=== PATIENT | male | born 1955 | race Caucasian/White ===

== ENCOUNTER 2018-05-18 09:20 | Emergency (ER) | payer MEDICAID, SELFPAY ==
[2018-05-18] VITALS (21 sets, daily range): BP systolic 123–165; BP diastolic 78–95; PULSE 68–84; RESP 14–31; TEMP 36.4–36.7; O2SAT 96–99
--- NOTE | 2018-05-18 10:16 | ED.GENADUL ---
Disposition Clinical Impression: Contusion of right knee, Generalized weakness Disposition: HOME Instructions: Contusion in Adults (ED), Weakness (ED) Additional Instructions: Please follow-up with your primary care physician. Call today to schedule. Please take it easy over the next few days. Allow for plenty of rest. Return to the emergency department immediately for any worsening or new concerning symptoms. Referrals: Ethel Collins MD [Primary Care Provider] - Medical Decision Making - Lab Data Laboratory Tests 05/18/18 05/18/18 05/18/18 10:25 10:25 10:25 WBC 9.23 RBC 3.52 L Hgb 11.2 L Hct 32.3 L MCV 91.8 MCH 31.8 MCHC 34.7 RDW 13.6 Plt Count 189 MPV 9.9 Immature Gran % 0.2 Neutrophils % 70.3 Lymphocytes % 15.0 Monocytes % 10.8 Eosinophils % 3.3 Basophils % 0.4 Absolute Neutrophils 6.49 Absolute Lymphocytes 1.38 Absolute Monocytes 1.00 H Absolute Eosinophils 0.30 Absolute Basophils 0.04 Sodium 139 Potassium 3.6 Chloride 105 Carbon Dioxide 23.8 Anion Gap 10.2 BUN 58 H Creatinine 5.41 H* Estimated GFR/1.73 m2 10.76 Glucose 199 H Calcium 9.2 Magnesium 1.9 Total Bilirubin 0.4 AST 13 L ALT 18 Alkaline Phosphatase 103 Troponin I < 0.02 NT-Pro-B Natriuret Pep 3402 H Total Protein 7.5 Albumin 3.9 TSH 4.16 H Free T4 1.12 Results reviewed for labs ordered during visit: Yes - Medical Decision Making Medical screening exam was performed. 62-year-old male with multiple medical problems including chronic kidney disease, coronary artery disease, cognitive delay, diabetes, presents with generalized weakness and status post fall last night where he notes his legs gave out. No syncope. Patient complaining of pain in his right knee. Normal blood pressure, saturating well in no respiratory distress. ECG reviewed and interpreted by me: Sinus rhythm 71 bpm, left axis, LVH, nondiagnostic, no change from prior. Labs reviewed and chronic kidney disease noted. BNP is elevated but this is in the setting of chronic kidney disease. Patient saturating well no respiratory distress with no signs of overt CHF. xray of the right knee interpreted by radiologY: neg for acute process. Suspect contusion. Will provide chuy wrap. Patient reassessed remained stable here in emergency department. I encouraged him to follow-up with his primary care physician. He understands importance of timely follow-up and will call today to schedule. I encouraged him to return should have any worsening or new concerning symptoms. History of Present Illness - General Chief complaint: Orthopedic Stated complaint: FALL INJURY Time Seen by Provider: 05/18/18 10:00 Source: patient, RN notes reviewed Mode of arrival: ambulatory Limitations: no limitations - History of Present Illness Initial comments: 62-year-old male with multiple medical problems including chronic kidney disease, coronary artery disease, cognitive delay, diabetes, presents with generalized weakness and status post fall last night where he notes his legs gave out. He did not loose consciousness. Patient complaining of pain in his right knee. Pain is moderate and worse with movement of knee and on palpation anterior and inferior. Pain described sore. Patient has had generalized weakness over the apst 1-2 weeks. No associated numbness. No CP or SOB. - Related Data Polyethylene Glycol 3350 [Miralax] 34 g PO BID PRN packet 03/03/13 Dorzolamide HCl/Timolol Maleat [Dorzolamide-Timolol Eye Drops] 1 drp OP BID drp 11/18/13 BuPROPion CR [Wellbutrin Sr] 200 mg PO DAILY 03/22/15 Blood Sugar Diagnostic [Freestyle Lite Strips] 1 each QID #100 strip 05/03/15 Lancets [Freestyle Lancets] 1 each QID #100 each 05/03/15 Cholecalciferol (Vitamin D3) [Vitamin D3] 2,000 unit PO DAILY 11/02/15 Dund[place], Insulin Disposable [Bd Ultra-Fine Pen Needle] 1 each AC & HS #350 ndl 12/12/15 Calcitriol [Rocaltrol] 0.25 mcg PO DAILY 03/21/16 Loperamide [Imodium] 2 mg PO QLOOSE PRN cap 05/04/16 Melatonin 2 mg PO DIRECTED 02/09/17 Furosemide 20 mg PO DAILY PRN 02/11/17 Gabapentin 400 mg PO BID tab-cap 02/18/17 Diaper,Brief,Adult,Disposable [Adult Brief] 1 each TID #300 each 06/04/17 Atorvastatin Calcium 80 mg PO DAILY #30 tab-cap 06/23/17 Albuterol Sulfate [Proair Hfa] 2 puff IH Q4H PRN #1 inh 07/29/17 Capsaicin [Zostrix] 1 flash TP TID #1 tube 08/12/17 Lidocaine 1 each TP HS PRN #30 patch 09/08/17 Clopidogrel [Plavix] 75 mg PO DAILY #30 tab-cap 11/10/17 Docusate Sodium 100 mg PO BID #60 tab-cap 11/10/17 Insulin Aspart [NovoLOG Flexpen] 5 unit SQ 3X/DAY #10 pen 11/18/17 Lidocaine [Lidoderm] 1 each TP PRN patch 12/23/17 Amlodipine Besylate 10 mg PO DAILY #30 tab-cap 12/29/17 Hydralazine HCl 10 mg PO BID #60 tab-cap 12/29/17 Metoclopramide [Reglan] 5 mg PO TID #90 tab-cap 12/29/17 Torsemide 20 mg PO BID #60 tab-cap 12/29/17 Solifenacin [Vesicare] 5 mg PO DAILY #30 tab-cap 01/01/18 Insulin Detemir [Levemir Flextouch] 15 unit SQ DAILY #5 pen 01/02/18 Finasteride 5 mg PO DAILY #90 tab-cap 02/10/18 Metoprolol [Lopressor] 25 mg PO BID #60 tab-cap 04/08/18 Tamsulosin HCl 0.8 mg PO DAILY #60 tab-cap 04/08/18 Dexlansoprazole [Dexilant] 60 mg PO BID #60 cap 05/19/18 Allergies Allergy/AdvReac Type Severity Reaction Status Date / Time buspirone Allergy Intermediate SKIN RASH, Unverified 05/21/18 10:06 DIZZINESS tuberculin, purified protein Allergy Unknown Unverified 05/21/18 10:06 deriva mirtazapine AdvReac Severe hypotension Unverified 05/21/18 10:06 and falls NO BLOOD PRESSURE (L) ARM AdvReac Severe Uncoded 08/12/17 11:51 Review of Systems Constitutional: denies: fever Respiratory: denies: shortness of breath Cardiovascular: denies: chest pain Gastrointestinal: denies: abdominal pain Musculoskeletal: as per HPI Neurological: weakness (generalized with no focAl deficits) Comment: All other systems reviewed and negative Past Medical History - Past Medical History Medical history: CAD, CVA/TIA, diabetes, hyperlipidemia Surgical history: vascular surgery Family history: no significant family history - Social History Alcohol use: none Drug use: none General Exam - General Limitations: no limitations General appearance: alert, in no apparent distress - Head Head exam: Present: atraumatic, normocephalic - Eye Eye exam: Present: EOMI. Absent: scleral icterus, conjunctival injection - ENT ENT exam: Present: mucous membranes moist - Respiratory Respiratory exam: Present: normal lung sounds bilaterally. Absent: respiratory distress, wheezes, rales, rhonchi - Cardiovascular Cardiovascular Exam: Present: regular rate, normal rhythm, normal heart sounds - GI/Abdominal GI/Abdominal exam: Present: soft. Absent: distended, tenderness - Extremities Exam Extremities exam: Present: other (RLE: knee ttp anterior and inferior lateral. No effusion. Able to flex and ext fully against gravity. Neg ant drawer. ). Absent: pedal edema - Neurological Exam Neurological exam: Present: alert. Absent: altered, motor sensory deficit - Skin Skin exam: Present: warm, dry, intact Course Vital Signs - 24 hr 05/18/18 09:21 Temperature 36.7 C Pulse 84 Respiratory 16 Rate Blood Pressure 123/78 Pulse Oximetry 96
[2018-05-18 10:42] LABS: Abs Immature Grans 0.02 k/cumm (0.0-0.09); Absolute Basophil Count 0.04 k/cumm (0.0-0.2); Absolute Lymphocyte Count 1.38 k/cumm (1.2-3.4); Absolute Neutrophil Count 6.49 k/cumm (1.2-6.7); Basophils % 0.4; Eosinophils % 3.3; HCT 32.3 % (40.0-50.0); HGB 11.2 g/dL (13.5-17.5); Immature Grans % 0.2; Mean Corp. HGB Concentration 34.7 g/dL (32.0-36.0); Mean Corpuscular Hemoglobin 31.8 pg (27.0-33.0); Mean Corpuscular Volume 91.8 fL (80-95); Mean Platelet Volume 9.9 fL (8.0-11.0); Monocytes % 10.8; Neutrophils % 70.3; Platelet Count 189 x1000/uL (130-400); RBC 3.52 m/cumm (4.50-6.00); RBC Distribution Width 13.6 % (11.8-14.1); White Blood Cell Count 9.23 k/cumm (4.4-10.8)
--- NOTE | 2018-05-18 10:45 | DI.REPORT_ITS ---
SYMPTOMS/DIAGNOSIS: PAIN, FALL, TENDER ANTERIOR RIGHT KNEE: Four views. No acute fracture or dislocation is seen. Mild degenerative changes are seen in the knee. Chondrocalcinosis is present in the femoral tibial joint space. Vascular calcifications are noted. IMPRESSION: No acute fracture or dislocation.
[2018-05-18 11:03] LABS: ALT 18 U/L (12-78); AST 13 U/L (15-37); Albumin 3.9 g/dL (3.4-5.0); Alkaline Phosphatase 103 U/L (46-116); Anion Gap 10.2 mmol/L (3-11); BUN 58 mg/dL (7-18); Bilirubin, Total 0.4 mg/dL (0.2-1.0); CO2 23.8 mmol/L (21.0-32.0); Calcium 9.2 mg/dL (8.5-10.1); Chloride 105 mmol/L (98-107); Estimated GFR 10.76 (mL/min/1.73m2); Glucose 199 mg/dL (70-100); Magnesium 1.9 mg/dL (1.8-2.4); Potassium 3.6 mmol/L (3.5-5.1); Sodium 139 mmol/L (136-145); Total Protein 7.5 g/dL (6.4-8.2)
[2018-05-18 11:06] LABS: CREATININE 5.41 mg/dL (0.70-1.30); Troponin I < 0.02 ng/mL (0.00-0.06)
[2018-05-18 11:12] LABS: NT-proBNP 3402 pg/mL; TSH (W/Ref FT4) 4.16 uIU/mL (0.358-3.74)
[2018-05-18 11:35] LABS: FREE T4 1.12 ng/dL (0.76-1.46)
== END 2018-05-18 14:02 | disposition home or self-care (01) ==
LOC: ER 06-20 13:10
PROVIDERS: Emergency Provider Student in an Organized Health Care Education/Training Program; PCP Internal Medicine
DX: S80.01XA Contusion of right knee, initial encounter (principal); R53.1 Weakness; W18.30XA Fall on same level, unspecified, initial encounter; E11.22 Type 2 diabetes mellitus with diabetic chronic kidney disease; Z79.4 Long term (current) use of insulin; I12.9 Hypertensive chronic kidney disease with stage 1 through stage 4 chronic kidney disease, or unspecified chronic kidney disease; N18.9 Chronic kidney disease, unspecified
CPT/HCPCS: 36415; 80053; 99285; 73564; 83735; 83880; 84439; 84443; 84484; 85025; 93010; 99281

== ENCOUNTER 2018-06-20 13:13 | Inpatient (IN) | payer MEDICARE, MEDICAID, SELFPAY ==
[2018-06-20 13:36] VITALS: BP 180/92; PULSE 99; RESP 26; TEMP 36.8
[2018-06-20 13:39] VITALS: RESP 26
--- NOTE | 2018-06-20 13:40 | DI.CT_ITS ---
SYMPTOM/DIAGNOSIS: FALL, OLD STROKES, ON THINNERS, ABD PAIN THORACIC AND LUMBAR SPINE CT RECONSTRUCTIONS: 06/20 CT reconstructions were performed from raw data set of chest, abdomen and pelvis CT. No thoracic or lumbar spine fracture identified. Severe hypertrophic degenerative changes with multilevel fusion of vertebral end plates throughout the thoracic and lumbar spine noted.
--- NOTE | 2018-06-20 13:40 | DI.COMBO_ITS ---
SYMPTOM/DIAGNOSIS: FALL, OLD STROKES, ON THINNERS, T/L, ABD PAIN CRANIAL CT: 06/[address] was performed. There is moderate generalized cerebral atrophy unusual for this age group. There are bilateral apparent lacunar infarcts. There is no evidence of acute intracranial hemorrhage, mass effect or midline shift. Small basal ganglia calcification noted on the left. The orbital and temporal bone structures appear intact. Possible old pontine infarct noted right paramidline, probably also present on CT of 04/30/2016. CONCLUSION: No evidence of acute intracranial process. CERVICAL SPINE CT: 06/20 CT examination of the cervical region was performed utilizing multi slice acquisition and multi-planar reconstruction. There are moderate degenerative changes of the cervical spine. There is no evidence of acute cervical fracture or dislocation.. Tracheolaryngeal structures appear intact. No gross cervical mass or adenopathy seen. CONCLUSION: No evidence of acute cervical injury CT CHEST, ABDOMEN and PELVIS : 06/20 CT examination of the chest, abdomen and pelvis was performed with no contrast administration. There is patchy air space opacification of the right lower pulmonary lobe, infectious process most likely but pulmonary contusion not entirely excluded. Tracheobronchial tree appears intact throughout. No pleural effusion, pneumothorax or hemothorax seen. No gross evidence of mediastinal hematoma by noncontrast criteria. Liver and spleen grossly unremarkable by noncontrast criteria. Gallbladder and bile ducts are CT normal. Pancreas is fatty replaced but grossly unremarkable. No evidence of bowel injury or bowel obstruction. No significant abdominal wall hernia seen. No significant abdominal or pelvic adenopathy Diverticulosis without evidence of diverticulitis. Adrenals unremarkable in appearance. Kidneys contain multiple nonobstructing calculi. These are mostly likely arterial in nature. Urinary bladder wall is thickened which is a nonspecific finding. No injury of the bones identified in the region surveyed. No pelvic, femoral or spinal fracture seen. CONCLUSION: Question right lower lobe pneumonia vs pulmonary contusion, please correlate clinically.
[2018-06-20 14:08] LABS: Abs Immature Grans 0.02 k/cumm (0.0-0.09); Absolute Eosinophil Count 0.23 k/cumm (0.0-0.7); Absolute Lymphocyte Count 1.19 k/cumm (1.2-3.4); Absolute Monocyte Count 1.36 k/cumm (0.11-0.7); Basophils % 0.1; Eosinophils % 1.6; HGB 11.6 g/dL (13.5-17.5); Immature Grans % 0.1; Lymphocytes % 8.3; Mean Corp. HGB Concentration 34.1 g/dL (32.0-36.0); Mean Corpuscular Hemoglobin 31.5 pg (27.0-33.0); Mean Corpuscular Volume 92.4 fL (80-95); Mean Platelet Volume 9.6 fL (8.0-11.0); Monocytes % 9.5; Neutrophils % 80.4; Platelet Count 167 x1000/uL (130-400); RBC 3.68 m/cumm (4.50-6.00); RBC Distribution Width 13.4 % (11.8-14.1); White Blood Cell Count 14.34 k/cumm (4.4-10.8)
[2018-06-20 14:14] LABS: Absolute Basophil Count 0.01 k/cumm (0.0-0.2); Absolute Neutrophil Count 11.53 k/cumm (1.2-6.7)
[2018-06-20 14:24] LABS: Ammonia 10 umol/L (11-32)
[2018-06-20 14:30] LABS: ALT 21 U/L (12-78); AST 47 U/L (15-37); Albumin 3.8 g/dL (3.4-5.0); Alkaline Phosphatase 105 U/L (46-116); Anion Gap 12.3 mmol/L (3-11); BUN 56 mg/dL (7-18); Bilirubin, Total 0.7 mg/dL (0.2-1.0); CO2 24.7 mmol/L (21.0-32.0); Calcium 9.4 mg/dL (8.5-10.1); Chloride 106 mmol/L (98-107); Estimated GFR 11.44 (mL/min/1.73m2); Glucose 207 mg/dL (70-100); Potassium 3.8 mmol/L (3.5-5.1); Sodium 143 mmol/L (136-145); Total Protein 7.8 g/dL (6.4-8.2)
[2018-06-20 14:33] LABS: CREATININE 5.13 mg/dL (0.70-1.30); Creatine Kinase 1417 U/L (39-308); Troponin I < 0.02 ng/mL (0.00-0.06)
[2018-06-20 14:52] LABS: Bilirubin Negative (Negative); Blood Moderate (Negative); Clarity Clear; Glucose 100 mg/dL (Negative); Ketones Negative (Negative); Leukocyte Esterase Negative (Negative); Nitrite Negative (Negative); Urobilinogen 0.2 EU/dL (Up TO 0.2); pH 5.5 (5-8)
[2018-06-20 15:04] LABS: Bacteria Negative HPF (Negative); C & S Indicated? No; Casts Negative LPF (Negative); Crystals Negative HPF (Negative); Epithelial Cells Negative HPF (Negative); Mucus Negative (Negative); Other Cells Rare Transitional (Negative); WBC 0-2 HPF (0-5)
--- NOTE | 2018-06-20 15:41 | DI.VRAD_ITS ---
EXAM: CT Head Without Intravenous Contrast CLINICAL HISTORY: 62 years old, male; Injury or trauma; Fall; Initial encounter; Blunt trauma (contusions or hematomas); Consciousness not specified; Injury details: Fall, HX stroke, on thinners, t/l spine pain, abd pain TECHNIQUE: Axial computed tomography images of the head/brain without intravenous contrast. All CT scans at this facility use at least one of these dose optimization techniques: automated exposure control; mA and/or kV adjustment per patient size (includes targeted exams where dose is matched to clinical indication); or iterative reconstruction. Coronal and sagittal reformatted images were created and reviewed. COMPARISON: No relevant prior studies available. FINDINGS: Brain: Mild cerebral atrophy and ischemic leukoencephalopathy. No hemorrhage. Ventricles: Unremarkable. No ventriculomegaly. Bones/joints: Unremarkable. No acute fracture. Soft tissues: Unremarkable. Vasculature: Severe calcified intracranial atherosclerotic vessel disease. Sinuses: Unremarkable as visualized. No acute sinusitis. Mastoid air cells: Unremarkable as visualized. No mastoid effusion. IMPRESSION: No acute findings. EXAM: CT Cervical Spine Without Intravenous Contrast CLINICAL HISTORY: 62 years old, male; Injury or trauma; Fall; Initial encounter; Blunt trauma (contusions or hematomas); Consciousness not specified; Injury details: Fall, HX stroke, on thinners, t/l spine pain, abd pain TECHNIQUE: Axial computed tomography images of the cervical spine without intravenous contrast. All CT scans at this facility use at least one of these dose optimization techniques: automated exposure control; mA and/or kV adjustment per patient size (includes targeted exams where dose is matched to clinical indication); or iterative reconstruction. Coronal and sagittal reformatted images were created and reviewed. COMPARISON: CT HEAD WITHOUT CONTRAST 04/30/2016 12:24 PM FINDINGS: Vertebrae: Levoscoliosis. Moderate to severe multilevel degenerative changes including degenerative disc disease, spondylosis and facet degenerative changes. No acute fracture. Discs/spinal canal/neural foramina: See above. Soft tissues: Unremarkable. Lung apices: Unremarkable as visualized. IMPRESSION: No acute findings. Dictated and Authenticated by: Balaji Greenwood MD. Ordering:FERNANDA PEDRO MD
--- NOTE | 2018-06-20 16:09 | DI.VRAD_ITS ---
EXAM: CT Chest Without Intravenous Contrast EXAM DATE/TIME: 06/20/2018 1:43 PM CLINICAL HISTORY: 62 years old, male; Injury or trauma; Fall; Initial encounter; Blunt; Generalized; Blunt trauma (contusions or hematomas); Patient HX: Fall, old strokes, on thinners, t/l and abd pain TECHNIQUE: Axial computed tomography images of the chest without intravenous contrast. Coronal and sagittal reformatted images were created and reviewed. COMPARISON: CT ABD PELVIS WO CONTRAST 04/03/2016 5:13 PM FINDINGS: Lungs: Probable mild to moderate right lower lobe pneumonia. Pleural space: Normal. No pneumothorax. No pleural effusion. Heart: Severe calcified coronary artery disease. Aorta: Calcification of the thoracic aorta and/or great vessels consistent with atherosclerotic vessel disease. Lymph nodes: Unremarkable. No enlarged lymph nodes. Bones/joints: There are large flowing multilevel hypertrophic vertebral body osteophytes consistent with diffuse idiopathic skeletal hyperostosis (DISH) syndrome. Soft tissues: Unremarkable. IMPRESSION: 1. Probable mild to moderate right lower lobe pneumonia. 2. Severe calcified coronary artery disease. EXAM: CT Abdomen and Pelvis Without Intravenous Contrast EXAM DATE/TIME: 06/20/2018 1:43 PM CLINICAL HISTORY: 62 years old, male; Injury or trauma; Fall; Initial encounter; Blunt; Generalized; Blunt trauma (contusions or hematomas); Patient HX: Fall, old strokes, on thinners, t/l and abd pain TECHNIQUE: Axial computed tomography images of the abdomen and pelvis without intravenous contrast. Coronal and sagittal reformatted images were created and reviewed. COMPARISON: CT ABD PELVIS WO CONTRAST 04/03/2016 5:13 PM FINDINGS: Lower thorax: No acute findings. ABDOMEN: Liver: Normal. No mass. Gallbladder and bile ducts: Normal. No calcified stones. No ductal dilation. Pancreas: There is fatty infiltration and/or atrophy of the pancreas. Spleen: Normal. No splenomegaly. Adrenals: Normal. No mass. Kidneys and ureters: Small vessel arterial calcifications in the renal aimee bilaterally which are often associated with chronic renal failure. Stomach and bowel: Moderate diverticulosis. Moderate retained feces. Appendix: The appendix appears normal. PELVIS: Bladder: Unremarkable as visualized. Reproductive: Prominent bilateral vas deferens calcifications which can be related to diabetes, advanced age, mechanical obstruction of the vas deferens, tuberculosis, chronic infections or hyperparathyroidism. ABDOMEN and PELVIS: Intraperitoneal space: Normal. No free air. No significant fluid collection. Bones/joints: Moderate to severe multilevel degenerative changes including degenerative disc disease, spondylosis and facet degenerative changes. Soft tissues: Unremarkable. Vasculature: Severe calcified peripheral vascular disease. Calcification of the abdominal aorta and/or iliac arteries consistent with atherosclerotic vessel disease. There are one or more calcified pelvic phleboliths. Lymph nodes: Normal. No enlarged lymph nodes. IMPRESSION: No acute findings. Dictated and Authenticated by: Balaji Greenwood MD. Ordering:FERNANDA PEDRO MD
--- NOTE | 2018-06-20 16:12 | DI.VRAD_ITS ---
EXAM: CT Thoracic Spine Without Intravenous Contrast CLINICAL HISTORY: 62 years old, male; Injury or trauma; Fall; Initial encounter; Blunt trauma (contusions or hematomas); Injury details: Fall, on thinners; T/l and abd pain TECHNIQUE: Axial computed tomography images of the thoracic spine without intravenous contrast. Coronal and sagittal reformatted images were created and reviewed. COMPARISON: No relevant prior studies available. FINDINGS: Vertebrae: There are large flowing multilevel hypertrophic vertebral body osteophytes consistent with diffuse idiopathic skeletal hyperostosis (DISH) syndrome. No acute fracture. Discs/spinal canal/neural foramina: No acute findings. No spinal canal stenosis. Soft tissues: Unremarkable. IMPRESSION: There are large flowing multilevel hypertrophic vertebral body osteophytes consistent with diffuse idiopathic skeletal hyperostosis (DISH) syndrome. EXAM: CT Lumbar Spine Without Intravenous Contrast CLINICAL HISTORY: 62 years old, male; Injury or trauma; Fall; Initial encounter; Blunt trauma (contusions or hematomas); Injury details: Fall, on thinners; T/l and abd pain TECHNIQUE: Axial computed tomography images of the lumbar spine without intravenous contrast. Coronal and sagittal reformatted images were created and reviewed. COMPARISON: No relevant prior studies available. FINDINGS: Vertebrae: There are large flowing multilevel hypertrophic vertebral body osteophytes consistent with diffuse idiopathic skeletal hyperostosis (DISH) syndrome. No acute fracture. Discs/spinal canal/neural foramina: Ossification of the posterior longitudinal ligament creating multilevel central spinal stenosis. Soft tissues: Unremarkable. IMPRESSION: Ossification of the posterior longitudinal ligament creating multilevel central spinal stenosis. Dictated and Authenticated by: Balaji Greenwood MD. Ordering:FERNANDA PEDRO MD
--- NOTE | 2018-06-20 16:17 | ED.GENADUL_ITS ---
Discharge Plan Disposition Patient Disposition: [facility] INPATIENT Condition: Good Discharge Details Chief Complaint: GenMedical Clinical Impression: Rhabdomyolysis, Chronic kidney disease (CKD), stage V, Community acquired pneumonia, Acute dehydration, Fall Admit Date/Time: 06/20/18 16:34 Admit Provider: Balaji Chan Attending Provider: Balaji Chan Primary Care Provider: Ethel Collins ED Provider: Rolando Gibson Discharge Data Discharge Date/Time-TO BE ENTERED AT DEPARTURE: 06/20/18 17:06 Medical Decision Making This is a 62-year-old male with a past medical history of Parkinson's , strokes, hypertension, diabetes, chronic renal failure for which he has a left -sided fistula, but has not started dialysis and is holding off on dialysis per [facility] nephrology. He takes Plavix for his history of strokes. He also has reactive airway disease. He presents today for cough, confusion, and fall. Caregiver states that his last known well was last night in the late afternoon, when she came by to check on him this morning he was found on the ground. He had not taken any of his home medications, and so she assumes that he had been on the floor all night long. He was unable to get up or help himself. There is no blood or signs of trauma at the scene. Initial physical exam demonstrated tenderness in the lower thoracic vertebra, as well as the cervical vertebra. He does have slight slurred speech, which the caregiver states is slightly different from his normal baseline, however he does have some chronic deficits from his old strokes. She states that normally he is able to walk, however he is supposed to be using a walker at all times. In addition to this she does state that over the last few days he has been complaining of a cough and mild shortness of breath. The patient's imaging workup demonstrates no acute process in the CT head or cervical spine per our radiology and virtual radiology. There are some chronic findings of degeneration and diffuse idiopathic skeletal hyperostosis for his thoracic spine, but no fractures. Virtual rate radiology and our personal radiologist both confirm a concern for a right lower lobe pneumonia. With the patient's cough over the last few days, although he is not hypoxic or tachypneic I feel that treatment of this is reasonable. He does have slightly elevated white count however this could be multifactorial from his fall. We will give the first dose of antibiotics now. We did contact [facility] nephrology, and the hospitalist and I spoke with Dr. Rodriguez and Dr. Morrissey, both of which felt that the patient does not need dialysis , and his current kidney findings and lab values are key account representative of his normal baseline, and not in acute process. Patient does have an elevation in in his CPK, and his creatinine is 5.13 however with the CPK of 1417, [facility] medicine and [facility] nephrology do not feel that he needs dialysis and since he is still able to urinate, and has not needed it on his previous visits. Although he is a CKD 5, he is still maintaining kidney function. The patient's troponin and EKG are also normal. At this time with the patient's notable dehydration, mild rhabdomyolysis, fall, and potential community-acquired pneumonia I do feel that he would benefit from inpatient admission, rehydration. I discussed the case with Dr. stubbs, who agreed to accept the patient for admission. He states that they will continue to monitor the patient 's respiratory status to determine if he needs continued antibiotics for potential pneumonia. I have extensively reviewed the treatment plan with the patient. I have addressed all patient concerns at this time. I have also discussed the plan with the admitting physician and they agree with the current assessment and plan and have agreed to assume responsibility for the patient. All parties demonstrate verbal understanding and agreement with our assessment and plan at this time. EKG 13: 48 Rate, 98 MT 208, QTc 467, sinus rhythm, no significant ST elevations or depressions. No Q waves. No T wave inversions. CT chest impression: 1. Probable mild to moderate right lower lobe pneumonia. 2. Severe calcified coronary artery disease. CT abdomen and pelvis 1. No acute process Virtual radiology CT thoracic spine there are large flowing multilevel hypertrophic vertebral body osteophytes consistent with diffuse idiopathic skeletal hyperostosis syndrome CT of the lumbar spine demonstrates ossification of the posterior longitudinal ligament creating multilevel central spinal stenosis CT scan of the head and C-spine demonstrate no acute process HPI General Date/Time Provider Initiated Documentation: 06/20/18 13:40 . HPI Narrative: This is a 62-year-old male with a past medical history of stage V renal disease, with a left AV fistula who is not a candidate for dialysis yet, type 2 diabetes, hypertension, stroke, regular Plavix use as well as chronic asthma. He presents today for evaluation of fall. His caregiver states that she came and found him on the floor this morning. Unknown as to how long he was down. However she did notice that none of his night meds were taken, and so she was concerned that he had been down all night long. The patient was unable to get up on his own. He does not know if he hit his head or not. He does take Plavix for his history of strokes. His caregiver who is at bedside does state that his speech has been slightly off compared to normal, however she is unsure if it is from his dry tongue or something else. The patient does complain of generalized abdominal tenderness, back pain, neck pain , and headache. He also does state that over the last few days he has been having an increasingly worsened cough. He denies any reductive sputum with his cough. He denies any fever or chills. The patient does live at home alone, he is supposed to be using a walker at all times however he regularly refuses to use a walker. The patient and caregiver have no other complaints at this time. Patient is normally seen at [facility] for management of his renal disease. Related Data Home Medications Medication Instructions Recorded Confirmed polyethylene glycol 3350 [Miralax] 34 g PO BID PRN packet 03/03/13 06/20/18 dorzolamide-timolol 1 drp OPHTHALMIC BID drp 11/18/13 06/20/18 bupropion HCl 200 mg PO DAILY 03/22/15 06/20/18 blood sugar diagnostic [FreeStyle #100 strip 05/03/15 06/20/18 Lite Strips] lancets [FreeStyle Lancets] #100 ea 05/03/15 06/20/18 cholecalciferol (vitamin D3) 2,000 unit PO DAILY 11/02/15 06/20/18 [Vitamin D3] pen needle, diabetic [BD #350 ndl 12/12/15 06/20/18 Ultra-Fine Lynne Pen Needle] calcitriol 0.25 mcg PO DAILY 03/21/16 06/20/18 loperamide 2 mg PO QLOOSE PRN cap 05/04/16 06/20/18 melatonin 2 mg PO DIRECTED 02/09/17 06/20/18 furosemide 20 mg PO DAILY PRN 02/11/17 06/20/18 gabapentin 400 mg PO BID tab-cap 02/18/17 06/20/18 albuterol sulfate [ProAir HFA] 2 puff INHALATION Q4H PRN #1 inh 07/29/17 capsaicin [Zostrix] 1 flash TOPICAL TID #1 tube 08/12/17 clopidogrel [Plavix] 75 mg PO DAILY #30 tab-cap 11/10/17 06/20/18 docusate sodium 100 mg PO BID #60 tab-cap 11/10/17 06/20/18 amlodipine 10 mg PO DAILY #30 tab-cap 12/29/17 06/20/18 metoclopramide HCl 5 mg PO TID #90 tab-cap 12/29/17 06/20/18 torsemide 20 mg PO BID #60 tab-cap 12/29/17 06/20/18 solifenacin [Vesicare] 5 mg PO DAILY #30 tab-cap 01/01/18 06/20/18 insulin detemir U-100 [Levemir 15 unit SQ DAILY #5 pen 01/02/18 06/20/18 FlexTouch U-100 Insuln] finasteride 5 mg PO DAILY #90 tab-cap 02/10/18 06/20/18 metoprolol tartrate 25 mg PO BID #60 tab-cap 04/08/18 06/20/18 tamsulosin 0.8 mg PO DAILY #60 tab-cap 04/08/18 06/20/18 dexlansoprazole [Dexilant] 60 mg PO BID #60 cap 05/19/18 06/20/18 atorvastatin 80 mg tablet 80 mg PO DAILY #90 tab 06/01/18 06/20/18 diaper,brief,adult,disposable #300 ea 06/08/18 06/20/18 insulin aspart U-100 100 unit/mL 5 unit SUBCUT 3X/DAY #10 pen 06/10/18 06/20/18 subcutaneous pen carbidopa ER 25 mg-levodopa 100 mg 1 tab PO TID tab 06/14/18 tablet,extended release gabapentin 400 mg PO BID 06/20/18 06/20/18 Previous Rx's Medication Instructions Recorded loperamide 2 mg PO QLOOSE PRN cap 05/04/16 albuterol sulfate [ProAir HFA] 2 puff INHALATION Q4H PRN #1 inh 07/29/17 capsaicin [Zostrix] 1 flash TOPICAL TID #1 tube 08/12/17 clopidogrel [Plavix] 75 mg PO DAILY #30 tab-cap 11/10/17 docusate sodium 100 mg PO BID #60 tab-cap 11/10/17 amlodipine 10 mg PO DAILY #30 tab-cap 12/29/17 metoclopramide HCl 5 mg PO TID #90 tab-cap 12/29/17 torsemide 20 mg PO BID #60 tab-cap 12/29/17 solifenacin [Vesicare] 5 mg PO DAILY #30 tab-cap 01/01/18 insulin detemir U-100 [Levemir 15 unit SQ DAILY #5 pen 01/02/18 FlexTouch U-100 Insuln] finasteride 5 mg PO DAILY #90 tab-cap 02/10/18 metoprolol tartrate 25 mg PO BID #60 tab-cap 04/08/18 tamsulosin 0.8 mg PO DAILY #60 tab-cap 04/08/18 dexlansoprazole [Dexilant] 60 mg PO BID #60 cap 05/19/18 atorvastatin 80 mg tablet 80 mg PO DAILY #90 tab 06/01/18 diaper,brief,adult,disposable #300 ea 06/08/18 insulin aspart U-100 100 unit/mL 5 unit SUBCUT 3X/DAY #10 pen 06/10/18 subcutaneous pen Allergies Allergy/AdvReac Type Severity Reaction Status Date / Time buspirone Allergy Intermediate SKIN RASH, Unverified 06/20/18 15:56 DIZZINESS tuberculin, purified protein Allergy Unknown Unverified 06/20/18 15:56 deriva mirtazapine AdvReac Severe hypotension Unverified 06/20/18 15:56 and falls NO BLOOD PRESSURE (L) ARM AdvReac Severe Uncoded 06/20/18 15:56 General Stated Complaint: GenMedical GERHARD: 3 Review of Systems Review of Systems 10 point review of systems was performed, pertinent positives and negatives are noted in the history of present illness. [facility] Family History Mother No problems noted. Father No problems noted. Medical History BPH (benign prostatic hyperplasia) CAD (coronary artery disease) CHF (congestive heart failure), NYHA class I Chronic kidney disease, stage IV (severe) Diabetic neuropathy Diabetic retinopathy Essential hypertension GERD (gastroesophageal reflux disease) Hyperlipidemia KYLE (obstructive sleep apnea) Stroke Type II diabetes mellitus Social History caregiver/support person: Yes housing: other details: mobile home current occupational status: unemployed Smoking/Tobacco Use Status: Never alcohol intake: never substance use type: does not use seatbelt use: always water heater temp set < 120 deg: Yes working smoke detector in home: Yes carbon monox detector in home: Yes Surgical History Colonoscopy - IV Sedation (04/16/15) EGD - MAC (07/22/17) Endoscopy (07/17/14) Extraction of cataract (03/27/15) Repair of inguinal hernia Exam Narrative Exam Narrative: 1.Const: Well-nourished, Well-developed, appearing stated age 2.Eyes: PERRL, no conjunctival injection, and symmetrical lids. 3.ENT: Atraumatic external nose and ears. Moist MM. Neck: Symmetric, trachea midline, No thyromegaly. There is no evidence of raccoon eyes, gomez sign, CSF rhinorrhea, mastoid tenderness, cranial crepitus, hemotympanum, exophthalmos , or hyphema. Patient demonstrates intact dentition with no signs of tooth avulsion or fracture, no signs of jaw deformity, no evidence of a LeFort's fracture, with an intact palate, nose and orbital region. There is no evidence of a nasal septal hematoma. No proptosis. Jaw closes symmetrically. Airway is clear. 4.CVS: +S1/S2, No murmurs or gallops. Peripheral pulses 2+ and equal in all extremities. Brisk capillary refill in all extremities. 5.RESP: Unlabored respiratory effort. No significant wheezes or rhonchi. Minimal crackles in bases. 6.GI: Soft, generalized tenderness throughout, no focality. Slightly worsened tenderness on the right than the left. No signs of significant bruises or trauma. 7.MSK: Normocephalic/Atraumatic, Extremities w/o deformity. No cyanosis or clubbing, Normal movement of all extremities. Left-sided AV fistula noted at the proximal component of the left arm. 5 out of 5 strength of the upper and lower extremities. Normal abstractor strength bilaterally. Normal movement and coordination of the upper and lower extremities. 5 out of 5 strength for the lower extremities, normal sensation for the upper and lower extremities. Radial pulses and dorsalis pedis pulses +2 bilaterally. No signs of significant deformity or trauma. Patient does have midline thoracic spine tenderness at T10-11 and 12. No significant lumbar spine tenderness. No step- offs 8.Skin: Warm, Dry. No rashes or lesions. 9.Neuro: sizing machine tender II-XII grossly intact. Sensation grossly intact, no focal neurologic deficits. Patient does have minimal slurring of the speech, however he also has notable macroglossia and his tongue is very dry. It is difficult to determine whether it is his current oral state that is changing his speech. He is able to swallow well. Movement of all extremities appears to be symmetric. The patient does have some chronic upper and lower extremity weakness secondary to his old stroke. He demonstrates normal coordination of his extremities. Normal sensation. NIH score is 0 10.Psych: (AAO) x3. Appropriate mood and affect Course Vital Signs Temperature 36.8 C 06/20/18 13:36 Pulse 99 H 06/20/18 13:36 Respiratory Rate 26 H 06/20/18 13:36 Blood Pressure 180/92 H 06/20/18 13:36 Temperature 36.8 C 06/20/18 13:36 Temperature Source Temporal Artery Scan 06/20/18 13:36 Pulse 99 H 06/20/18 13:36 Respiratory Rate 26 H 06/20/18 13:39 Respiratory Effort 06/20/18 13:39 Respiratory Depth Shallow 06/20/18 13:39 Respiratory Pattern Tachypnea 06/20/18 13:39 Blood Pressure 180/92 H 06/20/18 13:36 Blood Pressure Position Supine 06/20/18 13:36 Oxygen Delivery Method Room Air 06/20/18 13:36 Oxygen Flow Rate 0 06/20/18 13:36 Pain Level 10 06/20/18 13:36 Lab/Test Results Lab/Test Results: Laboratory Tests Range/Units 06/20/18 06/20/18 06/20/18 14:00 14:00 14:00 WBC (4.4-10.8) k/cumm 14.34 H RBC (4.50-6.00) m/cumm 3.68 L Hgb (13.5-17.5) g/dL 11.6 L Hct (40.0-50.0) % 34.0 L MCV (80-95) fL 92.4 MCH (27.0-33.0) pg 31.5 MCHC (32.0-36.0) g/dL 34.1 RDW (11.8-14.1) % 13.4 Plt Count (130-400) x1000/uL 167 MPV (8.0-11.0) fL 9.6 Immature Gran % 0.1 Neutrophils % 80.4 Lymphocytes % 8.3 Monocytes % 9.5 Eosinophils % 1.6 Basophils % 0.1 Absolute Neutrophils (1.2-6.7) k/cumm 11.53 H Absolute Lymphocytes (1.2-3.4) k/cumm 1.19 L Absolute Monocytes (0.11-0.7) k/cumm 1.36 H Absolute Eosinophils (0.0-0.7) k/cumm 0.23 Absolute Basophils (0.0-0.2) k/cumm 0.01 Sodium (136-145) mmol/L 143 Potassium (3.5-5.1) mmol/L 3.8 Chloride (98-107) mmol/L 106 Carbon Dioxide (21.0-32.0) mmol/L 24.7 Anion Gap (3-11) mmol/L 12.3 H BUN (7-18) mg/dL 56 H Creatinine (0.70-1.30) mg/dL 5.13 H* Estimated GFR/1.73 m2 (mL/min/1.73m2) 11.44 Glucose (70-100) mg/dL 207 H Calcium (8.5-10.1) mg/dL 9.4 Total Bilirubin (0.2-1.0) mg/dL 0.7 AST (15-37) U/L 47 H ALT (12-78) U/L 21 Alkaline Phosphatase (46-116) U/L 105 Ammonia (11-32) umol/L 10 L Creatine Kinase (39-308) U/L 1417 H Troponin I (0.00-0.06) ng/mL < 0.02 Total Protein (6.4-8.2) g/dL 7.8 Albumin (3.4-5.0) g/dL 3.8 Urine Color (Yellow) Urine Clarity Urine pH (5-8) Ur Specific [place] (1.005-1.025) Urine Protein (Negative) mg/dL Urine Ketones (Negative) mg/dL Urine Blood (Negative) Urine Nitrite (Negative) Urine Bilirubin (Negative) Urine Urobilinogen (Up TO 0.2) EU/dL Ur Leukocyte Esterase (Negative) Urine RBC (0-2) Urine WBC (0-5) HPF Ur Epithelial Cells (Negative) HPF Urine Crystals (Negative) HPF Urine Bacteria (Negative) HPF Urine Casts (Negative) LPF Urine Mucus (Negative) Urine Other (Negative) Ur Culture Indicated? Urine Glucose (Negative) mg/dL Range/Units 06/20/18 14:45 WBC (4.4-10.8) k/cumm RBC (4.50-6.00) m/cumm Hgb (13.5-17.5) g/dL Hct (40.0-50.0) % MCV (80-95) fL MCH (27.0-33.0) pg MCHC (32.0-36.0) g/dL RDW (11.8-14.1) % Plt Count (130-400) x1000/uL MPV (8.0-11.0) fL Immature Gran % Neutrophils % Lymphocytes % Monocytes % Eosinophils % Basophils % Absolute Neutrophils (1.2-6.7) k/cumm Absolute Lymphocytes (1.2-3.4) k/cumm Absolute Monocytes (0.11-0.7) k/cumm Absolute Eosinophils (0.0-0.7) k/cumm Absolute Basophils (0.0-0.2) k/cumm Sodium (136-145) mmol/L Potassium (3.5-5.1) mmol/L Chloride (98-107) mmol/L Carbon Dioxide (21.0-32.0) mmol/L Anion Gap (3-11) mmol/L BUN (7-18) mg/dL Creatinine (0.70-1.30) mg/dL Estimated GFR/1.73 m2 (mL/min/1.73m2) Glucose (70-100) mg/dL Calcium (8.5-10.1) mg/dL Total Bilirubin (0.2-1.0) mg/dL AST (15-37) U/L ALT (12-78) U/L Alkaline Phosphatase (46-116) U/L Ammonia (11-32) umol/L Creatine Kinase (39-308) U/L Troponin I (0.00-0.06) ng/mL Total Protein (6.4-8.2) g/dL Albumin (3.4-5.0) g/dL Urine Color (Yellow) Yellow Urine Clarity Clear Urine pH (5-8) 5.5 Ur Specific [place] (1.005-1.025) 1.020 Urine Protein (Negative) mg/dL >=300 H Urine Ketones (Negative) mg/dL Negative Urine Blood (Negative) Moderate H Urine Nitrite (Negative) Negative Urine Bilirubin (Negative) Negative Urine Urobilinogen (Up TO 0.2) EU/dL 0.2 Ur Leukocyte Esterase (Negative) Negative Urine RBC (0-2) 5-10 H Urine WBC (0-5) HPF 0-2 Ur Epithelial Cells (Negative) HPF Negative Urine Crystals (Negative) HPF Negative Urine Bacteria (Negative) HPF Negative Urine Casts (Negative) LPF Negative Urine Mucus (Negative) Negative Urine Other (Negative) Rare transitional Ur Culture Indicated? No Urine Glucose (Negative) mg/dL 100
[2018-06-20 16:34] VITALS: BP 145/80; PULSE 100; RESP 20; TEMP 36.8; O2SAT 99
[2018-06-20] MEDS: Normal Saline 1,000 ML 1000 ML IV ×2 (16:45)
--- NOTE | 2018-06-20 17:01 | NUR.NOTE ---
Verbal report to Jodi RN to assume care at this time Nursing Note:
--- NOTE | 2018-06-20 17:22 | W.PM.HP.N ---
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 (2) Stroke, lacunar: Current visit: No Status: Acute no evidence of new infarct, will continue plavix, atorvastatin and monitor neurologic checks overnight (3) Gastroesophageal reflux disease: Current visit: No Status: Acute stable, continue dexilant bid (4) Essential hypertension: Current visit: No Status: Acute blood pressures stable, continue to monitor and continue home medications (5) CKD (chronic kidney disease) stage 5, GFR less than 15 ml/min: Current visit: No Status: Acute creatinine at his baseline, continue to closely monitor I&O and kidney funtions, renally dose medications avoid nephrotoxic drugs (6) Gait instability: Current visit: No Status: Acute with recent falls. will place on fall precautions, PT/OT consult (7) Community acquired pneumonia: Current visit: No Status: Acute oxygenating well on room air. will continue azithromycin and ceftriaxone, duonebs, mucinex. (8) Rhabdomyolysis: Current visit: No Status: Acute will give IV fluids overnight, monitor CK and kidney functions. History of Present Illness Chief Complaint: Fall Narrative: this is a 62-year-old diabetic patient with multiple comorbidities with mild cognitive disorder who does live independently and has a caregiver who checks in on him multiple times weekly who has had recent mechanical falls while at home. Did suffer a fall last night thought to have spent his night on the floor in his kitchen. He was found this morning by the caregiver. He states he was unable to get up on his own and that his whole body aches but there is no acute fractures identified in the emergency department. He was noted to have slurred speech and cervical neck pain so also underwent a head CT and cervical spine CT which were both unremarkable. Caregiver does state that he is essentially at his baseline but he does remain a little off and has a little more slurred speech than baseline, he has no focal deficits he is able to tell me where he is and why he is here. He denies any LOC or head injury from his fall states he recalls the entire event and that he just could not get up. He wrapped himself in blankets that he had nearby and states he just spent the night on the floor. He denies headache visual disturbances or unilateral weakness at this time. He states he was not dizzy or lightheaded. Review of Systems Constitutional Reports system reviewed and no additional complaints, except as docu, Reports frequent falls and Denies headache(s) Eyes Denies change in vision and Denies loss of vision ENT Denies vertigo, Denies dizziness and Denies headache(s) Cardiovascular Denies chest pain, Denies syncope, Denies rapid heart rate, Denies palpitations and Denies dyspnea Respiratory Reports chest congestion, Reports cough and Denies dyspnea Gastrointestinal Denies abdominal pain, Denies change in bowel habits, Denies diarrhea, Denies nausea and Denies vomiting Genitourinary Denies hematuria and Denies difficulty urinating Musculoskeletal Reports abnormal gait, Reports myalgias, Denies joint swelling, Denies limited range of motion and Reports muscle weakness Integumentary/Breasts Reports other (Bruises on both lower extremities in various healing stages) Neurologic Reports abnormal speech (Slurred), Reports abnormal gait, Denies vertigo, Denies dizziness, Denies syncope, Reports frequent falls, Denies headache(s) and Denies loss of vision Endocrine Denies palpitations Hematologic/Lymphatic Reports easy bruising PFSH Family History Mother No problems noted. Father No problems noted. Medical History BPH (benign prostatic hyperplasia) CAD (coronary artery disease) CHF (congestive heart failure), NYHA class I Chronic kidney disease, stage IV (severe) Diabetic neuropathy Diabetic retinopathy Essential hypertension GERD (gastroesophageal reflux disease) Hyperlipidemia KYLE (obstructive sleep apnea) Stroke Type II diabetes mellitus Social History caregiver/support person: Yes housing: other details: mobile home current occupational status: unemployed Smoking/Tobacco Use Status: Never alcohol intake: never substance use type: does not use seatbelt use: always water heater temp set < 120 deg: Yes working smoke detector in home: Yes carbon monox detector in home: Yes Surgical History Colonoscopy - IV Sedation (04/16/15) EGD - MAC (07/22/17) Endoscopy (07/17/14) Extraction of cataract (03/27/15) Repair of inguinal hernia Meds Home Medications Medication Instructions Recorded Confirmed Type polyethylene glycol 3350 [Miralax] 34 g PO BID PRN packet 03/03/13 07/14/18 History dorzolamide-timolol 1 drp OPHTHALMIC BID drp 11/18/13 07/14/18 History bupropion HCl 200 mg PO DAILY 03/22/15 07/14/18 History blood sugar diagnostic [FreeStyle #100 strip 05/03/15 07/14/18 History Lite Strips] lancets [FreeStyle Lancets] #100 ea 05/03/15 07/14/18 History cholecalciferol (vitamin D3) 2,000 unit PO DAILY 11/02/15 07/14/18 History [Vitamin D3] pen needle, diabetic [BD #350 ndl 12/12/15 07/14/18 History Ultra-Fine Lynne Pen Needle] calcitriol 0.25 mcg PO DAILY 03/21/16 07/14/18 History loperamide 2 mg PO QLOOSE PRN cap 05/04/16 07/14/18 Rx melatonin 2 mg PO DIRECTED 02/09/17 07/14/18 History furosemide 20 mg PO DAILY PRN 02/11/17 07/14/18 History albuterol sulfate [ProAir HFA] 2 puff INHALATION Q4H PRN #1 inh 07/29/17 07/14/18 Rx capsaicin [Zostrix] 1 flash TOPICAL TID #1 tube 08/12/17 07/14/18 Rx clopidogrel [Plavix] 75 mg PO DAILY #30 tab-cap 11/10/17 07/14/18 Rx docusate sodium 100 mg PO BID #60 tab-cap 11/10/17 07/14/18 Rx solifenacin [Vesicare] 5 mg PO DAILY #30 tab-cap 01/01/18 07/14/18 Rx finasteride 5 mg PO DAILY #90 tab-cap 02/10/18 07/14/18 Rx metoprolol tartrate 25 mg PO BID #60 tab-cap 04/08/18 07/14/18 Rx tamsulosin 0.8 mg PO DAILY #60 tab-cap 04/08/18 07/14/18 Rx atorvastatin 80 mg tablet 80 mg PO DAILY #90 tab 06/01/18 07/14/18 Rx diaper,brief,adult,disposable #300 ea 06/08/18 07/14/18 Rx insulin aspart U-100 100 unit/mL 5 unit SUBCUT 3X/DAY #10 pen 06/10/18 07/14/18 Rx subcutaneous pen carbidopa ER 25 mg-levodopa 100 mg 1 tab PO TID tab 06/14/18 07/14/18 History tablet,extended release gabapentin 400 mg PO BID 06/20/18 07/14/18 History insulin detemir U-100 [Levemir 15 unit SQ DAILY #5 pen 06/23/18 07/14/18 Rx FlexTouch U-100 Insuln] amlodipine 10 mg tablet 10 mg PO DAILY #30 tab-cap 06/28/18 07/14/18 Rx dexlansoprazole 60 mg 60 mg PO BID #60 cap 06/28/18 07/14/18 Rx capsule,biphase delayed release hydralazine 10 mg tablet 10 mg PO BID #60 tab 06/28/18 07/14/18 Rx brimonidine 0.1 % eye drops 1 drp OP BID ml 07/05/18 07/14/18 History guaifenesin ER 600 mg tablet, 600 mg PO Q12H #20 tab 07/05/18 07/14/18 Rx extended release 12 hr torsemide 20 mg tablet See Label Instructions PO .COMPLEX 07/14/18 07/14/18 Rx #90 tab Allergies Allergy/AdvReac Type Severity Reaction Status Date / Time buspirone Allergy Intermediate SKIN RASH, Verified 07/14/18 12:17 DIZZINESS tuberculin, purified protein Allergy Unknown unknown Verified 07/14/18 12:17 deriva mirtazapine AdvReac Severe hypotension Verified 07/14/18 12:17 and falls NO BLOOD PRESSURE (L) ARM AdvReac Severe unknown Uncoded 07/14/18 12:17 Exam Const General: cooperative, no acute distress, disheveled and frail appearing Nutritional Appearance: obese Orientation: alert, awake and oriented x3 HENMT Head: normal to inspection, normocephalic and atraumatic Face and sinus: normal facial exam Mouth: moist mucous membranes abnormal (Slightly dry) Neck Neck: normal visual inspection and full ROM Chest Chest: normal inspection of the chest Resp Effort & Inspection: normal respiratory effort, able to speak in complete sentences, no audible wheezes, cough Quality of cough: wet, not labored, no respiratory distress and other (He is oxygenating well on room air) Auscultation: diminished lung sounds bilaterally, no rhonchi and no wheezes Cardio Rate: regular rate Rhythm: regular rhythm GI Inspection: distended Palpation: soft, no guarding and nontender Auscultation: normal bowel sounds Skin General skin exam: ecchymosis (Bruises on both lower extremities in various healing stages) Trauma: abrasion (Right knee) Neuro General: alert, awake and oriented x3 Speech: abnormal speech slurred Gait: normal gait (Not tested) Motor: muscle tone normal throughout Extrem General: full ROM, normal capillary refill and no pedal edema Right upper extremity: normal to inspection Left upper extremity: normal to inspection Right lower extremity: normal to inspection Left lower extremity: normal to inspection Results Labs : 06/23/18 06:18 06/22/18 06:30 Laboratory Results - last 24 hr 06/20/18 06/20/18 06/20/18 14:00 14:00 14:00 WBC 14.34 H RBC 3.68 L Hgb 11.6 L Hct 34.0 L MCV 92.4 MCH 31.5 MCHC 34.1 RDW 13.4 Plt Count 167 MPV 9.6 Immature Gran % 0.1 Neutrophils % 80.4 Lymphocytes % 8.3 Monocytes % 9.5 Eosinophils % 1.6 Basophils % 0.1 Absolute Neutrophils 11.53 H Absolute Lymphocytes 1.19 L Absolute Monocytes 1.36 H Absolute Eosinophils 0.23 Absolute Basophils 0.01 Sodium 143 Potassium 3.8 Chloride 106 Carbon Dioxide 24.7 Anion Gap 12.3 H BUN 56 H Creatinine 5.13 H* Estimated GFR/1.73 m2 11.44 Glucose 207 H Calcium 9.4 Total Bilirubin 0.7 AST 47 H ALT 21 Alkaline Phosphatase 105 Ammonia 10 L Creatine Kinase 1417 H Troponin I < 0.02 Total Protein 7.8 Albumin 3.8 Urine Color Urine Clarity Urine pH Ur Specific [place] Urine Protein Urine Ketones Urine Blood Urine Nitrite Urine Bilirubin Urine Urobilinogen Ur Leukocyte Esterase Urine RBC Urine WBC Ur Epithelial Cells Urine Crystals Urine Bacteria Urine Casts Urine Mucus Urine Other Ur Culture Indicated? Urine Glucose 06/20/18 14:45 WBC RBC Hgb Hct MCV MCH MCHC RDW Plt Count MPV Immature Gran % Neutrophils % Lymphocytes % Monocytes % Eosinophils % Basophils % Absolute Neutrophils Absolute Lymphocytes Absolute Monocytes Absolute Eosinophils Absolute Basophils Sodium Potassium Chloride Carbon Dioxide Anion Gap BUN Creatinine Estimated GFR/1.73 m2 Glucose Calcium Total Bilirubin AST ALT Alkaline Phosphatase Ammonia Creatine Kinase Troponin I Total Protein Albumin Urine Color Yellow Urine Clarity Clear Urine pH 5.5 Ur Specific [place] 1.020 Urine Protein >=300 H Urine Ketones Negative Urine Blood Moderate H Urine Nitrite Negative Urine Bilirubin Negative Urine Urobilinogen 0.2 Ur Leukocyte Esterase Negative Urine RBC 5-10 H Urine WBC 0-2 Ur Epithelial Cells Negative Urine Crystals Negative Urine Bacteria Negative Urine Casts Negative Urine Mucus Negative Urine Other Rare transitional Ur Culture Indicated? No Urine Glucose 100
[2018-06-20 18:05] VITALS: BP 175/100; PULSE 97; RESP 20; TEMP 36.2; O2SAT 93
[2018-06-20] MEDS: Normal Saline 1,000 ML 150 ML IV (19:17)
[2018-06-20] MEDS: Heparin 5,000 UNITS/ML VIAL 5000 UNITS SC (19:17)
[2018-06-20] MEDS: Azithromycin 500 MG VIAL (20:34)
[2018-06-20] MEDS: Metoclopramide 10 MG TAB 5 MG PO (21:33)
[2018-06-20] MEDS: Melatonin 3 MG TAB PO (21:34)
[2018-06-20] MEDS: Metoprolol 25 MG TAB PO (21:34)
[2018-06-20] MEDS: hydrALAZINE 10 MG TAB PO (21:35)
[2018-06-20] MEDS: Atorvastatin 40 MG TAB 80 MG PO (21:36)
[2018-06-20] MEDS: guaiFENesin 600 MG TABCR PO (21:37)
[2018-06-20] MEDS: Gabapentin 400 MG CAP PO (21:37)
[2018-06-20] MEDS: Docusate Sodium 100 MG CAP PO (21:37)
[2018-06-20] MEDS: Torsemide 20 MG TAB PO (21:37)
[2018-06-20 21:48] VITALS: BP 155/90; PULSE 90; RESP 29; TEMP 36.6; O2SAT 94
[2018-06-21] VITALS (12 sets, daily range): BP systolic 120–194; BP diastolic 67–93; PULSE 69–79; RESP 1–24; TEMP 36.3–37.2; O2SAT 94–100
[2018-06-21] MEDS: Albuterol/Ipratropium 3 ML UPD VIAL UPD ×4 (01:04→18:44)
[2018-06-21] MEDS: Heparin 5,000 UNITS/ML VIAL 5000 UNITS SC ×3 (01:36→17:57)
[2018-06-21] MEDS: Normal Saline 1,000 ML 150 ML IV ×4 (02:49→23:16)
[2018-06-21 07:02] LABS: Abs Immature Grans 0.01 k/cumm (0.0-0.09); Absolute Basophil Count 0.03 k/cumm (0.0-0.2); Absolute Eosinophil Count 0.31 k/cumm (0.0-0.7); Absolute Lymphocyte Count 1.22 k/cumm (1.2-3.4); Absolute Monocyte Count 0.96 k/cumm (0.11-0.7); Absolute Neutrophil Count 7.75 k/cumm (1.2-6.7); Basophils % 0.3; HGB 9.9 g/dL (13.5-17.5); Immature Grans % 0.1; Lymphocytes % 11.9; Mean Corpuscular Hemoglobin 31.1 pg (27.0-33.0); Mean Corpuscular Volume 94.3 fL (80-95); Mean Platelet Volume 10.2 fL (8.0-11.0); Monocytes % 9.3; Neutrophils % 75.4; Platelet Count 149 x1000/uL (130-400); RBC 3.18 m/cumm (4.50-6.00); RBC Distribution Width 13.6 % (11.8-14.1); White Blood Cell Count 10.28 k/cumm (4.4-10.8)
[2018-06-21 07:08] LABS: ALT 19 U/L (12-78); AST 34 U/L (15-37); Alkaline Phosphatase 83 U/L (46-116); Anion Gap 13.4 mmol/L (3-11); BUN 51 mg/dL (7-18); Bilirubin, Total 0.5 mg/dL (0.2-1.0); CO2 21.6 mmol/L (21.0-32.0); Calcium 8.4 mg/dL (8.5-10.1); Chloride 109 mmol/L (98-107); Creatine Kinase 758 U/L (39-308); Glucose 163 mg/dL (70-100); Potassium 3.8 mmol/L (3.5-5.1); Sodium 144 mmol/L (136-145); Total Protein 6.4 g/dL (6.4-8.2)
[2018-06-21 07:14] LABS: CREATININE 4.53 mg/dL (0.70-1.30)
[2018-06-21] MEDS: hydrALAZINE 10 MG TAB PO ×2 (09:02→22:04)
[2018-06-21] MEDS: buPROPion-CR 150 MG TABCR 200 MG PO (09:02)
[2018-06-21] MEDS: Metoprolol 25 MG TAB PO ×2 (09:02→22:04)
[2018-06-21] MEDS: Metoclopramide 10 MG TAB 5 MG PO ×2 (09:02→22:04)
[2018-06-21] MEDS: Dexlansoprazole 30 MG CAP 60 MG PO ×3 (09:03→22:06)
[2018-06-21] MEDS: amLODIPine 10 MG TAB PO (09:03)
[2018-06-21] MEDS: Clopidogrel 75 MG TAB PO (09:03)
[2018-06-21] MEDS: Torsemide 20 MG TAB PO ×2 (09:03→22:03)
[2018-06-21] MEDS: Calcitriol 0.25 MCG CAP PO (09:03)
[2018-06-21] MEDS: guaiFENesin 600 MG TABCR PO ×2 (09:03→22:04)
[2018-06-21] MEDS: Finasteride 5 MG TAB PO (09:03)
[2018-06-21] MEDS: Docusate Sodium 100 MG CAP PO ×2 (09:03→22:03)
[2018-06-21] MEDS: Gabapentin 400 MG CAP PO ×2 (09:04→22:03)
[2018-06-21] MEDS: Tamsulosin 0.4 MG CAPCR 0.8 MG PO (09:04)
[2018-06-21] MEDS: Insulin Aspart 300 UNITS/3 ML PEN SC ×3 (09:04→17:04)
[2018-06-21] MEDS: Timolol 0.5% 5 ML BTL OP ×2 (09:07→22:09)
[2018-06-21] MEDS: Dorzolamide 2% 10 ML BTL OP ×2 (09:08→22:13)
--- NOTE | 2018-06-21 10:46 | PDOC.CMIN ---
Care Management Initial Assess REASON FOR HOSPITALIZATION:: Rhabdomylosis PAST MEDICAL HISTORY/PAST SURGICAL HISTORY:: BPH, CAD, CHF, NYHA class I, Chronic kidney disease, stage IV (severe). Diabetic neuropathy, Diabetic retinopathy, Essential hypertension, GERD, Hyperlipidemia, KYLE, Stroke, Type II diabetes mellitus PREVIOUS FUNCTIONAL STATUS/SOCIAL/FAMILY SUPPORTS:: Mati resides somewhat independently with the public services assistant support of [facility] DS workers. He has scheduled weekly caregivers from [phone] daily who provide support with meal prep, ADLs including dressing Mati though he reportedly is able to shower on his own. They also check on him during the weekend days. Mati has a license but no longer drives. His foster care case manager is Litzy Ha. She is at his bedside with two additional caregivers and provides information. CURRENT FUNCTIONAL STATUS:: Mati is lying in bed when CM meets with him. He is pleasant in interaction and makes plans to outreach to friend with his caregivers. ADVANCE DIRECTIVES:: TBD Has patient been provided with information about the portal?: No Did the patient sign up for the portal?: No CODE STATUS:: Full Code INSURANCE COVERAGE / FINANCIAL ISSUES:: Medicaid CURRENT HOME/COMMUNITY SERVICES/EQUIPMENT:: [facility] [employer] services, FWW, Cane PRIMARY CARE PHYSICIAN:: Ethel Collins M.D. POTENTIAL DISCHARGE NEEDS:: Review of additional supports; possible coordination of increased services. PATIENT/FAMILY EDUCATION NEEDS:: [facility] resources, discharge planning. ANTICIPATED BARRIERS TO DISCHARGE:: None identified. TRANSPORTATION:: Via private vehicle with caregivers. PLAN:: Per Momo Mati's [facility] CM, Mati will likely return to her home for a period of recovery. He will spend days at his home with caregivers and evenings/nights with Vicki. Mcghee shared concerns around [facility] supports which Mati had previously but cancelled due to cost. CM reviewed process and provided resources to offset costs through direct referral with [facility]. Undetermined if Mati will have new orders through [facility] for PT; CM will continue to follow. Mati will transport via private vehicle with his caregivers.
--- NOTE | 2018-06-21 11:26 | PHARADMIT ---
Admission Pharmacy Clinical Review Fall at home Code Status Full Code Current Weight wgt- 108.1 kg Renally Cleared and Narrow Therapeutic Index Meds CrCl~ 16 mL/min Meds-OK QTc Value / Action Taken na BP Control, Fever BP- 194/84 Tmax- 36.8C Electrolytes reviewed Na-144 K+3.8 DVT Prophylaxis Plavix, Heparin SQ Opiate Usage / Scheduled Bowel Regimen Ordered Yes Yes Plt/SCr for Heparin / Enoxaparin Plts-149 SCr-4.53 INR for Warfarin na H/H stable, WBC/Bands H&H- 9.9/30.0 WBC- 10.28 Antibiotic appropriateness Azithromycin/Rocephin in ER Cultures and Sensitivities none Surgical ABX d/c within 24 hr na DM control / Insulin Dosing BG-163 Aspart, Detemir Heart Failure (Check EF%) (DWAINE's, B-Block, Diuretics) Lopressor, Norvasc, Hydralazine, Torsemide IV to PO Switch No Home Meds Reviewed Yes Home Meds Not Ordered Lasix, Lidoderm, Zostrix, Comments
--- NOTE | 2018-06-21 11:48 | PT.INIE ---
Date of service: 06/21/18 Time of Service: 10:45 PT Notes Inpatient Physical Therapy Evaluation Date:06/21/18 Referring Doctor: Annie Hidalgo DENTAL ASSISTANT TEACHER PT Orders: PT CONSULT: recent frequent falls Precautions: Fall precautions Patient Profile/Admitting Diagnosis: Pt is a 62yr old male admitted with community acquired pneumonia PMHX: diabetes mellitus, diabetic neuropathy, diabetic retinopathy, mild cognitive disorder, chronic kidney disease stage V, spinal stenosis, incontinence, cerebrovascular accident, coronary artery disease, congestive heart failure, hypertension, benign prostatic hypertrophy, gastroesophageal reflux disease, hyperlidemia, obstructive sleep apnea, catract extraction, inguinal hernia repair, colonoscopy Social History/Home Situation: Lives in a mobile home alone, 4 steps with railing to enter. Has caregiver 8hours/day 5 days/week, alone on weekends with caregiver checking in. Baseline mobility indepedent gait with no device, it has been recommended at outpatient physical therapy where he attends for balance training that he use a cane or walker for safety with mobility, pt refuses to use one. Caregiver states they assist him with trips to the store and appointments with no device, he receives hand held assist for up/down stairs. Equipment Owned/DME: cane, FWW, grab bars, motorized cart in the stores Subjective: Pt lying in bed visiting with caregiver, stating I don't like PT when therapists enters room, agreeable to PT consult. Objective: Mental Status: A& O x3 Pain: no c/o pain Bed Mobility/Transfers: Supine-sit: HOB 30 degrees, independent Sit-stand: SBA with FWW Stand-sit: SBA Sit-supine: HOB flat, independent Gait: SBA with FWW 100ft (25ftx4 in room). Pt steady with no loss of balance with use of FWW for gait. Pt returned to [facility] bed after session completed, fall alarm activated. Balance: Static Sitting: normal Dynamic Sitting: normal Static Standing: fair Dynamic Standing: fair Special Tests: Mobility Limitations Standardized Measure [facility] AM-PAC 6 clicks Basic Mobility Inpatient Short Form: Raw Score: 18 Standardized Score: 43.63 CMS Score: 46.58% CMS Modifier: CK Informed Consent/Education: Patient instructed in purpose of PT consult and plan of care. Assessment: Pt is a 62yr old male admitted with community acquired pneumonia in setting of diabetes mellitus, diabetic neuropathy, diabetic retinopathy, mild cognitive disorder, chronic kidney disease stage V, spinal stenosis, incontinence, cerebrovascular accident. Patient presents close to his baseline level of strength and functional mobility. FWW is recommended for transfers and gait stability due to baseline of decreased balance. Will initiate short term therapy intervention in hospital setting for strengthening, balance training, gait training. Anticipate return to home when medicall cleared. Impairments are contributing to the following functional limitations: AMPAC score CMS Score: 46.58% Patient is assessed as a Low 41560 complexity based on the following: History: see above Examination: see above Presentation: stable Decision Making: AMPAC score CMS Score: 46.58% Goals: Goals X1 week 1. Supine-Sit independent 2. Sit-Supine independent 3. Sit-Stand SBA with FWW 4. Stand-Sit SBA with FWW 5. Bed-Chair supervision with FWW 6. Chair-Bed supervision with FWW 7. Gait supervision with FWW 150ft Plan of Care/Treatment Plan: 1-2x/day, 7 days/week x 1 week. Plan of care has been reviewed with the BELT KNIFE FEEDER providing the service under Physical Therapy direction. Initiate Physical Therapy intervention for strengthening, bed mobility, transfers, gait, stairs, balance training, use of assistive device. DISCHARGE RECOMMENDATIONS: Home with caregiver support, return to outpatpatient PT at [facility] TREATMENT CODE/TIME: 25 IE 10:45 G Codes in the area mobility of walking and moving around: current status [id number] CK; projected status GP [id number]. Discharge status (if discharging) GP [id number] CK based on AMPAC score CMS Score: 46.58% Elizabeth Rodriguez PT
--- NOTE | 2018-06-21 12:03 | IN_ITS ---
Date of service: 06/21/18 Time of Service: 10:45 PT Notes Inpatient Physical Therapy Evaluation Date:06/21/18 Referring Doctor: Annie Hidalgo MEDICAL NURSE PT Orders: PT CONSULT: recent frequent falls Precautions: Fall precautions Patient Profile/Admitting Diagnosis: Pt is a 62yr old male admitted with community acquired pneumonia PMHX: diabetes mellitus, diabetic neuropathy, diabetic retinopathy, mild cognitive disorder, chronic kidney disease stage V, spinal stenosis, incontinence, cerebrovascular accident, coronary artery disease, congestive heart failure, hypertension, benign prostatic hypertrophy, gastroesophageal reflux disease, hyperlidemia, obstructive sleep apnea, catract extraction, inguinal hernia repair, colonoscopy Social History/Home Situation: Lives in a mobile home alone, 4 steps with railing to enter. Has caregiver 8hours/day 5 days/week, alone on weekends with caregiver checking in. Baseline mobility indepedent gait with no device, it has been recommended at outpatient physical therapy where he attends for balance training that he use a cane or walker for safety with mobility, pt refuses to use one. Caregiver states they assist him with trips to the store and appointments with no device, he receives hand held assist for up/down stairs. Equipment Owned/DME: cane, FWW, grab bars, motorized cart in the stores Subjective: Pt lying in bed visiting with caregiver, stating I don't like PT when therapists enters room, agreeable to PT consult. Objective: Mental Status: A& O x3 Pain: no c/o pain Bed Mobility/Transfers: Supine-sit: HOB 30 degrees, independent Sit-stand: SBA with FWW Stand-sit: SBA Sit-supine: HOB flat, independent Gait: SBA with FWW 100ft (25ftx4 in room). Pt steady with no loss of balance with use of FWW for gait. Pt returned to [facility] bed after session completed, fall alarm activated. Balance: Static Sitting: normal Dynamic Sitting: normal Static Standing: fair Dynamic Standing: fair Special Tests: Mobility Limitations Standardized Measure [facility] AM-PAC 6 clicks Basic Mobility Inpatient Short Form: Raw Score: 18 Standardized Score: 43.63 CMS Score: 46.58% CMS Modifier: CK Informed Consent/Education: Patient instructed in purpose of PT consult and plan of care. Assessment: Pt is a 62yr old male admitted with community acquired pneumonia in setting of diabetes mellitus, diabetic neuropathy, diabetic retinopathy, mild cognitive disorder, chronic kidney disease stage V, spinal stenosis, incontinence, cerebrovascular accident. Patient presents close to his baseline level of strength and functional mobility. FWW is recommended for transfers and gait stability due to baseline of decreased balance. Will initiate short term therapy intervention in hospital setting for strengthening, balance training, gait training. Anticipate return to home when medicall cleared. Impairments are contributing to the following functional limitations: AMPAC score CMS Score: 46.58% Patient is assessed as a Low 00105 complexity based on the following: History: see above Examination: see above Presentation: stable Decision Making: AMPAC score CMS Score: 46.58% Goals: Goals X1 week 1. Supine-Sit independent 2. Sit-Supine independent 3. Sit-Stand SBA with FWW 4. Stand-Sit SBA with FWW 5. Bed-Chair supervision with FWW 6. Chair-Bed supervision with FWW 7. Gait supervision with FWW 150ft Plan of Care/Treatment Plan: 1-2x/day, 7 days/week x 1 week. Plan of care has been reviewed with the SNIPPER providing the service under Physical Therapy direction. Initiate Physical Therapy intervention for strengthening, bed mobility, transfers, gait, stairs, balance training, use of assistive device. DISCHARGE RECOMMENDATIONS: Home with caregiver support, return to outpatpatient PT at [facility] TREATMENT CODE/TIME: 25 IE 10:45 G Codes in the area mobility of walking and moving around: current status [id number] CK; projected status GP [id number]. Discharge status (if discharging) GP [id number] CK based on AMPAC score CMS Score: 46.58% Elizabeth Rodriguez PT
--- NOTE | 2018-06-21 12:29 | W.PM.PROGNOT ---
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 Continue carbohydrate counting diet and sliding scale insulin for meal coverage. (2) Stroke, lacunar: Current visit: No Status: Acute no evidence of new infarct on imaging. Continue plavix, statin and monitor neurologic status routinely. Some concern from nursing regarding dysphasia and notable coughing while eating. Referral placed for speech therapy for swallow eval (3) Gastroesophageal reflux disease: Current visit: No Status: Acute stable, continue dexilant bid (4) Essential hypertension: Current visit: No Status: Acute blood pressures stable, continue to monitor and continue home medications (5) CKD (chronic kidney disease) stage 5, GFR less than 15 ml/min: Current visit: No Status: Acute Kidney function improving on IV fluids. Continue to monitor (6) Gait instability: Current visit: No Status: Acute with recent falls. will place on fall precautions, PT/OT consult (7) Community acquired pneumonia: Current visit: Yes Status: Acute oxygenating well on room air. will continue azithromycin and ceftriaxone, duonebs, mucinex. (8) Rhabdomyolysis: Current visit: Yes Status: Acute Plan as above (9) Parkinsons: Current visit: Yes Status: Chronic Recently diagnosed by neurology at [facility]. On Monday, June 18, 2018 he was supposed to start carbidopa levodopa ER 25 mg - 100 mg daily for 7 days then increase to twice daily dosing for 7 days and ultimately 3 times daily dosing, however he has not had his medication in the past day or 2 since sustaining a fall at home. Will reinitiate here. Additionally his caregiver states his Reglan is supposed to be twice daily instead of 3 times daily, so this change has been made as well. Subjective Patient reports: no new complaints and feels better Interval history since last seen: Mati is a 62-year-old gentleman with coronary artery disease, CHF, stage IV chronic kidney disease, diabetes, hypertension, hyperlipidemia and history of stroke who was admitted yesterday after sustaining a fall at home with a prolonged period of being on the floor. At that time he was also noted to have slurred speech and cervical neck pain, however head CT and CT of the cervical spine were negative. Today he and his caregiver agree that he has returned back to his baseline. He does live independently, however has caregivers come to the house each week day from 9 to 2:30 PM. Additionally they check on him during the weekend. His caregiver is at the bedside today and is concerned regarding increased frequency of falls over the last 2-3 months. Otherwise he seems in his usual state of health. Nursing is concerned regarding his swallow. Apparently he had a few episodes during breakfast where he was noticed to have some difficulty. This resulted in a fairly frequent cough. Review of systems: 10 point review of systems obtained with pertinent positives noted in HPI, otherwise negative Exam Narrative Exam Narrative: General: 62yo male, obese. Well developed and well nourished. No acute distress. A/Ox3. Pleasant and cooperative. HEENT: Normocephalic, Atraumatic. Conjunctiva clear, sclera non-icteric. PERRL. EOMI. Moist mucous membranes, oropharynx clear. Neck supple, no JVD, thyromegaly or lymphadenopathy. Cardiovascular: Regular rate and rhythm, S1S2, no S3 or S4. No murmur, rub, gallop. Respiratory: Chest expansion symmetrical, respirations unlabored. Lungs clear to auscultation, no adventitious breath sounds. GI: Abdomen round, soft, non-tender to palpation. Normoactive bowel sounds in all 4 quadrants. No hepatosplenomegaly or prominent masses. : deferred Extremities: Lower extremities without deformity or edema Neurological: non-focal. Psychiatric: pleasant and cooperative. Hesitant speech. Mood and affect normal. Objective Objective Clinical Data: Abnormal lab results 06/20/18 06/20/18 06/20/18 Range/Units 14:00 14:00 14:00 WBC 14.34 H (4.4-10.8) k/cumm RBC 3.68 L (4.50-6.00) m/cumm Hgb 11.6 L (13.5-17.5) g/dL Hct 34.0 L (40.0-50.0) % Absolute Neutrophils 11.53 H (1.2-6.7) k/cumm Absolute Lymphocytes 1.19 L (1.2-3.4) k/cumm Absolute Monocytes 1.36 H (0.11-0.7) k/cumm Chloride (98-107) mmol/L Anion Gap 12.3 H (3-11) mmol/L BUN 56 H (7-18) mg/dL Creatinine 5.13 H* (0.70-1.30) mg/dL Glucose 207 H (70-100) mg/dL Calcium (8.5-10.1) mg/dL AST 47 H (15-37) U/L Ammonia 10 L (11-32) umol/L Creatine Kinase 1417 H (39-308) U/L Albumin (3.4-5.0) g/dL Urine Protein (Negative) mg/dL Urine Blood (Negative) Urine RBC (0-2) 06/20/18 06/21/18 06/21/18 Range/Units 14:45 06:25 06:25 WBC (4.4-10.8) k/cumm RBC 3.18 L (4.50-6.00) m/cumm Hgb 9.9 L (13.5-17.5) g/dL Hct 30.0 L (40.0-50.0) % Absolute Neutrophils 7.75 H (1.2-6.7) k/cumm Absolute Lymphocytes (1.2-3.4) k/cumm Absolute Monocytes 0.96 H (0.11-0.7) k/cumm Chloride 109 H (98-107) mmol/L Anion Gap 13.4 H (3-11) mmol/L BUN 51 H (7-18) mg/dL Creatinine 4.53 H* (0.70-1.30) mg/dL Glucose 163 H (70-100) mg/dL Calcium 8.4 L (8.5-10.1) mg/dL AST (15-37) U/L Ammonia (11-32) umol/L Creatine Kinase 758 H (39-308) U/L Albumin 3.0 L (3.4-5.0) g/dL Urine Protein >=300 H (Negative) mg/dL Urine Blood Moderate H (Negative) Urine RBC 5-10 H (0-2) Vital Signs Temperature 36.8 C 06/21/18 07:35 Temperature Source Tympanic 06/21/18 07:35 Pulse 76 06/21/18 07:46 Pulse Rhythm Regular 06/21/18 08:45 Respiratory Rate 20 06/21/18 07:46 Respiratory Effort Non-Labored 06/21/18 08:45 Respiratory Depth Normal 06/21/18 08:45 Respiratory Pattern Normal 06/21/18 08:45 Blood Pressure 194/84 H 06/21/18 07:35 Blood Pressure Position Supine 06/20/18 13:36 Pulse Oximetry 96 06/21/18 07:46 Oxygen Delivery Method Room Air 06/21/18 07:35 Oxygen Flow Rate 0 06/21/18 07:35 Pain Level 0 06/21/18 01:00 Intake & Output 06/20/18 06/21/18 06/21/18 23:59 11:59 23:59 Intake Total 1942.5 / 1942.5 Output Total 600 / 600 Balance 1342.5 / 1342.5 Weight 107.501 kg 108.1 kg Intake: IV 1942.5 / 1942.5 Output: Urine 600 / 600 Other: Urine Appearance Clear Stool Size Moderate Stool Characteristics Liquid Laboratory Results WBC 10.28 k/cumm (4.4-10.8) 06/21/18 06:25 RBC 3.18 m/cumm (4.50-6.00) L 06/21/18 06:25 Hgb 9.9 g/dL (13.5-17.5) L 06/21/18 06:25 Hct 30.0 % (40.0-50.0) L 06/21/18 06:25 MCV 94.3 fL (80-95) 06/21/18 06:25 MCH 31.1 pg (27.0-33.0) 06/21/18 06:25 MCHC 33.0 g/dL (32.0-36.0) 06/21/18 06:25 RDW 13.6 % (11.8-14.1) 06/21/18 06:25 Plt Count 149 x1000/uL (130-400) 06/21/18 06:25 MPV 10.2 fL (8.0-11.0) 06/21/18 06:25 Immature Gran % 0.1 06/21/18 06:25 Neutrophils % 75.4 06/21/18 06:25 Lymphocytes % 11.9 06/21/18 06:25 Monocytes % 9.3 06/21/18 06:25 Eosinophils % 3.0 06/21/18 06:25 Basophils % 0.3 06/21/18 06:25 Absolute Neutrophils 7.75 k/cumm (1.2-6.7) H 06/21/18 06:25 Absolute Lymphocytes 1.22 k/cumm (1.2-3.4) 06/21/18 06:25 Absolute Monocytes 0.96 k/cumm (0.11-0.7) H 06/21/18 06:25 Absolute Eosinophils 0.31 k/cumm (0.0-0.7) 06/21/18 06:25 Absolute Basophils 0.03 k/cumm (0.0-0.2) 06/21/18 06:25 Sodium 144 mmol/L (136-145) 06/21/18 06:25 Potassium 3.8 mmol/L (3.5-5.1) 06/21/18 06:25 Chloride 109 mmol/L (98-107) H 06/21/18 06:25 Carbon Dioxide 21.6 mmol/L (21.0-32.0) 06/21/18 06:25 Anion Gap 13.4 mmol/L (3-11) H 06/21/18 06:25 BUN 51 mg/dL (7-18) H 06/21/18 06:25 Creatinine 4.53 mg/dL (0.70-1.30) H* 06/21/18 06:25 Estimated GFR/1.73 m2 13.20 (mL/min/1.73m2) 06/21/18 06:25 Glucose 163 mg/dL (70-100) H 06/21/18 06:25 POC Glucose Cancelled 06/20/18 22:00 Calcium 8.4 mg/dL (8.5-10.1) L 06/21/18 06:25 Total Bilirubin 0.5 mg/dL (0.2-1.0) 06/21/18 06:25 AST 34 U/L (15-37) 06/21/18 06:25 ALT 19 U/L (12-78) 06/21/18 06:25 Alkaline Phosphatase 83 U/L (46-116) 06/21/18 06:25 Ammonia 10 umol/L (11-32) L 06/20/18 14:00 Creatine Kinase 758 U/L (39-308) H 06/21/18 06:25 Troponin I < 0.02 ng/mL (0.00-0.06) 06/20/18 14:00 Total Protein 6.4 g/dL (6.4-8.2) 06/21/18 06:25 Albumin 3.0 g/dL (3.4-5.0) L 06/21/18 06:25 Urine Color Yellow (Yellow) 06/20/18 14:45 Urine Clarity Clear 06/20/18 14:45 Urine pH 5.5 (5-8) 06/20/18 14:45 Ur Specific [place] 1.020 (1.005-1.025) 06/20/18 14:45 Urine Protein >=300 mg/dL (Negative) H 06/20/18 14:45 Urine Ketones Negative mg/dL (Negative) 06/20/18 14:45 Urine Blood Moderate (Negative) H 06/20/18 14:45 Urine Nitrite Negative (Negative) 06/20/18 14:45 Urine Bilirubin Negative (Negative) 06/20/18 14:45 Urine Urobilinogen 0.2 EU/dL (Up TO 0.2) 06/20/18 14:45 Ur Leukocyte Esterase Negative (Negative) 06/20/18 14:45 Urine RBC 5-10 (0-2) H 06/20/18 14:45 Urine WBC 0-2 HPF (0-5) 06/20/18 14:45 Ur Epithelial Cells Negative HPF (Negative) 06/20/18 14:45 Urine Crystals Negative HPF (Negative) 06/20/18 14:45 Urine Bacteria Negative HPF (Negative) 06/20/18 14:45 Urine Casts Negative LPF (Negative) 06/20/18 14:45 Urine Mucus Negative (Negative) 06/20/18 14:45 Urine Other Rare transitional (Negative) 06/20/18 14:45 Ur Culture Indicated? No 06/20/18 14:45 Urine Glucose 100 mg/dL (Negative) 06/20/18 14:45
--- NOTE | 2018-06-21 14:31 | PT.INTREAT ---
Date of service: 06/21/18 Time of Service: 14:10 PT Notes Inpatient Physical Therapy Treatment Note Date: 06/21/18 PRECAUTIONS: Fall precautions SUBJECTIVE: Pt lying in bed, agreeable to therapy session. Caregivers in room leaving for the day. OBJECTIVE: PAIN: no c/o pain BED MOBILITY/TRANSFERS Sit-stand: SBA with FWW Stand-sit: SBA Sit-supine: HOB flat, independent GAIT Assistive Device: FWW Weight bearing: as tolerated Assist: SBA Distance: 65ftx2 Deviation: decreased stride length, decreased kareen, decreased base of support. Pt running into objects on left side requiring verbal cues to negotiate FWW. Pt slightly short of breath with exertion, 02 sats 97% on room air. Pt returned to bed after session completed with fall alarm activated. THEREX: seated LE ankle pumps, long arc quads and hip flexion x 20 reps ASSESSMENT: Pt more tired this afternoon than this morning, but able to participate in therapy session and initiate LE strengthening. Due to shortness of breath with exertion, pt instructed in pacing and energy conservation techniques. PLAN: Progress strengthening Progress gait distance TREATMENT CODE/TIME: 26min TAx1 TPX 1 1410 Elizabeth Rodriguez PT
--- NOTE | 2018-06-21 15:00 | DM INPTCON_ITS ---
DESCRIPTION/ASSESSMENT: Appreciate diabetes consult for Sharad Dowell who is hospitalized for recent falls. He is a long time person with diabetes well known to outpatient diabetes. A1c 7.4 taking 15u Determir and 5 units mealtime insulin. BMI 35 GFR 26. He has multiple intermediate card tender complications of diabetes. Blood sugars this hospitalization 161 fasting and 260 pre-lunch taking moderate insulin correction of 2 units. No food intake noted. 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 Given his blood sugar spike between breakfast and lunch, he may benefit from an insulin:carb ratio if he is eating. Suggest 1 unit for 15 grams carbohydrate which would not be more than he gets at home for a meal. PLAN: Will follow blood sugars and follow up with him as warranted.
--- NOTE | 2018-06-21 20:34 | INITIAL_ITS ---
Care Management Initial Assess REASON FOR HOSPITALIZATION:: Rhabdomylosis PAST MEDICAL HISTORY/PAST SURGICAL HISTORY:: BPH, CAD, CHF, NYHA class I, Chronic kidney disease, stage IV (severe). Diabetic neuropathy, Diabetic retinopathy, Essential hypertension, GERD, Hyperlipidemia, KYLE, Stroke, Type II diabetes mellitus PREVIOUS FUNCTIONAL STATUS/SOCIAL/FAMILY SUPPORTS:: Mati resides somewhat independently with the extermination inspector support of [facility] [employer] workers. He has scheduled weekly caregivers from [phone] daily who provide support with meal prep, ADLs including dressing Mati though he reportedly is able to shower on his own. They also check on him during the weekend days. Mati has a license but no longer drives. His porter sample case is Litzy Ha. She is at his bedside with two additional caregivers and provides information. CURRENT FUNCTIONAL STATUS:: Mati is lying in bed when CM meets with him. He is pleasant in interaction and makes plans to outreach to friend with his caregivers. ADVANCE DIRECTIVES:: TBD Has patient been provided with information about the portal?: No Did the patient sign up for the portal?: No CODE STATUS:: Full Code INSURANCE COVERAGE / FINANCIAL ISSUES:: Medicaid CURRENT HOME/COMMUNITY SERVICES/EQUIPMENT:: [facility] [employer] services, FWW, Cane PRIMARY CARE PHYSICIAN:: Ethel Collins M.D. POTENTIAL DISCHARGE NEEDS:: Review of additional supports; possible coordination of increased services. PATIENT/FAMILY EDUCATION NEEDS:: [facility] resources, discharge planning. ANTICIPATED BARRIERS TO DISCHARGE:: None identified. TRANSPORTATION:: Via private vehicle with caregivers. PLAN:: Per Momo Mati's [facility] CM, Mati will likely return to her home for a period of recovery. He will spend days at his home with caregivers and evenings/ nights with Vicki. Mcgehe shared concerns around [facility] supports which Mati had previously but cancelled due to cost. CM reviewed process and provided resources to offset costs through direct referral with [facility]. Undetermined if Mati will have new orders through [facility] for PT; CM will continue to follow. Mati will transport via private vehicle with his caregivers.
[2018-06-21] MEDS: Melatonin 3 MG TAB PO (22:04)
[2018-06-21] MEDS: Atorvastatin 40 MG TAB 80 MG PO (22:04)
[2018-06-22] MEDS: Heparin 5,000 UNITS/ML VIAL 5000 UNITS SC ×3 (01:50→17:39)
[2018-06-22] MEDS: Albuterol/Ipratropium 3 ML UPD VIAL UPD ×4 (01:51→18:01)
[2018-06-22] MEDS: Normal Saline 1,000 ML 150 ML IV (06:04)
[2018-06-22] MEDS: Polyethylene Glycol 3350 17 GM PACKET PO (06:15)
[2018-06-22 07:17] LABS: Abs Immature Grans 0.02 k/cumm (0.0-0.09); Absolute Basophil Count 0.02 k/cumm (0.0-0.2); Absolute Eosinophil Count 0.34 k/cumm (0.0-0.7); Absolute Lymphocyte Count 1.35 k/cumm (1.2-3.4); Absolute Monocyte Count 0.91 k/cumm (0.11-0.7); Absolute Neutrophil Count 5.47 k/cumm (1.2-6.7); Basophils % 0.2; Eosinophils % 4.2; HCT 28.4 % (40.0-50.0); HGB 9.2 g/dL (13.5-17.5); Immature Grans % 0.2; Lymphocytes % 16.6; Mean Corp. HGB Concentration 32.4 g/dL (32.0-36.0); Mean Corpuscular Hemoglobin 30.5 pg (27.0-33.0); Mean Platelet Volume 9.8 fL (8.0-11.0); Monocytes % 11.2; Neutrophils % 67.6; Platelet Count 156 x1000/uL (130-400); RBC 3.02 m/cumm (4.50-6.00); RBC Distribution Width 13.3 % (11.8-14.1); White Blood Cell Count 8.11 k/cumm (4.4-10.8)
[2018-06-22 07:20] VITALS: BP 157/93; PULSE 75; RESP 19; TEMP 37.1; O2SAT 94
[2018-06-22 07:29] LABS: Anion Gap 12.6 mmol/L (3-11); BUN 50 mg/dL (7-18); CO2 20.4 mmol/L (21.0-32.0); Calcium 8.4 mg/dL (8.5-10.1); Chloride 111 mmol/L (98-107); Creatine Kinase 587 U/L (39-308); Glucose 144 mg/dL (70-100); Potassium 3.9 mmol/L (3.5-5.1); Sodium 144 mmol/L (136-145)
[2018-06-22 07:35] LABS: CREATININE 4.28 mg/dL (0.70-1.30)
[2018-06-22] MEDS: Timolol 0.5% 5 ML BTL OP ×2 (08:36→20:10)
[2018-06-22] MEDS: Dorzolamide 2% 10 ML BTL OP ×2 (08:36→20:08)
[2018-06-22] MEDS: Clopidogrel 75 MG TAB PO (08:37)
[2018-06-22] MEDS: Tamsulosin 0.4 MG CAPCR 0.8 MG PO (08:37)
[2018-06-22] MEDS: guaiFENesin 600 MG TABCR PO ×2 (08:37→20:08)
[2018-06-22] MEDS: Docusate Sodium 100 MG CAP PO ×2 (08:37→20:08)
[2018-06-22] MEDS: Gabapentin 400 MG CAP PO ×2 (08:37→20:08)
[2018-06-22] MEDS: Dexlansoprazole 30 MG CAP 60 MG PO ×2 (08:38→20:08)
[2018-06-22] MEDS: Metoprolol 25 MG TAB PO ×2 (08:38→20:08)
[2018-06-22] MEDS: Calcitriol 0.25 MCG CAP PO (08:38)
[2018-06-22] MEDS: Finasteride 5 MG TAB PO (08:38)
[2018-06-22] MEDS: hydrALAZINE 10 MG TAB PO ×2 (08:38→20:08)
[2018-06-22] MEDS: Metoclopramide 10 MG TAB 5 MG PO (08:39)
[2018-06-22] MEDS: Insulin Aspart 300 UNITS/3 ML PEN SC ×3 (08:40→17:32)
[2018-06-22 09:05] VITALS: O2SAT 96
[2018-06-22] MEDS: buPROPion-CR 100 MG TABCR 200 MG PO (10:02)
[2018-06-22] MEDS: amLODIPine 10 MG TAB PO (10:02)
[2018-06-22] MEDS: Torsemide 20 MG TAB PO ×2 (10:02→20:08)
--- NOTE | 2018-06-22 10:47 | PT.INTREAT ---
Date of service: 06/22/18 Time of Service: 10:47 PT Notes Inpatient Physical Therapy Treatment Note Date: 06/22/18 PRECAUTIONS: Fall SUBJECTIVE: Mati states that he is feeling better today. OBJECTIVE: PAIN: No complaints of pain BED MOBILITY/TRANSFERS Sit-supine: I with HOB at 20 degrees Sit-stand: SBA Stand-sit: SBA GAIT Assistive Device: FWW Weight bearing: Full Assist: SBA Distance: 200' Deviation: Standing rest x2 TOILETING: Patient toileted with assist for dressing ASSESSMENT: Patient tolerated a progression in gait distance well, with FWW support. Patient required several standing rests and demonstrated mild SOB at the end of gait training. PLAN: Continue with PTs POC TREATMENT CODE/TIME: 25 mintues; TAx2
--- NOTE | 2018-06-22 14:11 | PDOC.CMPRO ---
Care Management Progress Note S/O: Mati was sitting up in his chair having lunch when CM met with him. He continues to be pleasant in interaction. A: 62 year old male admitted to [facility] 06/21/18 for Rhabdomyolysis, Chronic kidney disease (CKD), Stage V, Community acquired pneumonia, Acute dehydration, Fall P: Mati will discharge home when ready per MD. He is scheduled to have a Speech consult tomorrow to inform further needs per provider. Per community based BREONNA Mcghee's report, Mati will spend days at his home with caregivers and evenings/nights with Litzy. Mati will resume OP/PT with Roberto Wilson upon discharge. He will transport via private vehicle with his caregivers.
--- NOTE | 2018-06-22 14:14 | PGE_ITS ---
Assessment and Plan (1) Rhabdomyolysis: Current visit: Yes Status: Acute Status post fall at home with prolonged time down. CK down to 587 today from 1417 on admission. Kidney function at baseline. Continue to monitor. Continue fall precautions. (2) Stroke, lacunar: Current visit: No Status: Acute No evidence of new infarct on imaging. Continue plavix, statin and monitor neurologic status routinely. Some concern from nursing regarding dysphasia and notable coughing while eating. Speech consult will take place tomorrow morning. (3) CKD (chronic kidney disease) stage 5, GFR less than 15 ml/min: Current visit: No Status: Acute His kidney function has improved back to his baseline. IV fluids have been discontinued. (4) Parkinsons: Current visit: Yes Status: Chronic Recently diagnosed by neurology at [facility]. On Monday, June 18, 2018 he was supposed to start carbidopa levodopa ER 25 mg - 100 mg daily for 7 days then increase to twice daily dosing for 7 days and ultimately 3 times daily dosing, however, he did not start last Thursday, this was initiated . Reglan was discontinued for concern that it could potentially be contributing to his parkinsonian symptoms. Continue Carbidopa/levodopa at current dose. (5) Community acquired pneumonia: Current visit: Yes Status: Acute There was a question that he might have pneumonia on admission with a possible infiltrate on chest x-ray, cough and leukocytosis. Antibiotics were discontinued 2 days ago, he has not had fevers and his white blood cell count remains normal. Continue to monitor respiratory status. (6) Diabetes mellitus type 2: Current visit: No Status: Chronic His blood sugars have been elevated. Meal time insulin has been added at a 1 unit for every 15 grams of carbohydrates ratio. Continue carbohydrate controlled diet. Continue to monitor blood sugars. (7) Discharge planning issues: Current visit: No Status: Acute He is a full code. He will be seen by speech for a swallow evaluation tomorrow morning. He will likely be ready for discharge following the speech evaluation. This case was discussed with Dr. Valdovinos who is in agreement. Subjective Interval history since last seen: Mati is a 62-year-old gentleman with coronary artery disease, CHF, stage IV chronic kidney disease, diabetes, hypertension, hyperlipidemia and history of stroke who was admitted 06/20/18 after sustaining a fall and subsequently being down for a prolonged period of time. At that time he was also noted to have slurred speech and cervical neck pain, however head CT and CT of the cervical spine were negative. He lives independently with day-time caregivers. His caregivers are willing to adjust the schedule to provide more coverage for him at home. Nursing has verbalized some concerns about his swallowing. A speech consult was placed. Speech will see him tomorrow morning. Otherwise, his chronic kidney disease is back to baseline. His CK is down to 587 from 1417 on admission. He admits to some shortness of breath and wheezing, but reports that this is chronic for him, he also notes a chronic cough. Upon admission, he was initially thought to possibly have a pneumonia in the setting of leukocytosis and a reported cough in conjunction with a questionable infiltrate on chest x- ray. He was initially given azithromycin and ceftriaxone, this has been discontinued and he has remained afebrile and without leukocytosis. He has chronically been on Reglan, this has been discontinued as it could potentially be contributing to his parkinsonian symptoms and falls. Exam Const General: cooperative, comfortable and no acute distress Nutritional Appearance: overweight Orientation: alert and oriented x3 [facility] Head: normocephalic and atraumatic Mouth: moist mucous membranes Resp Effort & Inspection: normal respiratory effort (Respirations even and unlabored. ) Auscultation: clear to auscultation bilaterally and wheezes (Audible upper airway wheeze noted. Lungs are clear throughout.) Cardio Rate: regular rate and not tachycardic Heart Sounds: S1 normal, S2 normal, no gallops, no murmurs and no rubs Pulses: radial pulses present and posterior tibial pulses present GI Palpation: soft, no masses and nontender Auscultation: normal bowel sounds Skin General skin exam: no rashes or lesions noted Neuro General: alert, oriented x3, moves all extremities and no focal motor deficits Extrem General: edema (trace edema bilaterally.) Objective Objective Clinical Data: Abnormal lab results 06/22/18 06/22/18 Range/Units 06:30 06:30 RBC 3.02 L (4.50-6.00) m/cumm Hgb 9.2 L (13.5-17.5) g/dL Hct 28.4 L (40.0-50.0) % Absolute Monocytes 0.91 H (0.11-0.7) k/cumm Chloride 111 H (98-107) mmol/L Carbon Dioxide 20.4 L (21.0-32.0) mmol/L Anion Gap 12.6 H (3-11) mmol/L BUN 50 H (7-18) mg/dL Creatinine 4.28 H* (0.70-1.30) mg/dL Glucose 144 H (70-100) mg/dL Calcium 8.4 L (8.5-10.1) mg/dL Creatine Kinase 587 H (39-308) U/L Vital Signs Temperature 37.1 C 06/22/18 07:20 Temperature Source Tympanic 06/22/18 07:20 Pulse 75 06/22/18 07:20 Pulse Rhythm Regular 06/22/18 08:30 Respiratory Rate 19 06/22/18 07:20 Respiratory Effort Non-Labored 06/22/18 08:30 Respiratory Depth Normal 06/22/18 08:30 Respiratory Pattern Normal 06/22/18 08:30 Blood Pressure 157/93 H 06/22/18 07:20 Blood Pressure Position Supine 06/20/18 13:36 Pulse Oximetry 96 06/22/18 09:05 Oxygen Delivery Method Room Air 06/22/18 09:05 Oxygen Flow Rate 0 06/22/18 09:05 Pain Level 0 06/21/18 01:00 Intake & Output 06/21/18 06/22/18 06/22/18 23:59 11:59 23:59 Intake Total 2200 / 2200 1835 / 1835 480 / 480 Output Total 700 / 700 400 / 400 Balance 1500 / 1500 1435 / 1435 480 / 480 Intake: IV 1999 / 1999 1595 / 1595 Oral 200 / 200 240 / 240 480 / 480 Output: Urine 700 / 700 400 / 400 Other: Urine Color Yellow Yellow Urine Appearance Clear Clear Comment incontinent to urine in brief when up with PT, brief changed Pt toileted Pt. not seen by nursing. Voiding Methods Toilet Toilet Incontinent Laboratory Results WBC 8.11 k/cumm (4.4-10.8) 06/22/18 06:30 RBC 3.02 m/cumm (4.50-6.00) L 06/22/18 06:30 Hgb 9.2 g/dL (13.5-17.5) L 06/22/18 06:30 Hct 28.4 % (40.0-50.0) L 06/22/18 06:30 MCV 94.0 fL (80-95) 06/22/18 06:30 MCH 30.5 pg (27.0-33.0) 06/22/18 06:30 MCHC 32.4 g/dL (32.0-36.0) 06/22/18 06:30 RDW 13.3 % (11.8-14.1) 06/22/18 06:30 Plt Count 156 x1000/uL (130-400) 06/22/18 06:30 MPV 9.8 fL (8.0-11.0) 06/22/18 06:30 Immature Gran % 0.2 06/22/18 06:30 Neutrophils % 67.6 06/22/18 06:30 Lymphocytes % 16.6 06/22/18 06:30 Monocytes % 11.2 06/22/18 06:30 Eosinophils % 4.2 06/22/18 06:30 Basophils % 0.2 06/22/18 06:30 Absolute Neutrophils 5.47 k/cumm (1.2-6.7) 06/22/18 06:30 Absolute Lymphocytes 1.35 k/cumm (1.2-3.4) 06/22/18 06:30 Absolute Monocytes 0.91 k/cumm (0.11-0.7) H 06/22/18 06:30 Absolute Eosinophils 0.34 k/cumm (0.0-0.7) 06/22/18 06:30 Absolute Basophils 0.02 k/cumm (0.0-0.2) 06/22/18 06:30 Sodium 144 mmol/L (136-145) 06/22/18 06:30 Potassium 3.9 mmol/L (3.5-5.1) 06/22/18 06:30 Chloride 111 mmol/L (98-107) H 06/22/18 06:30 Carbon Dioxide 20.4 mmol/L (21.0-32.0) L 06/22/18 06:30 Anion Gap 12.6 mmol/L (3-11) H 06/22/18 06:30 BUN 50 mg/dL (7-18) H 06/22/18 06:30 Creatinine 4.28 mg/dL (0.70-1.30) H* 06/22/18 06:30 Estimated GFR/1.73 m2 14.10 (mL/min/1.73m2) 06/22/18 06:30 Glucose 144 mg/dL (70-100) H 06/22/18 06:30 POC Glucose Cancelled 06/20/18 22:00 Calcium 8.4 mg/dL (8.5-10.1) L 06/22/18 06:30 Total Bilirubin 0.5 mg/dL (0.2-1.0) 06/21/18 06:25 AST 34 U/L (15-37) 06/21/18 06:25 ALT 19 U/L (12-78) 06/21/18 06:25 Alkaline Phosphatase 83 U/L (46-116) 06/21/18 06:25 Ammonia 10 umol/L (11-32) L 06/20/18 14:00 Creatine Kinase 587 U/L (39-308) H 06/22/18 06:30 Troponin I < 0.02 ng/mL (0.00-0.06) 06/20/18 14:00 Total Protein 6.4 g/dL (6.4-8.2) 06/21/18 06:25 Albumin 3.0 g/dL (3.4-5.0) L 06/21/18 06:25 Urine Color Yellow (Yellow) 06/20/18 14:45 Urine Clarity Clear 06/20/18 14:45 Urine pH 5.5 (5-8) 06/20/18 14:45 Ur Specific [place] 1.020 (1.005-1.025) 06/20/18 14:45 Urine Protein >=300 mg/dL (Negative) H 06/20/18 14:45 Urine Ketones Negative mg/dL (Negative) 06/20/18 14:45 Urine Blood Moderate (Negative) H 06/20/18 14:45 Urine Nitrite Negative (Negative) 06/20/18 14:45 Urine Bilirubin Negative (Negative) 06/20/18 14:45 Urine Urobilinogen 0.2 EU/dL (Up TO 0.2) 06/20/18 14:45 Ur Leukocyte Esterase Negative (Negative) 06/20/18 14:45 Urine RBC 5-10 (0-2) H 06/20/18 14:45 Urine WBC 0-2 HPF (0-5) 06/20/18 14:45 Ur Epithelial Cells Negative HPF (Negative) 06/20/18 14:45 Urine Crystals Negative HPF (Negative) 06/20/18 14:45 Urine Bacteria Negative HPF (Negative) 06/20/18 14:45 Urine Casts Negative LPF (Negative) 06/20/18 14:45 Urine Mucus Negative (Negative) 06/20/18 14:45 Urine Other Rare transitional (Negative) 06/20/18 14:45 Ur Culture Indicated? No 06/20/18 14:45 Urine Glucose 100 mg/dL (Negative) 06/20/18 14:45
--- NOTE | 2018-06-22 14:15 | CMPROGNOTE_ITS ---
Care Management Progress Note S/O: Mati was sitting up in his chair having lunch when CM met with him. He continues to be pleasant in interaction. A: 62 year old male admitted to [facility] 06/21/18 for Rhabdomyolysis, Chronic kidney disease (CKD), Stage V, Community acquired pneumonia, Acute dehydration, Fall P: Mati will discharge home when ready per MD. He is scheduled to have a Speech consult tomorrow to inform further needs per provider. Per community based BREONNA Mcghee's report, Mati will spend days at his home with caregivers and evenings/nights with [facility]. Mati will resume OP/PT with [facility] upon discharge. He will transport via private vehicle with his caregivers.
--- NOTE | 2018-06-22 15:05 | PT.INNT ---
Date of service: 06/22/18 Time of Service: 15:05 PT Notes PHYSICAL THERAPY NOTE 06/22/18 Attempted 2x to see patient for therapy session, pt sleeping soundly in bed, did not disturb. Elizabeth Rodriguez PT
[2018-06-22 15:59] VITALS: BP 167/98; PULSE 67; RESP 19; TEMP 36.7; O2SAT 94
[2018-06-22] MEDS: Polyethylene Glycol 3350 17 GM PACKET 34 GM PO (17:39)
[2018-06-22] MEDS: Melatonin 3 MG TAB PO (21:06)
[2018-06-22] MEDS: Atorvastatin 40 MG TAB 80 MG PO (21:06)
[2018-06-22] MEDS: Normal Saline Flush 10 ML SYR IVP (21:07)
[2018-06-22 21:16] VITALS: BP 172/96; PULSE 71; RESP 18; TEMP 36.5; O2SAT 96
[2018-06-22 22:29] VITALS: O2SAT 96
[2018-06-23] MEDS: Heparin 5,000 UNITS/ML VIAL 5000 UNITS SC ×2 (01:11→11:47)
[2018-06-23] MEDS: Albuterol/Ipratropium 3 ML UPD VIAL UPD ×3 (01:11→12:50)
[2018-06-23 07:22] LABS: HGB 8.9 g/dL (13.5-17.5); Mean Corpuscular Hemoglobin 30.8 pg (27.0-33.0); Mean Corpuscular Volume 93.4 fL (80-95); Mean Platelet Volume 9.9 fL (8.0-11.0); Platelet Count 150 x1000/uL (130-400); RBC 2.89 m/cumm (4.50-6.00); RBC Distribution Width 12.9 % (11.8-14.1); White Blood Cell Count 7.52 k/cumm (4.4-10.8)
[2018-06-23 07:29] VITALS: BP 176/93; PULSE 86; RESP 16; TEMP 37.2; O2SAT 96
[2018-06-23] MEDS: Insulin Aspart 300 UNITS/3 ML PEN SC ×3 (07:49→11:50)
[2018-06-23] MEDS: Dorzolamide 2% 10 ML BTL OP (07:51)
[2018-06-23] MEDS: Dexlansoprazole 30 MG CAP 60 MG PO (07:51)
[2018-06-23] MEDS: Timolol 0.5% 5 ML BTL OP (07:51)
[2018-06-23] MEDS: amLODIPine 10 MG TAB PO (07:52)
[2018-06-23] MEDS: guaiFENesin 600 MG TABCR PO (07:52)
[2018-06-23] MEDS: Gabapentin 400 MG CAP PO (07:52)
[2018-06-23] MEDS: Finasteride 5 MG TAB PO (07:52)
[2018-06-23] MEDS: hydrALAZINE 10 MG TAB PO (07:52)
[2018-06-23] MEDS: Clopidogrel 75 MG TAB PO (07:52)
[2018-06-23] MEDS: Calcitriol 0.25 MCG CAP PO (07:52)
[2018-06-23] MEDS: Torsemide 20 MG TAB PO (07:52)
[2018-06-23] MEDS: Docusate Sodium 100 MG CAP PO (07:52)
[2018-06-23] MEDS: Metoprolol 25 MG TAB PO (07:53)
[2018-06-23] MEDS: buPROPion-CR 100 MG TABCR 200 MG PO (07:53)
[2018-06-23] MEDS: Tamsulosin 0.4 MG CAPCR 0.8 MG PO (07:53)
[2018-06-23 08:14] VITALS: PULSE 80; RESP 18; RESP 4; O2SAT 95
[2018-06-23 08:16] VITALS: O2SAT 95
--- NOTE | 2018-06-23 09:00 | EVALE_ITS ---
Date of service: 06/23/18 Time of Service: 07:30 Speech Therapy Evaluation Note: Referring Provider: Sierra Orellana NP BACKGROUND: This is a 64-year-old right-handed male who was initially admitted on 06/20/2018 after having fallen at home. He was admitted with a community- acquired pneumonia, rhabdomyolysis, and dehydration. On 06/21/2018 nursing noted prandial coughing and a swallow consult was requested. PMH is positive for the followin) Parkinson's Disease 2) DM II 3) GERD 3) CHF 4) CAD 5) Essential HTN 6) Mild cognitive impairment 7) Chronic kidney disease 8) Obstructive sleep apnea 9) h/o CVA (2013) The patient is able to provide additional background information with regard to p. o. consistencies taken at home in the weeks prior to this admission. The patient has been taking what, by description, are Thin liquids, a Dysphagia Advanced diet with fine-chopped meats, and whole pills with a liquid wash. OBJECTIVE: Nursing reports the following: - Lung sounds: crackles in the right base in the absence of any ABX (baseline findings) - Pt is on a Regular consistency diet, Thin liquids and whole pills. - Yesterday he took multiple whole pills at one time with a Thin liquid wash without difficulty The patient is awake and sitting up in his chair. He greets me with good direct eye contact, a faint smile and inappropriate verbal greeting. 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 He does show a parkinsonian facial mask. Oral Sensorimotor Exam: The patient is totally edentulous and has no dentures. Intraoral tissues appear to be within normal limits and he denies any discomfort. Oral sensation is within normal limits bilaterally for buccal, labial and lingual areas. Motorically, his smile is mildly diminished but symmetrical. He is unable to produce forehead wrinkles. He shows no lingual deviation on protrusion in a setting of moderately decreased excursion. He is unable to produce lingual rapid alternating movements. Lingual lateralization is moderately decreased on the right and absent on the left. Lingual strength is severely decreased bilaterally. Mandibular lateralization is unable to be produced bilaterally. Velopharyngeal elevation appears to be moderately strong and symmetrical. Volitional cough and throat-clear are both strong. Estimated speech intelligibility to this mildly familiar listener in a setting of mild to moderate background noise is 90%. Vocal quality is within normal limits and vocal intensity is mildly decreased. With regard to swallowing, the following is noted: I Liquids A. Honey-thick liquid: The patient shows good bolus control and posterior oral transit. No dariusz signs and symptoms of aspiration or penetration are noted. Oral clearance is 100% and no oral escape is seen. B. [place]-thick liquid: Results are the same as for Honey-thick liquid. C. Thin liquid: Results are the same as for Honey-thick liquid. These results are true for both single and consecutive swallows by both cup and straw. II Foods A. Puree: Bolus control and linguopalatal bolus compression are both within normal limits as is posterior oral transit. No dariusz signs and symptoms of aspiration or penetration are seen. Oral clearance is 100% and no oral escape is seen. B. Mechanically Altered: Mastication quality is within normal limits. Bolus control and posterior oral transit are also within normal limits. No dariusz signs and symptoms of aspiration or penetration are seen. Oral clearance is 100 % and no oral escape is noted. C. Dysphagia Advanced: Increased mastication time is used for this consistency but this does result in good mastication quality. Bolus control and posterior oral transit are both within normal limits. No dariusz signs and symptoms of aspiration or penetration are seen. Oral clearance is 100% and no oral escape is noted. III Pills The patient is observed to take multiple whole pills at one time with a Thin liquid wash via straw. Patient shows good bolus control and posterior oral transit. No dariusz signs and symptoms of aspiration or penetration are seen. Oral clearance is 100% and no oral escape is noted. The patient is also observed to be able to self-feed using his dominant right upper extremity and regular utensils. INTERPRETATION: The patient shows a mild to moderate oral-prep dysphagia in a setting of total edentulousness. Despite his oral motor weakness with regard to lateralization, which is likely due to his parkinsonism, this does not appear to affect his control of appropriate food, liquid and pill consistencies. RECOMMENDATIONS: 1. Change to a Dysphagia Advanced diet with moistened fine-chopped meats 2. Continue: a. Thin liquids b. whole pills with a liquid wash 3. Independent self-feeding 4. No speech therapy is indicated at this time Thank you for referring this patient. Juju Sharma., [facility]
--- NOTE | 2018-06-23 10:20 | PT.INDS ---
Date of service: 06/23/18 Time of Service: 09:50 PT Notes Inpatient Physical Therapy Discharge Summary Date: 06/23/18 Dates of Service: 06/21/18-06/23/18 SUBJECTIVE: Pt sitting in chair after breakfast, agreeable to therapy session. Pt stating I am going home today. OBJECTIVE: Bed Mobility/Transfers: Sit-stand: SBA with FWW Stand-sit: supervision Chair-bed: supervision with FWW Sit-supine: HOB flat, independent Gait: Pt wearing sneakers for gait supervision/SBA with FWW [id number], step through gait pattern. Pt slightly short of breath with exertion, 02 sats 97% on room air, recovered with sitting rest break at edge of bed. Pt transferred back to bed after session completed. Balance: Static Sitting: normal Dynamic Sitting: normal Static Standing: fair Dynamic Standing: fair Assessment: Pt is a 62yr old male admitted with community acquired pneumonia in setting of diabetes mellitus, diabetic neuropathy, diabetic retinopathy, mild cognitive disorder, chronic kidney disease stage V, spinal stenosis, incontinence, cerebrovascular accident. Patient was seen for 4 PT visits. Progressed from gait with FWW SBA 25ftx4 to gait with FWW SBA 100-200ft. Pt is safest with gait with use of FWW for stability due to decreased static and dynamic standing balance. Pt is being discharged to home today, recommend continued outpatient PT for balance training and progressive gait stability. Goals: Goals X1 week 1. Supine-Sit independent 2. Sit-Supine independent 3. Sit-Stand SBA with FWW 4. Stand-Sit SBA with FWW 5. Bed-Chair supervision with FWW 6. Chair-Bed supervision with FWW 7. Gait supervision with FWW 150ft Pt met goals # 1, 2, 3, 4, 7 DISCHARGE RECOMMENDATIONS: Home with caregiver support, return to outpatpatient PT at [facility] TREATMENT CODE/TIME: 24 min TAx2 9:50 G Codes in the area mobility of walking and moving around: projected status GP [id number]. Discharge status (if discharging) GP [id number] CK Elizabeht Rodriguez PT .
--- NOTE | 2018-06-23 10:24 | INDS_ITS ---
Date of service: 06/23/18 Time of Service: 09:50 PT Notes Inpatient Physical Therapy Discharge Summary Date: 06/23/18 Dates of Service: 06/21/18-06/23/18 SUBJECTIVE: Pt sitting in chair after breakfast, agreeable to therapy session. Pt stating I am going home today. OBJECTIVE: Bed Mobility/Transfers: Sit-stand: SBA with FWW Stand-sit: supervision Chair-bed: supervision with FWW Sit-supine: HOB flat, independent Gait: Pt wearing sneakers for gait supervision/SBA with FWW [id number], step through gait pattern. Pt slightly short of breath with exertion, 02 sats 97% on room air, recovered with sitting rest break at edge of bed. Pt transferred back to bed after session completed. Balance: Static Sitting: normal Dynamic Sitting: normal Static Standing: fair Dynamic Standing: fair Assessment: Pt is a 62yr old male admitted with community acquired pneumonia in setting of diabetes mellitus, diabetic neuropathy, diabetic retinopathy, mild cognitive disorder, chronic kidney disease stage V, spinal stenosis, incontinence, cerebrovascular accident. Patient was seen for 4 PT visits. Progressed from gait with FWW SBA 25ftx4 to gait with FWW SBA 100-200ft. Pt is safest with gait with use of FWW for stability due to decreased static and dynamic standing balance. Pt is being discharged to home today, recommend continued outpatient PT for balance training and progressive gait stability. Goals: Goals X1 week 1. Supine-Sit independent 2. Sit-Supine independent 3. Sit-Stand SBA with FWW 4. Stand-Sit SBA with FWW 5. Bed-Chair supervision with FWW 6. Chair-Bed supervision with FWW 7. Gait supervision with FWW 150ft Pt met goals # 1, 2, 3, 4, 7 DISCHARGE RECOMMENDATIONS: Home with caregiver support, return to outpatpatient PT at [facility] TREATMENT CODE/TIME: 24 min TAx2 9:50 G Codes in the area mobility of walking and moving around: projected status GP [id number]. Discharge status (if discharging) GP [id number] CK Elizabeth Rodriguez PT .
--- NOTE | 2018-06-23 12:00 | DSE_ITS ---
Date of service: 06/23/18 Time of Service: 11:51 DS: Diagnosis Discharge Diagnosis (1) Rhabdomyolysis: Status: Acute (2) Stroke, lacunar: Status: Acute (3) CKD (chronic kidney disease) stage 5, GFR less than 15 ml/min: Status: Acute (4) Parkinsons: Status: Chronic (5) Community acquired pneumonia: Status: Acute (6) Diabetes mellitus type 2: Status: Chronic (7) Discharge planning issues: Status: Acute (8) Type II diabetes mellitus with ophthalmic manifestations: Status: Acute (9) Sleep apnea, unspecified: Status: Acute (10) Recurrent UTI (urinary tract infection): Status: Acute (11) Other and unspecified hyperlipidemia: Status: Acute (12) Obesity, unspecified: Status: Acute (13) Migraine without aura: Status: Acute (14) Incontinence of bowel: Status: Acute (15) Gastroesophageal reflux disease: Status: Acute (16) Essential hypertension: Status: Acute (17) Dysphagia: Status: Acute (18) Dyslipidemia: Status: Acute (19) Diabetic retinopathy: Status: Acute (20) Diabetic neuropathy: Status: Acute (21) DM gastroparesis: Status: Acute (22) Coronary arteriosclerosis: Status: Acute (23) Congestive heart failure: Status: Acute (24) Bourne's esophagus without dysplasia: Status: Acute (25) Anemia: Status: Acute (26) Hearing loss: Status: Chronic (27) Obesity: Status: Chronic (28) Hyperlipidemia: Status: Chronic (29) Anxiety: Status: Chronic Discharge Plan Disposition Patient Disposition: HOME Condition: Good Discharge Details Reason For Visit: RHABDOMYOLYSIS Admit Date/Time: 06/21/18 10:15 Admit Provider: Balaji Chan Attending Provider: Balaji Chan Primary Care Provider: Ethel Collins Hospital Course Hospital Course: Mati is a 62-year-old gentleman with coronary artery disease, CHF, stage IV chronic kidney disease, diabetes, hypertension, hyperlipidemia and history of stroke who was admitted 06/20/18 after sustaining a fall and subsequently being down for a prolonged period of time. At that time he was also noted to have slurred speech and cervical neck pain, however head CT and CT of the cervical spine were negative. There was concern that he may have a right lower lobe pneumonia based on his CT as well as a cough, shortness of breath and leukocytosis. He was started on IV antibiotics in the emergency department, however this was not continued and he had no fevers and his white blood cell count returned to normal and remained normal throughout his hospital stay. He has chronic kidney disease and labs on admission revealed worsening kidney function with a creatinine of 5.13. He had an elevated CPK of 1417. A call was placed to [facility] nephrology from the ED, however, [facility] Neph[facility] did not feel that he needed dialysis considering that he was still able to urinate. He was admitted to the floor and given IV hydration for mild rhabdomyolysis related to fall with prolonged time down on the floor. His reglan was discontinued for concern that this could be contributing to his parkinsonian symptoms. He tolerated this well. The decision to restart Reglan will be left to his PCP. Also, he was recently diagnosed with Parkinson's and started on Carbidopa/levodopa, he was unable to start this as an out patient. The plan was to start carbidopa levodopa ER 25 mg - 100 mg daily for 7 days then increase to twice daily dosing for 7 days and ultimately 3 times daily dosing, this was initiated on 06/21/18. His renal function improved and returned to baseline. Most recently, his BUN was 50, creatinine was 4.28. His CK improved from 1417 on admission to 587 the day prior to his discharge. His white blood cell count remained normal at 7.52 at discharge. His hemoglobin and hematocrit has been low throughout this hospitalization, which appears to be chronic. He will need follow up lab work to ensure that this remains stable. On the day of discharge, he feels like himself. He denies cough or shortness of breath, he has an occasional wheeze but states this is normal for him. He denies pain. He is pleasant and cooperative, his HRR, LSCTA, His abdomen is soft, bowel sounds are present and normoactive, he has trace edema to bilateral lower extremities. He is eating and drinking and eager for discharge home. He lives independently with day-time caregivers at baseline, his caregivers are willing to increase services to cover his needs. He will continue out patient PT as usual. He will follow up with his PCP as scheduled. He will need to have CBC and BMP next week. Home Meds and New Rx's Prescriptions: Continue polyethylene glycol 3350 [Miralax] 17 GM powder in packet 34 g PO BID PRN (Reason: Constipation) RF: 0 dorzolamide-timolol 10 ML drops 1 drp Ophthalmic BID RF: 0 blood sugar diagnostic [FreeStyle Lite Strips] 1 EACH strip 1 ea Miscellaneous QID Qty: 100 RF: 11 lancets [FreeStyle Lancets] 1 EACH misc 1 ea Miscellaneous QID Qty: 100 RF: 11 cholecalciferol (vitamin D3) [Vitamin D3] 2,000 UNIT capsule 2,000 unit PO DAILY RF: 0 pen needle, diabetic [BD Ultra-Fine Lynne Pen Needle] 1 EACH needle 1 ea Miscellaneous AC & HS Qty: 350 RF: 3 calcitriol 0.25 MCG capsule 0.25 mcg PO DAILY RF: 0 furosemide 20 MG tablet 20 mg PO DAILY PRNRF: 0 gabapentin 400 MG capsule 400 mg PO BID RF: 0 albuterol sulfate [ProAir HFA] 200 PUFF HFA aerosol inhaler 2 puff Inhalation Q4H PRN Qty: 1 RF: 1 capsaicin [Zostrix] 56.6 GM cream 1 flash Topical TID Qty: 1 RF: 2 clopidogrel [Plavix] 75 MG tablet 75 mg PO DAILY Qty: 30 RF: 11 docusate sodium 100 MG capsule 100 mg PO BID Qty: 60 RF: 11 torsemide 20 MG tablet 20 mg PO BID Qty: 60 RF: 5 amlodipine 10 MG tablet 10 mg PO DAILY Qty: 30 RF: 5 Hydralazine HCl 10 MG tablet 10 mg PO BID Qty: 60 RF: 5 solifenacin [Vesicare] 5 MG tablet 5 mg PO DAILY Qty: 30 RF: 12 finasteride 5 MG tablet 5 mg PO DAILY Qty: 90 RF: 4 tamsulosin 0.4 MG capsule 0.8 mg PO DAILY Qty: 60 RF: 12 metoprolol tartrate 25 MG tablet 25 mg PO BID Qty: 60 RF: 5 dexlansoprazole [Dexilant] 60 MG capsule,biphase delayed releas 60 mg PO BID Qty: 60 RF: 0 atorvastatin 80 mg tablet 80 mg PO DAILY Qty: 90 RF: 3 diaper,brief,adult,disposable [Adult Briefs - Large] misc 1 ea Miscellaneous TID Qty: 300 RF: 3 insulin aspart U-100 [Novolog Flexpen U-100 Insulin] 100 unit/mL insulin pen 5 unit subcut 3X/DAY Qty: 10 RF: 1 carbidopa-levodopa [Sinemet CR] 25-100 mg tablet extended release 1 tab PO TID RF: 0 bupropion HCl 150 MG tablet extended release 12 hr 200 mg PO DAILY RF: 0 loperamide 2 MG capsule 2 mg PO QLOOSE PRNRF: 0 gabapentin 400 mg Capsule 400 mg PO BID RF: 0 insulin detemir U-100 [Levemir FlexTouch U-100 Insuln] 100 UNIT/1 ML insulin pen 15 unit SQ DAILY Qty: 5 RF: 12 melatonin 1 MG tablet 2 mg PO DIRECTED RF: 0 Discontinued metoclopramide HCl 5 MG tablet 5 mg PO TID Qty: 90 RF: 5 Discharge Instructions Instructions: Rhabdomyolysis (DC), Fall Prevention for Older Adults (GEN) Additional Instructions: Take all of your usual medications except Reglan. Follow up with your PCP as scheduled. Your carbidopa/levodopa was started on 06/21/18, follow [facility] instructions on this medication. Resume outpatient PT as previous. Take care! Stand Alone Forms: Nursing Discharge Form Referrals: Zuri Francisco NP [NURSE PRACTITIONER] - 07/05/18 9:30 am Activity:: Activity as Tolerated Equipment/Supplies:: No Equipment Needed Diet:: Carb Counting Discharge Orders Discharge Orders: Discharge Order (Routine); Ordered 06/23/18 Ordered By: Sasha Romo DS: Data Vitals/I&O Vitals and I&O: Vital Signs Temperature 37.2 C 06/23/18 07:29 Temperature Source Tympanic 06/23/18 07:29 Pulse 80 06/23/18 08:14 Pulse Rhythm Regular 06/22/18 20:54 Respiratory Rate 18 06/23/18 08:14 Respiratory Effort Non-Labored 06/22/18 20:54 Respiratory Depth Normal 06/22/18 20:54 Respiratory Pattern Normal 06/22/18 20:54 Blood Pressure 176/93 H 06/23/18 07:29 Blood Pressure Position Supine 06/20/18 13:36 Pulse Oximetry 95 06/23/18 08:16 Oxygen Delivery Method Room Air 06/23/18 08:16 Oxygen Flow Rate 0 06/23/18 08:16 Pain Level 0 06/23/18 07:29 Intake & Output 06/22/18 06/22/18 06/23/18 11:59 23:59 11:59 Intake Total 1835 / 1835 750 / 750 400 / 400 Output Total 400 / 400 1150 / 1150 Balance 1435 / 1435 750 / 750 -750 / -750 Weight 111.9 kg Intake: IV 1595 / 1595 Oral 240 / 240 750 / 750 400 / 400 Output: Urine 400 / 400 1150 / 1150 Other: Urine Color Yellow Yellow Urine Appearance Clear Clear Comment Pt toileted Pt. not seen by nursing. Voiding Methods Toilet Toilet Incontinent Completed studies during hospitalization [Text1]: CRANIAL CT: 06/[address] was performed. There is moderate generalized cerebral atrophy unusual for this age group. There are bilateral apparent lacunar infarcts. There is no evidence of acute intracranial hemorrhage, mass effect or midline shift. Small basal ganglia calcification noted on the left. The orbital and temporal bone structures appear intact. Possible old pontine infarct noted right paramidline, probably also present on CT of 04/30/2016. CONCLUSION: No evidence of acute intracranial process. CERVICAL SPINE CT: 06/20 CT examination of the cervical region was performed utilizing multi slice acquisition and multi-planar reconstruction. There are moderate degenerative changes of the cervical spine. There is no evidence of acute cervical fracture or dislocation.. Tracheolaryngeal structures appear intact. No gross cervical mass or adenopathy seen. CONCLUSION: No evidence of acute cervical injury CT CHEST, ABDOMEN and PELVIS : 06/20 CT examination of the chest, abdomen and pelvis was performed with no contrast administration. There is patchy air space opacification of the right lower pulmonary lobe, infectious process most likely but pulmonary contusion not entirely excluded. Tracheobronchial tree appears intact throughout. No pleural effusion, pneumothorax or hemothorax seen. No gross evidence of mediastinal hematoma by noncontrast criteria. Liver and spleen grossly unremarkable by noncontrast criteria. Gallbladder and bile ducts are CT normal. Pancreas is fatty replaced but grossly unremarkable. No evidence of bowel injury or bowel obstruction. No significant abdominal wall hernia seen. No significant abdominal or pelvic adenopathy Diverticulosis without evidence of diverticulitis. Adrenals unremarkable in appearance. Kidneys contain multiple nonobstructing calculi. These are mostly likely arterial in nature. Urinary bladder wall is thickened which is a nonspecific finding. No injury of the bones identified in the region surveyed. No pelvic, femoral or spinal fracture seen. CONCLUSION: Question right lower lobe pneumonia vs pulmonary contusion, please correlate clinically. THORACIC AND LUMBAR SPINE CT RECONSTRUCTIONS: 06/20 CT reconstructions were performed from raw data set of chest, abdomen and pelvis CT. No thoracic or lumbar spine fracture identified. Severe hypertrophic degenerative changes with multilevel fusion of vertebral end plates throughout the thoracic and lumbar spine noted. Pending studies at discharge: AMBULATORY CARDIAC MONITORING (12/22/05) MARITZA IND ING HRN REP-GRFT (07/01/06) BUNIONECTOMY NEC (08/30/01) CARDIAC STRESS TEST NEC (05/14/06) DESTRUC-FOOT JT LES NEC (06/30/08) DX ULTRASOUND-HEART (05/16/05) ELECTROCARDIOGRAM (08/28/09) ENDO RECTUM POLYPECTOMY (10/12/09) ENDOSC POLYPECTOMY OF LG INTEST (10/12/09) ENDOSCOP DEST OF OTH LESION OR TISU OF LRG INTESTN (10/12/09) ESOPHAGOGASTRODUODENOSCOPY [EGD] W/CLOSED BIOPSY (06/07/10) EXCISION OF UVULA (10/21/99) FLEXIBLE SIGMOIDOSCOPY (06/07/10) INJECT/INFUSE NEC (10/12/09) OTH PLASTIC REPAIR PALAT (10/21/99) Other endoscopy of small intestine (09/04/12) Other local excision or destruction of lesion or tissue of skin and subcutaneous tissue (06/30/08) Other operations on ossicular chain (01/03/08) Radical mastoidectomy (01/03/08) SEPTOPLASTY NEC (06/17/99) TONSILLECTOMY/ADENOIDEC (10/21/99) TREADMILL STRESS TEST (06/06/99) TURBINECTOMY NEC (06/17/99) WBC 7.52 k/cumm (4.4-10.8) 06/23/18 06:18 RBC 2.89 m/cumm (4.50-6.00) L 06/23/18 06:18 Hgb 8.9 g/dL (13.5-17.5) L 06/23/18 06:18 Hct 27.0 % (40.0-50.0) L 06/23/18 06:18 MCV 93.4 fL (80-95) 06/23/18 06:18 MCH 30.8 pg (27.0-33.0) 06/23/18 06:18 MCHC 33.0 g/dL (32.0-36.0) 06/23/18 06:18 RDW 12.9 % (11.8-14.1) 06/23/18 06:18 Plt Count 150 x1000/uL (130-400) 06/23/18 06:18 MPV 9.9 fL (8.0-11.0) 06/23/18 06:18 Immature Gran % 0.2 06/22/18 06:30 Neutrophils % 67.6 06/22/18 06:30 Lymphocytes % 16.6 06/22/18 06:30 Monocytes % 11.2 06/22/18 06:30 Eosinophils % 4.2 06/22/18 06:30 Basophils % 0.2 06/22/18 06:30 Absolute Neutrophils 5.47 k/cumm (1.2-6.7) 06/22/18 06:30 Absolute Lymphocytes 1.35 k/cumm (1.2-3.4) 06/22/18 06:30 Absolute Monocytes 0.91 k/cumm (0.11-0.7) H 06/22/18 06:30 Absolute Eosinophils 0.34 k/cumm (0.0-0.7) 06/22/18 06:30 Absolute Basophils 0.02 k/cumm (0.0-0.2) 06/22/18 06:30 Sodium 144 mmol/L (136-145) 06/22/18 06:30 Potassium 3.9 mmol/L (3.5-5.1) 06/22/18 06:30 Chloride 111 mmol/L (98-107) H 06/22/18 06:30 Carbon Dioxide 20.4 mmol/L (21.0-32.0) L 06/22/18 06:30 Anion Gap 12.6 mmol/L (3-11) H 06/22/18 06:30 BUN 50 mg/dL (7-18) H 06/22/18 06:30 Creatinine 4.28 mg/dL (0.70-1.30) H* 06/22/18 06:30 Estimated GFR/1.73 m2 14.10 (mL/min/1.73m2) 06/22/18 06:30 Glucose 144 mg/dL (70-100) H 06/22/18 06:30 POC Glucose Cancelled 06/20/18 22:00 Calcium 8.4 mg/dL (8.5-10.1) L 06/22/18 06:30 Total Bilirubin 0.5 mg/dL (0.2-1.0) 06/21/18 06:25 AST 34 U/L (15-37) 06/21/18 06:25 ALT 19 U/L (12-78) 06/21/18 06:25 Alkaline Phosphatase 83 U/L (46-116) 06/21/18 06:25 Ammonia 10 umol/L (11-32) L 06/20/18 14:00 Creatine Kinase 587 U/L (39-308) H 06/22/18 06:30 Troponin I < 0.02 ng/mL (0.00-0.06) 06/20/18 14:00 Total Protein 6.4 g/dL (6.4-8.2) 06/21/18 06:25 Albumin 3.0 g/dL (3.4-5.0) L 06/21/18 06:25 Urine Color Yellow (Yellow) 06/20/18 14:45 Urine Clarity Clear 06/20/18 14:45 Urine pH 5.5 (5-8) 06/20/18 14:45 Ur Specific [place] 1.020 (1.005-1.025) 06/20/18 14:45 Urine Protein >=300 mg/dL (Negative) H 06/20/18 14:45 Urine Ketones Negative mg/dL (Negative) 06/20/18 14:45 Urine Blood Moderate (Negative) H 06/20/18 14:45 Urine Nitrite Negative (Negative) 06/20/18 14:45 Urine Bilirubin Negative (Negative) 06/20/18 14:45 Urine Urobilinogen 0.2 EU/dL (Up TO 0.2) 06/20/18 14:45 Ur Leukocyte Esterase Negative (Negative) 06/20/18 14:45 Urine RBC 5-10 (0-2) H 06/20/18 14:45 Urine WBC 0-2 HPF (0-5) 06/20/18 14:45 Ur Epithelial Cells Negative HPF (Negative) 06/20/18 14:45 Urine Crystals Negative HPF (Negative) 06/20/18 14:45 Urine Bacteria Negative HPF (Negative) 06/20/18 14:45 Urine Casts Negative LPF (Negative) 06/20/18 14:45 Urine Mucus Negative (Negative) 06/20/18 14:45 Urine Other Rare transitional (Negative) 06/20/18 14:45 Ur Culture Indicated? No 06/20/18 14:45 Urine Glucose 100 mg/dL (Negative) 06/20/18 14:45 Labs on day of discharge: Labs from last 24 hours 06/23/18 06:18 WBC 7.52 RBC 2.89 L Hgb 8.9 L Hct 27.0 L MCV 93.4 MCH 30.8 MCHC 33.0 RDW 12.9 Plt Count 150 MPV 9.9
--- NOTE | 2018-06-23 14:45 | PDOC.CMDIS ---
- If Service Date Differs Date of service: 06/23/18 Time of Service: 14:45 LACE Index Scoring Tool - Questions: Length of Stay (in days): 3 Acuity (Admit via E.D.?): Yes Comorbidities: Diabetes w/o Complication E.D. Visits: 2 - Answers: Total Score: 9 Risk of Readmission: Low Risk Care Management Discharge Reason for Hospitalization: Rhabdomylosis Discharge Plan: Mati was discharged home with continued DS services. [facility] was initiated for three months by his hospice community liaison. He will follow up with primary care as scheduled and outpatient PT at [facility]. CM spoke with Mati's CM she will be transporting him home he declines home health at this time. CM provided contact information for questions or concerns. Patient/Family Education Needs: Discharge education, limitations and follow up plan of care. Reviwed the plan with CM in the community. Services Needed at Discharge: Physical Therapy, Speech Therapy, Transportation - MH Services (Omit if N/A) Current MH Services: [facility]
--- NOTE | 2018-06-23 14:58 | CMDISCH_ITS ---
- If Service Date Differs Date of service: 06/23/18 Time of Service: 14:45 LACE Index Scoring Tool - Questions: Length of Stay (in days): 3 Acuity (Admit via E.D.?): Yes Comorbidities: Diabetes w/o Complication E.D. Visits: 2 - Answers: Total Score: 9 Risk of Readmission: Low Risk Care Management Discharge Reason for Hospitalization: Rhabdomylosis Discharge Plan: Mati was discharged home with continued DS services. [facility] was initiated for three months by his manager of community relations. He will follow up with primary care as scheduled and outpatient PT at [facility]. CM spoke with Mati's CM she will be transporting him home he declines home health at this time. CM provided contact information for questions or concerns. Patient/Family Education Needs: Discharge education, limitations and follow up plan of care. Reviwed the plan with CM in the community. Services Needed at Discharge: Physical Therapy, Speech Therapy, Transportation - MH Services (Omit if N/A) Current MH Services: [facility]
== END 2018-06-23 13:18 | disposition home or self-care (01) | DRG 565 ==
LOC: ER 16:53 → MS 17:09
PROVIDERS: Nurse Practitioner; Nurse Practitioner Acute Care; Admitting Provider Family Medicine; Emergency Provider Student in an Organized Health Care Education/Training Program; PCP Internal Medicine; Visit Provider Internal Medicine
DX: T79.6XXA Traumatic ischemia of muscle, initial encounter (principal); N18.4 Chronic kidney disease, stage 4 (severe); N17.9 Acute kidney failure, unspecified; W19.XXXA Unspecified fall, initial encounter; E86.0 Dehydration; I11.0 Hypertensive heart disease with heart failure; E11.22 Type 2 diabetes mellitus with diabetic chronic kidney disease; I50.9 Heart failure, unspecified; E78.5 Hyperlipidemia, unspecified; Z86.73 Personal history of transient ischemic attack (TIA), and cerebral infarction without residual deficits; R47.81 Slurred speech; R13.11 Dysphagia, oral phase; E11.319 Type 2 diabetes mellitus with unspecified diabetic retinopathy without macular edema; E11.43 Type 2 diabetes mellitus with diabetic autonomic (poly)neuropathy; K31.84 Gastroparesis; F70 Mild intellectual disabilities; E11.42 Type 2 diabetes mellitus with diabetic polyneuropathy; G47.33 Obstructive sleep apnea (adult) (pediatric); G20 Parkinson's disease
CPT/HCPCS: 36415; 71250; 80048; 80053; 82550; 82947; 85027; 92610; 93005; 96361; 96365; 97110; 97161; 97530; 99223; 99232; 99233; 99239; 99285; 70450; 72125; 74176; 81003; 81015; 82140; 84484; 85025; 93010; 94640; 99219; G0378; J0456; J0696; J1644; J2270; J3490; J7620; L0172

== ENCOUNTER 2018-07-05 10:36 | Outpatient (CLI) | payer MEDICAID, SELFPAY ==
[2018-07-05 11:07] LABS: Abs Immature Grans 0.02 k/cumm (0.0-0.09); Absolute Basophil Count 0.05 k/cumm (0.0-0.2); Absolute Eosinophil Count 0.34 k/cumm (0.0-0.7); Absolute Lymphocyte Count 1.49 k/cumm (1.2-3.4); Absolute Monocyte Count 0.92 k/cumm (0.11-0.7); Absolute Neutrophil Count 7.15 k/cumm (1.2-6.7); Basophils % 0.5; Eosinophils % 3.4; HCT 30.8 % (40.0-50.0); HGB 10.3 g/dL (13.5-17.5); Immature Grans % 0.2; Lymphocytes % 14.9; Mean Corp. HGB Concentration 33.4 g/dL (32.0-36.0); Mean Corpuscular Hemoglobin 31.3 pg (27.0-33.0); Mean Corpuscular Volume 93.6 fL (80-95); Mean Platelet Volume 10.3 fL (8.0-11.0); Monocytes % 9.2; Neutrophils % 71.8; Platelet Count 221 x1000/uL (130-400); RBC 3.29 m/cumm (4.50-6.00); RBC Distribution Width 13.2 % (11.8-14.1); White Blood Cell Count 9.97 k/cumm (4.4-10.8)
[2018-07-05 12:00] LABS: Anion Gap 10.3 mmol/L (3-11); BUN 66 mg/dL (7-18); CO2 25.7 mmol/L (21.0-32.0); Calcium 8.9 mg/dL (8.5-10.1); Chloride 106 mmol/L (98-107); Estimated GFR 11.95 (mL/min/1.73m2); Glucose 219 mg/dL (70-100); Potassium 4.6 mmol/L (3.5-5.1); Sodium 142 mmol/L (136-145)
[2018-07-05 12:06] LABS: Creatine Kinase 49 U/L (39-308)
[2018-07-05 13:20] LABS: CREATININE 4.94 mg/dL (0.70-1.30)
== END 2018-07-05 10:56 ==
PROVIDERS: PCP Internal Medicine; Visit Provider Nurse Practitioner Adult Health
DX: F69 Unspecified disorder of adult personality and behavior (principal); I10 Essential (primary) hypertension; E78.5 Hyperlipidemia, unspecified; E11.9 Type 2 diabetes mellitus without complications; Z79.4 Long term (current) use of insulin; R53.1 Weakness; R26.9 Unspecified abnormalities of gait and mobility
CPT/HCPCS: 36415; 80048; 82550; 85025

== ENCOUNTER 2018-12-24 11:15 | Outpatient (REF) | payer MEDICAID, SELFPAY ==
[2018-12-24 14:30] LABS: Bilirubin Negative (Negative); Blood Negative (Negative); Clarity Clear; Glucose Negative (Negative); Ketones Negative (Negative); Leukocyte Esterase Negative (Negative); Nitrite Negative (Negative); Specific Gravity 1.015 (1.005-1.025); Urobilinogen 0.2 EU/dL (Up TO 0.2); pH 5.5 (5-8)
[2018-12-24 14:58] LABS: Epithelial Cells Few HPF (Negative); Other Cells Negative (Negative); RBC Negative (0-2)
[2018-12-24 14:59] LABS: Bacteria Moderate HPF (Negative); Crystals Negative HPF (Negative); Mucus Negative (Negative)
[2018-12-24 15:00] LABS: C & S Indicated? Yes; Casts 5-10 Hyaline LPF (Negative)
== END 2018-12-24 11:35 ==
LOC: LBN 11:15
PROVIDERS: PCP Internal Medicine; Visit Provider Urology
DX: R30.0 Dysuria (principal)
CPT/HCPCS: 87077; 81003; 81015; 87086; 87186

== ENCOUNTER 2019-01-06 15:35 | Outpatient (CLI) | payer MEDICAID, SELFPAY ==
--- NOTE | 2019-01-06 16:12 | DI.RAD_ITS ---
SYMPTOM/DIAGNOSIS: LEG SWELLING,? WORSENING CHF OR CKD, I50.9,F60.0,N18.5 PA AND LATERAL CHEST: The heart is enlarged. There is suboptimal inspiration. There is increased radiodensity at the lung bases and some pulmonary vascular redistribution of the upper lobe vessels appears to be present. CONCLUSION: Findings suggesting mild CHF. No focal consolidation is seen.
[2019-01-06 16:16] LABS: Bilirubin Negative (Negative); Blood Negative (Negative); Clarity Clear; Glucose Negative (Negative); Ketones Negative (Negative); Leukocyte Esterase Negative (Negative); Nitrite Negative (Negative); Urobilinogen 0.2 EU/dL (Up TO 0.2); pH 5.5 (5-8)
[2019-01-06 16:31] LABS: Bacteria Few HPF (Negative); Crystals Negative HPF (Negative); Epithelial Cells Few HPF (Negative); Mucus Trace (Negative); Other Cells Few Renal (Negative); RBC 0-2 (0-2)
[2019-01-06 16:32] LABS: C & S Indicated? Yes
[2019-01-06 17:25] LABS: Anion Gap 12.8 mmol/L (3-11); BUN 58 mg/dL (7-18); CO2 22.2 mmol/L (21.0-32.0); Calcium 8.8 mg/dL (8.5-10.1); Chloride 105 mmol/L (98-107); Estimated GFR 11.15 (mL/min/1.73m2); Glucose 122 mg/dL (70-100); NT-proBNP 6935 pg/mL; Potassium 4.8 mmol/L (3.5-5.1); Sodium 140 mmol/L (136-145)
[2019-01-06 19:12] LABS: CREATININE 5.23 mg/dL (0.70-1.30)
== END 2019-01-06 15:55 ==
PROVIDERS: Urology; PCP Internal Medicine; Visit Provider Nurse Practitioner Family
DX: I50.9 Heart failure, unspecified (principal); R60.0 Localized edema; N18.5 Chronic kidney disease, stage 5; N39.0 Urinary tract infection, site not specified; R22.40 Localized swelling, mass and lump, unspecified lower limb
CPT/HCPCS: 36415; 80048; 71046; 81003; 81015; 83880; 87086

== ENCOUNTER 2019-01-10 08:09 | Outpatient (CLI) | payer MEDICAID, SELFPAY | END 2019-01-10 08:29 | PROVIDERS: PCP Internal Medicine; Visit Provider Internal Medicine Interventional Cardiology | DX: R07.9 Chest pain, unspecified (principal); I50.9 Heart failure, unspecified; R00.2 Palpitations; I10 Essential (primary) hypertension; R06.02 Shortness of breath | CPT/HCPCS: 93005; 93010 ==

== ENCOUNTER 2019-03-10 11:21 | Outpatient (CLI) | payer MEDICAID, SELFPAY ==
[2019-03-10 11:46] LABS: Abs Immature Grans 0.01 k/cumm (0.0-0.09); Absolute Basophil Count 0.04 k/cumm (0.0-0.2); Absolute Eosinophil Count 0.37 k/cumm (0.0-0.7); Absolute Lymphocyte Count 0.98 k/cumm (1.2-3.4); Absolute Monocyte Count 0.87 k/cumm (0.11-0.7); Absolute Neutrophil Count 5.51 k/cumm (1.2-6.7); Basophils % 0.5; Eosinophils % 4.8; HCT 27.9 % (40.0-50.0); HGB 9.2 g/dL (13.5-17.5); Immature Grans % 0.1; Lymphocytes % 12.6; Mean Corpuscular Hemoglobin 31.4 pg (27.0-33.0); Mean Corpuscular Volume 95.2 fL (80-95); Mean Platelet Volume 9.6 fL (8.0-11.0); Monocytes % 11.2; Neutrophils % 70.8; Platelet Count 165 x1000/uL (130-400); RBC 2.93 m/cumm (4.50-6.00); RBC Distribution Width 14.2 % (11.8-14.1); White Blood Cell Count 7.78 k/cumm (4.4-10.8)
== END 2019-03-10 11:41 ==
PROVIDERS: PCP Internal Medicine; Visit Provider Internal Medicine Nephrology
DX: N18.5 Chronic kidney disease, stage 5 (principal); D63.1 Anemia in chronic kidney disease
CPT/HCPCS: 36415; 85025

== ENCOUNTER 2019-03-13 15:35 | Emergency (ER) | payer MEDICAID, SELFPAY ==
[2019-03-13 16:11] VITALS: BP 139/62; PULSE 63; RESP 14; TEMP 36.7; O2SAT 98
--- NOTE | 2019-03-13 17:03 | ED.GENADUL_ITS ---
Discharge Plan Disposition Patient Disposition: HOME Discharge Details Chief Complaint: Cellulitis Clinical Impression: Cellulitis of foot, right Primary Care Provider: Ethel Collins ED Provider: Immanuel Clark Home Meds and New Rx's Prescriptions: New cephalexin [Keflex] 500 mg capsule 500 mg PO QID Qty: 39 RF: 0 Continued brimonidine 0.1 % drops 1 drp OP BID RF: 0 Vesicare 5 mg tablet 5 mg PO DAILY Qty: 30 RF: 12 tamsulosin 0.4 mg capsule 0.8 mg PO DAILY Qty: 60 RF: 12 albuterol sulfate [ProAir HFA] 90 mcg/actuation HFA aerosol inhaler 2 puff Inhalation Q4H PRN Qty: 1 RF: 1 acetaminophen [Tylenol 8 Hour] 650 mg tablet extended release 650 mg PO ONCE RF: 0 docusate sodium 100 mg capsule 100 mg PO DIRECTED RF: 0 Lidocaine Pain Relief 4 % adhesive patch,medicated 1 patch TP HS RF: 0 multivitamin capsule 1 cap PO DAILY RF: 0 fluticasone propionate [Flonase Allergy Relief] 50 mcg/actuation spray,suspension 1 spray GOPI DAILY Qty: 18.2 RF: 3 dorzolamide-timolol 10 ML drops 1 drp Ophthalmic BID RF: 0 cholecalciferol (vitamin D3) [Vitamin D3] 2,000 UNIT capsule 2,000 unit PO DAILY RF: 0 calcitriol 0.25 MCG capsule 0.25 mcg PO DAILY RF: 0 atorvastatin 80 mg tablet 80 mg PO DAILY Qty: 90 RF: 3 Adult Briefs - Large misc 1 ea Miscellaneous TID Qty: 300 RF: 3 amlodipine 10 mg tablet 10 mg PO DAILY Qty: 30 RF: 5 clopidogrel [Plavix] 75 mg tablet 75 mg PO DAILY Qty: 30 RF: 11 metoprolol tartrate 25 mg tablet 25 mg PO BID Qty: 60 RF: 5 carbidopa-levodopa [Sinemet CR] 25-100 mg tablet extended release 2.5 tab PO TID RF: 0 torsemide 20 mg tablet See Rx Instructions PO .COMPLEX Qty: 90 RF: 5 finasteride 5 mg tablet 5 mg PO DAILY Qty: 90 RF: 4 sodium bicarbonate 650 mg tablet 650 mg PO TID RF: 0 Dexilant 60 mg capsule,biphase delayed releas 60 mg PO BID Qty: 60 RF: 5 hydralazine 10 mg tablet 10 mg PO BID Qty: 60 RF: 5 bupropion HCl 150 MG tablet extended release 12 hr 200 mg PO DAILY RF: 0 gabapentin 400 mg Capsule 400 mg PO BID RF: 0 melatonin 1 MG tablet 2 mg PO DIRECTED RF: 0 Discharge Instructions Instructions: Cephalexin (By mouth), Cellulitis (ED) Additional Instructions: Please contact your primary care physician to arrange follow-up. Call tomorrow to arrange timely for this week. Please take the full course of antibiotic as prescribed. Try to keep your right leg elevated as much as possible. Return to the ER for any worsening or new concerning symptoms. Referrals: Ethel Collins MD [Primary Care Provider] - Discharge Data Discharge Date/Time-TO BE ENTERED AT DEPARTURE: 03/13/19 17:25 Medical Decision Making 17:00 --63-year-old male with chronic unchange lymphadema LEs bilateral, presents with right foot cellulitis localized to right second toe and dorsal foot. Plan to treat with Keflex. Patient will require close outpatient follow-up with primary care physician to ensure improvement. Patient was encouraged to return for any worsening or new concerning symptoms. HPI General Mode of arrival: ambulatory . Date/Time Provider Initiated Documentation: 03/13/19 16:29 . Limitations to Documentation: no limitations . Information obtained by: patient . HPI Narrative: 63-year-old male with multiple medical problems including history of diabetes, chronic lymphedema bilateral lower extremities, here with right foot redness noted by direct support professional home health. Unsure how long patient has had redness. He thinks possibly about a week. No associated fever. Rash is localized to right second toe and extending to the top of foot. Related Data Home Medications Medication Instructions Recorded Confirmed dorzolamide-timolol 1 drp OPHTHALMIC BID drp 11/18/13 03/13/19 bupropion HCl 200 mg PO DAILY 03/22/15 03/13/19 cholecalciferol (vitamin D3) 2,000 unit PO DAILY 11/02/15 03/13/19 [Vitamin D3] calcitriol 0.25 mcg PO DAILY 03/21/16 03/13/19 melatonin 2 mg PO DIRECTED 02/09/17 03/13/19 atorvastatin 80 mg tablet 80 mg PO DAILY #90 tab 06/01/18 03/13/19 diaper,brief,adult,disposable #300 ea 06/08/18 02/16/19 gabapentin 400 mg PO BID 06/20/18 03/13/19 amlodipine 10 mg tablet 10 mg PO DAILY #30 tab-cap 06/28/18 03/13/19 brimonidine 0.1 % eye drops 1 drp OP BID ml 07/05/18 03/13/19 clopidogrel 75 mg tablet 75 mg PO DAILY #30 tab-cap 10/24/18 03/13/19 metoprolol tartrate 25 mg tablet 25 mg PO BID #60 tab-cap 11/05/18 03/13/19 solifenacin 5 mg tablet 5 mg PO DAILY #30 tab-cap 12/21/18 03/13/19 tamsulosin 0.4 mg capsule 0.8 mg PO DAILY #60 tab-cap 12/21/18 03/13/19 albuterol sulfate HFA 90 2 puff INHALATION Q4H PRN #1 inh 01/12/19 03/13/19 mcg/actuation aerosol inhaler carbidopa ER 25 mg-levodopa 100 mg 2.5 tab PO TID tab 01/21/19 03/13/19 tablet,extended release fluticasone propionate 50 1 spray GOPI DAILY #18.2 gm 02/16/19 03/13/19 mcg/actuation nasal spray,suspension acetaminophen ER 650 mg 650 mg PO ONCE 02/18/19 03/13/19 tablet,extended release docusate sodium 100 mg capsule 100 mg PO DIRECTED tab-cap 02/18/19 03/13/19 lidocaine 4 % topical patch 1 patch TP HS each 02/18/19 03/13/19 multivitamin capsule 1 cap PO DAILY 02/18/19 03/13/19 torsemide 20 mg tablet See Rx Instructions PO .COMPLEX 03/04/19 03/13/19 #90 tab finasteride 5 mg tablet 5 mg PO DAILY #90 tab-cap 03/07/19 03/13/19 sodium bicarbonate 650 mg tablet 650 mg PO TID 03/11/19 03/13/19 dexlansoprazole 60 mg 60 mg PO BID #60 cap 03/12/19 03/13/19 capsule,biphase delayed release hydralazine 10 mg tablet 10 mg PO BID #60 tab 03/12/19 03/13/19 cephalexin [Keflex] 500 mg PO QID #39 cap 03/13/19 Previous Rx's Medication Instructions Recorded atorvastatin 80 mg tablet 80 mg PO DAILY #90 tab 06/01/18 diaper,brief,adult,disposable #300 ea 06/08/18 amlodipine 10 mg tablet 10 mg PO DAILY #30 tab-cap 06/28/18 clopidogrel 75 mg tablet 75 mg PO DAILY #30 tab-cap 10/24/18 metoprolol tartrate 25 mg tablet 25 mg PO BID #60 tab-cap 11/05/18 solifenacin 5 mg tablet 5 mg PO DAILY #30 tab-cap 12/21/18 tamsulosin 0.4 mg capsule 0.8 mg PO DAILY #60 tab-cap 12/21/18 albuterol sulfate HFA 90 2 puff INHALATION Q4H PRN #1 inh 01/12/19 mcg/actuation aerosol inhaler fluticasone propionate 50 1 spray GOPI DAILY #18.2 gm 02/16/19 mcg/actuation nasal spray,suspension torsemide 20 mg tablet See Rx Instructions PO .COMPLEX 03/04/19 #90 tab finasteride 5 mg tablet 5 mg PO DAILY #90 tab-cap 03/07/19 dexlansoprazole 60 mg 60 mg PO BID #60 cap 03/12/19 capsule,biphase delayed release hydralazine 10 mg tablet 10 mg PO BID #60 tab 03/12/19 cephalexin [Keflex] 500 mg PO QID #39 cap 03/13/19 Allergies Allergy/AdvReac Type Severity Reaction Status Date / Time buspirone Allergy Intermediate SKIN RASH, Verified 03/13/19 16:16 DIZZINESS tuberculin, purified protein Allergy Unknown unknown Verified 03/13/19 16:16 deriva mirtazapine AdvReac Severe hypotension Verified 03/13/19 16:16 and falls NO BLOOD PRESSURE (L) ARM AdvReac Severe unknown Uncoded 03/13/19 16:16 General Stated Complaint: Cellulitis GERHARD: 3 Review of Systems Review of Systems All systems reviewed & are unremarkable except as noted in HPI and below Constitutional Denies fever(s) Integumentary/Breasts Reports as per HPI and Reports rash PFSH Medical History AV fistula (Acute) BPH (benign prostatic hyperplasia) CAD (coronary artery disease) CHF (congestive heart failure), NYHA class I Chronic kidney disease, stage IV (severe) Diabetic neuropathy Diabetic retinopathy Essential hypertension GERD (gastroesophageal reflux disease) Hyperlipidemia KYLE (obstructive sleep apnea) Stroke Type II diabetes mellitus Surgical History Colonoscopy - IV Sedation (04/16/15) EGD - MAC (07/22/17) Endoscopy (07/17/14) Extraction of cataract (03/27/15) Repair of inguinal hernia Family History Other Adopted Social History Smoking/Tobacco Use Status: Never Alcohol Intake: never Drug use: Never Substance use type: does not use Caregiver/Support person: Yes Housing: other Details: mobile home Pets and animals: Yes Pets and animals: cat(s) Current gender identity: male What type of physical activity do you participate in: none Seatbelt use: always Water heater temp set <120 deg: Yes Working smoke detector in home: Yes Carbon monox detector in home: Yes Do you feel safe at home: Yes Do you feel safe in your relationship?: Yes Exam Const General: cooperative and no acute distress HENMT Mouth: moist mucous membranes Eyes Conjunctivae: normal conjunctivae Sclera: normal sclerae Resp Auscultation: clear to auscultation bilaterally, no rales, no rhonchi and no wheezes Cardio Jugular venous pressure: no JVD Rate: regular rate and not tachycardic Rhythm: regular rhythm Skin General skin exam: erythema (right foot 2nd toe to dorsal foot) and no fluctuance Wounds: wounds noted (small ulcer tip of right 2nd toe) Neuro General: alert, awake and tone normal Extrem General: edema Laterality: bilateral (1+ up shins) Right lower extremity: foot Details: vascular exam (1+ PT) and other (erythema as noted above) Course Vital Signs Temperature 36.7 C 03/13/19 16:11 Pulse 63 03/13/19 16:11 Respiratory Rate 14 03/13/19 16:11 Blood Pressure 139/62 03/13/19 16:11 Pulse Oximetry 98 03/13/19 16:11 Temperature 36.7 C 03/13/19 16:11 Temperature Source Temporal Artery Scan 03/13/19 16:11 Pulse 63 03/13/19 16:11 Respiratory Rate 14 03/13/19 16:11 Respiratory Effort Non-Labored 03/13/19 16:14 Blood Pressure 139/62 03/13/19 16:11 Pulse Oximetry 98 03/13/19 16:11 Oxygen Delivery Method Room Air 03/13/19 16:11 Oxygen Flow Rate 0 03/13/19 16:11 Pain Level 7 03/13/19 16:11
[2019-03-13] MEDS: Cephalexin 500 MG CAP PO (17:16)
[2019-03-13] MEDS: Cephalexin 500 MG CAP 1000 MG PO (17:16)
== END 2019-03-13 17:25 | disposition home or self-care (01) ==
PROVIDERS: Emergency Provider Student in an Organized Health Care Education/Training Program; PCP Internal Medicine
DX: L03.116 Cellulitis of left lower limb (principal); I50.9 Heart failure, unspecified; N18.5 Chronic kidney disease, stage 5; I13.2 Hypertensive heart and chronic kidney disease with heart failure and with stage 5 chronic kidney disease, or end stage renal disease; E11.22 Type 2 diabetes mellitus with diabetic chronic kidney disease
CPT/HCPCS: 99283

== ENCOUNTER 2019-03-15 13:43 | Outpatient (REF) | payer MEDICAID, SELFPAY | END 2019-03-15 14:03 | LOC: LBN 13:43 | PROVIDERS: PCP Internal Medicine; Visit Provider Internal Medicine | DX: L03.115 Cellulitis of right lower limb (principal) | CPT/HCPCS: 87077; 87070; 87205 ==

== ENCOUNTER 2019-03-17 18:33 | Outpatient (REF) | payer MEDICAID, SELFPAY ==
[2019-03-17 19:10] LABS: Estimated GFR 10.52 (mL/min/1.73m2)
== END 2019-03-17 18:53 ==
LOC: LBN 18:33
PROVIDERS: PCP Internal Medicine; Visit Provider Student in an Organized Health Care Education/Training Program
DX: N18.5 Chronic kidney disease, stage 5 (principal)
CPT/HCPCS: 82565

== ENCOUNTER 2019-04-07 21:08 | Emergency (ER) | payer MEDICAID, SELFPAY ==
[2019-04-07 21:12] VITALS: PULSE 59; RESP 16; TEMP 36.6; O2SAT 99
--- NOTE | 2019-04-07 21:39 | ED.GENADUL_ITS ---
Discharge Plan Disposition Patient Disposition: HOME Condition: Good Discharge Details Chief Complaint: HeadInjury Clinical Impression: Fall as cause of accidental injury at home as place of occurrence, Gait instability, Head injury Primary Care Provider: Ethel Collins ED Provider: Piotr Norwood Home Meds and New Rx's Prescriptions: Continued brimonidine 0.1 % drops 1 drp OP BID RF: 0 solifenacin [Vesicare] 5 mg tablet 5 mg PO DAILY Qty: 30 RF: 12 tamsulosin 0.4 mg capsule 0.8 mg PO DAILY Qty: 60 RF: 12 albuterol sulfate [ProAir HFA] 90 mcg/actuation HFA aerosol inhaler 2 puff Inhalation Q4H PRN Qty: 1 RF: 1 acetaminophen [Tylenol 8 Hour] 650 mg tablet extended release 650 mg PO ONCE RF: 0 docusate sodium 100 mg capsule 100 mg PO DIRECTED RF: 0 Lidocaine Pain Relief 4 % adhesive patch,medicated 1 patch TP HS RF: 0 multivitamin capsule 1 cap PO DAILY RF: 0 fluticasone propionate [Flonase Allergy Relief] 50 mcg/actuation spray,suspension 1 spray GOPI DAILY Qty: 18.2 RF: 3 tramadol 50 mg tablet 50 mg PO BID PRN (Reason: pain) Qty: 6 RF: 0 dorzolamide-timolol 10 ML drops 1 drp Ophthalmic BID RF: 0 cholecalciferol (vitamin D3) [Vitamin D3] 2,000 UNIT capsule 2,000 unit PO DAILY RF: 0 calcitriol 0.25 MCG capsule 0.25 mcg PO DAILY RF: 0 atorvastatin 80 mg tablet 80 mg PO DAILY Qty: 90 RF: 3 (DME) Adult Briefs - Large misc 1 ea Miscellaneous TID Qty: 300 RF: 3 amlodipine 10 mg tablet 10 mg PO DAILY Qty: 30 RF: 5 clopidogrel [Plavix] 75 mg tablet 75 mg PO DAILY Qty: 30 RF: 11 metoprolol tartrate 25 mg tablet 25 mg PO BID Qty: 60 RF: 5 carbidopa-levodopa [Sinemet CR] 25-100 mg tablet extended release 2.5 tab PO TID RF: 0 torsemide 20 mg tablet See Rx Instructions PO .COMPLEX Qty: 90 RF: 5 finasteride 5 mg tablet 5 mg PO DAILY Qty: 90 RF: 4 sodium bicarbonate 650 mg tablet 650 mg PO TID RF: 0 Dexilant 60 mg capsule,biphase delayed releas 60 mg PO BID Qty: 60 RF: 5 hydralazine 10 mg tablet 10 mg PO BID Qty: 60 RF: 5 bupropion HCl 150 MG tablet extended release 12 hr 200 mg PO DAILY RF: 0 gabapentin 400 mg Capsule 100 mg PO TID RF: 0 melatonin 1 MG tablet 2 mg PO DIRECTED RF: 0 Discharge Instructions Instructions: Head Injury (ED) Additional Instructions: you may continue to take your pain medication that you are already prescribed as needed for discomfort. For any new or worsening symptoms feel free to return to the emergency department for reassessment. Otherwise continue to follow-up with your primary care provider if not improving or for any further needs. Referrals: Ethel Collins MD [Primary Care Provider] - (As needed for reassessment) Discharge Data Discharge Date/Time-TO BE ENTERED AT DEPARTURE: 04/07/19 23:10 Medical Decision Making Patient presenting to the emergency department for chief complaint of fall. Patient states he was walking without his walker when his knees gave out and caused him to hit his head and have some hip pain. Patient initially states that he has no pain at this time does state some aching in his head. Patient is on Plavix. Patient denies any other injury or trauma, lightheadedness, syncope, loss of consciousness, irregular heartbeats. Patient states that he knows he is supposed to use his walker to ambulate and does have near falls quite often due to gait abnormalities that are not uncommon to him. Physical exam is unremarkable for any neurological findings, no signs of obvious head trauma, C- spine and assessment of thoracic and lumbar spine show no abnormalities, no step-off deformity, no tenderness. Patient does have tenderness to palpation of the left hip but has full range of motion to that hip. Patient is pale in appearance but states that he is getting iron transfusion for iron deficient anemia so this is not a new finding. Given the patient is on Plavix and has gait abnormalities and other chronic morbidities I do feel that radiological imaging of the hip and pelvis is warranted along with CT scan of the head. I do not feel that any lab work is required given that patient has known gait abnormalities and seems more related to that given that he was not using his walker during episode of fall. Plan to give Tylenol pending results Review of radiological imaging shows no acute findings for the hip or pelvis and CT scan shows no intracranial acute process no hemorrhage no significant change from 06/20/2018. There is chronic changes including atrophy, microvascular changes, and small lacunar infarcts in the basal ganglia and cerebellum. Cervical spine so no acute fracture or traumatic subluxation, there is degenerative changes noted. Patient reassessed and is able to stand and ambulate with assistance. At this time I do not feel that any other interventions are needed as patient's ongoing chronic conditions are being appropriately addressed by primary care provider. Patient was strongly encouraged to use his walker with ambulation. Return precautions discussed. After discussion of diagnosis and plan of care patient has no further needs, questions, or concerns and states clear understanding to return to the emergency department for any worsening symptoms. HPI General Mode of arrival: ambulatory . Date/Time Provider Initiated Documentation: 04/07/19 21:09 . Limitations to Documentation: no limitations . Information obtained by: patient and RN notes reviewed . History of Present Illness 63 year old M presents to the emergency department with the chief complaint of Fall, head injury, described as mild, with intensity rated at 2. Quality is described as aching, and is localized to the head, left and lower extremity. Patient started experiencing this hour(s) (1) and it has been constant. Patient notes no other symptoms.. Patient did receive the following treatments prior to arrival, none Related Data Home Medications Medication Instructions Recorded Confirmed dorzolamide-timolol 1 drp OPHTHALMIC BID drp 11/18/13 04/07/19 bupropion HCl 200 mg PO DAILY 03/22/15 04/07/19 cholecalciferol (vitamin D3) 2,000 unit PO DAILY 11/02/15 04/07/19 [Vitamin D3] calcitriol 0.25 mcg PO DAILY 03/21/16 04/07/19 melatonin 2 mg PO DIRECTED 02/09/17 04/07/19 atorvastatin 80 mg tablet 80 mg PO DAILY #90 tab 06/01/18 04/07/19 diaper,brief,adult,disposable #300 ea 06/08/18 03/17/19 gabapentin 100 mg PO TID 06/20/18 04/07/19 amlodipine 10 mg tablet 10 mg PO DAILY #30 tab-cap 06/28/18 04/07/19 brimonidine 0.1 % eye drops 1 drp OP BID ml 07/05/18 04/07/19 clopidogrel 75 mg tablet 75 mg PO DAILY #30 tab-cap 10/24/18 04/07/19 metoprolol tartrate 25 mg tablet 25 mg PO BID #60 tab-cap 11/05/18 04/07/19 solifenacin 5 mg tablet 5 mg PO DAILY #30 tab-cap 12/21/18 04/07/19 tamsulosin 0.4 mg capsule 0.8 mg PO DAILY #60 tab-cap 12/21/18 04/07/19 albuterol sulfate 90 mcg/actuation 2 puff INHALATION Q4H PRN #1 inh 01/12/19 04/07/19 aerosol inhaler carbidopa ER 25 mg-levodopa 100 mg 2.5 tab PO TID tab 01/21/19 04/07/19 tablet,extended release fluticasone propionate 50 1 spray GOPI DAILY #18.2 gm 02/16/19 04/07/19 mcg/actuation nasal spray,suspension acetaminophen 650 mg 650 mg PO ONCE 02/18/19 04/07/19 tablet,extended release docusate sodium 100 mg capsule 100 mg PO DIRECTED tab-cap 02/18/19 04/07/19 lidocaine 4 % topical patch 1 patch TP HS each 02/18/19 04/07/19 multivitamin 1 cap PO DAILY 02/18/19 04/07/19 torsemide 20 mg tablet See Rx Instructions PO .COMPLEX 03/04/19 04/07/19 #90 tab finasteride 5 mg tablet 5 mg PO DAILY #90 tab-cap 03/07/19 04/07/19 sodium bicarbonate 650 mg tablet 650 mg PO TID 03/11/19 04/07/19 dexlansoprazole 60 mg 60 mg PO BID #60 cap 03/12/19 03/17/19 capsule,biphase delayed release hydralazine 10 mg tablet 10 mg PO BID #60 tab 03/12/19 04/07/19 tramadol 50 mg tablet 50 mg PO BID PRN #6 tab 03/15/19 04/07/19 Previous Rx's Medication Instructions Recorded atorvastatin 80 mg tablet 80 mg PO DAILY #90 tab 06/01/18 diaper,brief,adult,disposable #300 ea 06/08/18 amlodipine 10 mg tablet 10 mg PO DAILY #30 tab-cap 06/28/18 clopidogrel 75 mg tablet 75 mg PO DAILY #30 tab-cap 10/24/18 metoprolol tartrate 25 mg tablet 25 mg PO BID #60 tab-cap 11/05/18 solifenacin 5 mg tablet 5 mg PO DAILY #30 tab-cap 12/21/18 tamsulosin 0.4 mg capsule 0.8 mg PO DAILY #60 tab-cap 12/21/18 albuterol sulfate 90 mcg/actuation 2 puff INHALATION Q4H PRN #1 inh 01/12/19 aerosol inhaler fluticasone propionate 50 1 spray GOPI DAILY #18.2 gm 02/16/19 mcg/actuation nasal spray,suspension torsemide 20 mg tablet See Rx Instructions PO .COMPLEX 03/04/19 #90 tab finasteride 5 mg tablet 5 mg PO DAILY #90 tab-cap 03/07/19 dexlansoprazole 60 mg 60 mg PO BID #60 cap 03/12/19 capsule,biphase delayed release hydralazine 10 mg tablet 10 mg PO BID #60 tab 03/12/19 tramadol 50 mg tablet 50 mg PO BID PRN #6 tab 03/15/19 Allergies Allergy/AdvReac Type Severity Reaction Status Date / Time buspirone Allergy Intermediate SKIN RASH, Verified 04/07/19 21:22 DIZZINESS tuberculin, purified protein Allergy Unknown unknown Verified 04/07/19 21:22 deriva mirtazapine AdvReac Severe hypotension Verified 04/07/19 21:22 and falls NO BLOOD PRESSURE (L) ARM AdvReac Severe unknown Uncoded 04/07/19 21:22 General Stated Complaint: HeadInjury GERHARD: 3 Review of Systems Constitutional Reports frequent falls and Reports headache(s) ENT Reports headache(s) Cardiovascular Denies syncope Musculoskeletal Reports as per HPI, Denies numbness and Denies tingling Integumentary/Breasts Denies rash, Denies sores and Denies wounds Neurologic Reports as per HPI, Denies syncope, Reports frequent falls, Reports headache(s), Denies numbness and Denies tingling [facility] Medical History AV fistula (Acute) BPH (benign prostatic hyperplasia) CAD (coronary artery disease) CHF (congestive heart failure), NYHA class I Chronic kidney disease, stage IV (severe) Diabetic neuropathy Diabetic retinopathy Essential hypertension GERD (gastroesophageal reflux disease) Hyperlipidemia KYLE (obstructive sleep apnea) Stroke Type II diabetes mellitus Surgical History Colonoscopy - IV Sedation (04/16/15) EGD - MAC (07/22/17) Endoscopy (07/17/14) Extraction of cataract (03/27/15) Repair of inguinal hernia Family History Other Adopted Social History Smoking/Tobacco Use Status: Never Alcohol Intake: never Drug use: Never Substance use type: does not use Caregiver/Support person: Yes Housing: other Details: mobile home Pets and animals: Yes Pets and animals: cat(s) Current gender identity: male What type of physical activity do you participate in: none Seatbelt use: always Water heater temp set <120 deg: Yes Working smoke detector in home: Yes Carbon monox detector in home: Yes Do you feel safe at home: Yes Do you feel safe in your relationship?: Yes Exam Const General: cooperative and no acute distress Orientation: alert, awake and oriented x3 HENMT Head: normal to inspection, no palpable skull fracture, normocephalic, atraumatic, no abrasions, no Bowens's sign, no contusions, no hematomas, no palpable skull fracture, no raccoon eyes, no scalp tenderness and No periorbital ecchymosis Ears: hearing grossly normal bilaterally, external ears normal and TM's normal bilaterally General nose exam: external nose normal Face and sinus: normal facial exam Throat: posterior oropharynx normal Resp Effort & Inspection: normal respiratory effort and able to speak in complete sentences Cardio Rate: regular rate Rhythm: regular rhythm Back/Spine/Pelvis Cervical Spine: No cervical spinal tenderness and No step off deformity Thoracic/Lumbar Spine: No thoracic spinal tenderness, No lumbar spinal tenderness and No straight leg raise positive Pelvis: no pain with anterior-posterior compression Extrem General: edema Laterality: bilateral Right lower extremity: normal to inspection and hip/thigh Details: normal ROM; no tenderness Left lower extremity: hip/thigh Details: tenderness Location: of the hip Location: laterally and anteriorly and normal ROM Course Vital Signs Temperature 36.6 C 04/07/19 21:12 Pulse 59 L 04/07/19 21:12 Respiratory Rate 16 04/07/19 21:12 Pulse Oximetry 99 04/07/19 21:12 Temperature 36.6 C 04/07/19 21:12 Temperature Source Temporal Artery Scan 04/07/19 21:12 Pulse 59 L 04/07/19 21:12 Respiratory Rate 16 04/07/19 21:12 Respiratory Effort 04/07/19 21:19 Respiratory Depth Normal 04/07/19 21:19 Respiratory Pattern Normal 04/07/19 21:19 Pulse Oximetry 99 04/07/19 21:12 Oxygen Delivery Method Room Air 04/07/19 21:12 Oxygen Flow Rate 0 04/07/19 21:12 Pain Level 0 04/07/19 21:19
[2019-04-07] MEDS: Acetaminophen 500 MG TAB PO (21:49)
--- NOTE | 2019-04-07 22:08 | DI.CT_ITS ---
SYMPTOM/DIAGNOSIS: FALL CT CERVICAL SPINE: Multiple contiguous axial images of the cervical spine were obtained. Sagittal and coronal reformatted images were evaluated on the Siemens work station. Comparison is 06/20/18 There is a mild straining of the normal cervical lordosis. This may be due to muscle spasm or degenerative change. The odontoid is intact. The lateral masses are well aligned. No acute fractures or subluxations are seen. Moderate degenerative changes are present throughout the cervical spine. The findings are most marked at C4-5 and C5-6. The prevertebral soft tissues are unremarkable. The visualized lung apices are clear. IMPRESSION: No acute fracture or subluxation in the cervical spine. CT BRAIN: Noncontrast examination was performed. Comparison is 06/20/18. The ventricles and sulci are consistent with the patient's age and consistent with global cerebral atrophy. There are areas of decreased attenuation in the white matter consistent with small vessel ischemic disease. There are old bilateral lacunar infarcts. No acute territorial infarct, hemorrhage, midline shift or mass effect is identified. The ventricles are intact. The basilar cisterns are patent. No fluid levels are seen in the visualized paranasal sinuses. The mastoid air cells are well pneumatized. The calvarium is intact. IMPRESSION: No acute intracranial process.
--- NOTE | 2019-04-07 22:13 | DI.RAD_ITS ---
SYMPTOM/DIAGNOSIS: FALL LEFT HIP AND PELVIS: No acute fracture or dislocation is seen. Degenerative changes are seen in the hips bilaterally. The sacroiliac joints and symphysis pubis area intact. Extensive vascular calcifications are present. The bones are osteopenic. IMPRESSION: No acute fracture or dislocation.
--- NOTE | 2019-04-07 22:41 | DI.VRAD_ITS ---
EXAM: CT Head Without Contrast EXAM DATE/TIME: 04/07/2019 9:39 PM CLINICAL HISTORY: 63 years old, male; Other: Fall, trauma TECHNIQUE: Imaging protocol: Computed tomography images of the head without contrast. Coronal and sagittal reformatted images were created and reviewed. Radiation optimization: All CT scans at this facility use at least one of these dose optimization techniques: automated exposure control; mA and/or kV adjustment per patient size (includes targeted exams where dose is matched to clinical indication); or iterative reconstruction. COMPARISON: CT HEAD CERVICAL SPINE WO 06/20/2018 2:56 PM FINDINGS: Brain: Mild generalized atrophy with mild periventricular white matter ischemic changes consistent with the patient's advanced age. No extra-axial fluid collections. No evidence of acute intracranial hemorrhage. No evidence of acute or subacute intracranial ischemia/infarct. Chronic lacunar infarcts again noted in the bilateral cerebellar hemispheres and bilateral basal ganglia. No intracranial mass lesions. Midline shift: No midline shift or herniation. Ventricles: Ventricles normal. Bones/joints: The calvarium and visualized facial bones are intact. Sinuses: Mucosal thickening in the right maxillary suggesting mild chronic sinus inflammatory disease. No fluid levels. The other paranasal sinuses are clear. Mastoid air cells: Visualized mastoid air cells are clear. Orbits: Orbital contents demonstrate no evidence of acute abnormality. Soft tissues: The scalp and visualized soft tissues are unremarkable. Vasculature: Moderate atherosclerotic calcific plaque is identified in the visualized distal ICA segments . Other findings: The IACs are grossly normal. The sella is grossly normal. IMPRESSION: 1. No acute intracranial process. No intracranial hemorrhage. No significant change from 06/20/2018. 2. Atrophy and microvascular changes consistent with the patient's advanced age, with small lacunar infarcts in the basal ganglia and cerebellum. EXAM: CT Cervical Spine Without Contrast EXAM DATE/TIME: 04/07/2019 9:39 PM CLINICAL HISTORY: 63 years old, male; Other: Fall, trauma TECHNIQUE: Imaging protocol: Computed tomography images of the cervical spine without contrast. Coronal and sagittal reformatted images were created and reviewed. Radiation optimization: All CT scans at this facility use at least one of these dose optimization techniques: automated exposure control; mA and/or kV adjustment per patient size (includes targeted exams where dose is matched to clinical indication); or iterative reconstruction. COMPARISON: CT HEAD CERVICAL SPINE WO 06/20/2018 2:56 PM FINDINGS: Vertebrae: Diffuse osteopenia. Craniocervical alignment is normal. The odontoid is intact. Mild straightening of the midcervical lordosis which is probably degenerative in nature given the similarity to previous exam 06/20/2018. A mild element of muscular strain/spasm could be contributing to this appearance. Alignment is otherwise normal. Discs/Spinal canal/Neural foramina: Moderate degenerative sclerosis and spurring at the atlantodens interval. No jumped or perched facets. Moderate disc space narrowing C5-C6 with mild marginal spurring. No compressive soft disc protrusion or extrusion is evident by CT. No evidence of significant central canal stenosis. Mild right foraminal stenosis C4-C5. Moderate left foraminal stenosis C5-C6. Other bones/joints: No fractures. No blastic or lytic lesions. Soft tissues: See Vertebrae Finding. Thyroid: 6 mm hypodense nodule in the right thyroid lobe. This does not meet criteria for further assessment. Lungs: Visualized pulmonary apices are clear. Vasculature: Moderate atherosclerotic calcific plaque in the carotid bulbs. IMPRESSION: 1. No evidence of fracture or acute traumatic subluxation. No significant change from prior exam 06/20/2018. 2. Mid cervical degenerative changes as described. 3. Straightening of cervical lordosis is probably degenerative in nature, versus mild element of muscular strain/spasm. Dictated and Authenticated by: José Miguel Carrasquillo MD. Ordering:WARREN Saldaña MD
--- NOTE | 2019-04-07 22:42 | DI.VRAD_ITS ---
EXAM: XR Left Hip with Pelvis when Performed EXAM DATE/TIME: 04/07/2019 10:13 PM CLINICAL HISTORY: 63 years old, male; Left hip; Patient HX: Lt hip pain after fall TECHNIQUE: Imaging protocol: XR Left hip with pelvis when performed. Views: 2 or 3 views. COMPARISON: CT chest/abd/pel wo 06/20/2018 3:00 PM FINDINGS: Bones/joints: No fracture. Normal alignment. Mild superior lateral acetabular spurring. The joint spaces are grossly well-maintained. Diffuse osteopenia. No radiographic evidence to suggest transient osteoporosis or avascular necrosis. No blastic or lytic lesions. The visualized SI joints, pubic symphysis, and sacrum/pelvis were unremarkable. Soft tissues: Normal. Vasculature: Moderate atherosclerotic vascular calcifications in the pelvis and femoral distributions, with numerous intrapelvic phleboliths. IMPRESSION: 1. No acute abnormalities. 2. Osteopenia and mild hip degenerative spurring. 3. Moderate atherosclerotic vascular calcification. Dictated and Authenticated by: José Miguel Carrasquillo MD. Ordering:WARREN Saldaña MD
== END 2019-04-07 23:10 | disposition home or self-care (01) ==
PROVIDERS: Emergency Provider Nurse Practitioner Family; PCP Internal Medicine
DX: S09.90XA Unspecified injury of head, initial encounter (principal); R26.81 Unsteadiness on feet; M25.552 Pain in left hip; W18.39XA Other fall on same level, initial encounter; Z79.02 Long term (current) use of antithrombotics/antiplatelets; N18.4 Chronic kidney disease, stage 4 (severe); E11.22 Type 2 diabetes mellitus with diabetic chronic kidney disease; I12.9 Hypertensive chronic kidney disease with stage 1 through stage 4 chronic kidney disease, or unspecified chronic kidney disease
CPT/HCPCS: 99284; 70450; 72125; 73502

== ENCOUNTER 2019-04-08 02:02 | Outpatient (RCR) | payer MEDICAID, SELFPAY ==
[2019-03-25] MEDS: Normal Saline Flush 10 ML SYR IVP (11:28)
[2019-04-01] MEDS: Normal Saline Flush 10 ML SYR IVP (11:52)
[2019-04-08] MEDS: Normal Saline Flush 10 ML SYR IVP (11:31)
== END 2019-04-20 23:59 | disposition home or self-care (01) ==
LOC: INF 02:02
PROVIDERS: PCP Internal Medicine; Visit Provider Internal Medicine
DX: D50.9 Iron deficiency anemia, unspecified (principal)
CPT/HCPCS: 96365; 96366; J1756

== ENCOUNTER 2019-04-13 12:03 | Emergency (ER) | payer MEDICAID, SELFPAY ==
[2019-04-13 12:07] VITALS: BP 133/54; PULSE 67; RESP 16; TEMP 36.4; O2SAT 95
--- NOTE | 2019-04-13 12:18 | ED.GENADUL_ITS ---
Discharge Plan Disposition Patient Disposition: HOME Condition: Stable Discharge Details Chief Complaint: GenMedical Clinical Impression: UTI (urinary tract infection), Tinea cruris Primary Care Provider: Ethel Collins ED Provider: Brianda Bates Home Meds and New Rx's Prescriptions: New sulfamethoxazole-trimethoprim [Bactrim DS] 800-160 mg tablet 1 tab PO BID 7 Days Qty: 14 RF: 0 clotrimazole 1 % cream 1 applic TP BID 28 Days Qty: 45 RF: 0 mupirocin 2 % ointment 1 applic TP BID Qty: 22 RF: 0 Continued brimonidine 0.1 % drops 1 drp OP BID RF: 0 solifenacin [Vesicare] 5 mg tablet 5 mg PO DAILY Qty: 30 RF: 12 tamsulosin 0.4 mg capsule 0.8 mg PO DAILY Qty: 60 RF: 12 albuterol sulfate [ProAir HFA] 90 mcg/actuation HFA aerosol inhaler 2 puff Inhalation Q4H PRN Qty: 1 RF: 1 docusate sodium 100 mg capsule 100 mg PO DIRECTED RF: 0 Lidocaine Pain Relief 4 % adhesive patch,medicated 1 patch TP HS RF: 0 multivitamin capsule 1 cap PO DAILY RF: 0 fluticasone propionate [Flonase Allergy Relief] 50 mcg/actuation spray,suspension 1 spray GOPI DAILY Qty: 18.2 RF: 3 dorzolamide-timolol 10 ML drops 1 drp Ophthalmic BID RF: 0 cholecalciferol (vitamin D3) [Vitamin D3] 2,000 UNIT capsule 2,000 unit PO DAILY RF: 0 calcitriol 0.25 MCG capsule 0.25 mcg PO DAILY RF: 0 atorvastatin 80 mg tablet 80 mg PO DAILY Qty: 90 RF: 3 (DME) Adult Briefs - Large misc 1 ea Miscellaneous TID Qty: 300 RF: 3 amlodipine 10 mg tablet 10 mg PO DAILY Qty: 30 RF: 5 clopidogrel [Plavix] 75 mg tablet 75 mg PO DAILY Qty: 30 RF: 11 metoprolol tartrate 25 mg tablet 25 mg PO BID Qty: 60 RF: 5 torsemide 20 mg tablet See Rx Instructions PO .COMPLEX Qty: 90 RF: 5 finasteride 5 mg tablet 5 mg PO DAILY Qty: 90 RF: 4 Dexilant 60 mg capsule,biphase delayed releas 60 mg PO BID Qty: 60 RF: 5 hydralazine 10 mg tablet 10 mg PO BID Qty: 60 RF: 5 bupropion HCl 150 MG tablet extended release 12 hr 200 mg PO DAILY RF: 0 melatonin 1 MG tablet 2 mg PO DIRECTED RF: 0 No Action prednisone 10 mg tablet 10 mg PO DAILY 5 Days Qty: 5 RF: 0 carbidopa-levodopa 25-100 mg Tablet 2 tab TID RF: 0 loperamide 2 mg Capsule 2 mg PO QID RF: 0 gabapentin 100 mg capsule 300 mg PO DAILY RF: 0 Discharge Instructions Instructions: Urinary Tract Infection in Men (ED), Tinea Corporis (ED), Jock Itch (ED) Additional Instructions: Take the antibiotic's until finished. Apply the topical antifungal cream to the groin area twice daily for the next 4 weeks. In between applying the antifungal cream, apply the topical antibiotic ointment as there may be an early bacterial infection starting. Follow-up with the primary care doctor for reevaluation in the next 2 days. Return to the emergency department if you develop any worsening or new concerning symptoms such as fever, chills, vomiting or any other concerns. Discharge Data Discharge Date/Time-TO BE ENTERED AT DEPARTURE: 04/13/19 15:54 Discharge Physician: Brianda Bates Medical Decision Making 63-year-old male with a history of atrial fibrillation, CVA, diabetes, GERD, hypertension, high cholesterol, chronic kidney disease, developmental delay and overactive bladder who presents with urinary frequency duration for the past 2 weeks. Denies fever, nausea or vomiting, abdominal or acute back pain. Glucose 219. Differential diagnosis includes UTI, interstitial cystitis, overactive bladder, metabolic disturbance, electrolyte abnormality. Presentation does not appear consistent with kidney stone. Considering patient's age and history, will check screening labs and urinalysis. Screening labs reviewed and note white blood cell count 11.5. Hemoglobin 8.7 which is within normal baseline range. Creatinine stable at 5.3. Glucose 198. Normal bicarb. Urinalysis notes 20-50 WBCs, negative leukocyte esterase, negative nitrite, urine culture sent. Large amount of protein in urine which appears stable. In setting of UTI symptoms, will treat for UTI. As patient was treated with Keflex 1 month ago, will treat with Bactrim. 1 dose was given here. Rash noted in groin and appears likely consistent with tinea cruris. There could be a possible early secondary bacterial infection. Prescription for clotrimazole cream given as well as Bactroban. Inside Sales Consultant instructed to have patient follow-up with the primary care doctor for evaluation and to return here at any time if worse. Medical Records Medical records reviewed: Yes I reviewed the patient's medical records. Lab Data Lab results reviewed: Yes I reviewed the patient's lab results. 04/13/19 14:35 Urine - Reflex from Ua Urine Culture - Final Enterococcus Faecalis Laboratory Tests Range/Units 04/13/19 04/13/19 04/13/19 13:15 13:15 14:35 WBC (4.4-10.8) k/cumm 11.50 H RBC (4.50-6.00) m/cumm 2.74 L Hgb (13.5-17.5) g/dL 8.7 L Hct (40.0-50.0) % 26.5 L MCV (80-95) fL 96.7 H MCH (27.0-33.0) pg 31.8 MCHC (32.0-36.0) g/dL 32.8 RDW (11.8-14.1) % 14.1 Plt Count (130-400) x1000/uL 172 MPV (8.0-11.0) fL 9.7 Immature Gran % 0.2 Neutrophils % 80.0 Lymphocytes % 7.1 Monocytes % 9.2 Eosinophils % 3.3 Basophils % 0.2 Absolute Neutrophils (1.2-6.7) k/cumm 9.20 H Absolute Lymphocytes (1.2-3.4) k/cumm 0.82 L Absolute Monocytes (0.11-0.7) k/cumm 1.06 H Absolute Eosinophils (0.0-0.7) k/cumm 0.38 Absolute Basophils (0.0-0.2) k/cumm 0.02 Differential Comment Rbc morph reviewed RBC Morphology See below Polychromasia Present Poikilocytosis 1+ Sodium (136-145) mmol/L 139 Potassium (3.5-5.1) mmol/L 4.2 Chloride (98-107) mmol/L 105 Carbon Dioxide (21.0-32.0) mmol/L 22.5 Anion Gap (3-11) mmol/L 11.5 H BUN (7-18) mg/dL 53 H Creatinine (0.70-1.30) mg/dL 5.30 H* Estimated GFR/1.73 m2 (mL/min/1.73m2) 10.98 Glucose (70-100) mg/dL 198 H Calcium (8.5-10.1) mg/dL 8.9 Urine Color (Yellow) Yellow Urine Clarity (Clear) Clear Urine pH (5-8) 6.0 Ur Specific Bartlett (1.005-1.025) 1.015 Urine Protein (Negative) mg/dL >=300 H Urine Ketones (Negative) mg/dL Negative Urine Blood (Negative) Negative Urine Nitrite (Negative) Negative Urine Bilirubin (Negative) Negative Urine Urobilinogen (Up TO 0.2) EU/dL 0.2 Ur Leukocyte Esterase (Negative) Negative Urine RBC (0-2) 0-2 Urine WBC (0-5) HPF 20-50 Ur Epithelial Cells (Negative) HPF Rare Urine Crystals (Negative) HPF Negative Urine Bacteria (Negative) HPF Rare Urine Casts (Negative) LPF 3-5 hyaline Urine Mucus (Negative) Trace Ur Culture Indicated? Yes Urine Glucose (Negative) mg/dL Negative HPI General Mode of arrival: ambulatory . Date/Time Provider Initiated Documentation: 04/13/19 12:04 . Limitations to Documentation: no limitations . Information obtained by: patient . HPI Narrative: Patient is a 63-year-old male with a history of developmental delay, diabetes, obesity, hypertension, GERD, CHF, CKD who presents to the ED with a complaint of urinary urgency and frequency over the past 2 weeks. Caregiver states that patient has a history of urinary tract infections which usually cause hallucinations but denies any recent hallucinations. Denies any fever, chills, nausea, vomiting, dysuria, hematuria, chest pain, shortness of breath, abdominal or acute back pain. Related Data Home Medications Medication Instructions Recorded Confirmed dorzolamide-timolol 1 drp OPHTHALMIC BID drp 11/18/13 04/15/19 bupropion HCl 200 mg PO DAILY 03/22/15 04/15/19 cholecalciferol (vitamin D3) 2,000 unit PO DAILY 11/02/15 04/15/19 [Vitamin D3] calcitriol 0.25 mcg PO DAILY 03/21/16 04/15/19 melatonin 2 mg PO DIRECTED 02/09/17 04/15/19 atorvastatin 80 mg tablet 80 mg PO DAILY #90 tab 06/01/18 04/15/19 diaper,brief,adult,disposable #300 ea 06/08/18 04/15/19 amlodipine 10 mg tablet 10 mg PO DAILY #30 tab-cap 06/28/18 04/15/19 brimonidine 0.1 % eye drops 1 drp OP BID ml 07/05/18 04/15/19 clopidogrel 75 mg tablet 75 mg PO DAILY #30 tab-cap 10/24/18 04/15/19 metoprolol tartrate 25 mg tablet 25 mg PO BID #60 tab-cap 11/05/18 04/15/19 solifenacin 5 mg tablet 5 mg PO DAILY #30 tab-cap 12/21/18 04/15/19 tamsulosin 0.4 mg capsule 0.8 mg PO DAILY #60 tab-cap 12/21/18 04/15/19 albuterol sulfate 90 mcg/actuation 2 puff INHALATION Q4H PRN #1 inh 01/12/19 04/15/19 aerosol inhaler fluticasone propionate 50 1 spray GOPI DAILY #18.2 gm 02/16/19 04/15/19 mcg/actuation nasal spray,suspension docusate sodium 100 mg capsule 100 mg PO DIRECTED tab-cap 02/18/19 04/15/19 lidocaine 4 % topical patch 1 patch TP HS each 02/18/19 04/15/19 multivitamin 1 cap PO DAILY 02/18/19 04/15/19 torsemide 20 mg tablet See Rx Instructions PO .COMPLEX 03/04/19 04/15/19 #90 tab finasteride 5 mg tablet 5 mg PO DAILY #90 tab-cap 03/07/19 04/15/19 dexlansoprazole 60 mg 60 mg PO BID #60 cap 03/12/19 04/15/19 capsule,biphase delayed release hydralazine 10 mg tablet 10 mg PO BID #60 tab 03/12/19 04/15/19 carbidopa-levodopa 2 tab TID 04/13/19 04/15/19 clotrimazole 1 applic TP BID 28 Days #45 gm 04/13/19 04/15/19 loperamide 2 mg PO QID 04/13/19 04/15/19 mupirocin 1 applic TP BID #22 gm 04/13/19 04/15/19 sulfamethoxazole-trimethoprim 1 tab PO BID 7 Days #14 tab 04/13/19 04/15/19 [Bactrim DS] gabapentin 100 mg capsule 300 mg PO DAILY cap 04/15/19 04/15/19 prednisone 10 mg tablet 10 mg PO DAILY 5 Days #5 tab 04/15/19 04/15/19 Previous Rx's Medication Instructions Recorded atorvastatin 80 mg tablet 80 mg PO DAILY #90 tab 06/01/18 diaper,brief,adult,disposable #300 ea 06/08/18 amlodipine 10 mg tablet 10 mg PO DAILY #30 tab-cap 06/28/18 clopidogrel 75 mg tablet 75 mg PO DAILY #30 tab-cap 10/24/18 metoprolol tartrate 25 mg tablet 25 mg PO BID #60 tab-cap 11/05/18 solifenacin 5 mg tablet 5 mg PO DAILY #30 tab-cap 12/21/18 tamsulosin 0.4 mg capsule 0.8 mg PO DAILY #60 tab-cap 12/21/18 albuterol sulfate 90 mcg/actuation 2 puff INHALATION Q4H PRN #1 inh 01/12/19 aerosol inhaler fluticasone propionate 50 1 spray GOPI DAILY #18.2 gm 02/16/19 mcg/actuation nasal spray,suspension torsemide 20 mg tablet See Rx Instructions PO .COMPLEX 03/04/19 #90 tab finasteride 5 mg tablet 5 mg PO DAILY #90 tab-cap 03/07/19 dexlansoprazole 60 mg 60 mg PO BID #60 cap 03/12/19 capsule,biphase delayed release hydralazine 10 mg tablet 10 mg PO BID #60 tab 03/12/19 clotrimazole 1 applic TP BID 28 Days #45 gm 04/13/19 mupirocin 1 applic TP BID #22 gm 04/13/19 sulfamethoxazole-trimethoprim 1 tab PO BID 7 Days #14 tab 04/13/19 [Bactrim DS] prednisone 10 mg tablet 10 mg PO DAILY 5 Days #5 tab 04/15/19 Allergies Allergy/AdvReac Type Severity Reaction Status Date / Time buspirone Allergy Intermediate SKIN RASH, Verified 04/15/19 09:01 DIZZINESS tuberculin, purified protein Allergy Unknown unknown Verified 04/15/19 09:01 deriva mirtazapine AdvReac Severe hypotension Verified 04/15/19 09:01 and falls NO BLOOD PRESSURE (L) ARM AdvReac Severe unknown Uncoded 04/15/19 09:01 General Stated Complaint: GenMedical GERHARD: 4 Review of Systems Review of Systems All systems reviewed & are unremarkable except as noted in HPI and below Constitutional Reports as per HPI, Denies chills and Denies fever(s) Eyes Denies blurry vision ENT Denies dizziness, Denies sore throat and Denies throat swelling Cardiovascular Denies chest pain and Denies dyspnea Respiratory Denies cough and Denies dyspnea Gastrointestinal Denies abdominal pain, Denies diarrhea and Denies vomiting Genitourinary Denies hematuria, Denies dysuria, Reports urinary frequency and Reports urinary urgency Musculoskeletal Denies back pain and Denies numbness Integumentary/Breasts Denies lesions and Denies rash Neurologic Denies dizziness, Denies focal weakness and Denies numbness Allergic/Immunologic Denies throat swelling [facility] Medical History AV fistula (Acute) BPH (benign prostatic hyperplasia) CAD (coronary artery disease) CHF (congestive heart failure), NYHA class I Chronic kidney disease, stage IV (severe) Diabetic neuropathy Diabetic retinopathy Essential hypertension GERD (gastroesophageal reflux disease) Hyperlipidemia KYLE (obstructive sleep apnea) Stroke Type II diabetes mellitus Surgical History Colonoscopy - IV Sedation (04/16/15) EGD - MAC (07/22/17) Endoscopy (07/17/14) Extraction of cataract (03/27/15) Repair of inguinal hernia Family History Other Adopted Social History Smoking/Tobacco Use Status: Never Alcohol Intake: never Drug use: Never Substance use type: does not use Caregiver/Support person: Yes Housing: other Details: mobile home Pets and animals: Yes Pets and animals: cat(s) Current gender identity: male What type of physical activity do you participate in: none Seatbelt use: always Water heater temp set <120 deg: Yes Working smoke detector in home: Yes Carbon monox detector in home: Yes Do you feel safe at home: Yes Do you feel safe in your relationship?: Yes Exam Const General: cooperative, healthy appearing and no acute distress HENNE Head: normal to inspection Face and sinus: normal facial exam Eyes General: appearance normal, both eyes and all related structures EOM: EOM intact bilaterally Neck Neck: normal visual inspection and No submandibular swelling Lymphatic: no lymphadenopathy noted Chest Chest: normal inspection of the chest and no tenderness Resp Effort & Inspection: normal respiratory effort and able to speak in complete sentences Auscultation: clear to auscultation bilaterally Cardio Rate: regular rate Rhythm: regular rhythm GI Inspection: normal to inspection Palpation: soft, not firm, not rigid and tender suprapubicly Auscultation: normal bowel sounds Penis: normal penis Scrotum: scrotum normal Testes: normal, no testicular mass, no testicular swelling and no testicular tenderness Skin Other: Patches of erythema noted in bilateral groin with darker erythematous border and mild clearing in center with foul odor. No abscesses, drainage or bleeding. No vesicles. Neuro General: alert, awake and oriented x3 Cognition: normal cognition Speech: speech normal Motor: muscle tone normal throughout Sensory Exam: no sensory deficits noted Extrem General: normal to inspection, full ROM, normal capillary refill, no calf tenderness bilaterally and no edema Psych Appearance: grossly normal Mental Status: mental status grossly normal Speech and Movement: speech and movement normal Affect: normal affect Course Vital Signs Temperature 97.5 F L 04/13/19 12:07 Pulse 67 04/13/19 12:07 Respiratory Rate 16 04/13/19 12:07 Blood Pressure 133/54 L 04/13/19 12:07 Pulse Oximetry 95 04/13/19 12:07 Temperature 97.5 F L 04/13/19 12:07 Pulse 67 04/13/19 12:07 Respiratory Rate 16 04/13/19 12:07 Respiratory Effort Non-Labored 04/13/19 12:12 Blood Pressure 133/54 L 04/13/19 12:07 Pulse Oximetry 95 04/13/19 12:07 Oxygen Delivery Method Room Air 04/13/19 12:07 Oxygen Flow Rate 0 04/13/19 12:07 Pain Level 0 04/13/19 12:07
[2019-04-13 13:21] LABS: Abs Immature Grans 0.02 k/cumm (0.0-0.09); Absolute Basophil Count 0.02 k/cumm (0.0-0.2); Absolute Eosinophil Count 0.38 k/cumm (0.0-0.7); Absolute Lymphocyte Count 0.82 k/cumm (1.2-3.4); Absolute Monocyte Count 1.06 k/cumm (0.11-0.7); Basophils % 0.2; Eosinophils % 3.3; HCT 26.5 % (40.0-50.0); HGB 8.7 g/dL (13.5-17.5); Immature Grans % 0.2; Lymphocytes % 7.1; Mean Corp. HGB Concentration 32.8 g/dL (32.0-36.0); Mean Corpuscular Hemoglobin 31.8 pg (27.0-33.0); Mean Corpuscular Volume 96.7 fL (80-95); Mean Platelet Volume 9.7 fL (8.0-11.0); Monocytes % 9.2; Platelet Count 172 x1000/uL (130-400); RBC 2.74 m/cumm (4.50-6.00); RBC Distribution Width 14.1 % (11.8-14.1)
[2019-04-13 13:32] LABS: Anion Gap 11.5 mmol/L (3-11); BUN 53 mg/dL (7-18); CO2 22.5 mmol/L (21.0-32.0); Calcium 8.9 mg/dL (8.5-10.1); Chloride 105 mmol/L (98-107); Estimated GFR 10.98 (mL/min/1.73m2); Glucose 198 mg/dL (70-100); Potassium 4.2 mmol/L (3.5-5.1); Sodium 139 mmol/L (136-145)
[2019-04-13 13:39] LABS: Diff Comment RBC Morph Reviewed; Poikilocytes 1+; Polychromasia Present
[2019-04-13 15:01] LABS: Bilirubin Negative (Negative); Blood Negative (Negative); Clarity Clear (Clear); Glucose Negative (Negative); Ketones Negative (Negative); Leukocyte Esterase Negative (Negative); Nitrite Negative (Negative); Specific Gravity 1.015 (1.005-1.025); Urobilinogen 0.2 EU/dL (Up TO 0.2)
[2019-04-13 15:11] LABS: Bacteria Rare HPF (Negative); C & S Indicated? Yes; Casts 3-5 Hyaline LPF (Negative); Crystals Negative HPF (Negative); Epithelial Cells Rare HPF (Negative); Mucus Trace (Negative); RBC 0-2 (0-2); WBC 20-50 HPF (0-5)
[2019-04-13 15:29] VITALS: BP 140/70; PULSE 60; RESP 16; TEMP 36.3; O2SAT 98
[2019-04-13] MEDS: Lidocaine 2% Jelly 11 ML SYR (15:31)
[2019-04-13] MEDS: Sulfameth/Trimeth DS TAB 1 TAB PO (16:00)
== END 2019-04-13 15:54 | disposition home or self-care (01) ==
PROVIDERS: Emergency Provider Physician Assistant; PCP Internal Medicine
DX: N39.0 Urinary tract infection, site not specified (principal); R41.82 Altered mental status, unspecified; E11.22 Type 2 diabetes mellitus with diabetic chronic kidney disease; I12.9 Hypertensive chronic kidney disease with stage 1 through stage 4 chronic kidney disease, or unspecified chronic kidney disease; N18.4 Chronic kidney disease, stage 4 (severe); G20 Parkinson's disease; F81.9 Developmental disorder of scholastic skills, unspecified; B35.6 Tinea cruris
CPT/HCPCS: 36415; 36416; 80048; 82962; 87077; 99283; 81003; 81015; 85025; 87086; 87186

== ENCOUNTER 2019-04-15 11:07 | Outpatient (REF) | payer MEDICAID, SELFPAY | END 2019-04-15 11:27 | LOC: LBN 11:07 | PROVIDERS: PCP Internal Medicine; Visit Provider Family Medicine | DX: R59.1 Generalized enlarged lymph nodes (principal) | CPT/HCPCS: 87070 ==

== ENCOUNTER 2019-04-20 12:19 | Outpatient (CLI) | payer MEDICAID, SELFPAY ==
[2019-04-20 13:35] LABS: Anion Gap 13.8 mmol/L (3-11); BUN 63 mg/dL (7-18); CO2 21.2 mmol/L (21.0-32.0); Calcium 8.9 mg/dL (8.5-10.1); Chloride 107 mmol/L (98-107); Glucose 147 mg/dL (70-100); Potassium 4.6 mmol/L (3.5-5.1); Sodium 142 mmol/L (136-145)
[2019-04-20 14:08] LABS: CREATININE 7.05 mg/dL (0.70-1.30)
== END 2019-04-20 12:39 ==
PROVIDERS: PCP Internal Medicine; Visit Provider Internal Medicine
DX: N18.5 Chronic kidney disease, stage 5 (principal); N39.0 Urinary tract infection, site not specified
CPT/HCPCS: 36415; 80048; 87086

== ENCOUNTER 2019-04-20 12:27 | Outpatient (REF) | payer MEDICAID, SELFPAY | END 2019-04-20 12:47 | LOC: LBN 12:27 | PROVIDERS: PCP Internal Medicine; Visit Provider Internal Medicine | DX: N39.0 Urinary tract infection, site not specified (principal) | CPT/HCPCS: 87086 ==

== ENCOUNTER 2019-04-25 12:13 | Outpatient (CLI) | payer MEDICAID, SELFPAY ==
[2019-04-25 12:55] LABS: Anion Gap 13.1 mmol/L (3-11); BUN 52 mg/dL (7-18); CO2 19.9 mmol/L (21.0-32.0); Calcium 8.7 mg/dL (8.5-10.1); Chloride 110 mmol/L (98-107); Estimated GFR 9.03 (mL/min/1.73m2); Glucose 199 mg/dL (70-100); Potassium 4.2 mmol/L (3.5-5.1); Sodium 143 mmol/L (136-145)
[2019-04-25 12:58] LABS: CREATININE 6.28 mg/dL (0.70-1.30)
== END 2019-04-25 12:33 ==
PROVIDERS: PCP Internal Medicine; Visit Provider Internal Medicine
DX: N18.5 Chronic kidney disease, stage 5 (principal)
CPT/HCPCS: 36415; 80048

== ENCOUNTER 2019-05-02 11:11 | Outpatient (CLI) | payer MEDICAID, SELFPAY ==
[2019-05-02 12:15] LABS: Anion Gap 12.5 mmol/L (3-11); BUN 42 mg/dL (7-18); CO2 21.5 mmol/L (21.0-32.0); Calcium 8.7 mg/dL (8.5-10.1); Chloride 108 mmol/L (98-107); Estimated GFR 13.19 (mL/min/1.73m2); Glucose 183 mg/dL (70-100); Potassium 4.4 mmol/L (3.5-5.1); Sodium 142 mmol/L (136-145)
[2019-05-02 12:17] LABS: CREATININE 4.52 mg/dL (0.70-1.30)
== END 2019-05-02 11:31 ==
PROVIDERS: PCP Internal Medicine; Visit Provider Internal Medicine
DX: N18.5 Chronic kidney disease, stage 5 (principal)
CPT/HCPCS: 36415; 80048

== ENCOUNTER 2019-05-03 11:59 | Outpatient (REF) | payer MEDICAID, SELFPAY | END 2019-05-03 12:19 | LOC: LBN 11:59 | PROVIDERS: PCP Internal Medicine; Visit Provider Internal Medicine | DX: N39.0 Urinary tract infection, site not specified (principal) | CPT/HCPCS: 87086 ==

== ENCOUNTER 2019-06-10 13:37 | Inpatient (IN) | payer MEDICARE, MEDICAID, SELFPAY ==
[2019-06-10] VITALS (31 sets, daily range): BP systolic 126–165; BP diastolic 64–102; PULSE 65–76; RESP 15–26; TEMP 36.4–36.9; O2SAT 88–99
--- NOTE | 2019-06-10 13:59 | ED.GENADUL_ITS ---
Discharge Plan Disposition Patient Disposition: [facility] INPATIENT Condition: Stable Discharge Details Chief Complaint: SOB Clinical Impression: Acute exacerbation of CHF (congestive heart failure) Primary Care Provider: Ethel Collins ED Provider: Rolando Gibson Home Meds and New Rx's Prescriptions: No Action brimonidine 0.1 % drops 1 drp OP BID RF: 0 tamsulosin 0.4 mg capsule 0.8 mg PO DAILY Qty: 60 RF: 12 albuterol sulfate [ProAir HFA] 90 mcg/actuation HFA aerosol inhaler 2 puff Inhalation Q4H PRN Qty: 1 RF: 1 docusate sodium 100 mg capsule 100 mg PO DIRECTED RF: 0 multivitamin capsule 1 cap PO DAILY RF: 0 Lidocaine Pain Relief 4 % adhesive patch,medicated 1 patch TP HS PRNRF: 0 fluticasone propionate [Flonase Allergy Relief] 50 mcg/actuation spray,suspension 1 spray GOPI DAILY PRNRF: 0 dorzolamide-timolol 10 ML drops 1 drp Ophthalmic BID RF: 0 cholecalciferol (vitamin D3) [Vitamin D3] 2,000 UNIT capsule 2,000 unit PO DAILY RF: 0 calcitriol 0.25 MCG capsule 0.25 mcg PO DAILY RF: 0 atorvastatin 80 mg tablet 80 mg PO DAILY Qty: 90 RF: 3 (DME) Adult Briefs - Large misc 1 ea Miscellaneous TID Qty: 300 RF: 3 amlodipine 10 mg tablet 10 mg PO DAILY Qty: 30 RF: 5 clopidogrel [Plavix] 75 mg tablet 75 mg PO DAILY Qty: 30 RF: 11 torsemide 20 mg tablet See Rx Instructions PO .COMPLEX Qty: 90 RF: 5 finasteride 5 mg tablet 5 mg PO DAILY Qty: 90 RF: 4 Dexilant 60 mg capsule,biphase delayed releas 60 mg PO BID Qty: 60 RF: 5 hydralazine 10 mg tablet 10 mg PO BID Qty: 60 RF: 5 metoprolol tartrate 25 mg tablet 25 mg PO BID Qty: 60 RF: 6 Aranesp (in polysorbate) 40 mcg/0.4 mL syringe 40 mcg SC Q4W RF: 0 bupropion HCl 150 MG tablet extended release 12 hr 200 mg PO DAILY RF: 0 melatonin 1 MG tablet 2 mg PO DIRECTED RF: 0 carbidopa-levodopa 25-100 mg Tablet 2 tab TID RF: 0 loperamide 2 mg Capsule 2 mg PO QID RF: 0 gabapentin 100 mg capsule 300 mg PO DAILY RF: 0 Medical Decision Making This is a 63-year-old male with a past medical history of chronic renal disease, congestive heart failure, diabetes, previous stroke with chronic left-sided deficits, who presents today for evaluation of shortness of breath for the last 2 to 3 days with mild cough with productive yellow sputum. Physical exam demonstrates evidence of mild crackles in the bases in conjunction with wheezes, he is notable pitting edema of the lower extremities. No chest pain. Remainder of exam is relatively at baseline. Differential included pneumonia, CHF exacerbation, unlikely ACS or PE. Laboratory work-up was performed, d-dimer was negative after age adjustment, electrolytes were normal, creatinine was notably elevated at 5.93, however this is near his baseline. Troponin normal, proBNP was significantly elevated at 15,000 which is certainly atypical for the patient. TSH was also elevated however free T4 was normal. Hemoglobin was decreased at 7 which is slightly atypical for the patient however he denies any recent episodes of hemoptysis, hematochezia melena or acholic stool. Stool Hemoccult and rectal exam was performed and this was negative for blood. Chest x-ray results demonstrate notable evidence of vascular congestion, which correlates well with his pitting edema elevated proBNP concerning signs and symptoms. He still does make urine. Is given IV Lasix, and has been urinating here in the ED. Hospitalist was contacted, case was discussed with him, agrees with the assessment and plan. Patient will be admitted to [facility] for continued Lasix and management of acute CHF exacerbation. I have extensively reviewed the treatment plan with the patient. I have addressed all patient concerns at this time. I have also discussed the plan with the admitting physician and they agree with the current assessment and plan and have agreed to assume responsibility for the patient. All parties demonstrate verbal understanding and agreement with our assessment and plan at this time. EKG 13: 45 Rate 70, IN 208, QTc 462, QRS 112, sinus rhythm, no significant ST elevations or depressions aside for minimal less than [address] elevation in V1 with no reciprocal depressions. Q waves in V1, no other significant Q waves., no e vidence of STEMI, EKG from 07/12/2018 shows identical findings. FINDINGS: The examination was carried out in a poor inspiratory effort. Prominence of the interstitial markings is noted. There is a small bilateral pleural effusion. Prominence of the upper lobe vasculature is identified. The heart is within normal limits in size. The hilar structures, mediastinum and tracheal air column are well maintained. There has been no interval change when compared with previous examination of 01/06/2019. IMPRESSION: Findings consistent with congestive failure. HPI General Date/Time Provider Initiated Documentation: 06/10/19 13:38 . HPI Narrative: This is a 63-year-old male with a past medical history of chronic kidney disease with a fistula but not receiving dialysis with no plans to start dialysis, type 2 diabetes, asthma, congestive heart failure, previous stroke with left-sided deficits, who presents today for evaluation of shortness of breath for the last 2 days. Patient has noticed a recent weight gain. He still does urinate. He denies any chest pain, chest tightness, arm neck or shoulder pain. He denies any nausea vomiting or diarrhea. He denies any headache, tearing sensation in his chest or other complaints. He does admit to a cough with mild amount of productive yellow sputum. He denies any fevers or chills. He has no other complaints at this time. No other modifying factors. Of note he does take 20 mg of furosemide daily. Related Data Home Medications Medication Instructions Recorded Confirmed dorzolamide-timolol 1 drp OPHTHALMIC BID drp 11/18/13 06/07/19 bupropion HCl 200 mg PO DAILY 03/22/15 06/07/19 cholecalciferol (vitamin D3) 2,000 unit PO DAILY 11/02/15 06/07/19 [Vitamin D3] calcitriol 0.25 mcg PO DAILY 03/21/16 06/07/19 melatonin 2 mg PO DIRECTED 02/09/17 06/07/19 atorvastatin 80 mg tablet 80 mg PO DAILY #90 tab 06/01/18 06/07/19 diaper,brief,adult,disposable #300 ea 06/08/18 06/07/19 amlodipine 10 mg tablet 10 mg PO DAILY #30 tab-cap 06/28/18 06/07/19 brimonidine 0.1 % eye drops 1 drp OP BID ml 07/05/18 06/07/19 clopidogrel 75 mg tablet 75 mg PO DAILY #30 tab-cap 10/24/18 06/07/19 tamsulosin 0.4 mg capsule 0.8 mg PO DAILY #60 tab-cap 12/21/18 06/07/19 albuterol sulfate 90 mcg/actuation 2 puff INHALATION Q4H PRN #1 inh 01/12/19 06/07/19 aerosol inhaler docusate sodium 100 mg capsule 100 mg PO DIRECTED tab-cap 02/18/19 06/07/19 multivitamin 1 cap PO DAILY 02/18/19 06/07/19 torsemide 20 mg tablet See Rx Instructions PO .COMPLEX 03/04/19 06/07/19 #90 tab finasteride 5 mg tablet 5 mg PO DAILY #90 tab-cap 03/07/19 06/07/19 dexlansoprazole 60 mg 60 mg PO BID #60 cap 03/12/19 06/07/19 capsule,biphase delayed release hydralazine 10 mg tablet 10 mg PO BID #60 tab 03/12/19 06/07/19 carbidopa-levodopa 2 tab TID 04/13/19 06/07/19 loperamide 2 mg PO QID 04/13/19 06/07/19 gabapentin 100 mg capsule 300 mg PO DAILY cap 04/15/19 06/07/19 metoprolol tartrate 25 mg tablet 25 mg PO BID #60 tab-cap 05/06/19 06/07/19 darbepoetin lesly in polysorbat 40 40 mcg SC Q4W 05/19/19 06/07/19 mcg/0.4 mL in polysorbate injection syringe fluticasone propionate 50 1 spray GOPI DAILY PRN gm 06/07/19 mcg/actuation nasal spray,suspension lidocaine 4 % topical patch 1 patch TP HS PRN each 06/07/19 06/07/19 Previous Rx's Medication Instructions Recorded atorvastatin 80 mg tablet 80 mg PO DAILY #90 tab 06/01/18 diaper,brief,adult,disposable #300 ea 06/08/18 amlodipine 10 mg tablet 10 mg PO DAILY #30 tab-cap 06/28/18 clopidogrel 75 mg tablet 75 mg PO DAILY #30 tab-cap 10/24/18 tamsulosin 0.4 mg capsule 0.8 mg PO DAILY #60 tab-cap 12/21/18 albuterol sulfate 90 mcg/actuation 2 puff INHALATION Q4H PRN #1 inh 01/12/19 aerosol inhaler torsemide 20 mg tablet See Rx Instructions PO .COMPLEX 03/04/19 #90 tab finasteride 5 mg tablet 5 mg PO DAILY #90 tab-cap 03/07/19 dexlansoprazole 60 mg 60 mg PO BID #60 cap 03/12/19 capsule,biphase delayed release hydralazine 10 mg tablet 10 mg PO BID #60 tab 03/12/19 metoprolol tartrate 25 mg tablet 25 mg PO BID #60 tab-cap 05/06/19 Allergies Allergy/AdvReac Type Severity Reaction Status Date / Time buspirone Allergy Intermediate SKIN RASH, Verified 06/07/19 09:50 DIZZINESS tuberculin, purified protein Allergy Unknown unknown Verified 06/07/19 09:50 deriva mirtazapine AdvReac Severe hypotension Verified 06/07/19 09:50 and falls NO BLOOD PRESSURE (L) ARM AdvReac Severe unknown Uncoded 06/07/19 09:50 General Stated Complaint: SOB GERHARD: 3 Review of Systems Review of Systems ROS Unobtainable: All systems reviewed & are unremarkable except as noted in HPI and below PFSH Social History Smoking/Tobacco Use Status: Never Alcohol Intake: never Drug use: Never Substance use type: does not use Caregiver/Support person: Yes Housing: other Details: mobile home Pets and animals: Yes Pets and animals: cat(s) Current gender identity: male What type of physical activity do you participate in: none Seatbelt use: always Water heater temp set <120 deg: Yes Working smoke detector in home: Yes Carbon monox detector in home: Yes Do you feel safe at home: Yes Do you feel safe in your relationship?: Yes Exam Narrative Exam Narrative: 1.Const: Well-nourished, Well-developed, appearing stated age 2.Eyes: PERRL, no conjunctival injection, and symmetrical lids. 3.ENT: Atraumatic external nose and ears. Moist MM. Neck: Symmetric, trachea midline, No thyromegaly. 4.CVS: +S1/S2, No murmurs or gallops. Peripheral pulses 2+ and equal in all extremities. Brisk capillary refill in all extremities. Radial pulses +2 bilaterally. 5.RESP: Minimal tachypnea, no wheezes, questionable mild crackles in the bases, however no significant rhonchi or rales. 6.GI: Soft, Nontender/Nondistended, No hepatosplenomegaly. No guarding or rebound. Rectal exam was performed demonstrates negative Hemoccult, no melena, no abnormalities. 7.MSK: Normocephalic/Atraumatic, Extremities w/o deformity or ttp No cyanosis or clubbing, notable decreased movement of the left lower extremity which is the patient's chronic baseline secondary to his old stroke. +2 to +3 pitting edema of his lower extremities bilaterally. 8.Skin: Warm, Dry. No rashes or lesions. No evidence of significant cellulitis. 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 Sensation grossly intact, movements are appropriate for patient and he is at his normal neurologic baseline with some weakness on the left. 10.Psych: (AAO) x3. Appropriate mood and affect Course Vital Signs Vital signs: Vital Signs Temperature 36.8 C 06/10/19 13:45 Pulse 69 06/10/19 13:45 Respiratory Rate 22 06/10/19 13:45 Blood Pressure 164/89 H 06/10/19 13:45 Pulse Oximetry 93 L 06/10/19 13:45 Temperature 36.8 C 06/10/19 13:45 Temperature Source Skin 06/10/19 13:45 Pulse 69 06/10/19 13:45 Respiratory Rate 22 06/10/19 13:45 Blood Pressure 164/89 H 06/10/19 13:45 Blood Pressure Position Sitting 06/10/19 13:45 Pulse Oximetry 93 L 06/10/19 13:45 Oxygen Delivery Method Room Air 06/10/19 13:45 Oxygen Flow Rate 0 06/10/19 13:45
[2019-06-10 14:15] LABS: HCO3 (Venous) 20 mmol/L (22-28); O2 Sat (Venous) 99 % (70-80); TCO2 (Venous) 19 mmol/L (22-29); pCO2 (Venous) 33 mm/Hg (34-47); pH (Venous) 7.39 (7.32-7.43); pO2 (Venous) 121 mm/Hg (28-44)
[2019-06-10 14:17] LABS: BE (Venous) -5.1 mmol/L (-3-3)
[2019-06-10 14:19] LABS: Abs Immature Grans 0.01 k/cumm (0.0-0.09); Absolute Basophil Count 0.02 k/cumm (0.0-0.2); Absolute Lymphocyte Count 0.56 k/cumm (1.2-3.4); Absolute Monocyte Count 0.59 k/cumm (0.11-0.7); Absolute Neutrophil Count 4.66 k/cumm (1.2-6.7); Basophils % 0.3; Eosinophils % 3.3; Immature Grans % 0.2; Lymphocytes % 9.3; Mean Corpuscular Volume 96.9 fL (80-95); Mean Platelet Volume 9.3 fL (8.0-11.0); Monocytes % 9.8; Neutrophils % 77.1; Platelet Count 167 x1000/uL (130-400); RBC 2.26 m/cumm (4.50-6.00); RBC Distribution Width 13.9 % (11.8-14.1); White Blood Cell Count 6.04 k/cumm (4.4-10.8)
[2019-06-10 14:24] LABS: HCT 21.9 % (40.0-50.0)
[2019-06-10 14:35] LABS: AST 12 U/L (15-37); Albumin 3.3 g/dL (3.4-5.0); Alkaline Phosphatase 72 U/L (46-116); Anion Gap 12.7 mmol/L (3-11); BUN 67 mg/dL (7-18); Bilirubin, Total 0.7 mg/dL (0.2-1.0); CO2 20.3 mmol/L (21.0-32.0); Calcium 8.6 mg/dL (8.5-10.1); Chloride 108 mmol/L (98-107); Estimated GFR 9.64 (mL/min/1.73m2); Glucose 159 mg/dL (70-100); Potassium 4.6 mmol/L (3.5-5.1); Sodium 141 mmol/L (136-145); Total Protein 6.3 g/dL (6.4-8.2)
--- NOTE | 2019-06-10 14:36 | DI.RAD_ITS ---
EXAM: XR CHEST 2V PA LATERAL INDICATION: cough, sob, CP. COMPARISON: XR CHEST 2V PA LATERAL from 01/06/2019 TECHNIQUE: 2D digital imaging was performed. FINDINGS: The examination was carried out in a poor inspiratory effort. Prominence of the interstitial markings is noted. There is a small bilateral pleural effusion. Prominence of the upper lobe vasculature is identified. The heart is within normal limits in size. The hilar structures, mediastinum and tracheal air column are well maintained. There has been no interval change when compared with previous examin ation of 01/06/2019. IMPRESSION: Findings consistent with congestive failure.
[2019-06-10 14:38] LABS: ALT 5 U/L (16-63); CREATININE 5.93 mg/dL (0.70-1.30); Troponin I < 0.05 ng/mL (0.00-0.06)
[2019-06-10 14:42] LABS: Diff Comment RBC Morph Reviewed; RBC Morphology Normal
[2019-06-10 14:43] LABS: NT-proBNP 15365 pg/mL; TSH (W/Ref FT4) 5.59 uIU/mL (0.36-3.74)
[2019-06-10 14:47] LABS: INR 1.2 (0.9-1.1); PTT Activated 27.1 sec (21.0-31.4); Prothrombin Time 11.6 sec (9.3-11.0)
[2019-06-10] MEDS: Albuterol/Ipratropium 3 ML UPD VIAL UPD (15:15)
[2019-06-10] MEDS: Aspirin 81 MG CHEW 324 MG CH (15:15)
[2019-06-10] MEDS: Furosemide 40 MG/4 ML VIAL IVP (15:15)
[2019-06-10 15:52] LABS: D-Dimer 560 ng/mlFEU (<500)
--- NOTE | 2019-06-10 17:03 | HPE_ITS ---
Date of service: 06/10/19 Time of Service: 17:03 Assessment and Plan Assessment and plan (1) Acute exacerbation of CHF (congestive heart failure): Start date: 06/10/19 Start time: 17:05 Status: Acute Assessment and plan: ESRD presents to [facility] with SOB onset three days. BNP 15,365 last echo was 2016 with EF of 55-60% no stenosis, mild regurgitation, no PH. Will repeat Echo. Creatinine of 5.93 with BUN 67 given ESR started on Lasix drip at 5 mg per hour. Nuñez insertion, daily weights, telemetry and monitor output. 3+ edema with crackles to bases. Given 40 mg lasix IV patient still has SOB. CXR in ED with consistent with CHF. Has not started Dialysis, does have a fistula for dialysis in the future. (2) CKD (chronic kidney disease) stage 5, GFR less than 15 ml/min: Start date: 06/10/19 Start time: 17:16 Status: Chronic Assessment and plan: See above. Waiting for dialysis at this time (3) Obstructive sleep apnea syndrome: Start date: 06/10/19 Start time: 17:16 Status: Chronic Assessment and plan: KYLE with CPAP that he does not use at home. (4) Anemia: Start date: 06/10/19 Start time: 17:16 Status: Acute Assessment and plan: In setting of ESRD, Hemoglobin 7.0. Volume overloaded. Monitor H/H with diuresis. (5) Diabetic neuropathy: Start date: 06/10/19 Start time: 17:18 Status: Acute Assessment and plan: Tingling to bilateral extremities. Continue gabapentin (6) Dyslipidemia: Start date: 06/10/19 Start time: 17:18 Status: Acute Assessment and plan: continue atorvastatin (7) Essential hypertension: Start date: 06/10/19 Start time: 17:18 Status: Acute Assessment and plan: Blood pressure elevated in setting of ESR, continue hyrdalizine (8) Gastroesophageal reflux disease: Start date: 06/10/19 Start time: 17:19 Status: Acute Assessment and plan: Dexilant DR for GERD, continue (9) Stroke, lacunar: Start date: 06/10/19 Start time: 17:21 Status: Acute Assessment and plan: History of stroke, continue plavix (10) Type II diabetes mellitus with ophthalmic manifestations: Start date: 06/10/19 Start time: 17:21 Status: Acute Assessment and plan: No longer on insulin. Will do BID fingersticks to monitor glucose and treat as appropriate. (11) Parkinsons: Start date: 06/10/19 Start time: 17:22 Status: Chronic Assessment and plan: Tremors, denies dysphagia, states hallucinations continue sinemet. 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 Incontinent. Urinalysis to r/o UTI. Nuñez catheter inserted to monitor I/O with lasix drip. Continue to monitor. (13) Hx of syncope: Start date: 06/10/19 Start time: 17:24 Status: Acute Assessment and plan: Multiple syncopal episodes that have been worked up with out findings. Loop recorder implanted on 05/11. Above findings discussed with Dr. Herzog and he is in agreement. History of Present Illness History of Present Illness Chief Complaint: ESRD, CHF, KYLE Narrative: Mr. Sampson is a 63 y.o Male with PMH of Anemia, Parkinson, DM II, Stroke, Hyperlipidemia, HTN, D. Neuropathy, D. Retinopathy, CHF, ESRD with Fistula (has not started Dialysis), KYLE on CPAP (does not use). Migraine, Syncope with loop recorder and mental delay. He is being admitted from [facility] ED to /[facility] following three days of worsening SOB. Emergency department findings include a BMP 15,365, BUN/ Creatinine of 65 and 5.93, Hemoglobin 7.0, CXR with findings consistent with Congestive Heart failure. He was given 40 lasix in ED with unknown amount of urine. tachypnea slightly better after 40 mg lasix, will start Lasix drip at 5 mg per hour given his ESRD his kidneys would do better with light diuresis, output will be monitored with catheter and daily wts.. Last echo was 2016 with improved EF from 2013, however repeat echo has been ordered, he also has a loop recorder for syncopal episodes of unknown origin, so we will keep him on telemetry, Electrolytes will be monitored. Pt/OT when he is able to move. Monitor for signs for CHF, 3+ edema at this time. Patient denies CP, N/V/D, Review of Systems Review of Systems ROS Unobtainable: All systems reviewed & are unremarkable except as noted in HPI and below [facility] Medical History AV [place] (Acute) 4 [place]2016 [place] [facility] [place]PH (benign prostatic hyperplasia) CAD (coronary artery disease) CHF (congestive heart failure), NYHA class I Chronic kidney disease, stage IV (severe) Diabetic neuropathy Diabetic retinopathy Essential hypertension GERD (gastroesophageal reflux disease) Hyperlipidemia KYLE (obstructive sleep apnea) Stroke Type II diabetes mellitus Surgical History Colonoscopy - IV Sedation (04/16/15) Dr [place] [place] (07/22/17) Endoscopy (07/17/14) [facility] [place] Luo Extraction of cataract (03/27/15) left eye, Dr. Kang Repair of inguinal hernia bilateral Family History Other Adopted Social History Smoking/Tobacco Use Status: Never Alcohol Intake: never Drug use: Never Substance use type: does not use Caregiver/Support person: Yes Housing: other Details: mobile home Pets and animals: Yes Pets and animals: cat(s) Current gender identity: male What type of physical activity do you participate in: none Seatbelt use: always Water heater temp set <120 deg: Yes Working smoke detector in home: Yes Carbon monox detector in home: Yes Do you feel safe at home: Yes Do you feel safe in your relationship?: Yes Meds Home Medications and Allergies Home Medications Medication Instructions Recorded Confirmed Type dorzolamide-timolol 1 drp OPHTHALMIC BID drp 11/18/13 06/07/19 History bupropion HCl 200 mg PO DAILY 03/22/15 06/07/19 History cholecalciferol (vitamin D3) 2,000 unit PO DAILY 11/02/15 06/07/19 History [Vitamin D3] calcitriol 0.25 mcg PO DAILY 03/21/16 06/07/19 History melatonin 2 mg PO DIRECTED 02/09/17 06/07/19 History atorvastatin 80 mg tablet 80 mg PO DAILY #90 tab 06/01/18 06/07/19 Rx diaper,brief,adult,disposable #300 ea 06/08/18 06/07/19 Rx amlodipine 10 mg tablet 10 mg PO DAILY #30 tab-cap 06/28/18 06/07/19 Rx brimonidine 0.1 % eye drops 1 drp OP BID ml 07/05/18 06/07/19 History clopidogrel 75 mg tablet 75 mg PO DAILY #30 tab-cap 10/24/18 06/07/19 Rx tamsulosin 0.4 mg capsule 0.8 mg PO DAILY #60 tab-cap 12/21/18 06/07/19 Rx albuterol sulfate 90 mcg/actuation 2 puff INHALATION Q4H PRN #1 inh 01/12/19 06/07/19 Rx aerosol inhaler docusate sodium 100 mg capsule 100 mg PO DIRECTED tab-cap 02/18/19 06/07/19 History multivitamin 1 cap PO DAILY 02/18/19 06/07/19 History torsemide 20 mg tablet See Rx Instructions PO .COMPLEX 03/04/19 06/07/19 Rx #90 tab finasteride 5 mg tablet 5 mg PO DAILY #90 tab-cap 03/07/19 06/07/19 Rx dexlansoprazole 60 mg 60 mg PO BID #60 cap 03/12/19 06/07/19 Rx capsule,biphase delayed release hydralazine 10 mg tablet 10 mg PO BID #60 tab 03/12/19 06/07/19 Rx carbidopa-levodopa 2 tab TID 04/13/19 06/07/19 History loperamide 2 mg PO QID 04/13/19 06/07/19 History gabapentin 100 mg capsule 300 mg PO DAILY cap 04/15/19 06/07/19 History metoprolol tartrate 25 mg tablet 25 mg PO BID #60 tab-cap 05/06/19 06/07/19 Rx darbepoetin lesly in polysorbat 40 40 mcg SC Q4W 05/19/19 06/07/19 History mcg/0.4 mL in polysorbate injection syringe fluticasone propionate 50 1 spray GOPI DAILY PRN gm 06/07/19 History mcg/actuation nasal spray,suspension lidocaine 4 % topical patch 1 patch TP HS PRN each 06/07/19 06/07/19 History Allergies Allergy/AdvReac Type Severity Reaction Status Date / Time buspirone Allergy Intermediate SKIN RASH, Verified 06/07/19 09:50 DIZZINESS tuberculin, purified protein Allergy Unknown unknown Verified 06/07/19 09:50 deriva mirtazapine AdvReac Severe hypotension Verified 06/07/19 09:50 and falls NO BLOOD PRESSURE (L) ARM AdvReac Severe unknown Uncoded 06/07/19 09:50 Exam Const General: cooperative Nutritional Appearance: edematous Orientation: alert, awake and oriented x3 HENMT Head: normal to inspection Face and sinus: normal facial exam Eyes General: appearance normal, both eyes and all related structures Pupils: PERRL Neck Lymphatic: no lymphadenopathy noted and no lymphedema noted Chest Chest: normal inspection of the chest Resp Effort & Inspection: able to speak in complete sentences, abnormal respiratory pattern and tachypneic Auscultation: crackles Cardio Palpation: normal PMI Rate: regular rate Rhythm: regular rhythm Heart Sounds: S1 normal, S2 normal and no murmurs GI Inspection: normal to inspection Palpation: soft and no hepatosplenomegaly Auscultation: normal bowel sounds General: No CVA tenderness Back/Spine/Pelvis Back: no CVA tenderness Skin Trauma: abrasion Other: +3 pitting edema to bilateral lower extremities. Scratches to bilateral lower extremities on lesions. Neuro General: alert, awake and oriented x3 Speech: abnormal speech Other: tremors, ambulatory with walker on some days. Parkinsons Extrem General: edema and pedal edema Right upper extremity: edema Left upper extremity: edema Right lower extremity: edema Left lower extremity: edema Psych Appearance: well kempt Mood: congruent mood Affect: normal affect Attitude: cooperative Results Labs Result diagrams: 06/10/19 14:10 06/10/19 14:10 Labs: Laboratory Results - last 24 hr 06/10/19 06/10/19 06/10/19 14:10 14:10 14:10 WBC RBC Hgb Hct MCV MCH MCHC RDW Plt Count MPV Immature Gran % Neutrophils % Lymphocytes % Monocytes % Eosinophils % Basophils % Absolute Neutrophils Absolute Lymphocytes Absolute Monocytes Absolute Eosinophils Absolute Basophils Differential Comment RBC Morphology PT INR APTT D-Dimer 560 H VBG pH 7.39 VBG pCO2 33 L VBG pO2 121 H VBG HCO3 20 L VBG Total CO2 19 L VBG O2 Saturation 99 H VBG Base Excess -5.1 L Sodium 141 Potassium 4.6 Chloride 108 H Carbon Dioxide 20.3 L Anion Gap 12.7 H BUN 67 H Creatinine 5.93 H* Estimated GFR/1.73 m2 9.64 Glucose 159 H Calcium 8.6 Total Bilirubin 0.7 AST 12 L ALT 5 L Alkaline Phosphatase 72 Troponin I < 0.05 NT-Pro-B Natriuret Pep Total Protein 6.3 L Albumin 3.3 L TSH Free T4 06/10/19 06/10/19 06/10/19 14:10 14:10 14:10 WBC 6.04 RBC 2.26 L Hgb 7.0 L Hct 21.9 L MCV 96.9 H MCH 31.0 MCHC 32.0 RDW 13.9 Plt Count 167 MPV 9.3 Immature Gran % 0.2 Neutrophils % 77.1 Lymphocytes % 9.3 Monocytes % 9.8 Eosinophils % 3.3 Basophils % 0.3 Absolute Neutrophils 4.66 Absolute Lymphocytes 0.56 L Absolute Monocytes 0.59 Absolute Eosinophils 0.20 Absolute Basophils 0.02 Differential Comment Rbc morph reviewed RBC Morphology Normal PT 11.6 H INR 1.2 H APTT 27.1 D-Dimer VBG pH VBG pCO2 VBG pO2 VBG HCO3 VBG Total CO2 VBG O2 Saturation VBG Base Excess Sodium Potassium Chloride Carbon Dioxide Anion Gap BUN Creatinine Estimated GFR/1.73 m2 Glucose Calcium Total Bilirubin AST ALT Alkaline Phosphatase Troponin I NT-Pro-B Natriuret Pep 93340 H Total Protein Albumin TSH 5.59 H Free T4 1.20 Last Vital Signs Temp 36.8 C 06/10/19 15:20 Pulse 65 06/10/19 15:20 Resp 22 06/10/19 15:20 BP 132/90 06/10/19 15:20 Pulse Ox 95 06/10/19 15:20
[2019-06-10 18:58] LABS: Bilirubin Negative (Negative); Blood Negative (Negative); Clarity Clear (Clear); Glucose Negative (Negative); Ketones Negative (Negative); Leukocyte Esterase Negative (Negative); Nitrite Negative (Negative); Specific Gravity 1.015 (1.005-1.025); Urobilinogen 0.2 EU/dL (Up TO 0.2)
[2019-06-10 19:01] LABS: Bacteria Negative HPF (Negative); C & S Indicated? No; Casts Negative LPF (Negative); Crystals Negative HPF (Negative); Epithelial Cells Negative HPF (Negative); Mucus Negative (Negative); Other Cells Negative (Negative); RBC Negative (0-2); WBC Negative HPF (0-5)
[2019-06-10] MEDS: Atorvastatin 40 MG TAB 80 MG PO (19:42)
[2019-06-10] MEDS: Gabapentin 100 MG CAP PO (19:43)
[2019-06-10] MEDS: Metoprolol 25 MG TAB PO (19:43)
[2019-06-10] MEDS: Carbidopa 25/Levodopa 100 TAB PO (19:43)
[2019-06-10] MEDS: Sodium Bicarbonate 650 MG TAB PO (19:43)
[2019-06-10] MEDS: hydrALAZINE 10 MG TAB PO (19:43)
[2019-06-10] MEDS: Dorzolamide 2% 10 ML BTL OS (21:04)
[2019-06-10] MEDS: Lidocaine 2% Jelly 6 ML SYR (21:04)
[2019-06-10] MEDS: Melatonin 3 MG TAB 6 MG PO (21:04)
[2019-06-11] VITALS (14 sets, daily range): BP systolic 156–175; BP diastolic 77–100; PULSE 63–89; RESP 4–24; TEMP 36.1–36.7; O2SAT 89–97
[2019-06-11] MEDS: Albuterol 2.5 MG/3 ML INH SOLN VIAL UPD (03:40)
[2019-06-11] MEDS: Dorzolamide 2% 10 ML BTL OS ×2 (07:44→21:17)
[2019-06-11] MEDS: Dexlansoprazole 30 MG CAP 60 MG PO (07:45)
[2019-06-11] MEDS: Sodium Bicarbonate 650 MG TAB PO ×3 (07:45→21:18)
[2019-06-11] MEDS: Tamsulosin 0.4 MG CAPCR 0.8 MG PO (07:45)
[2019-06-11] MEDS: Clopidogrel 75 MG TAB PO (07:45)
[2019-06-11] MEDS: Cholecalciferol (Vitamin D3) 1,000 UNIT TAB 2000 UNITS PO (07:45)
[2019-06-11] MEDS: Finasteride 5 MG TAB PO (07:45)
[2019-06-11] MEDS: hydrALAZINE 10 MG TAB PO ×2 (07:45→21:18)
[2019-06-11] MEDS: Carbidopa 25/Levodopa 100 TAB PO ×3 (07:45→21:18)
[2019-06-11] MEDS: Gabapentin 100 MG CAP PO ×3 (07:46→21:18)
[2019-06-11] MEDS: Calcitriol 0.25 MCG CAP PO (07:46)
[2019-06-11] MEDS: Metoprolol 25 MG TAB PO ×2 (07:46→21:18)
[2019-06-11] MEDS: Multivitamin TAB 1 TAB PO (07:46)
[2019-06-11] MEDS: Normal Saline Flush 10 ML SYR IVP ×2 (07:49→12:27)
--- NOTE | 2019-06-11 10:00 | PT.INIE ---
Date of service: 06/11/19 Time of Service: 09:15 PT Notes Inpatient Physical Therapy Evaluation Date: 06/11/19 Referring Doctor: RAHUL Rose PT Orders: PT CONSULT: Eval and treat Precautions: Fall Risk, chronic HTN Patient Profile/Admitting Diagnosis: 63 year old male admitted for exacerbation of COPD, after presenting to ER on 06/11/19 with SOB x 3 days. PMHX: Medical History AV fistula (Acute) 4 stages 12/2016 [place] 06/16/[place] [facility] [facility] [place] BPH (benign prostatic hyperplasia) CAD (coronary artery disease) CHF (congestive heart failure), NYHA class I Chronic kidney disease, stage IV (severe) Diabetic neuropathy Diabetic retinopathy Essential hypertension GERD (gastroesophageal reflux disease) Hyperlipidemia KYLE (obstructive sleep apnea) Stroke Type II diabetes mellitus Surgical History Colonoscopy - IV Sedation (04/16/15) Dr Anderson-[facility] [place] EGD - MAC (07/22/17) Endoscopy (07/17/14) [facility] [place] Dr. Luo Extraction of cataract (03/27/15) left eye, Dr. Kang Repair of inguinal hernia bilateral Social History/Home Situation: Lives in mobile home, alone with his cat. He has daily [facility] for assistance with bathing and meals. He does not drive. 4 steps to enter with handicap rail, otherwise main living quarters are one level. Premorbid functional level: 50/50 use of walker within his home, using it if he is feeling weaker or unsteady, or standing for long time period. He toilets I, with use or grab bar. Dresses and gets in/out of bed I, taking a large amount of time. Able to warm up meal I that [facility] has prepared for him. Falls weekly, with use of lifeline for assist of fire dept. to help him get up. Current Functional Limitations: Requires assistance with getting in/out of bed, unable to walk, requires CG and walker with standing. Fatigues quickly with simple bed mobility activities. Not demonstrating functional capabilities required of household environment. Equipment Owned/DME: Walker, handicap rail in bathroom and on stairs. Subjective: C/O of discomfort from de jesus. No C/o SOB, but is coughing a lot. Does not feel strong enough to ambulate, but will to try standing. Objective: General Observation: Lying 45 degree recline in hospital bed, IV R arm, SMITHAS hose, de jesus. Pale. B LE edema. Mental Status: Alert to person, month and year. Unsure of day. Knows he is in the hospital, alert to his home town. Pain: 0/10 Vital Signs: BP 172/74, HR 80, O2 91% on 2L. Maintains at 93% 0L with treatment. ROM: Right Upper Extremity: Limited with shoulder flexion of 100*, abduction 90*, functional ER to ear, IR to hip, otherwise WFL Left Upper Extremity: Limited with shoulder felxion to 80*, abduction to 80*, functional ER to cheek, IR to hip, otherwise WFL Bilateral Lower Extremity: Grossly WFL, with limited ankle ROM all planes likely related to LE edema Strength: Right Upper Extremity: Shoulder grossly 4-/5 throughout, elbow and wrist 4/5 Left Upper Extremity: Shoulder grossly 3/5 throughout, elbow and wrist 3+/5 Right Lower Extremity: Grossly 4-/5 Left Lower Extremity: Grossly 4-/5 Sensation: Intact to light touch and pressure throughout B extremities Bed Mobility/Transfers: SBA with bed mobility, min A with LE's for reclined to EOB CG with S sit<>stand CG with static stand at walker Gait: Unable due to weakness, only tolerates static marchng x 10 with CG Balance: Static Sitting: Good Dynamic Sitting: Good Static Standing: Poor Dynamic Standing: Poor Special Tests: Mobility Limitations Standardized Measure [facility] AM-PAC 6 clicks Basic Mobility Inpatient Short Form: 61 % disability. Not able to tolerate balance testing due to current functional limitations Informed Consent/Education: Patient instructed in purpose of PT consult and plan of care. Assessment: Patient is a 63 year old male referred to physical therapy services with the diagnosis of COPD exacerbation. Patient presents with clinical signs and symptoms consistent with referred diagnosis in the setting of elevated creatinine, DMII, CKD, CAD, DN, DR, HTN, and history of stroke. He presents with the following impairment level findings, due to his medical condition: UE and LE weakness, poor balance, LE edema, and generalized weakness. Impairments are contributing to the following functional limitations: Inabilty to ambulate, requires assist with bed mobility, unable to complete attempt of tranfer to chair, requires CG with sit to stand and standing, and AMPAC score of 61% disability. Requires skilled PT service for improvement of functional capabilities, with management accountant goal of return to home. Patient is assessed as moderate [id number] History: See comorbdities Examination: See above impairments and functional limitations Presentation: Evolving Decision Making: Moderate, AMPAC 61% disability Goals: Goals X1 week 1. Supine-Sit I, flat bed 2. Sit-Supine, flat bed 3. Sit-Stand S 4. Stand-Sit S 5. Bed-Chair S 6. Chair-Bed S 7. Gait 50ft with RW, CG 8. Stairs 2, with rail, CG 9. Independent with home exercise program 10. Balance Fair with weightbearing activities of static and dynamic nature. Plan of Care/Treatment Plan: 1-2x/day, 7 days/week x 1 week. Plan of care has been reviewed with the POLICY CANCELLATION CLERK providing the service under Physical Therapy direction. Initiate Physical Therapy intervention for strengthening, bed mobility, transfers, gait, stairs, balance training, use of assistive device. DISCHARGE RECOMMENDATIONS: SNF or swing, not appropriate for return home until he can demonstrate I function with basic transfers and household ambulation. TREATMENT CODE/TIME: 40 min, [id number]
[2019-06-11] MEDS: amLODIPine 10 MG TAB PO (10:05)
--- NOTE | 2019-06-11 10:22 | PDOC.CMIN ---
- If Service Date Differs Date of service: 06/11/19 Time of Service: 10:22 Care Management Initial Assess REASON FOR HOSPITALIZATION:: Acute exacerbation of CHF PAST MEDICAL HISTORY/PAST SURGICAL HISTORY:: Medical History : AV fistula (Acute). 4 stages 12/2016 thru 06/16/2017 at [facility] [place]. BPH (benign prostatic hyperplasia). CAD (coronary artery disease). CHF (congestive heart failure), NYHA class I. Chronic kidney disease, stage IV (severe). Diabetic neuropathy. Diabetic retinopathy. Essential hypertension. GERD (gastroesophageal reflux disease). Hyperlipidemia. KYLE (obstructive sleep apnea). Stroke. Type II diabetes mellitus. Surgical History: Colonoscopy - IV Sedation (04/16/15). [place] [place] - [place] (07/22/17). [place]oscopy (07/17/14[place] [facility] [place]. Extraction of cataract (03/27/15). left eye, Dr. Kang. Repair of inguinal hernia. bilateral PREVIOUS FUNCTIONAL STATUS/SOCIAL/FAMILY SUPPORTS:: Jewel lives alone in a mobile home in [place], [place]. He is fairly independent with ADLs, requiring some assistance with showering, shopping and meal preparation. He has [facility] care givers for 8 hours/day Thursday through Thursday and 2 hours a day on the weekend.They assist with medication preparation and oversight. He is able to toilet himself, dress himself, etc. He has a walker and a cane. He uses the walker only at home as he doesn't want people to think he is old, per his nurse healthcare manager Lana. 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. CURRENT FUNCTIONAL STATUS:: Jewel was having a difficult time when CM came to see him in the morning and the caregivers requested that he not be disturbed. He was sleeping on return visit this afternoon. Per care givers, he is having hallucinations at home secondary to his Parkinson's Disease and this has added to his anxiety. ADVANCE DIRECTIVES:: On file at [facility]. [facility] : Juan Ayala - [place]. [phone] Has patient been provided with information about the portal?: No Did the patient sign up for the portal?: No CODE STATUS:: Full Code INSURANCE COVERAGE / FINANCIAL ISSUES:: Medicare. Medicaid CURRENT HOME/COMMUNITY SERVICES/EQUIPMENT:: Extensive services through [facility] including caregivers 8 hours /day weekdays and 2 hours/day weekends. Has a walker and a cane. PRIMARY CARE PHYSICIAN:: Ethel Collins POTENTIAL DISCHARGE NEEDS:: Follow up with PCP and discharge plan of care. PATIENT/FAMILY EDUCATION NEEDS:: Discharge plan, limitations, follow up plan of care and Ask Me Three. TRANSPORTATION:: via private vehicle with caregiver when ready PLAN:: Jewel is being treated for acute exacerbation of CHF with increasing SOB. He may require transfer to a tertiary care facility if he does not show improvement in the next day or so. CM will continue to follow and provide support to patient, care givers and discharge considerations.
[2019-06-11 10:37] LABS: Abs Immature Grans 0.01 k/cumm (0.0-0.09); Absolute Basophil Count 0.03 k/cumm (0.0-0.2); Absolute Eosinophil Count 0.23 k/cumm (0.0-0.7); Absolute Lymphocyte Count 0.69 k/cumm (1.2-3.4); Absolute Monocyte Count 0.59 k/cumm (0.11-0.7); Absolute Neutrophil Count 5.03 k/cumm (1.2-6.7); Basophils % 0.5; Eosinophils % 3.5; HCT 22.2 % (40.0-50.0); HGB 7.2 g/dL (13.5-17.5); Immature Grans % 0.2; Lymphocytes % 10.5; Mean Corp. HGB Concentration 32.4 g/dL (32.0-36.0); Mean Corpuscular Hemoglobin 31.6 pg (27.0-33.0); Mean Corpuscular Volume 97.4 fL (80-95); Mean Platelet Volume 8.9 fL (8.0-11.0); Neutrophils % 76.3; Platelet Count 171 x1000/uL (130-400); RBC 2.28 m/cumm (4.50-6.00); RBC Distribution Width 13.7 % (11.8-14.1); White Blood Cell Count 6.58 k/cumm (4.4-10.8)
[2019-06-11 10:45] LABS: Anion Gap 13.3 mmol/L (3-11); BUN 65 mg/dL (7-18); CO2 20.7 mmol/L (21.0-32.0); Calcium 8.3 mg/dL (8.5-10.1); Chloride 107 mmol/L (98-107); Estimated GFR 9.91 (mL/min/1.73m2); Glucose 174 mg/dL (70-100); Magnesium 1.9 mg/dL (1.8-2.4); Potassium 4.1 mmol/L (3.5-5.1); Sodium 141 mmol/L (136-145)
[2019-06-11 11:09] LABS: CREATININE 5.79 mg/dL (0.70-1.30)
[2019-06-11 11:53] LABS: BE -3.8 mmol/L (-3-3); HCO3 21 mmol/L (22-28); pCO2 36 mmHg (34-47); pH 7.38 (7.35-7.45); pO2 67 mmHg (83-108); sO2 94 % (94-98); tCO2 21 mmol/L (22-29)
[2019-06-11 11:55] LABS: FIO2L 2 L; Site Right Brachial
[2019-06-11] MEDS: buPROPion-CR 100 MG TABCR 200 MG PO (12:25)
[2019-06-11] MEDS: Albuterol/Ipratropium 3 ML UPD VIAL UPD ×2 (12:25→21:15)
[2019-06-11] MEDS: Furosemide 100 MG/10 ML VIAL 80 MG IVP (12:26)
--- NOTE | 2019-06-11 12:28 | DI.RAD_ITS ---
EXAM: XR CHEST 2V PA LATERAL INDICATION: worsening SOB. COMPARISON: XR CHEST 2V PA LATERAL from 06/10/2019 TECHNIQUE: 2D digital imaging was performed. FINDINGS: When compared with the previous examination, again noted is a very small right pleural effusion. A r egion of increased density in the right lower lobe posteriorly is noted and an area of infiltration o r atelectasis involving the right middle lobe is seen. Again noted is the wetness of the fissures. The heart remains within normal limits in size. IMPRESSION: The findings remain consistent with congestive failure. The possibility of a concomitant acute pneumo nitis not excluded.
--- NOTE | 2019-06-11 12:47 | DI.VRAD_ITS ---
PROCEDURE INFORMATION: Exam: XR Chest, 2 Views Exam date and time: 06/11/2019 11:01 AM Clinical history: 63 years old, male; Other: Worsening SOB TECHNIQUE: Imaging protocol: XR of the chest Views: 2 views. COMPARISON: CR XR CHEST 2V PA LATERAL 06/10/2019 2:26 PM FINDINGS: Lungs: Mild opacity in the medial right base may represent atelectasis or pneumonia. Pleural space: There may be mild to moderate joint effusion demonstrated posteriorly. Heart/Mediastinum: Mild cardiomegaly and mild vascular prominence may represent interstitial edema Bones/joints: Stable. Other findings: Overlying EKG wires IMPRESSION: 1. Mild opacity in the medial right base may represent atelectasis or pneumonia. 2. There may be mild to moderate joint effusion demonstrated posteriorly. Dictated and Authenticated by: Nereyda Cabezas MD. Ordering:EVIE Keating MD
[2019-06-11 13:00] LABS: NT-proBNP 14227 pg/mL
--- NOTE | 2019-06-11 14:42 | PGE_ITS ---
Date of Service Date of service: 06/11/19 Time of Service: 14:42 Assessment and Plan Assessment and plan (1) Acute exacerbation of CHF (congestive heart failure): Start date: 06/11/19 Start time: 14:53 Status: Acute Assessment and plan: Worsening SOB this am with wheezing and crackles and oxygen requirement. Repeat CXR ordered, ABG, duoneb, bipap, Incentive spirometery and lasix IVP 80 mg. Repeat CXR with mild opacity possibly pneumonia, will not treat as pneumonia as there is not leukocytosis, fevers or indication. If patient presents with fever or leukocytosis, treatment at that time. ABG not revealing for acidoisis, will trial bipap to help breathing. Continue with IV lasix 80 mg. Repeat BNP 97946 today. Urine output 3050 from last night. Edema + 3 bilaterally but improving. Hemoglobin 7.2 tranfuse 1 unit RBC, repeat labs for am. Consider tertiary center if symptoms do not improve. CKD with fistula has not started dialysis (2) CKD (chronic kidney disease) stage 5, GFR less than 15 ml/min: Start date: 06/11/19 Start time: 15:03 Status: Chronic Assessment and plan: See above. Waiting for dialysis at this time (3) Obstructive sleep apnea syndrome: Start date: 06/11/19 Start time: 15:03 Status: Chronic Assessment and plan: KYLE with CPAP that he does not use at home. Will trial bipap as patient breathing is not improved. (4) Anemia: Start date: 06/11/19 Start time: 15:04 Status: Acute Assessment and plan: In setting of ESRD, Hemoglobin 7.2. Will transfuse 1 unit PRBC at patient is pale and becoming more easily SOB (5) Diabetic neuropathy: Start date: 06/11/19 Start time: 15:05 Status: Acute Assessment and plan: Tingling to bilateral extremities. Continue gabapentin (6) Dyslipidemia: Start date: 06/11/19 Start time: 15:05 Status: Acute Assessment and plan: continue atorvastatin (7) Essential hypertension: Start date: 06/11/19 Start time: 15:05 Status: Acute Assessment and plan: Blood pressure elevated in setting of ESR, continue hyrdalizine (8) Gastroesophageal reflux disease: Start date: 06/11/19 Start time: 15:05 Status: Acute Assessment and plan: Dexilant DR for GERD, continue (9) Stroke, lacunar: Start date: 06/11/19 Start time: 15:05 Status: Acute Assessment and plan: History of stroke, continue plavix, (10) Type II diabetes mellitus with ophthalmic manifestations: Start date: 06/11/19 Start time: 15:05 Status: Acute Assessment and plan: No longer on insulin. Will do BID fingersticks to monitor glucose and treat as appropriate. (11) Parkinsons: Start date: 06/11/19 Start time: 15:06 Status: Chronic Assessment and plan: Tremors, denies dysphagia, states hallucinations continue sinemet. (12) Visual hallucinations: Start date: 06/11/19 Start time: 15:06 Status: Acute Assessment and plan: Urinalysis without nitrates or leukocytes. Not a UTI, hallucinations ongoing since thrusday. Could be a start to uremia or parkinsons, continue to monitor labs and for signs of worsening renal symptoms (13) Hx of syncope: Start date: 06/11/19 Start time: 15:07 Status: Acute Assessment and plan: Multiple syncopal episodes that have been worked up with out findings. Loop recorder implanted on 05/11. Above findings discussed with Dr. Fink and he is in agreement. Subjective Subjective Patient reports: other Interval history since last seen: Feels better but appears to be working harder to breath. Wheezing to bilateral lobes, requiring oxygen 2 Liters with 92 percent.Repeat CXR mild opacity in medial right base may represent atelectasis or pneumonia unlikely pneumonia lack of fever and leukocytosis; hold off on antibiotics at this time, if fever occurs or leukocytosis, treatment would be appropriate. ABG, Lasix 80 mg, Bipap for comfort, duo nebs. ABG not revealing any underlying acidosis, oxygen 94 by ABG. Afebrile, edema improved though still +3 bilaterally and generalized. Hemoglobin 7.2, he could benefit from blood transfusion 1 unit ordered, will give 80 lasix post transfusion [place] [id number] today. Output at greater than 100 ml with lasix push, drip dcd. Denies CP, dizzines, n/v/d/. Exam Const General: cooperative Nutritional Appearance: edematous Orientation: alert, awake and oriented x3 HENMT Head: normal to inspection Face and sinus: normal facial exam Eyes General: appearance normal, both eyes and all related structures Pupils: PERRL Neck Lymphatic: no lymphadenopathy noted and no lymphedema noted Chest Chest: normal inspection of the chest Resp Effort & Inspection: able to speak in complete sentences, abnormal respiratory pattern and tachypneic Auscultation: crackles and wheezes Cardio Palpation: normal PMI Rate: regular rate Rhythm: regular rhythm Heart Sounds: S1 normal, S2 normal and no murmurs GI Inspection: normal to inspection Palpation: soft and no hepatosplenomegaly Auscultation: normal bowel sounds General: No CVA tenderness Back/Spine/Pelvis Back: no CVA tenderness Skin Trauma: abrasion Neuro General: alert, awake and oriented x3 Speech: abnormal speech Extrem General: edema and pedal edema Right upper extremity: edema Left upper extremity: edema Right lower extremity: edema Left lower extremity: edema Psych Appearance: well kempt Mood: congruent mood Affect: normal affect Attitude: cooperative Objective Objective Clinical Data: Abnormal lab results 06/10/19 06/10/19 06/10/19 Range/Units 14:10 14:10 14:10 RBC 2.26 L (4.50-6.00) m/cumm Hgb 7.0 L (13.5-17.5) g/dL Hct 21.9 L (40.0-50.0) % MCV 96.9 H (80-95) fL Absolute Lymphocytes 0.56 L (1.2-3.4) k/cumm PT (9.3-11.0) sec INR (0.9-1.1) D-Dimer 560 H (<500) ng/mlFEU pO2 (83-108) mmHg ABG HCO3 (22-28) mmol/L ABG Total CO2 (22-29) mmol/L ABG Base Excess (-3-3) mmol/L Carbon Dioxide (21.0-32.0) mmol/L Anion Gap (3-11) mmol/L BUN (7-18) mg/dL Creatinine (0.70-1.30) mg/dL Glucose (70-100) mg/dL Calcium (8.5-10.1) mg/dL NT-Pro-B Natriuret Pep 75571 H ( - 299) pg/mL TSH 5.59 H (0.36-3.74) uIU/mL Urine Protein (Negative) mg/dL Crossmatch 06/10/19 06/10/19 06/11/19 Range/Units 14:10 18:30 10:25 RBC (4.50-6.00) m/cumm Hgb (13.5-17.5) g/dL Hct (40.0-50.0) % MCV (80-95) fL Absolute Lymphocytes (1.2-3.4) k/cumm PT 11.6 H (9.3-11.0) sec INR 1.2 H (0.9-1.1) D-Dimer (<500) ng/mlFEU pO2 (83-108) mmHg ABG HCO3 (22-28) mmol/L ABG Total CO2 (22-29) mmol/L ABG Base Excess (-3-3) mmol/L Carbon Dioxide 20.7 L (21.0-32.0) mmol/L Anion Gap 13.3 H (3-11) mmol/L BUN 65 H (7-18) mg/dL Creatinine 5.79 H* (0.70-1.30) mg/dL Glucose 174 H (70-100) mg/dL Calcium 8.3 L (8.5-10.1) mg/dL NT-Pro-B Natriuret Pep 91988 H ( - 299) pg/mL TSH (0.36-3.74) uIU/mL Urine Protein >=300 H (Negative) mg/dL Crossmatch 06/11/19 06/11/19 06/11/19 Range/Units 10:25 11:50 14:39 RBC 2.28 L (4.50-6.00) m/cumm Hgb 7.2 L (13.5-17.5) g/dL Hct 22.2 L (40.0-50.0) % MCV 97.4 H (80-95) fL Absolute Lymphocytes 0.69 L (1.2-3.4) k/cumm PT (9.3-11.0) sec INR (0.9-1.1) D-Dimer (<500) ng/mlFEU pO2 67 L (83-108) mmHg ABG HCO3 21 L (22-28) mmol/L ABG Total CO2 21 L (22-29) mmol/L ABG Base Excess -3.8 L (-3-3) mmol/L Carbon Dioxide (21.0-32.0) mmol/L Anion Gap (3-11) mmol/L BUN (7-18) mg/dL Creatinine (0.70-1.30) mg/dL Glucose (70-100) mg/dL Calcium (8.5-10.1) mg/dL NT-Pro-B Natriuret Pep ( - 299) pg/mL TSH (0.36-3.74) uIU/mL Urine Protein (Negative) mg/dL Crossmatch See Detail Vital Signs Temperature 36.4 C L 06/11/19 07:05 Temperature Source Tympanic 06/11/19 07:05 Pulse 71 06/11/19 07:05 Pulse Rhythm Regular 06/11/19 07:40 Pulse 70 06/10/19 17:01 Respiratory Rate 22 06/11/19 07:05 Respiratory Effort 06/11/19 07:40 Respiratory Depth Normal 06/11/19 07:40 Respiratory Pattern Normal 06/11/19 07:40 Blood Pressure 174/100 H 06/11/19 07:05 Blood Pressure Mean 92 06/10/19 17:01 Blood Pressure Position Sitting 06/10/19 13:45 Pulse Oximetry 92 L 06/11/19 12:25 Oxygen Delivery Method Nasal Cannula 06/11/19 12:25 Oxygen Flow Rate 2 06/11/19 12:25 Pain Level 0 06/11/19 07:40 Comment 06/11/19 07:05 Intake & Output 06/10/19 06/11/19 06/11/19 23:59 11:59 23:59 Intake Total 440 / 531.583 91.583 / 531.583 Output Total 1275 / 1275 177 / 177 Balance -1275 / -1275 -1335 / -1243.417 91.583 / -1243.417 Weight 102.8 kg 103.2 kg Intake: IV 91.583 / 91.583 Oral 440 / 440 Output: Urine 1275 / 1275 1774 / 1775 Other: Urine Color Yellow Yellow Urine Appearance Clear Clear Urine Odor Normal Stool Occult Blood Negative Voiding Methods Urinal # Voids 2 Laboratory Results WBC 6.58 k/cumm (4.4-10.8) 06/11/19 10:25 RBC 2.28 m/cumm (4.50-6.00) L 06/11/19 10:25 Hgb 7.2 g/dL (13.5-17.5) L 06/11/19 10:25 Hct 22.2 % (40.0-50.0) L 06/11/19 10:25 MCV 97.4 fL (80-95) H 06/11/19 10:25 MCH 31.6 pg (27.0-33.0) 06/11/19 10:25 MCHC 32.4 g/dL (32.0-36.0) 06/11/19 10:25 RDW 13.7 % (11.8-14.1) 06/11/19 10:25 Plt Count 171 x1000/uL (130-400) 06/11/19 10:25 MPV 8.9 fL (8.0-11.0) 06/11/19 10:25 Immature Gran % 0.2 06/11/19 10:25 Neutrophils % 76.3 06/11/19 10:25 Lymphocytes % 10.5 06/11/19 10:25 Monocytes % 9.0 06/11/19 10:25 Eosinophils % 3.5 06/11/19 10:25 Basophils % 0.5 06/11/19 10:25 Absolute Neutrophils 5.03 k/cumm (1.2-6.7) 06/11/19 10:25 Absolute Lymphocytes 0.69 k/cumm (1.2-3.4) L 06/11/19 10:25 Absolute Monocytes 0.59 k/cumm (0.11-0.7) 06/11/19 10:25 Absolute Eosinophils 0.23 k/cumm (0.0-0.7) 06/11/19 10:25 Absolute Basophils 0.03 k/cumm (0.0-0.2) 06/11/19 10:25 Differential Comment Rbc morph reviewed 06/10/19 14:10 RBC Morphology Normal 06/10/19 14:10 PT 11.6 sec (9.3-11.0) H 06/10/19 14:10 INR 1.2 (0.9-1.1) H 06/10/19 14:10 APTT 27.1 sec (21.0-31.4) 06/10/19 14:10 D-Dimer 560 ng/mlFEU (<500) H 06/10/19 14:10 Sample Site Right brachial 06/11/19 11:50 pCO2 36 mmHg (34-47) 06/11/19 11:50 pO2 67 mmHg (83-108) L 06/11/19 11:50 O2 Saturation 94 % (94-98) 06/11/19 11:50 ABG pH 7.38 (7.35-7.45) 06/11/19 11:50 ABG HCO3 21 mmol/L (22-28) L 06/11/19 11:50 ABG Total CO2 21 mmol/L (22-29) L 06/11/19 11:50 ABG Base Excess -3.8 mmol/L (-3-3) L 06/11/19 11:50 VBG pH 7.39 (7.32-7.43) 06/10/19 14:10 VBG pCO2 33 mm/Hg (34-47) L 06/10/19 14:10 VBG pO2 121 mm/Hg (28-44) H 06/10/19 14:10 VBG HCO3 20 mmol/L (22-28) L 06/10/19 14:10 VBG Total CO2 19 mmol/L (22-29) L 06/10/19 14:10 VBG O2 Saturation 99 % (70-80) H 06/10/19 14:10 VBG Base Excess -5.1 mmol/L (-3-3) L 06/10/19 14:10 Oxygen Liter Flow 2 L 06/11/19 11:50 Sodium 141 mmol/L (136-145) 06/11/19 10:25 Potassium 4.1 mmol/L (3.5-5.1) 06/11/19 10:25 Chloride 107 mmol/L (98-107) 06/11/19 10:25 Carbon Dioxide 20.7 mmol/L (21.0-32.0) L 06/11/19 10:25 Anion Gap 13.3 mmol/L (3-11) H 06/11/19 10:25 BUN 65 mg/dL (7-18) H 06/11/19 10:25 Creatinine 5.79 mg/dL (0.70-1.30) H* 06/11/19 10:25 Estimated GFR/1.73 m2 9.91 (mL/min/1.73m2) 06/11/19 10:25 Glucose 174 mg/dL (70-100) H 06/11/19 10:25 Calcium 8.3 mg/dL (8.5-10.1) L 06/11/19 10:25 Magnesium 1.9 mg/dL (1.8-2.4) 06/11/19 10:25 Total Bilirubin 0.7 mg/dL (0.2-1.0) 06/10/19 14:10 AST 12 U/L (15-37) L 06/10/19 14:10 ALT 5 U/L (16-63) L 06/10/19 14:10 Alkaline Phosphatase 72 U/L (46-116) 06/10/19 14:10 Troponin I < 0.05 ng/mL (0.00-0.06) 06/10/19 14:10 NT-Pro-B Natriuret Pep 37398 pg/mL (-299) H 06/11/19 10:25 Total Protein 6.3 g/dL (6.4-8.2) L 06/10/19 14:10 Albumin 3.3 g/dL (3.4-5.0) L 06/10/19 14:10 TSH 5.59 uIU/mL (0.36-3.74) H 06/10/19 14:10 Free T4 1.20 ng/dL (0.76-1.46) 06/10/19 14:10 Urine Color Yellow (Yellow) 06/10/19 18:30 Urine Clarity Clear (Clear) 06/10/19 18:30 Urine pH 7.0 (5-8) 06/10/19 18:30 Ur Specific [place] 1.015 (1.005-1.025) 06/10/19 18:30 Urine Protein >=300 mg/dL (Negative) H 06/10/19 18:30 Urine Ketones Negative mg/dL (Negative) 06/10/19 18:30 Urine Blood Negative (Negative) 06/10/19 18:30 Urine Nitrite Negative (Negative) 06/10/19 18:30 Urine Bilirubin Negative (Negative) 06/10/19 18:30 Urine Urobilinogen 0.2 EU/dL (Up TO 0.2) 06/10/19 18:30 Ur Leukocyte Esterase Negative (Negative) 06/10/19 18:30 Urine RBC Negative (0-2) 06/10/19 18:30 Urine WBC Negative HPF (0-5) 06/10/19 18:30 Ur Epithelial Cells Negative HPF (Negative) 06/10/19 18:30 Urine Crystals Negative HPF (Negative) 06/10/19 18:30 Urine Bacteria Negative HPF (Negative) 06/10/19 18:30 Urine Casts Negative LPF (Negative) 06/10/19 18:30 Urine Mucus Negative (Negative) 06/10/19 18:30 Urine Other Negative (Negative) 06/10/19 18:30 Ur Culture Indicated? No 06/10/19 18:30 Urine Glucose Negative mg/dL (Negative) 06/10/19 18:30 Crossmatch See Detail 06/11/19 14:39
[2019-06-11] MEDS: Atorvastatin 40 MG TAB 80 MG PO (21:18)
[2019-06-12] VITALS (13 sets, daily range): BP systolic 158–194; BP diastolic 71–97; PULSE 63–76; RESP 10–21; TEMP 36.2–36.7; O2SAT 92–97
[2019-06-12] MEDS: Acetaminophen 325 MG TAB PO ×2 (00:32→04:11)
[2019-06-12 03:14] LABS: Abs Immature Grans 0.01 k/cumm (0.0-0.09); Absolute Basophil Count 0.02 k/cumm (0.0-0.2); Absolute Eosinophil Count 0.27 k/cumm (0.0-0.7); Absolute Lymphocyte Count 0.91 k/cumm (1.2-3.4); Basophils % 0.3; Eosinophils % 4.2; HCT 22.2 % (40.0-50.0); HGB 7.3 g/dL (13.5-17.5); Immature Grans % 0.2; Lymphocytes % 14.2; Mean Corp. HGB Concentration 32.9 g/dL (32.0-36.0); Mean Corpuscular Hemoglobin 31.9 pg (27.0-33.0); Mean Corpuscular Volume 96.9 fL (80-95); Mean Platelet Volume 8.9 fL (8.0-11.0); Monocytes % 9.4; Neutrophils % 71.7; Platelet Count 172 x1000/uL (130-400); RBC 2.29 m/cumm (4.50-6.00); RBC Distribution Width 13.4 % (11.8-14.1); White Blood Cell Count 6.41 k/cumm (4.4-10.8)
[2019-06-12 05:36] LABS: Anion Gap 10.6 mmol/L (3-11); BUN 65 mg/dL (7-18); CO2 22.4 mmol/L (21.0-32.0); Calcium 8.4 mg/dL (8.5-10.1); Chloride 108 mmol/L (98-107); Estimated GFR 9.76 (mL/min/1.73m2); Glucose 125 mg/dL (70-100); Potassium 4.3 mmol/L (3.5-5.1); Sodium 141 mmol/L (136-145)
[2019-06-12 05:43] LABS: CREATININE 5.87 mg/dL (0.70-1.30)
--- NOTE | 2019-06-12 07:06 | NUR.NOTE ---
Patient had blood transfusion commencing earlier this morning, his vitals remains stable during the transfusion. No evidence of allergic or alterations in reactions during the process. Cpap remains and place and patient tolerating well.
[2019-06-12] MEDS: Normal Saline Flush 10 ML SYR IVP ×3 (07:24→15:20)
[2019-06-12] MEDS: Furosemide 40 MG/4 ML VIAL (07:30)
[2019-06-12] MEDS: Dorzolamide 2% 10 ML BTL OS ×2 (07:53→20:39)
[2019-06-12] MEDS: Dexlansoprazole 30 MG CAP 60 MG PO (07:53)
[2019-06-12] MEDS: buPROPion-CR 100 MG TABCR 200 MG PO (07:53)
[2019-06-12] MEDS: Gabapentin 100 MG CAP PO ×3 (07:54→20:39)
[2019-06-12] MEDS: hydrALAZINE 10 MG TAB PO ×2 (07:54→20:39)
[2019-06-12] MEDS: Finasteride 5 MG TAB PO (07:54)
[2019-06-12] MEDS: Tamsulosin 0.4 MG CAPCR 0.8 MG PO (07:54)
[2019-06-12] MEDS: Cholecalciferol (Vitamin D3) 1,000 UNIT TAB 2000 UNITS PO (07:54)
[2019-06-12] MEDS: Multivitamin TAB 1 TAB PO (07:54)
[2019-06-12] MEDS: Calcitriol 0.25 MCG CAP PO (07:54)
[2019-06-12] MEDS: Clopidogrel 75 MG TAB PO (07:54)
[2019-06-12] MEDS: Sodium Bicarbonate 650 MG TAB PO ×3 (07:54→20:39)
[2019-06-12] MEDS: Carbidopa 25/Levodopa 100 TAB PO ×3 (07:54→20:39)
[2019-06-12] MEDS: Metoprolol 25 MG TAB PO ×2 (07:55→20:39)
--- NOTE | 2019-06-12 09:30 | PT.INTREAT ---
Date of service: 06/12/19 Time of Service: 09:30 PT Notes 06/12/19 SUBJECTIVE: Mati stating he is doing okay today. He would like get up but is not wanting to stay up in the chair. OBJECTIVE: Agreeable to PT treatment. TRANSFERS Supine to sit: SBA Sit to supine: Min A for LE's Sit to stand: CGA Stand to sit: CGA GAIT Device: FWW Weight bearing: Full Assist: CGA Distance: 3 side steps to the right Deviation: stood x [address] THEREX: Light LE and UE strengthening performed in supine position. See flow sheet. ASSESSMENT: Progressing with functional mobility slowly. He does get SOB with any active movement although vitals remain WNL. Pt will benefit from continue PT efforts to improve his functional moblity. PLAN: Continue current POC. Treatment time: 25 minutes [id number], [id number] Mis Rosa PTA Clinic location: [facility] [place], [place]
--- NOTE | 2019-06-12 11:12 | CMPROGNOTE_ITS ---
- If Service Date Differs Date of service: 06/12/19 Time of Service: 11:12 Care Management Progress Note S/O:CM came to meet with Jewel when he was having his lunch. He was pleasant and quite willing to converse at that time. 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 He stated that he did not retire on his own. He stated that his doctor told him it was time to quit due to his health issues. Jewel also discussed his life at home and his caregivers. He likes both of his regular care givers but stated that sometimes they go overboard following the rules. Specifically, he had issues with the enforcement of his dietary restrictions. Because of his renal disease, CHF and diabetes, he is supposed to restrict both his salt and sugar intake. He stated he feels it is OK to have treats once in a while, maybe every other day or so. CM shared this information with provider who will order a nutrition consult. A: Jewel is a 63 year old man admitted to [facility] on 06/10/19 with CHF and ESRD P:Jewel is being treated for acute exacerbation of CHF with increasing SOB. A nutrition consult will be considered. CM will continue to follow and provide support to patient, care givers and discharge considerations.
[2019-06-12 12:09] LABS: HCT 24.6 % (40.0-50.0); HGB 8.2 g/dL (13.5-17.5)
[2019-06-12 12:19] LABS: Anion Gap 11.5 mmol/L (3-11); BUN 64 mg/dL (7-18); CO2 22.5 mmol/L (21.0-32.0); Calcium 8.5 mg/dL (8.5-10.1); Chloride 106 mmol/L (98-107); Estimated GFR 9.95 (mL/min/1.73m2); Glucose 166 mg/dL (70-100); Potassium 4.4 mmol/L (3.5-5.1); Sodium 140 mmol/L (136-145)
[2019-06-12 12:23] LABS: CREATININE 5.77 mg/dL (0.70-1.30)
--- NOTE | 2019-06-12 12:24 | W.PM.PROGNOT ---
Date of Service Date of service: 06/12/19 Time of Service: 12:25 Assessment and Plan Assessment and plan (1) Acute exacerbation of CHF (congestive heart failure): Start date: 06/12/19 Start time: 12:32 Status: Acute Assessment and plan: Improving. Received one unit packed RBC repeat Hemoglobin 8.2. Continue to monitor H/H. Lasix IVP 80 mg BID. Breathing is improved. Edema to bilateral LE is improving 3 pitting edema. Generalized edema improving. Bipap overnight with positive experience, continue to encourage. Fistula with positive bruit and thrill. Continue to monitor I/O and weights. Telemetry SR with a 3 second afib continue to monitor. HR regular at this time. (2) CKD (chronic kidney disease) stage 5, GFR less than 15 ml/min: Start date: 06/12/19 Start time: 12:35 Status: Chronic Assessment and plan: See above. Waiting for dialysis at this time (3) Obstructive sleep apnea syndrome: Start date: 06/12/19 Start time: 13:17 Status: Chronic Assessment and plan: Patient used bipap with positive experience continue to use. (4) Anemia: Start date: 06/12/19 Start time: 13:18 Status: Acute Assessment and plan: see. above (5) Diabetic neuropathy: Start date: 06/12/19 Status: Acute Assessment and plan: Continue gabapentin. (6) Dyslipidemia: Start date: 06/12/19 Start time: 13:19 Status: Acute Assessment and plan: continue atorvastatin (7) Essential hypertension: Start date: 06/12/19 Start time: 13:19 Status: Acute Assessment and plan: Blood pressure elevated in setting of ESR, continue hyrdalizine (8) Gastroesophageal reflux disease: Start date: 06/12/19 Start time: 13:19 Status: Acute Assessment and plan: Dexilant DR for GERD, continue (9) Parkinsons: Start date: 06/12/19 Start time: 13:19 Status: Chronic Assessment and plan: Tremors, denies dysphagia, states hallucinations continue sinemet. PT/OT for strength (10) Visual hallucinations: Start date: 06/12/19 Start time: 13:20 Status: Acute Assessment and plan: likely from parkinson, continue to monitor for signs of uremia which could also be why hallucinations. (11) Hx of syncope: Start date: 06/12/19 Start time: 13:20 Status: Acute Assessment and plan: Multiple syncopal episodes that have been worked up with out findings. Loop recorder implanted on 05/11. On telemetry at this time as well. Above findings discussed with Dr. Fink and he is in agreement. Subjective Subjective Patient reports: feels better Interval history since last seen: Feeling better today, breathing better. Wore bipap last night.Received 1 unit PRBC hemoglobin 8.2. Continue diuresis and monitor daily weights, I/O, edema 3 pitting but better. Exam Const General: cooperative Nutritional Appearance: edematous Orientation: alert, awake and oriented x3 HENMT Head: normal to inspection Face and sinus: normal facial exam Eyes General: appearance normal, both eyes and all related structures Pupils: PERRL Neck Lymphatic: no lymphadenopathy noted and no lymphedema noted Chest Chest: normal inspection of the chest Resp Effort & Inspection: able to speak in complete sentences, abnormal respiratory pattern and tachypneic Auscultation: crackles and wheezes Cardio Palpation: normal PMI Rate: regular rate Rhythm: regular rhythm Heart Sounds: S1 normal, S2 normal and no murmurs GI Inspection: normal to inspection Palpation: soft and no hepatosplenomegaly Auscultation: normal bowel sounds General: No CVA tenderness Back/Spine/Pelvis Back: no CVA tenderness Skin Trauma: abrasion Neuro General: alert, awake and oriented x3 Speech: abnormal speech Extrem General: edema and pedal edema Right upper extremity: edema Left upper extremity: edema Right lower extremity: edema Left lower extremity: edema Other: Left arm fistula with positive bruit and thrill. Edema improving still 3 pitting. Psych Appearance: well kempt Mood: congruent mood Affect: normal affect Attitude: cooperative Objective Objective Clinical Data: Abnormal lab results 06/11/19 06/11/19 06/12/19 Range/Units 03:00 10:25 03:00 RBC (4.50-6.00) m/cumm Hgb (13.5-17.5) g/dL Hct (40.0-50.0) % MCV (80-95) fL Absolute Lymphocytes (1.2-3.4) k/cumm Chloride 108 H (98-107) mmol/L Carbon Dioxide 20.7 L (21.0-32.0) mmol/L Anion Gap 13.3 H (3-11) mmol/L BUN 65 H 65 H (7-18) mg/dL Creatinine 5.79 H* 5.87 H* (0.70-1.30) mg/dL Glucose 174 H 125 H (70-100) mg/dL Calcium 8.3 L 8.4 L (8.5-10.1) mg/dL NT-Pro-B Natriuret Pep 87135 H ( - 299) pg/mL Crossmatch See Detail 06/12/19 06/12/19 06/12/19 Range/Units 03:00 03:00 11:50 RBC 2.29 L (4.50-6.00) m/cumm Hgb 7.3 L 8.2 L (13.5-17.5) g/dL Hct 22.2 L 24.6 L (40.0-50.0) % MCV 96.9 H (80-95) fL Absolute Lymphocytes 0.91 L (1.2-3.4) k/cumm Chloride (98-107) mmol/L Carbon Dioxide (21.0-32.0) mmol/L Anion Gap (3-11) mmol/L BUN (7-18) mg/dL Creatinine (0.70-1.30) mg/dL Glucose (70-100) mg/dL Calcium (8.5-10.1) mg/dL NT-Pro-B Natriuret Pep ( - 299) pg/mL Crossmatch See Detail 06/12/19 Range/Units 11:50 RBC (4.50-6.00) m/cumm Hgb (13.5-17.5) g/dL Hct (40.0-50.0) % MCV (80-95) fL Absolute Lymphocytes (1.2-3.4) k/cumm Chloride (98-107) mmol/L Carbon Dioxide (21.0-32.0) mmol/L Anion Gap 11.5 H (3-11) mmol/L BUN 64 H (7-18) mg/dL Creatinine 5.77 H* (0.70-1.30) mg/dL Glucose 166 H (70-100) mg/dL Calcium (8.5-10.1) mg/dL NT-Pro-B Natriuret Pep ( - 299) pg/mL Crossmatch Vital Signs Temperature 36.2 C L 06/12/19 07:36 Temperature Source Tympanic 06/12/19 07:36 Pulse 73 06/12/19 07:55 Pulse Rhythm Regular 06/12/19 03:27 Pulse 70 06/10/19 17:01 Respiratory Rate 21 06/12/19 07:36 Respiratory Effort Non-Labored 06/11/19 21:18 Respiratory Depth Normal 06/12/19 03:27 Respiratory Pattern Normal 06/12/19 03:27 Blood Pressure 184/79 H 06/12/19 07:36 Blood Pressure Mean 92 06/10/19 17:01 Blood Pressure Position Sitting 06/10/19 13:45 Pulse Oximetry 96 06/12/19 07:36 Oxygen Delivery Method Nasal Cannula 06/12/19 07:36 Oxygen Flow Rate 1 06/12/19 07:36 Pain Level 0 06/12/19 07:36 Comment 06/12/19 03:05 Intake & Output 06/11/19 06/12/19 06/12/19 23:59 11:59 23:59 Intake Total 331.583 / 955.635 2246 / 1050 Output Total 855 / 2630 450 / 450 Balance -523.417 / -1858.417 600 / 600 Weight 103.3 kg Intake: IV 91.583 / 91.583 10 10 Oral 240 / 680 790 / 790 Blood Product 250 / 250 Rbc Leuko Reduced Unit 250 / 250 [id number] Output: Urine 855 / 2630 450 / 450 Other: Urine Color Yellow Pale Yellow Urine Appearance Clear Clear Laboratory Results WBC 6.41 k/cumm (4.4-10.8) 06/12/19 03:00 RBC 2.29 m/cumm (4.50-6.00) L 06/12/19 03:00 Hgb Cancelled 06/12/19 22:30 Hct Cancelled 06/12/19 22:30 MCV 96.9 fL (80-95) H 06/12/19 03:00 MCH 31.9 pg (27.0-33.0) 06/12/19 03:00 MCHC 32.9 g/dL (32.0-36.0) 06/12/19 03:00 RDW 13.4 % (11.8-14.1) 06/12/19 03:00 Plt Count 172 x1000/uL (130-400) 06/12/19 03:00 MPV 8.9 fL (8.0-11.0) 06/12/19 03:00 Immature Gran % 0.2 06/12/19 03:00 Neutrophils % 71.7 06/12/19 03:00 Lymphocytes % 14.2 06/12/19 03:00 Monocytes % 9.4 06/12/19 03:00 Eosinophils % 4.2 06/12/19 03:00 Basophils % 0.3 06/12/19 03:00 Absolute Neutrophils 4.60 k/cumm (1.2-6.7) 06/12/19 03:00 Absolute Lymphocytes 0.91 k/cumm (1.2-3.4) L 06/12/19 03:00 Absolute Monocytes 0.60 k/cumm (0.11-0.7) 06/12/19 03:00 Absolute Eosinophils 0.27 k/cumm (0.0-0.7) 06/12/19 03:00 Absolute Basophils 0.02 k/cumm (0.0-0.2) 06/12/19 03:00 Differential Comment Rbc morph reviewed 06/10/19 14:10 RBC Morphology Normal 06/10/19 14:10 PT 11.6 sec (9.3-11.0) H 06/10/19 14:10 INR 1.2 (0.9-1.1) H 06/10/19 14:10 APTT 27.1 sec (21.0-31.4) 06/10/19 14:10 D-Dimer 560 ng/mlFEU (<500) H 06/10/19 14:10 Sample Site Right brachial 06/11/19 11:50 pCO2 36 mmHg (34-47) 06/11/19 11:50 pO2 67 mmHg (83-108) L 06/11/19 11:50 O2 Saturation 94 % (94-98) 06/11/19 11:50 ABG pH 7.38 (7.35-7.45) 06/11/19 11:50 ABG HCO3 21 mmol/L (22-28) L 06/11/19 11:50 ABG Total CO2 21 mmol/L (22-29) L 06/11/19 11:50 ABG Base Excess -3.8 mmol/L (-3-3) L 06/11/19 11:50 VBG pH 7.39 (7.32-7.43) 06/10/19 14:10 VBG pCO2 33 mm/Hg (34-47) L 06/10/19 14:10 VBG pO2 121 mm/Hg (28-44) H 06/10/19 14:10 VBG HCO3 20 mmol/L (22-28) L 06/10/19 14:10 VBG Total CO2 19 mmol/L (22-29) L 06/10/19 14:10 VBG O2 Saturation 99 % (70-80) H 06/10/19 14:10 VBG Base Excess -5.1 mmol/L (-3-3) L 06/10/19 14:10 Oxygen Liter Flow 2 L 06/11/19 11:50 Sodium 140 mmol/L (136-145) 06/12/19 11:50 Potassium 4.4 mmol/L (3.5-5.1) 06/12/19 11:50 Chloride 106 mmol/L (98-107) 06/12/19 11:50 Carbon Dioxide 22.5 mmol/L (21.0-32.0) 06/12/19 11:50 Anion Gap 11.5 mmol/L (3-11) H 06/12/19 11:50 BUN 64 mg/dL (7-18) H 06/12/19 11:50 Creatinine 5.77 mg/dL (0.70-1.30) H* 06/12/19 11:50 Estimated GFR/1.73 m2 9.95 (mL/min/1.73m2) 06/12/19 11:50 Glucose 166 mg/dL (70-100) H 06/12/19 11:50 Calcium 8.5 mg/dL (8.5-10.1) 06/12/19 11:50 Magnesium 2.0 mg/dL (1.8-2.4) 06/12/19 03:00 Total Bilirubin 0.7 mg/dL (0.2-1.0) 06/10/19 14:10 AST 12 U/L (15-37) L 06/10/19 14:10 ALT 5 U/L (16-63) L 06/10/19 14:10 Alkaline Phosphatase 72 U/L (46-116) 06/10/19 14:10 Troponin I < 0.05 ng/mL (0.00-0.06) 06/10/19 14:10 NT-Pro-B Natriuret Pep 85874 pg/mL (-299) H 06/11/19 10:25 Total Protein 6.3 g/dL (6.4-8.2) L 06/10/19 14:10 Albumin 3.3 g/dL (3.4-5.0) L 06/10/19 14:10 TSH 5.59 uIU/mL (0.36-3.74) H 06/10/19 14:10 Free T4 1.20 ng/dL (0.76-1.46) 06/10/19 14:10 Urine Color Yellow (Yellow) 06/10/19 18:30 Urine Clarity Clear (Clear) 06/10/19 18:30 Urine pH 7.0 (5-8) 06/10/19 18:30 Ur Specific [place] 1.015 (1.005-1.025) 06/10/19 18:30 Urine Protein >=300 mg/dL (Negative) H 06/10/19 18:30 Urine Ketones Negative mg/dL (Negative) 06/10/19 18:30 Urine Blood Negative (Negative) 06/10/19 18:30 Urine Nitrite Negative (Negative) 06/10/19 18:30 Urine Bilirubin Negative (Negative) 06/10/19 18:30 Urine Urobilinogen 0.2 EU/dL (Up TO 0.2) 06/10/19 18:30 Ur Leukocyte Esterase Negative (Negative) 06/10/19 18:30 Urine RBC Negative (0-2) 06/10/19 18:30 Urine WBC Negative HPF (0-5) 06/10/19 18:30 Ur Epithelial Cells Negative HPF (Negative) 06/10/19 18:30 Urine Crystals Negative HPF (Negative) 06/10/19 18:30 Urine Bacteria Negative HPF (Negative) 06/10/19 18:30 Urine Casts Negative LPF (Negative) 06/10/19 18:30 Urine Mucus Negative (Negative) 06/10/19 18:30 Urine Other Negative (Negative) 06/10/19 18:30 Ur Culture Indicated? No 06/10/19 18:30 Urine Glucose Negative mg/dL (Negative) 06/10/19 18:30 Patient ABO/Rh A Positive 06/12/19 03:00 Antibody Screen Negative 06/12/19 03:00 Crossmatch See Detail 06/12/19 03:00
[2019-06-12] MEDS: Furosemide 100 MG/10 ML VIAL 80 MG IVP (15:19)
[2019-06-12] MEDS: Atorvastatin 40 MG TAB 80 MG PO (20:39)
[2019-06-12] MEDS: guaiFENesin 600 MG TABCR PO (20:39)
[2019-06-13] VITALS (11 sets, daily range): BP systolic 175–192; BP diastolic 76–97; PULSE 69–89; RESP 10–22; TEMP 36.4–36.8; O2SAT 92–98
[2019-06-13 07:34] LABS: Abs Immature Grans 0.02 k/cumm (0.0-0.09); Absolute Basophil Count 0.02 k/cumm (0.0-0.2); Absolute Eosinophil Count 0.33 k/cumm (0.0-0.7); Absolute Lymphocyte Count 0.79 k/cumm (1.2-3.4); Absolute Monocyte Count 0.75 k/cumm (0.11-0.7); Absolute Neutrophil Count 6.12 k/cumm (1.2-6.7); Basophils % 0.2; Eosinophils % 4.1; HCT 25.4 % (40.0-50.0); HGB 8.5 g/dL (13.5-17.5); Immature Grans % 0.2; Lymphocytes % 9.8; Mean Corp. HGB Concentration 33.5 g/dL (32.0-36.0); Mean Corpuscular Hemoglobin 31.8 pg (27.0-33.0); Mean Corpuscular Volume 95.1 fL (80-95); Monocytes % 9.3; Neutrophils % 76.4; Platelet Count 159 x1000/uL (130-400); RBC 2.67 m/cumm (4.50-6.00); RBC Distribution Width 13.3 % (11.8-14.1); White Blood Cell Count 8.03 k/cumm (4.4-10.8)
[2019-06-13 07:39] LABS: Iron 56 ug/dL (50-175)
[2019-06-13 07:54] LABS: Anion Gap 13.2 mmol/L (3-11); BUN 63 mg/dL (7-18); CO2 19.8 mmol/L (21.0-32.0); Calcium 8.4 mg/dL (8.5-10.1); Chloride 107 mmol/L (98-107); Estimated GFR 10.26 (mL/min/1.73m2); Glucose 128 mg/dL (70-100); Magnesium 1.7 mg/dL (1.8-2.4); NT-proBNP 12188 pg/mL; Potassium 4.1 mmol/L (3.5-5.1); Sodium 140 mmol/L (136-145)
[2019-06-13 07:57] LABS: CREATININE 5.62 mg/dL (0.70-1.30)
[2019-06-13] MEDS: Dorzolamide 2% 10 ML BTL OS ×2 (08:03→19:33)
[2019-06-13] MEDS: Cholecalciferol (Vitamin D3) 1,000 UNIT TAB 2000 UNITS PO (08:04)
[2019-06-13] MEDS: Normal Saline Flush 10 ML SYR IVP (08:04)
[2019-06-13] MEDS: Furosemide 100 MG/10 ML VIAL 80 MG IVP ×2 (08:04→16:36)
[2019-06-13] MEDS: Sodium Bicarbonate 650 MG TAB PO ×3 (08:05→19:33)
[2019-06-13] MEDS: buPROPion-CR 100 MG TABCR 200 MG PO (08:05)
[2019-06-13] MEDS: Dexlansoprazole 30 MG CAP 60 MG PO (08:05)
[2019-06-13] MEDS: Calcitriol 0.25 MCG CAP PO (08:05)
[2019-06-13] MEDS: Carbidopa 25/Levodopa 100 TAB PO ×3 (08:05→19:32)
[2019-06-13] MEDS: Clopidogrel 75 MG TAB PO (08:05)
[2019-06-13] MEDS: guaiFENesin 600 MG TABCR PO ×2 (08:05→19:31)
[2019-06-13] MEDS: Tamsulosin 0.4 MG CAPCR 0.8 MG PO (08:05)
[2019-06-13] MEDS: Finasteride 5 MG TAB PO (08:06)
[2019-06-13] MEDS: Gabapentin 100 MG CAP PO ×3 (08:06→19:33)
[2019-06-13] MEDS: Metoprolol 25 MG TAB PO ×2 (08:06→19:32)
[2019-06-13] MEDS: Multivitamin TAB 1 TAB PO (08:06)
[2019-06-13] MEDS: hydrALAZINE 10 MG TAB PO ×2 (08:06→19:32)
--- NOTE | 2019-06-13 09:44 | OTIE_ITS ---
Occupational Therapy Notes Inpatient Occupational Therapy Evaluation Date: 06/13/19 Referring Doctor: Zuri Cespedes NP OT Orders: Non-urgent Precautions: Fall, Standard PATIENT PROFILE/ADMITTING DIAGNOSIS: Pt is a 63 year old male who was admitted through the ER for diagnosis of Acute exacerbation of CHF (congestive heart failure). Past Medical History: Medical History AV fistula (Acute) 4 stages 12/2016 thru 06/16/2017 at [facility] [place] BPH (benign prostatic hyperplasia) CAD (coronary artery disease) CHF (congestive heart failure), NYHA class I Chronic kidney disease, stage IV (severe) Diabetic neuropathy Diabetic retinopathy Essential hypertension GERD (gastroesophageal reflux disease) Hyperlipidemia KYLE (obstructive sleep apnea) Stroke Type II diabetes mellitus Surgical History Colonoscopy - IV Sedation (04/16/15) Dr Anderson-[facility] EGD - MAC (07/22/17) Endoscopy (07/17/14) [facility] [place] Dr. Luo Extraction of cataract (03/27/15) left eye, Dr. Kang Repair of inguinal hernia Social History/Home Situation: Pt states that he lives in a private mobile home with his cat. He states that he has two women who come into his home every day for 5-6 hours who (A) him with his dressing and bathing routines. He states that he does not drive as his MD recently told him to stop driving. He is receptive to this and is happy that he has (A) in his home. He notes multiple times throughout session that his home is old and he cannot use anything fancy like FWW and wheelchairs all the time because his home is not set up for this. Equipment owned/DME: raised toilet, FWW, grab bars SUBJECTIVE: Pt was sitting in bed when OT arrived, he was agreeable to OT session stating that he would like to go home and feels that he is getting better. OBJECTIVE: General Observation: Able to answer questions appropriately, pleasant, IV (R) UE, O2 nasal cannula Mental Status: A&Ox3 Pain: no c/o pain Right Upper Extremity: shoulder flexion of 110*, elbow WNL, hand and digits WNL Left Upper Extremity: shoulder flexon to 80*, elbow WNL, hand and digits WNL Strength: Right Upper Extremity: Shoulder flexion 4-/5 throughout, elbow 4/5 Left Upper Extremity: Shoulder flexion 3/5 throughout, elbow 3+/5 FUNCTIONAL MOBILITY/ADLS: Transfers Supine-sit Min (A) and min vc Sit-supine Min (A) and min vc BATHING Sitting in bed with max (A) set up, (I) with washing face, pt denies (B) LE and abdomen as pt is getting ready to eat breakfast. DRESSING NT- pt was getting ready to perform eating routine, OT will assess at next session. GROOMING Sitting in bed, (I) with AROM required to brushing hair. TOILETING NT EATING Sitting in bed, (I) with pouring milk into bowl, (I) food to mouth translation BALANCE: Static sitting Good Dynamic Sitting Good Static Standing NT Dynamic Standing NT SPECIAL TESTS: Daily Activity Limitations Standardized Measure [facility] AM -PAC ?6 clicks? Daily Activity Inpatient Short Form: Raw score: 15 Standardized score: 34.69 CMS score: 56.46% INFORMED CONSENT/EDUCATION: Pt instructed in purpose of OT Consult and plan of care. ASSESSMENT: Patient is a 63-year-old male referred to occupational therapy services with diagnosis of Acute exacerbation of CHF (congestive heart failure). Patient presents with clinical signs and symptoms consistent with dx, as demonstrated by the following impairment level findings/functional limitations: Decreased functional activity tolerance, decreased functional mobility/bed mobility, decreased performance in ADL/IADL routines, requires O2 nasal cannula at rest. AMPAC score 15, CMS score 56.46% Patient is assessed as a Moderate 05592 complexity based on the following: History: See Above Examination: See functional limitations as listed above Presentation: Evolving Decision Making: AMPAC 15, CMS score 56.46% GOALS Goals x1 week 1. Transfers- FWW, SBA 2. Dressing- sitting on side of bed (I) UE and min (A) LE 3. Bathing- sitting on side of bed (I) UE, mod (A) LE 4. Toileting- on toilet (I) PLAN OF CARE/TREATMENT PLAN: 1x/day, 5 days/ week x 1week Initiate Occupational Therapy Services for bathing, dressing, grooming, toileting, eating, transfer training. DISCHARGE RECOMMENDATIONS OT recommends that pt have short term stay at SNF vs return home with services. TREATMENT TIME/MINUTES/CODES 91046, 15 minutes (08:20) Maria Antonia Fong OTR/L [facility]
[2019-06-13] MEDS: Magnesium Oxide 400 MG TAB PO (10:19)
--- NOTE | 2019-06-13 12:53 | PT.INTREAT ---
Date of service: 06/13/19 Time of Service: 12:53 PT Notes Inpatient Physical Therapy [facility] Date: 06/13/2019 SUBJECTIVE: Mati states that he is feeling much better than this morning. He reports that he had a significant headache this morning, which he attributes to his high blood pressure. OBJECTIVE: PAIN: No c/o pain TRANSFERS Supine to sit: S Sit to supine: S Sit to stand: CGA Stand to sit: CGA GAIT Device: FWW Weight bearing: Full Assist: CGA Distance: 50' x2 in a.m.; 60' x2 in p.m. Deviation: Seated rest x1 VITALS: BP: 181/80 following post ambulation dizziness THEREX: Patient completed an UE and LE strengthening program, while seated at EOB, as per flow sheet. ASSESSMENT: Patient tolerated session well, with some c/o increased LE weakness and fatigue with progressed gait distance. Patient was able to tolerate a progression in gait distance with FWW support and CGA. He would benefit from continued gait and transfer training, as well as strengthening for improved mobility and activity tolerance. PLAN: Continue with PT's POC Treatment time: Session 1: 30 minutes; 63052, [id number] Session 2: 20 minutes; [id number]
--- NOTE | 2019-06-13 13:08 | W.PM.PROGNOT ---
Date of Service Date of service: 06/13/19 Time of Service: 13:09 Assessment and Plan Assessment and plan (1) Acute exacerbation of CHF (congestive heart failure): Start date: 06/13/19 Start time: 13:56 Status: Acute Assessment and plan: Improving.Wt is the same. Edema is improved 1-2 +. Breathing improved, ambulating with PT and Oxygen sat is 94% on O2 Continue BID lasix. Continue to monitor wts, output. (2) CKD (chronic kidney disease) stage 5, GFR less than 15 ml/min: Start date: 06/13/19 Start time: 13:59 Status: Chronic Assessment and plan: Not on dialysis at this time. Arespa injection tomorrow. Continue to monitor Bun/creatinine. (3) Obstructive sleep apnea syndrome: Start date: 06/13/19 Start time: 14:00 Status: Chronic Assessment and plan: Continue Bipap (4) Anemia: Start date: 06/13/19 Start time: 14:00 Status: Acute Assessment and plan: see. above (5) Essential hypertension: Start date: 06/13/19 Start time: 14:00 Status: Acute Assessment and plan: Blood pressure elevated in setting of ESR, continue hyrdalizine and metroplol (6) Gastroesophageal reflux disease: Start date: 06/13/19 Start time: 14:04 Status: Acute Assessment and plan: Dexilant DR for GERD, continue (7) Parkinsons: Start date: 06/13/19 Start time: 14:04 Status: Chronic Assessment and plan: Tremors, denies dysphagia, states hallucinations continue sinemet. PT/OT for strength (8) Visual hallucinations: Start date: 06/13/19 Start time: 14:04 Status: Acute Assessment and plan: likely from parkinson, continue to monitor for signs of uremia which could also be why hallucinations. (9) Hx of syncope: Start date: 06/13/19 Start time: 14:05 Status: Acute Assessment and plan: Multiple syncopal episodes that have been worked up with out findings. Loop recorder implanted on 05/11. On telemetry at this time with SR 60-80 Above findings discussed with Dr. Fink and he is in agreement. Subjective Subjective Patient reports: feels better Interval history since last seen: Breathing is better. Wt has not changed, continue to monitor. Swelling is better 1-2 edema today. Continue to monitor daily wts. Teley with SR 60-80's. Spoke with patient about changing dietary habits with caregivers at side. He likes to use salt on food. Spoke about using alternative options, and changing habits. Patient feels he has nothing to live for but food. Encourage him and caregivers to make weekly and daily small goals to give him something to look forward to. Exam Const General: cooperative Nutritional Appearance: edematous Orientation: alert, awake and oriented x3 HENMT Head: normal to inspection Face and sinus: normal facial exam Eyes General: appearance normal, both eyes and all related structures Pupils: PERRL Neck Lymphatic: no lymphadenopathy noted and no lymphedema noted Chest Chest: normal inspection of the chest Resp Effort & Inspection: able to speak in complete sentences, abnormal respiratory pattern and tachypneic Cardio Palpation: normal PMI Rate: regular rate Rhythm: regular rhythm Heart Sounds: S1 normal, S2 normal and no murmurs GI Inspection: normal to inspection Palpation: soft and no hepatosplenomegaly Auscultation: normal bowel sounds General: No CVA tenderness Back/Spine/Pelvis Back: no CVA tenderness Skin Trauma: abrasion Neuro General: alert, awake and oriented x3 Speech: abnormal speech Extrem General: edema (improving 1-2+ edema) and pedal edema (improving 1-2 + pedal edema) Right upper extremity: edema Left upper extremity: edema Right lower extremity: edema Left lower extremity: edema Psych Appearance: well kempt Mood: congruent mood Affect: normal affect Attitude: cooperative Objective Objective Clinical Data: Abnormal lab results 06/13/19 06/13/19 Range/Units 06:40 06:40 RBC 2.67 L (4.50-6.00) m/cumm Hgb 8.5 L (13.5-17.5) g/dL Hct 25.4 L (40.0-50.0) % MCV 95.1 H (80-95) fL Absolute Lymphocytes 0.79 L (1.2-3.4) k/cumm Absolute Monocytes 0.75 H (0.11-0.7) k/cumm Carbon Dioxide 19.8 L (21.0-32.0) mmol/L Anion Gap 13.2 H (3-11) mmol/L BUN 63 H (7-18) mg/dL Creatinine 5.62 H* (0.70-1.30) mg/dL Glucose 128 H (70-100) mg/dL Calcium 8.4 L (8.5-10.1) mg/dL Magnesium 1.7 L (1.8-2.4) mg/dL NT-Pro-B Natriuret Pep 89739 H ( - 299) pg/mL Vital Signs Temperature 36.8 C 06/13/19 11:00 Temperature Source Tympanic 06/13/19 11:00 Pulse 70 06/13/19 11:00 Pulse Rhythm Regular 06/13/19 02:47 Pulse 70 06/10/19 17:01 Respiratory Rate 22 06/13/19 11:00 Respiratory Effort Non-Labored 06/13/19 02:47 Respiratory Depth Normal 06/12/19 20:37 Respiratory Pattern Normal 06/12/19 20:37 Blood Pressure 185/76 H 06/13/19 11:00 Blood Pressure Mean 92 06/10/19 17:01 Blood Pressure Position Sitting 06/10/19 13:45 Pulse Oximetry 98 06/13/19 11:00 Oxygen Delivery Method Nasal Cannula 06/13/19 11:00 Oxygen Flow Rate 2 06/13/19 11:00 Pain Level 0 06/13/19 11:00 Comment 06/13/19 07:52 Intake & Output 06/12/19 06/13/19 06/13/19 23:59 11:59 23:59 Intake Total 720 / 1770 480 / 480 Output Total 850 / 1800 1400 / 1400 Balance -130 / -30 -920 / -920 Weight 103.3 kg Intake: Oral 720 / 1510 480 / 480 Output: Urine 850 / 1800 1400 / 1400 Other: Urine Color Yellow Pale Yellow Urine Appearance Clear Clear Stool Size Small Stool Characteristics Formed Hard Laboratory Results WBC 8.03 k/cumm (4.4-10.8) 06/13/19 06:40 RBC 2.67 m/cumm (4.50-6.00) L 06/13/19 06:40 Hgb 8.5 g/dL (13.5-17.5) L 06/13/19 06:40 Hct 25.4 % (40.0-50.0) L 06/13/19 06:40 MCV 95.1 fL (80-95) H 06/13/19 06:40 MCH 31.8 pg (27.0-33.0) 06/13/19 06:40 MCHC 33.5 g/dL (32.0-36.0) 06/13/19 06:40 RDW 13.3 % (11.8-14.1) 06/13/19 06:40 Plt Count 159 x1000/uL (130-400) 06/13/19 06:40 MPV 9.0 fL (8.0-11.0) 06/13/19 06:40 Immature Gran % 0.2 06/13/19 06:40 Neutrophils % 76.4 06/13/19 06:40 Lymphocytes % 9.8 06/13/19 06:40 Monocytes % 9.3 06/13/19 06:40 Eosinophils % 4.1 06/13/19 06:40 Basophils % 0.2 06/13/19 06:40 Absolute Neutrophils 6.12 k/cumm (1.2-6.7) 06/13/19 06:40 Absolute Lymphocytes 0.79 k/cumm (1.2-3.4) L 06/13/19 06:40 Absolute Monocytes 0.75 k/cumm (0.11-0.7) H 06/13/19 06:40 Absolute Eosinophils 0.33 k/cumm (0.0-0.7) 06/13/19 06:40 Absolute Basophils 0.02 k/cumm (0.0-0.2) 06/13/19 06:40 Differential Comment Rbc morph reviewed 06/10/19 14:10 RBC Morphology Normal 06/10/19 14:10 PT 11.6 sec (9.3-11.0) H 06/10/19 14:10 INR 1.2 (0.9-1.1) H 06/10/19 14:10 APTT 27.1 sec (21.0-31.4) 06/10/19 14:10 D-Dimer 560 ng/mlFEU (<500) H 06/10/19 14:10 Sample Site Right brachial 06/11/19 11:50 pCO2 36 mmHg (34-47) 06/11/19 11:50 pO2 67 mmHg (83-108) L 06/11/19 11:50 O2 Saturation 94 % (94-98) 06/11/19 11:50 ABG pH 7.38 (7.35-7.45) 06/11/19 11:50 ABG HCO3 21 mmol/L (22-28) L 06/11/19 11:50 ABG Total CO2 21 mmol/L (22-29) L 06/11/19 11:50 ABG Base Excess -3.8 mmol/L (-3-3) L 06/11/19 11:50 VBG pH 7.39 (7.32-7.43) 06/10/19 14:10 VBG pCO2 33 mm/Hg (34-47) L 06/10/19 14:10 VBG pO2 121 mm/Hg (28-44) H 06/10/19 14:10 VBG HCO3 20 mmol/L (22-28) L 06/10/19 14:10 VBG Total CO2 19 mmol/L (22-29) L 06/10/19 14:10 VBG O2 Saturation 99 % (70-80) H 06/10/19 14:10 VBG Base Excess -5.1 mmol/L (-3-3) L 06/10/19 14:10 Oxygen Liter Flow 2 L 06/11/19 11:50 Sodium 140 mmol/L (136-145) 06/13/19 06:40 Potassium 4.1 mmol/L (3.5-5.1) 06/13/19 06:40 Chloride 107 mmol/L (98-107) 06/13/19 06:40 Carbon Dioxide 19.8 mmol/L (21.0-32.0) L 06/13/19 06:40 Anion Gap 13.2 mmol/L (3-11) H 06/13/19 06:40 BUN 63 mg/dL (7-18) H 06/13/19 06:40 Creatinine 5.62 mg/dL (0.70-1.30) H* 06/13/19 06:40 Estimated GFR/1.73 m2 10.26 (mL/min/1.73m2) 06/13/19 06:40 Glucose 128 mg/dL (70-100) H 06/13/19 06:40 Calcium 8.4 mg/dL (8.5-10.1) L 06/13/19 06:40 Magnesium 1.7 mg/dL (1.8-2.4) L 06/13/19 06:40 Iron 56 ug/dL (50-175) 06/13/19 06:40 Total Bilirubin 0.7 mg/dL (0.2-1.0) 06/10/19 14:10 AST 12 U/L (15-37) L 06/10/19 14:10 ALT 5 U/L (16-63) L 06/10/19 14:10 Alkaline Phosphatase 72 U/L (46-116) 06/10/19 14:10 Troponin I < 0.05 ng/mL (0.00-0.06) 06/10/19 14:10 NT-Pro-B Natriuret Pep 93573 pg/mL (-299) H 06/13/19 06:40 Total Protein 6.3 g/dL (6.4-8.2) L 06/10/19 14:10 Albumin 3.3 g/dL (3.4-5.0) L 06/10/19 14:10 TSH 5.59 uIU/mL (0.36-3.74) H 06/10/19 14:10 Free T4 1.20 ng/dL (0.76-1.46) 06/10/19 14:10 Urine Color Yellow (Yellow) 06/10/19 18:30 Urine Clarity Clear (Clear) 06/10/19 18:30 Urine pH 7.0 (5-8) 06/10/19 18:30 Ur Specific [place] 1.015 (1.005-1.025) 06/10/19 18:30 Urine Protein >=300 mg/dL (Negative) H 06/10/19 18:30 Urine Ketones Negative mg/dL (Negative) 06/10/19 18:30 Urine Blood Negative (Negative) 06/10/19 18:30 Urine Nitrite Negative (Negative) 06/10/19 18:30 Urine Bilirubin Negative (Negative) 06/10/19 18:30 Urine Urobilinogen 0.2 EU/dL (Up TO 0.2) 06/10/19 18:30 Ur Leukocyte Esterase Negative (Negative) 06/10/19 18:30 Urine RBC Negative (0-2) 06/10/19 18:30 Urine WBC Negative HPF (0-5) 06/10/19 18:30 Ur Epithelial Cells Negative HPF (Negative) 06/10/19 18:30 Urine Crystals Negative HPF (Negative) 06/10/19 18:30 Urine Bacteria Negative HPF (Negative) 06/10/19 18:30 Urine Casts Negative LPF (Negative) 06/10/19 18:30 Urine Mucus Negative (Negative) 06/10/19 18:30 Urine Other Negative (Negative) 06/10/19 18:30 Ur Culture Indicated? No 06/10/19 18:30 Urine Glucose Negative mg/dL (Negative) 06/10/19 18:30 Patient ABO/Rh A Positive 06/12/19 03:00 Antibody Screen Negative 06/12/19 03:00 Crossmatch See Detail 06/12/19 03:00
--- NOTE | 2019-06-13 14:34 | PDOC.CMPRO ---
- If Service Date Differs Date of service: 06/13/19 Time of Service: 14:34 Care Management Progress Note S/O: Jewel was eating his lunch when CM met with him. He was engaged in conversation and reported that he was upset with the dietary changes that are being recommended by his providers. He stated that he is tired of it all and wants to be able to enjoy his life. He specifically stated that he does not want to give up hamburgers. He states that he understands that the doctors are trying to keep him healthy, and he knows that he is sick, but he still wants to be able to have treats. When CM asked what his goals were he reported that he just wants to enjoy life. CM will continue to follow and support patient. A: Jewel is a 63 year old male admitted to [facility] on 06/10/2019 with CHF and ESRD. P: Jewel is being treated for acute exacerbation of CHF with increasing SOB. Palliative has been consulted and Jewel will meet with Dr. Tillman on 06/14/19 at 10:30 (or directly following her 10am appt). His caregiver, Lana, will be present for this meeting. CM will continue to follow and provide support to patient, care givers, and discharge considerations.
--- NOTE | 2019-06-13 15:45 | MERGE_ITS ---
*[facility]* *[facility]* [address] [place] [address] Date of study: 06/13/2019 Transthoracic Echocardiography M-mode, complete 2D, complete spectral Doppler, and color Doppler *STUDY CONCLUSIONS* Summary: 1. Left ventricle: The cavity size was normal. Systolic function was at the lower limits of normal. The estimated ejection fraction was 50-55%. There was no evidence of elevated ventricular filling pressure by Doppler parameters. 2. Aortic valve: There was mild stenosis. Peak velocity (S): 1.7m/sec. Mean gradient (S): 6.8mm Hg. VTI ratio of LVOT to aortic valve: 0.7. Valve area (VTI): 1.6cm^2. 3. Mitral valve: Mildly calcified annulus. There was mild regurgitation. 4. Left atrium: The atrium was mildly dilated. 5. Right ventricle: The cavity size was normal. 6. Right atrium: The atrium was mildly dilated. 7. Atrial septum: No defect or patent foramen ovale was identified. 8. Pulmonary arteries: Systolic pressure could not be accurately estimated. 9. Inferior vena cava: Poorly visualized. *PATIENT PRESENTATION* Height: 172.7cm (68in ) S/D Pressure: 155 / 76 Weight: 103.2kg (227lb ) BSA: 2.26m^2 Test start time: 02:30 PM. Test stop time: 03:30 PM. PERFORMING [facility] DISTRICT RESOURCE OFFICER Shea Grady CONSULTING Zuri Cespedes ORDERING Zuri Cespedes REFERRING Zuri Cespedes *PROCEDURE DATA* Procedure information: This study was interpreted by [facility]. Pertinent images and digital data are archived for permanent storage and are available for subsequent review. Comparison was made to the study of 09/02/2017. Study status: Routine. Transthoracic echocardiography. M-mode, complete 2D, complete spectral Doppler, and color Doppler. A Transthoracic Echocardiogram was performed. Scanning was performed from the parasternal, apical, subcostal, and suprasternal notch acoustic windows. Images were obtained using an [employer] 2000 cardiac ultrasound machine. Image quality was poor. Study completion: The patient tolerated the procedure well. History: PMH: Sob, CHF. *CARDIAC ANATOMY* Left ventricle: The cavity size was normal. Systolic function was at the lower limits of normal. The estimated ejection fraction was 50-55%. There was no evidence of elevated ventricular filling pressure by Doppler parameters. Aortic valve: Trileaflet; mildly thickened, mildly calcified leaflets. Doppler: There was mild stenosis. There was no regurgitation. VTI ratio of LVOT to aortic valve: 0.7. Valve area (VTI): 1.6cm^2. Indexed valve area (VTI): 0.7cm^2/m^2. Peak velocity ratio of LVOT to aortic valve: 0.74. Valve area (Vmax): 1.7cm^2. Indexed valve area (Vmax): 0.8cm^2/m^2. Mean velocity ratio of LVOT to aortic valve: 0.66. Valve area (Vmean): 1.5cm^2. Indexed valve area (Vmean): 0.7cm^2/m^2. Mean gradient (S): 6.8mm Hg. Peak gradient (S): 11.6mm Hg. Aorta: Aortic root: The aortic root was normal in size. Ascending aorta: The ascending aorta was mildly dilated. Mitral valve: Mildly calcified annulus. Doppler: There was no evidence for stenosis. There was mild regurgitation. Valve area by pressure half-time: 4.1cm^2. Indexed valve area by pressure half-time: 1.8cm^2/m^2. Peak gradient (D): 5mm Hg. Left atrium: The atrium was mildly dilated. Atrial septum: No defect or patent foramen ovale was identified. Right ventricle: The cavity size was normal. Pulmonic valve: Doppler: There was no evidence for stenosis. There was no significant regurgitation. Peak gradient (S): 6.6mm Hg. Tricuspid valve: Doppler: There was mild regurgitation. Pulmonary artery: Poorly visualized. Systolic pressure could not be accurately estimated. Right atrium: Poorly visualized. The atrium was mildly dilated. Systemic veins: Inferior vena cava: Poorly visualized. Measurements Left ventricle Value 09/02/2017 Reference LV ID, ED, PLAX 4.6 cm 4.8 3.5 - 6.0 LV ID, ES, PLAX 3.8 cm 3.4 2.1 - 4.0 LV PW thickness, ED, PLAX 1.0 cm 1.3 LV end-diastolic volume, 118 ml 75 1-p A2C LV ejection fraction, 1-p 50 % 60 A2C LV end-diastolic volume, 181 ml 86 1-p A4C LV ejection fraction, 1-p 48 % 54 A4C LV e', lateral 0.088 m/sec LV E/e', lateral 13 LV e', medial 0.075 m/sec LV E/e', medial 15 LV e', average 0.082 m/sec LV E/e', average 14 Ventricular septum Value 09/02/2017 Reference IVS thickness, ED, PLAX 1.0 cm 1.3 LVOT Value 09/02/2017 Reference LVOT ID, A-P 1.7 cm 2.0 LVOT area 2.3 cm^2 3.1 LVOT peak velocity, S 1.26 m/sec 1.02 LVOT mean velocity, S 0.81 m/sec LVOT VTI, S 27.4 cm 20.1 LVOT peak gradient, S 6.4 mm Hg LVOT mean gradient, S 3.1 mm Hg 1.9 Stroke volume (SV), LVOT 63 ml DP Stroke index (SV/bsa), 28 ml/m^2 LVOT DP Aortic valve Value 09/02/2017 Reference Aortic valve peak 1.7 m/sec 1.7 velocity, S Aortic valve mean 1.2 m/sec 0 velocity, S Aortic valve VTI, S 39.0 cm Aortic mean gradient, S 6.8 mm Hg 6.7 Aortic peak gradient, S 11.6 mm Hg 11.6 VTI ratio, LVOT/AV 0.7 0.6 Aortic valve area, VTI 1.6 cm^2 1.9 Velocity ratio, peak, 0.74 0.6 LVOT/AV Aortic valve area, peak 1.7 cm^2 1.9 velocity Velocity ratio, mean, 0.66 LVOT/AV Aortic valve area, mean 1.5 cm^2 velocity Aortic valve area/bsa, 0.7 cm^2/m^2 mean velocity Aorta Value 09/02/2017 Reference Aortic root ID, ED 3.1 cm 3.7 Ascending aorta ID, A-P, S 3.6 cm 3.6 Left atrium Value 09/02/2017 Reference LA ID, A-P, ES 4.5 cm LA ID/bsa, A-P 2.0 cm/m^2 <=2.2 LA volume, ES, 2-p 84 ml LA volume/bsa, ES, 2-p 37 ml/m^2 LA/aortic root ratio 1.46 1.41 Mitral valve Value 09/02/2017 Reference Mitral E-wave peak 1.12 m/sec 0.7 velocity Mitral A-wave peak 0.78 m/sec 0.89 velocity Mitral deceleration time 184 ms 200 150 - 230 Mitral pressure half-time 53 ms 58 Mitral peak gradient, D 5 mm Hg Mitral E/A ratio, peak 1.43 0.79 Mitral valve area, PHT, DP 4.1 cm^2 3.8 Right atrium Value 09/02/2017 Reference RA area, ES, A4C (H) 20.1 cm^2 6.7 8.3 - 19.5 Pulmonic valve Value 09/02/2017 Reference Pulmonic peak gradient, S 6.6 mm Hg Legend: (L) and (H) júnior values outside specified reference range. I have personally reviewed the images and have reviewed and edited the reported findings. Electronically signed by Balaji Hester MD 06/13/2019 19:30
[2019-06-13] MEDS: Atorvastatin 40 MG TAB 80 MG PO (19:32)
[2019-06-13] MEDS: Melatonin 3 MG TAB 6 MG PO (21:35)
[2019-06-13] MEDS: Acetaminophen 325 MG TAB PO (21:35)
[2019-06-14] VITALS (12 sets, daily range): BP systolic 161–181; BP diastolic 78–98; PULSE 66–82; RESP 4–98; TEMP 36.3–36.9; O2SAT 1–98
[2019-06-14 06:52] LABS: Abs Immature Grans 0.01 k/cumm (0.0-0.09); Absolute Basophil Count 0.02 k/cumm (0.0-0.2); Absolute Eosinophil Count 0.38 k/cumm (0.0-0.7); Absolute Monocyte Count 0.78 k/cumm (0.11-0.7); Absolute Neutrophil Count 5.18 k/cumm (1.2-6.7); Basophils % 0.3; Eosinophils % 5.2; HCT 25.1 % (40.0-50.0); HGB 8.3 g/dL (13.5-17.5); Immature Grans % 0.1; Lymphocytes % 12.4; Mean Corp. HGB Concentration 33.1 g/dL (32.0-36.0); Mean Corpuscular Hemoglobin 31.6 pg (27.0-33.0); Mean Corpuscular Volume 95.4 fL (80-95); Mean Platelet Volume 8.8 fL (8.0-11.0); Monocytes % 10.7; Neutrophils % 71.3; Platelet Count 187 x1000/uL (130-400); RBC 2.63 m/cumm (4.50-6.00); RBC Distribution Width 13.4 % (11.8-14.1); White Blood Cell Count 7.27 k/cumm (4.4-10.8)
[2019-06-14 07:16] LABS: Anion Gap 11.1 mmol/L (3-11); BUN 64 mg/dL (7-18); CO2 22.9 mmol/L (21.0-32.0); Calcium 8.6 mg/dL (8.5-10.1); Chloride 106 mmol/L (98-107); Estimated GFR 10.45 (mL/min/1.73m2); Glucose 127 mg/dL (70-100); Magnesium 1.8 mg/dL (1.8-2.4); Potassium 4.2 mmol/L (3.5-5.1); Sodium 140 mmol/L (136-145)
[2019-06-14 07:19] LABS: CREATININE 5.53 mg/dL (0.70-1.30)
[2019-06-14] MEDS: Furosemide 100 MG/10 ML VIAL 80 MG IVP (08:02)
[2019-06-14] MEDS: buPROPion-CR 100 MG TABCR 200 MG PO (08:04)
[2019-06-14] MEDS: Finasteride 5 MG TAB PO (08:04)
[2019-06-14] MEDS: Normal Saline Flush 10 ML SYR IVP (08:04)
[2019-06-14] MEDS: Carbidopa 25/Levodopa 100 TAB PO ×3 (08:05→19:43)
[2019-06-14] MEDS: Clopidogrel 75 MG TAB PO (08:05)
[2019-06-14] MEDS: Gabapentin 100 MG CAP PO ×3 (08:05→19:47)
[2019-06-14] MEDS: Multivitamin TAB 1 TAB PO (08:05)
[2019-06-14] MEDS: Metoprolol 25 MG TAB PO ×2 (08:05→19:46)
[2019-06-14] MEDS: hydrALAZINE 10 MG TAB PO (08:05)
[2019-06-14] MEDS: Sodium Bicarbonate 650 MG TAB PO ×3 (08:06→19:46)
[2019-06-14] MEDS: Cholecalciferol (Vitamin D3) 1,000 UNIT TAB 2000 UNITS PO (08:06)
[2019-06-14] MEDS: guaiFENesin 600 MG TABCR PO ×2 (08:06→19:48)
[2019-06-14] MEDS: Dexlansoprazole 30 MG CAP 60 MG PO (08:06)
[2019-06-14] MEDS: Tamsulosin 0.4 MG CAPCR 0.8 MG PO (08:07)
[2019-06-14] MEDS: Calcitriol 0.25 MCG CAP PO (08:07)
[2019-06-14] MEDS: Dorzolamide 2% 10 ML BTL OS ×2 (08:07→19:51)
--- NOTE | 2019-06-14 09:47 | OTTR_ITS ---
Date of service: 06/14/19 Time of Service: 08:55 Occupational Therapy Notes Occupational Therapy Inpatient Treatment Note Date: 06/14/19 PRECAUTIONS: Fall, Standard SUBJECTIVE: Pt was sitting in bed eating his breakfast when OT arrived. He was pleasant and states that he would like to get washed up today. OBJECTIVE: PAIN:no c/o pain BATHING: Sitting in bed with max (A) set up Upper Body: (I) UE with min vc throughout Lower Body: (I) to (B) knees, max (A) (B) lower legs DRESSING: Sitting in bed Upper Extremity: Mod (A) [facility] gown Lower Extremity: Max (A) (B) socks EATING: Sitting in bed, (I) ASSESSMENT/PLAN: OT functionally was able to perform bathing routine in bed at his baseline level of function. He does require vc throughout for what to wash and when to performing bathing routine. Example is pt required vc to wash face first and to wait to wash [place] till after other areas. Pt was able to perform ADLs with (B) hand use and good technique. OT will assess pt's functional (I) at dressing at next session if pt is at his baseline level of function OT will assess to discharge pt at next session. TREATMENT CODES/TIME: 11705h3, 25 minutes (08:55) [facility]
--- NOTE | 2019-06-14 12:57 | PCNE_ITS ---
Date of service: 06/14/19 Time of Service: 10:57 History of Present Illness History of Present Illness Chief Complaint: ESRD, no desire for dialysis, cardiorenal syndrome Narrative: Mati is a chronically ill and mildly intellectually disabled man with ESRD, diabetes, and CHF. He had a fistula placed 2 years ago for the possibility of dialysis. I was asked today to help Mati with decision making. He has been a FULL CODE, but is leaning away from that choice. He is able to make his own decisions. He lives alone with help from a caregiver during the day. He was accompanied by his caregiver, Lana, and his case management specialist, Amber. Lana has cared for Mati daily x 5 years. He spends holidays and goes on vacations with her and her family. Amber has worked with Mati even longer. They feel they know him well and support whatever decisions he makes. Consults Consult date: 06/14/19 Requesting physician: Leticia iFnk Assessment and Plan Assessment and plan (1) POLST (Physician Orders for Life-Sustaining Treatment): Status: Acute Assessment and plan: Reviewed and filled out COLST today. DPOA is Abby Pena. DNR/DNI. Does NOT want dialysis. Does NOT want fluid or food restrictions. Wants to enjoy his life. Focus on quality not quantity. (2) Palliative care patient: Status: Acute Assessment and plan: Will continue to see as outpatient. F.U at his home in 2 weeks. (3) Acute exacerbation of CHF (congestive heart failure): Status: Acute Assessment and plan: From cardiorenal syndrome. Doesn't want any aggressive treatment. Has diuresed well on this admission. Would come back to the hospital for similar treatment. (4) Mild intellectual disability: Status: Acute Assessment and plan: Both caregiver and case management specialist present. They know Mati well and believe that the decisions he made today are consistent with his wishes over time. Review of Systems Constitutional Constitutional: Reports daytime sleepiness, Reports fatigue, Reports poor appetite, Reports weakness and Reports weight gain Comments: Feeling better now that he has diuresed. At home, very short of breath. Eyes Eyes: Reports requires corrective lenses ENT Ears, Nose, Mouth, and Throat: Reports disequilibrium Cardiovascular Cardiovascular: Reports rapid heart rate, Reports edema, Reports lightheadedness, Reports dyspnea on exertion and Reports paroxysmal nocturnal dyspnea Respiratory Respiratory: Reports dyspnea on exertion Comments: much better since admission Gastrointestinal Gastrointestinal: Reports bloating, Reports constipation and Reports early satiety Genitourinary Genitourinary: Reports difficulty urinating and Reports urinary incontinence Musculoskeletal Musculoskeletal: Reports arthralgias, Reports muscle weakness and Reports stiffness Integumentary/Breasts Skin/Breast: Reports dry skin Neurologic Neurologic: Reports abnormal speech, Reports disequilibrium and Reports weakness Comments: Lana and Amber say that Mati is at his baseline. Shows some mild intellectual deficits. Psychiatric Psychiatric: Reports anxiety (does not want to have fluid or dietary restrictions; upsets him greatly) Endocrine Endocrine: Reports fatigue Hematologic/Lymphatic Hematologic/Lymphatic: Reports easy bruising [facility] Medical History (Updated 06/14/19 @ 21:50 by Soraya Tillman MD) AV fistula (Acute) 4 stages 12/2016 thru 06/16/2017 at [facility] [place] BPH (benign prostatic hyperplasia) CAD (coronary artery disease) CHF (congestive heart failure), NYHA class I Chronic kidney disease, stage IV (severe) Diabetic neuropathy Diabetic retinopathy DNI (do not intubate) (Acute) DNR (do not resuscitate) (Acute) Essential hypertension GERD (gastroesophageal reflux disease) Hyperlipidemia Mild intellectual disability (Acute) KYLE (obstructive sleep apnea) Palliative care patient (Acute) POLST (Physician Orders for Life-Sustaining Treatment) (Acute) Stroke Type II diabetes mellitus Surgical History Colonoscopy - IV Sedation (04/16/15) Dr Anderson[facility] [place] E[place] - MAC (07/22/17) Endoscopy (07/17/14) [facility] [place] Dr. Luo Extraction of cataract (03/27/15) left eye, Dr. Kang Repair of inguinal hernia bilateral Family History (Updated 06/14/19 @ 21:52 by Soraya Tillman MD) Mother , immediately after his premature No problems noted. 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 [employer] Pets and animals: Yes Pets and animals: cat(s) Sexually active: No Current gender identity: male What is your relationship status?: never How often do you talk on the phone with friends or family?: three or more times per week How often do you get together with friends or relatives?: three or more times per week Panel score (0-1 are the most socially isolated patients): 1 What type of physical activity do you participate in: none and sedentary lifestyle Special kilo needs: No Agree to transfusion: No Seatbelt use: always Water heater temp set <120 deg: Yes Working smoke detector in home: Yes Carbon monox detector in home: Yes Do you feel safe at home: Yes Do you feel safe in your relationship?: Yes Additional Social history: Caregiver Lana with Mati 8 hrs + per day. Lives alone, except for his cat, Emelina. Loves Hilario. Has been several times and is hoping to go again in November. Has no complaints. Doesn't want to do dialysis. Likes staying home. Tried PT and quit after 1 or 2 sessions. Exam Narrative Exam Narrative: General: very pleasant middle-aged male, anxious when talking about food and fluid restrictions, otherwise calm, interactive HEENT: EOMI, dry MM Heart: RRR, no m/r/g Lungs: diminished breath sounds B GI: abdomen is soft, nontender, nondistended Extremities: +1 BLE edema, in TEDs, no clubbing/cyanosis seen psych: no anxiety when discussing dialysis, reports he has been to visit, not interested neuro: clearly has some lifelong cognitive impairment, mild, able to make his own decisions, able to ask questions about and seems to understand CPR.intubation Results Last Vital Signs Temp 97.9 F 06/14/19 07:50 Pulse 66 06/14/19 09:22 Resp 18 06/14/19 07:50 BP 181/98 H 06/14/19 07:50 Pulse Ox 98 06/14/19 07:50 Labs Result diagrams: 06/14/19 06:30 06/14/19 06:30 Labs: Laboratory Results - last 24 hr 06/14/19 06/14/19 06:30 06:30 WBC 7.27 RBC 2.63 L Hgb 8.3 L Hct 25.1 L MCV 95.4 H MCH 31.6 MCHC 33.1 RDW 13.4 Plt Count 187 MPV 8.8 Immature Gran % 0.1 Neutrophils % 71.3 Lymphocytes % 12.4 Monocytes % 10.7 Eosinophils % 5.2 Basophils % 0.3 Absolute Neutrophils 5.18 Absolute Lymphocytes 0.90 L Absolute Monocytes 0.78 H Absolute Eosinophils 0.38 Absolute Basophils 0.02 Sodium 140 Potassium 4.2 Chloride 106 Carbon Dioxide 22.9 Anion Gap 11.1 H BUN 64 H Creatinine 5.53 H* Estimated GFR/1.73 m2 10.45 Glucose 127 H Calcium 8.6 Magnesium 1.8
--- NOTE | 2019-06-14 14:32 | W.PM.PROGNOT ---
Date of Service Date of service: 06/14/19 Time of Service: 14:32 Assessment and Plan Assessment and plan (1) Acute exacerbation of CHF (congestive heart failure): Status: Acute Assessment and plan: EF 50-55% on echo from yesterday, no diastolic dysfunction noted. Some of this fluid overload most certainly has to do with ESRD. Undecided about HD, but not qualifying for emergent HD in this case. Clinically his fluid status has improved, though documented weight is only a little bit less. Will ask for exercise oxymetry prior to discharge. Switch lasix to PO - may do better with bumex - we can see what his weight does tomorrow morning. Sharad did verbalize in a palliative care meeting that he was not interested in a fluid or dietary restriction. Will benefit from outpatient palliative care follow up. (2) CKD (chronic kidney disease) stage 5, GFR less than 15 ml/min: Status: Chronic Assessment and plan: s/p Arinesp today. Read discussion above - unsure about HD in the future, but not requiring it at this time. Continue to monitor Bun/creatinine. (3) Obstructive sleep apnea syndrome: Status: Chronic Assessment and plan: Continue Bipap HS (4) Anemia: Status: Acute Assessment and plan: s/p transfusion of 1 unit pRBC on 06/12/19; s/p arinesp today. He could have uremic gastritis and have slow bleeding. Avoid heparin products. Hematest stool. (5) Essential hypertension: Status: Acute Assessment and plan: Blood pressure elevated in setting of ESRD. Continue metoprolol. Norvasc d/c'ed as could be contributing to worsening kidney failure. Increase hydralazine. Consider adding clonidine. (6) Gastroesophageal reflux disease: Status: Acute Assessment and plan: Continue dexilant (7) Parkinsons: Status: Chronic Assessment and plan: No hallucinations reported in the last 24 hrs. Continue sinemet. PT/OT for strength (8) Visual hallucinations: Status: Acute Assessment and plan: likely from Parkinson, continue to monitor for signs of uremia which could also cause hallucinations. (9) Hx of syncope: Status: Acute Assessment and plan: Multiple syncopal episodes that have been worked up with out findings. Loop recorder implanted on 05/11. On telemetry at this time with SR 60-80 (10) DVT prophylaxis: Status: Acute Assessment and plan: TEDS + SCD's (we are abstaining from chemical DVT ppx due to concern for possible uremic gastritis) (11) Discharge planning issues: Status: Acute Assessment and plan: DNR/DNI Met with palliative care - unsure of his plans for HD in conversation with me after this meeting. Plan for discharge home tomorrow with home health nursing, PT, OT. Subjective Subjective Interval history since last seen: Mr Sampson said he felt dizzy yesterday night while trying to lift his head in bed - but not dizzy getting up and walking. Did quite well with PT. Denies dizziness today, any chest pain, he is not bothered by shortness of breath. Denies n/v. He complains of pain with the de jesus catheter and would like to have it removed. He states he is not ready to go home today, but will go home tomorrow. Met with Dr Tillman in a palliative care consult - code status was changed to DNR/DNI. He expressed to Dr Tillman that he would not want to do dialysis - however, to me he now states that he is not so sure and he is thinking about it. Exam Narrative Exam Narrative: General: very pleasant middle-aged male, A&Ox3, appears slightly tachypneic (right after working with PT) HEENT: EOMI, dry MM Heart: RRR, no m/r/g Lungs: diminished breath sounds B GI: abdomen is soft, nontender, nondistended Extremities: +1 BLE edema, in TEDs, no clubbing/cyanosis seen Objective Objective Clinical Data: Abnormal lab results 06/14/19 06/14/19 Range/Units 06:30 06:30 RBC 2.63 L (4.50-6.00) m/cumm Hgb 8.3 L (13.5-17.5) g/dL Hct 25.1 L (40.0-50.0) % MCV 95.4 H (80-95) fL Absolute Lymphocytes 0.90 L (1.2-3.4) k/cumm Absolute Monocytes 0.78 H (0.11-0.7) k/cumm Anion Gap 11.1 H (3-11) mmol/L BUN 64 H (7-18) mg/dL Creatinine 5.53 H* (0.70-1.30) mg/dL Glucose 127 H (70-100) mg/dL Vital Signs Temperature 36.6 C 06/14/19 07:50 Temperature Source Tympanic 06/14/19 07:50 Pulse 66 06/14/19 09:22 Pulse Rhythm Regular 06/14/19 03:15 Pulse 70 06/10/19 17:01 Respiratory Rate 18 06/14/19 07:50 Respiratory Effort 06/14/19 03:15 Respiratory Depth Shallow 06/14/19 03:15 Respiratory Pattern Normal 06/14/19 03:15 Blood Pressure 181/98 H 06/14/19 07:50 Blood Pressure Mean 92 06/10/19 17:01 Blood Pressure Position Sitting 06/10/19 13:45 Pulse Oximetry 98 06/14/19 07:50 Oxygen Delivery Method Nasal Cannula 06/14/19 07:50 Oxygen Flow Rate 2 06/14/19 12:25 Pain Level 0 06/14/19 07:50 Comment 06/13/19 07:52 Intake & Output 06/13/19 06/14/19 06/14/19 23:59 11:59 23:59 Intake Total 360 / 600 240 / 600 Output Total 1750 / 4100 1425 / 1725 300 / 1725 Balance -1750 / -3620 -1065 / -1125 -60 / -1125 Weight 103 kg Intake: Oral 360 / 600 240 / 600 Output: Urine 1750 / 4100 1425 / 1725 300 / 1725 Other: Urine Color Straw Pale Pale Yellow Yellow Straw Straw Urine Appearance Clear Clear Laboratory Results WBC 7.27 k/cumm (4.4-10.8) 06/14/19 06:30 RBC 2.63 m/cumm (4.50-6.00) L 06/14/19 06:30 Hgb 8.3 g/dL (13.5-17.5) L 06/14/19 06:30 Hct 25.1 % (40.0-50.0) L 06/14/19 06:30 MCV 95.4 fL (80-95) H 06/14/19 06:30 MCH 31.6 pg (27.0-33.0) 06/14/19 06:30 MCHC 33.1 g/dL (32.0-36.0) 06/14/19 06:30 RDW 13.4 % (11.8-14.1) 06/14/19 06:30 Plt Count 187 x1000/uL (130-400) 06/14/19 06:30 MPV 8.8 fL (8.0-11.0) 06/14/19 06:30 Immature Gran % 0.1 06/14/19 06:30 Neutrophils % 71.3 06/14/19 06:30 Lymphocytes % 12.4 06/14/19 06:30 Monocytes % 10.7 06/14/19 06:30 Eosinophils % 5.2 06/14/19 06:30 Basophils % 0.3 06/14/19 06:30 Absolute Neutrophils 5.18 k/cumm (1.2-6.7) 06/14/19 06:30 Absolute Lymphocytes 0.90 k/cumm (1.2-3.4) L 06/14/19 06:30 Absolute Monocytes 0.78 k/cumm (0.11-0.7) H 06/14/19 06:30 Absolute Eosinophils 0.38 k/cumm (0.0-0.7) 06/14/19 06:30 Absolute Basophils 0.02 k/cumm (0.0-0.2) 06/14/19 06:30 Differential Comment Rbc morph reviewed 06/10/19 14:10 RBC Morphology Normal 06/10/19 14:10 PT 11.6 sec (9.3-11.0) H 06/10/19 14:10 INR 1.2 (0.9-1.1) H 06/10/19 14:10 APTT 27.1 sec (21.0-31.4) 06/10/19 14:10 D-Dimer 560 ng/mlFEU (<500) H 06/10/19 14:10 Sample Site Right brachial 06/11/19 11:50 pCO2 36 mmHg (34-47) 06/11/19 11:50 pO2 67 mmHg (83-108) L 06/11/19 11:50 O2 Saturation 94 % (94-98) 06/11/19 11:50 ABG pH 7.38 (7.35-7.45) 06/11/19 11:50 ABG HCO3 21 mmol/L (22-28) L 06/11/19 11:50 ABG Total CO2 21 mmol/L (22-29) L 06/11/19 11:50 ABG Base Excess -3.8 mmol/L (-3-3) L 06/11/19 11:50 VBG pH 7.39 (7.32-7.43) 06/10/19 14:10 VBG pCO2 33 mm/Hg (34-47) L 06/10/19 14:10 VBG pO2 121 mm/Hg (28-44) H 06/10/19 14:10 VBG HCO3 20 mmol/L (22-28) L 06/10/19 14:10 VBG Total CO2 19 mmol/L (22-29) L 06/10/19 14:10 VBG O2 Saturation 99 % (70-80) H 06/10/19 14:10 VBG Base Excess -5.1 mmol/L (-3-3) L 06/10/19 14:10 Oxygen Liter Flow 2 L 06/11/19 11:50 Sodium 140 mmol/L (136-145) 06/14/19 06:30 Potassium 4.2 mmol/L (3.5-5.1) 06/14/19 06:30 Chloride 106 mmol/L (98-107) 06/14/19 06:30 Carbon Dioxide 22.9 mmol/L (21.0-32.0) 06/14/19 06:30 Anion Gap 11.1 mmol/L (3-11) H 06/14/19 06:30 BUN 64 mg/dL (7-18) H 06/14/19 06:30 Creatinine 5.53 mg/dL (0.70-1.30) H* 06/14/19 06:30 Estimated GFR/1.73 m2 10.45 (mL/min/1.73m2) 06/14/19 06:30 Glucose 127 mg/dL (70-100) H 06/14/19 06:30 Calcium 8.6 mg/dL (8.5-10.1) 06/14/19 06:30 Magnesium 1.8 mg/dL (1.8-2.4) 06/14/19 06:30 Iron 56 ug/dL (50-175) 06/13/19 06:40 Total Bilirubin 0.7 mg/dL (0.2-1.0) 06/10/19 14:10 AST 12 U/L (15-37) L 06/10/19 14:10 ALT 5 U/L (16-63) L 06/10/19 14:10 Alkaline Phosphatase 72 U/L (46-116) 06/10/19 14:10 Troponin I < 0.05 ng/mL (0.00-0.06) 06/10/19 14:10 NT-Pro-B Natriuret Pep 28655 pg/mL (-299) H 06/13/19 06:40 Total Protein 6.3 g/dL (6.4-8.2) L 06/10/19 14:10 Albumin 3.3 g/dL (3.4-5.0) L 06/10/19 14:10 TSH 5.59 uIU/mL (0.36-3.74) H 06/10/19 14:10 Free T4 1.20 ng/dL (0.76-1.46) 06/10/19 14:10 Urine Color Yellow (Yellow) 06/10/19 18:30 Urine Clarity Clear (Clear) 06/10/19 18:30 Urine pH 7.0 (5-8) 06/10/19 18:30 Ur Specific [place] 1.015 (1.005-1.025) 06/10/19 18:30 Urine Protein >=300 mg/dL (Negative) H 06/10/19 18:30 Urine Ketones Negative mg/dL (Negative) 06/10/19 18:30 Urine Blood Negative (Negative) 06/10/19 18:30 Urine Nitrite Negative (Negative) 06/10/19 18:30 Urine Bilirubin Negative (Negative) 06/10/19 18:30 Urine Urobilinogen 0.2 EU/dL (Up TO 0.2) 06/10/19 18:30 Ur Leukocyte Esterase Negative (Negative) 06/10/19 18:30 Urine RBC Negative (0-2) 06/10/19 18:30 Urine WBC Negative HPF (0-5) 06/10/19 18:30 Ur Epithelial Cells Negative HPF (Negative) 06/10/19 18:30 Urine Crystals Negative HPF (Negative) 06/10/19 18:30 Urine Bacteria Negative HPF (Negative) 06/10/19 18:30 Urine Casts Negative LPF (Negative) 06/10/19 18:30 Urine Mucus Negative (Negative) 06/10/19 18:30 Urine Other Negative (Negative) 06/10/19 18:30 Ur Culture Indicated? No 06/10/19 18:30 Urine Glucose Negative mg/dL (Negative) 06/10/19 18:30 Patient ABO/Rh A Positive 06/12/19 03:00 Antibody Screen Negative 06/12/19 03:00 Crossmatch See Detail 06/12/19 03:00 Echo 06/13/19: 1. Left ventricle: The cavity size was normal. Systolic function was at the lower limits of normal. The estimated ejection fraction was 50-55%. There was no evidence of elevated ventricular filling pressure by Doppler parameters. 2. Aortic valve: There was mild stenosis. Peak velocity (S): 1.7m/sec. Mean gradient (S): 6.8mm Hg. VTI ratio of LVOT to aortic valve: 0.7. Valve area (VTI): 1.6cm^2. 3. Mitral valve: Mildly calcified annulus. There was mild regurgitation. 4. Left atrium: The atrium was mildly dilated. 5. Right ventricle: The cavity size was normal. 6. Right atrium: The atrium was mildly dilated. 7. Atrial septum: No defect or patent foramen ovale was identified. 8. Pulmonary arteries: Systolic pressure could not be accurately estimated. 9. Inferior vena cava: Poorly visualized.
[2019-06-14] MEDS: hydrALAZINE 10 MG TAB 25 MG PO ×2 (15:52→19:44)
[2019-06-14] MEDS: Docusate Sodium 100 MG CAP PO ×2 (15:52→19:47)
[2019-06-14] MEDS: Bisacodyl 5 MG TABEC PO (15:53)
[2019-06-14] MEDS: Furosemide 80 MG TAB PO (15:53)
[2019-06-14] MEDS: Senna TAB 1 TAB PO ×2 (15:53→19:48)
--- NOTE | 2019-06-14 16:12 | CHAPLAIN ---
Sharad was sitting up in bed when I visited. His caregiver was with him. Sharad said he had a palliative care consult with Dr. Tillman and that they reached some compromises. Sharad said is favorite sandwich is a Whopper at [email or web address] and he doesn't want to give that up. He added that he is feeling fine, and his if blood pressures are normal, he doesn't see anything wrong with eating would he want. At discharge planing meeting Dr. Tillman reported that Sharad changed his code status to DNI/DNR and decided not to do dialysis. He would like to continue eating what he prefers. Sharad has a cat, Wandy at home, that he cares a great deal about.
--- NOTE | 2019-06-14 16:26 | PT.INTREAT ---
Date of service: 06/14/19 Time of Service: 16:27 PT Notes Inpatient Physical Therapy [facility] Date: 06/14/2019 SUBJECTIVE: Mati is agreeable to participating in PT following some encouragement. OBJECTIVE: PAIN: Patient c/o pain at catheter site with transfers. TRANSFERS Supine to sit: S Sit to supine: I Sit to stand: SBA Stand to sit: SBA GAIT Device: FWW Weight bearing: Full Assist: CGA/SBA Distance: 60' x2 Deviation: Seated rest x1 THEREX: Patient completed a LE strengthening and stabilization program, rudy supine position, as per flow sheet. ASSESSMENT: Patient tolerated session well, with some c/o increased fatigue with progressed gait distance. He would benefit from continued gait and transfer training, as well as strengthening for improved mobility and activity tolerance. PLAN: Continue with PT's POC Treatment time: Session 1: 25 minutes; [id number] x2
--- NOTE | 2019-06-14 17:53 | PDOC.CMPRO ---
- If Service Date Differs Date of service: 06/14/19 Time of Service: 17:53 Care Management Progress Note S/O: Jewel was sitting up in bed when CM met with him. He was pleasant and in good spirits. He met with Dr. Tillman today and changed his code status to DNR/DNI. They discussed his wishes to be able to enjoy his life with less restrictions, which were documented on his new COLST form. CM asked how his meeting went and he said that it went well and that he felt heard by Dr. Tillman. CM provided a copy of the new COLST form to Jewel and his caregiver, Lana, who was also in the room. Jewel reported that he had a very good lunch today and that he was feeling good. CM will continue to follow and support patient. A: Jewel is a 63 year old male admitted to [facility] on 06/10/2019 with CHF and ESRD. P:Anticipate Jewel will return home with nursing, PT, OT when medically ready. Jewel will be driven home by his caregiver, Lana. CM will continue to follow.
[2019-06-14] MEDS: Albuterol/Ipratropium 3 ML UPD VIAL UPD (18:24)
[2019-06-14] MEDS: Acetaminophen 325 MG TAB PO (19:45)
[2019-06-14] MEDS: Atorvastatin 40 MG TAB 80 MG PO (19:47)
[2019-06-15] VITALS (9 sets, daily range): BP systolic 180–193; BP diastolic 81–96; PULSE 67–80; RESP 18–20; TEMP 36.2–36.8; O2SAT 96–99
[2019-06-15] MEDS: Acetaminophen 325 MG TAB PO ×2 (04:21→20:43)
[2019-06-15 07:32] LABS: Abs Immature Grans 0.02 k/cumm (0.0-0.09); Absolute Basophil Count 0.02 k/cumm (0.0-0.2); Absolute Eosinophil Count 0.38 k/cumm (0.0-0.7); Absolute Lymphocyte Count 0.86 k/cumm (1.2-3.4); Absolute Monocyte Count 0.88 k/cumm (0.11-0.7); Absolute Neutrophil Count 5.78 k/cumm (1.2-6.7); Basophils % 0.3; Eosinophils % 4.8; HCT 24.8 % (40.0-50.0); HGB 8.1 g/dL (13.5-17.5); Immature Grans % 0.3; Lymphocytes % 10.8; Mean Corp. HGB Concentration 32.7 g/dL (32.0-36.0); Mean Corpuscular Hemoglobin 31.3 pg (27.0-33.0); Mean Corpuscular Volume 95.8 fL (80-95); Mean Platelet Volume 8.9 fL (8.0-11.0); Monocytes % 11.1; Neutrophils % 72.7; Platelet Count 171 x1000/uL (130-400); RBC 2.59 m/cumm (4.50-6.00); RBC Distribution Width 13.3 % (11.8-14.1); White Blood Cell Count 7.94 k/cumm (4.4-10.8)
[2019-06-15 07:53] LABS: Anion Gap 10.6 mmol/L (3-11); BUN 64 mg/dL (7-18); CO2 23.4 mmol/L (21.0-32.0); Calcium 8.7 mg/dL (8.5-10.1); Chloride 108 mmol/L (98-107); Estimated GFR 10.96 (mL/min/1.73m2); Glucose 127 mg/dL (70-100); Magnesium 1.8 mg/dL (1.8-2.4); Potassium 4.3 mmol/L (3.5-5.1); Sodium 142 mmol/L (136-145)
[2019-06-15 07:56] LABS: CREATININE 5.31 mg/dL (0.70-1.30)
[2019-06-15] MEDS: Finasteride 5 MG TAB PO (08:10)
[2019-06-15] MEDS: Dexlansoprazole 30 MG CAP 60 MG PO (08:10)
[2019-06-15] MEDS: Dorzolamide 2% 10 ML BTL OS ×2 (08:10→20:09)
[2019-06-15] MEDS: Docusate Sodium 100 MG CAP PO ×2 (08:11→20:08)
[2019-06-15] MEDS: guaiFENesin 600 MG TABCR PO ×2 (08:11→20:06)
[2019-06-15] MEDS: hydrALAZINE 10 MG TAB 25 MG PO ×2 (08:11→14:35)
[2019-06-15] MEDS: buPROPion-CR 100 MG TABCR 200 MG PO (08:11)
[2019-06-15] MEDS: Sodium Bicarbonate 650 MG TAB PO ×3 (08:12→20:06)
[2019-06-15] MEDS: Senna TAB 1 TAB PO ×2 (08:12→20:08)
[2019-06-15] MEDS: Cholecalciferol (Vitamin D3) 1,000 UNIT TAB 2000 UNITS PO (08:12)
[2019-06-15] MEDS: Carbidopa 25/Levodopa 100 TAB PO ×3 (08:12→20:06)
[2019-06-15] MEDS: Calcitriol 0.25 MCG CAP PO (08:12)
[2019-06-15] MEDS: Tamsulosin 0.4 MG CAPCR 0.8 MG PO (08:12)
[2019-06-15] MEDS: Metoprolol 25 MG TAB PO ×2 (08:12→21:32)
[2019-06-15] MEDS: Multivitamin TAB 1 TAB PO (08:12)
[2019-06-15] MEDS: Clopidogrel 75 MG TAB PO (08:13)
[2019-06-15] MEDS: Furosemide 80 MG TAB PO ×2 (08:13→16:28)
[2019-06-15] MEDS: Gabapentin 100 MG CAP PO ×3 (08:13→20:08)
[2019-06-15 08:37] LABS: Diff Comment RBC Morph Reviewed
[2019-06-15 08:38] LABS: Poikilocytes 1+
--- NOTE | 2019-06-15 11:15 | NUR.NOTE ---
home health caregiver offered to wash patient up, towels and clean jared was given to her.
[2019-06-15] MEDS: amLODIPine 10 MG TAB PO (11:52)
--- NOTE | 2019-06-15 11:57 | PT.INTREAT ---
Date of service: 06/15/19 Time of Service: 11:57 PT Notes 06/15/19 SUBJECTIVE: Mati stating he is doing okay today. He did not sleep well. OBJECTIVE: Supine in bed. Agreeable to PT treatment. TRANSFERS Supine to sit: I Sit to supine: I Sit to stand: SBA Stand to sit: SBA GAIT Device: FWW Weight bearing: Full Assist: CGA Distance: 100'+150' Deviation: Sit rest break due to LE fatigue. VITALS: RA, 92-97% throughout. ASSESSMENT: Tolerates increase in ambulation distance well today on RA without complaints of SOB. Pt does have increased LE fatigue with increasing distance although no LOB noted. PLAN: Continue per POC. Direct time: 25 minutes [id number] Mis Rosa PTA Clinic location: [facility] [place], [place]
--- NOTE | 2019-06-15 14:06 | W.PM.DS.N ---
Date of service: 06/15/19 Time of Service: 14:07 DS: Diagnosis Discharge Diagnosis (1) POLST (Physician Orders for Life-Sustaining Treatment): Status: Acute (2) Palliative care patient: Status: Acute (3) Acute exacerbation of CHF (congestive heart failure): Status: Acute (4) Mild intellectual disability: Status: Acute (5) Obstructive sleep apnea syndrome: Status: Chronic (6) Anemia: Status: Acute (7) CKD (chronic kidney disease) stage 5, GFR less than 15 ml/min: Status: Chronic (8) Essential hypertension: Status: Acute (9) Gastroesophageal reflux disease: Status: Acute (10) Parkinsons: Status: Chronic (11) Visual hallucinations: Status: Acute (12) Hx of syncope: Status: Acute (13) DVT prophylaxis: Status: Acute (14) Discharge planning issues: Status: Acute Discharge Plan Disposition Condition: Stable Discharge Details Chief Complaint: SOB Clinical Impression: Acute exacerbation of CHF (congestive heart failure) Reason For Visit: CHF,ESRD, KYLE Admit Date/Time: 06/10/19 16:00 Admit Provider: Miguel Herzog Attending Provider: Miguel Herzog Primary Care Provider: Ethel Collins ED Provider: Rolando Gibson Home Meds and New Rx's Prescriptions: No Action brimonidine 0.1 % drops 1 drp OP BID RF: 0 tamsulosin 0.4 mg capsule 0.8 mg PO DAILY Qty: 60 RF: 12 albuterol sulfate [ProAir HFA] 90 mcg/actuation HFA aerosol inhaler 2 puff Inhalation Q4H PRN Qty: 1 RF: 1 docusate sodium 100 mg capsule 100 mg PO DIRECTED RF: 0 multivitamin capsule 1 cap PO DAILY RF: 0 Lidocaine Pain Relief 4 % adhesive patch,medicated 1 patch TP HS PRNRF: 0 fluticasone propionate [Flonase Allergy Relief] 50 mcg/actuation spray,suspension 1 spray GOPI DAILY PRNRF: 0 dorzolamide-timolol 10 ML drops 1 drp Ophthalmic BID RF: 0 cholecalciferol (vitamin D3) [Vitamin D3] 2,000 UNIT capsule 2,000 unit PO DAILY RF: 0 calcitriol 0.25 MCG capsule 0.25 mcg PO DAILY RF: 0 atorvastatin 80 mg tablet 80 mg PO DAILY Qty: 90 RF: 3 (DME) Adult Briefs - Large misc 1 ea Miscellaneous TID Qty: 300 RF: 3 amlodipine 10 mg tablet 10 mg PO DAILY Qty: 30 RF: 5 clopidogrel [Plavix] 75 mg tablet 75 mg PO DAILY Qty: 30 RF: 11 torsemide 20 mg tablet See Rx Instructions PO .COMPLEX Qty: 90 RF: 5 finasteride 5 mg tablet 5 mg PO DAILY Qty: 90 RF: 4 Dexilant 60 mg capsule,biphase delayed releas 60 mg PO BID Qty: 60 RF: 5 hydralazine 10 mg tablet 10 mg PO BID Qty: 60 RF: 5 metoprolol tartrate 25 mg tablet 25 mg PO BID Qty: 60 RF: 6 Aranesp (in polysorbate) 40 mcg/0.4 mL syringe 40 mcg SC Q4W RF: 0 bupropion HCl 150 MG tablet extended release 12 hr 200 mg PO DAILY RF: 0 melatonin 1 MG tablet 2 mg PO DIRECTED RF: 0 carbidopa-levodopa 25-100 mg Tablet 2 tab TID RF: 0 loperamide 2 mg Capsule 2 mg PO QID RF: 0 gabapentin 100 mg capsule 300 mg PO DAILY RF: 0 Discharge Instructions Stand Alone Forms: Nursing Discharge Form Referrals: Ethel Collins MD [Primary Care Provider] - DS: Data Vitals/I&O Vitals and I&O: Vital Signs Temperature 36.3 C L 06/15/19 07:32 Temperature Source Tympanic 06/15/19 07:32 Pulse 79 06/15/19 07:32 Pulse Rhythm Regular 06/15/19 10:40 Pulse 70 06/10/19 17:01 Respiratory Rate 19 06/15/19 07:32 Respiratory Effort 06/15/19 10:40 Respiratory Depth Shallow 06/15/19 10:40 Respiratory Pattern Irregular 06/15/19 10:40 Blood Pressure 190/96 H 06/15/19 07:32 Blood Pressure Mean 92 06/10/19 17:01 Blood Pressure Position Sitting 06/10/19 13:45 Pulse Oximetry 99 06/15/19 07:32 Oxygen Delivery Method Nasal Cannula 06/15/19 07:32 Oxygen Flow Rate 2 06/15/19 07:32 Pain Level 3 06/15/19 07:32 Comment 06/13/19 07:52 Intake & Output 06/14/19 06/15/19 06/15/19 23:59 11:59 23:59 Intake Total 240 / 600 Output Total 825 / 2250 Balance -585 / -1650 Weight 101 kg Intake: Oral 240 / 600 Output: Urine 825 / 2250 Other: Urine Color Yellow Pale Yellow Urine Appearance Clear Clear Urine Odor Normal Stool Occult Blood Positive Stool Size Moderate Stool Characteristics Formed Hard Brown Voiding Methods Urinal Toilet Data Completed and Pending Labs on day of discharge: Labs from last 24 hours 06/15/19 06/15/19 07:16 07:16 WBC 7.94 RBC 2.59 L Hgb 8.1 L Hct 24.8 L MCV 95.8 H MCH 31.3 MCHC 32.7 RDW 13.3 Plt Count 171 MPV 8.9 Immature Gran % 0.3 Neutrophils % 72.7 Lymphocytes % 10.8 Monocytes % 11.1 Eosinophils % 4.8 Basophils % 0.3 Absolute Neutrophils 5.78 Absolute Lymphocytes 0.86 L Absolute Monocytes 0.88 H Absolute Eosinophils 0.38 Absolute Basophils 0.02 Differential Comment Rbc morph reviewed RBC Morphology See below Poikilocytosis 1+ Sodium 142 Potassium 4.3 Chloride 108 H Carbon Dioxide 23.4 Anion Gap 10.6 BUN 64 H Creatinine 5.31 H* Estimated GFR/1.73 m2 10.96 Glucose 127 H Calcium 8.7 Magnesium 1.8 PFSH Medical History (Updated 06/14/19 @ 21:50 by Soraya Tillman MD) AV fistula (Acute) 4 stages 12/2016 thru 06/16/2017 at [facility] [place] BPH (benign prostatic hyperplasia) CAD (coronary artery disease) CHF (congestive heart failure), NYHA class I Chronic kidney disease, stage IV (severe) Diabetic neuropathy Diabetic retinopathy DNI (do not intubate) (Acute) DNR (do not resuscitate) (Acute) Essential hypertension GERD (gastroesophageal reflux disease) Hyperlipidemia Mild intellectual disability (Acute) KYLE (obstructive sleep apnea) Palliative care patient (Acute) POLST (Physician Orders for Life-Sustaining Treatment) (Acute) Stroke Type II diabetes mellitus Surgical History Colonoscopy - IV Sedation (04/16/15) Dr Anderson-[facility] [place] EGD - MAC (07/22/17) Endoscopy (07/17/14) [facility] [place] Dr. Luo Extraction of cataract (03/27/15) left eye, Dr. Kang Repair of inguinal hernia bilateral Family History (Updated 06/14/19 @ 21:52 by Soraya Tillman MD) Mother , immediately after his premature No problems noted. 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 Pets and animals: Yes Pets and animals: cat(s) Sexually active: No Current gender identity: male What is your relationship status?: never How often do you talk on the phone with friends or family?: three or more times per week How often do you get together with friends or relatives?: three or more times per week Panel score (0-1 are the most socially isolated patients): 1 What type of physical activity do you participate in: none and sedentary lifestyle Special kilo needs: No Agree to transfusion: No Seatbelt use: always Water heater temp set <120 deg: Yes Working smoke detector in home: Yes Carbon monox detector in home: Yes Do you feel safe at home: Yes Do you feel safe in your relationship?: Yes Additional Social history: Caregiver Lana with [employer] 8 hrs + per day. Lives alone, except for his cat, Emelina. Loves [facility]. Has been several times and is hoping to go again in November. Has no complaints. Doesn't want to do dialysis. Likes staying home. Tried PT and quit after 1 or 2 sessions.
[2019-06-15] MEDS: cloNIDine 0.1 MG TAB PO ×2 (14:52→20:07)
--- NOTE | 2019-06-15 15:59 | PDOC.CMDIS ---
- If Service Date Differs Date of service: 06/15/19 Time of Service: 15:59 Care Management Discharge Reason for Hospitalization: Acute exacerbation of CHF
--- NOTE | 2019-06-15 16:31 | CMPROGNOTE_ITS ---
- If Service Date Differs Date of service: 06/15/19 Time of Service: 16:31 Care Management Progress Note S/O: Jewel was sitting up in bed when CM met with him. He was pleasant and in good spirits. He stated that he was feeling ok, but not as good today. His caregiver stated concern about his blood pressure. CM will notify provider about concerns. CM will continue to follow and support patient. A: Jewel is a 63 year old male admitted to [facility] on 06/10/2019 with CHF and ESRD. P:Anticipate Jewel will return home with nursing, PT, OT when medically ready. Jewel will be driven home by his caregiver, Lana. CM will continue to follow.
--- NOTE | 2019-06-15 19:52 | PGE_ITS ---
Date of Service Date of service: 06/15/19 Time of Service: 14:00 Assessment and Plan Assessment and plan (1) Acute exacerbation of CHF (congestive heart failure): Status: Acute Assessment and plan: EF 50-55%, no diastolic dysfunction noted. Some of this fluid overload most certainly has to do with ESRD. This is likely also fueling his uncontrolled hypertension. Undecided about HD, but not qualifying for emergent HD in this case. Will switch diuretics to bumex. Will benefit from outpatient palliative care follow up. (2) CKD (chronic kidney disease) stage 5, GFR less than 15 ml/min: Status: Chronic Assessment and plan: BP's are likely difficult to control due to this. Add clonidine, increase metoprolol. Reintroduce norvasc. Change diuretics to bumex. s/p Arinesp 06/14/19 Read discussion above - unsure about HD in the future, but not requiring it at this time. Continue to monitor Bun/creatinine. (3) Essential hypertension: Status: Acute Assessment and plan: Uncontrolled and diffult to managed in setting of ESRD. Read re medications changes above. (4) Anemia: Status: Acute Assessment and plan: s/p transfusion of 1 unit pRBC on 06/12/19; s/p arinesp 06/14/19. He could have uremic gastritis and have slow bleeding. Avoid heparin products. Hematest stool. (5) Obstructive sleep apnea syndrome: Status: Chronic Assessment and plan: Continue Bipap HS (6) Gastroesophageal reflux disease: Status: Acute Assessment and plan: Continue dexilant (7) Parkinsons: Status: Chronic Assessment and plan: No hallucinations in the last 24 hrs. Continue sinemet. PT/OT for strength (8) Visual hallucinations: Status: Acute Assessment and plan: likely from Parkinson's, continue to monitor for signs of uremia which could also cause hallucinations. (9) Hx of syncope: Status: Acute Assessment and plan: Multiple syncopal episodes that have been worked up with out findings. Loop recorder implanted on 05/11. On telemetry at this time with SR 60-80 (10) DVT prophylaxis: Status: Acute Assessment and plan: TEDS + SCD's (we are abstaining from chemical DVT ppx due to concern for possible uremic gastritis) (11) Discharge planning issues: Status: Acute Assessment and plan: DNR/DNI Met with palliative care - unsure of his plans for HD in conversation with me after this meeting. Plan for discharge home tomorrow if SBP<180. Will need home health nursing, PT, OT. Subjective Subjective Interval history since last seen: Mr Sampson complains of wheezing and pain in his bilateraly feet (neuropathy). Denies dizziness, chest pain, shortness of breath, nausea, vomiting. Exam Narrative Exam Narrative: General: very pleasant middle-aged male, A&Ox3, appears slightly tachypneic, unchnaged from yesterday HEENT: EOMI, dry MM Heart: RRR, no m/r/g Lungs: diminished breath sounds B, quiet wheezing is heard with a certain head position. GI: abdomen is soft, nontender, nondistended Extremities: +1 BLE edema, in TEDs, no clubbing/cyanosis seen Objective Objective Clinical Data: Abnormal lab results 06/15/19 06/15/19 Range/Units 07:16 07:16 RBC 2.59 L (4.50-6.00) m/cumm Hgb 8.1 L (13.5-17.5) g/dL Hct 24.8 L (40.0-50.0) % MCV 95.8 H (80-95) fL Absolute Lymphocytes 0.86 L (1.2-3.4) k/cumm Absolute Monocytes 0.88 H (0.11-0.7) k/cumm Chloride 108 H (98-107) mmol/L BUN 64 H (7-18) mg/dL Creatinine 5.31 H* (0.70-1.30) mg/dL Glucose 127 H (70-100) mg/dL Vital Signs Temperature 36.8 C 06/15/19 16:01 Temperature Source Tympanic 06/15/19 16:01 Pulse 67 06/15/19 16:01 Pulse Rhythm Regular 06/15/19 10:40 Pulse 70 06/10/19 17:01 Respiratory Rate 18 06/15/19 16:01 Respiratory Effort 06/15/19 16:58 Respiratory Depth Shallow 06/15/19 16:58 Respiratory Pattern Irregular 06/15/19 16:58 Blood Pressure 180/82 H 06/15/19 16:01 Blood Pressure Mean 92 06/10/19 17:01 Blood Pressure Position Sitting 06/10/19 13:45 Pulse Oximetry 96 06/15/19 16:01 Oxygen Delivery Method Room Air 06/15/19 16:01 Oxygen Flow Rate 0 06/15/19 16:01 Pain Level 0 06/15/19 16:01 Comment 06/13/19 07:52 Intake & Output 06/14/19 06/15/19 06/15/19 23:59 11:59 23:59 Intake Total 240 / 600 250 / 500 250 / 500 Output Total 825 / 2250 795 / 795 Balance -585 / -1650 250 / -295 -545 / -295 Weight 101 kg Intake: Oral 240 / 600 250 / 500 250 / 500 Output: Urine 825 / 2250 750 / 750 Post Void Residual 45 / 45 Other: Urine Color Yellow Pale Yellow Yellow Urine Appearance Clear Clear Clear Urine Odor Normal Normal Stool Occult Blood Positive Stool Size Moderate Stool Characteristics Formed Hard Brown Voiding Methods Urinal Toilet Toilet Laboratory Results WBC 7.94 k/cumm (4.4-10.8) 06/15/19 07:16 RBC 2.59 m/cumm (4.50-6.00) L 06/15/19 07:16 Hgb 8.1 g/dL (13.5-17.5) L 06/15/19 07:16 Hct 24.8 % (40.0-50.0) L 06/15/19 07:16 MCV 95.8 fL (80-95) H 06/15/19 07:16 MCH 31.3 pg (27.0-33.0) 06/15/19 07:16 MCHC 32.7 g/dL (32.0-36.0) 06/15/19 07:16 RDW 13.3 % (11.8-14.1) 06/15/19 07:16 Plt Count 171 x1000/uL (130-400) 06/15/19 07:16 MPV 8.9 fL (8.0-11.0) 06/15/19 07:16 Immature Gran % 0.3 06/15/19 07:16 Neutrophils % 72.7 06/15/19 07:16 Lymphocytes % 10.8 06/15/19 07:16 Monocytes % 11.1 06/15/19 07:16 Eosinophils % 4.8 06/15/19 07:16 Basophils % 0.3 06/15/19 07:16 Absolute Neutrophils 5.78 k/cumm (1.2-6.7) 06/15/19 07:16 Absolute Lymphocytes 0.86 k/cumm (1.2-3.4) L 06/15/19 07:16 Absolute Monocytes 0.88 k/cumm (0.11-0.7) H 06/15/19 07:16 Absolute Eosinophils 0.38 k/cumm (0.0-0.7) 06/15/19 07:16 Absolute Basophils 0.02 k/cumm (0.0-0.2) 06/15/19 07:16 Differential Comment Rbc morph reviewed 06/15/19 07:16 RBC Morphology See below 06/15/19 07:16 Poikilocytosis 1+ 06/15/19 07:16 PT 11.6 sec (9.3-11.0) H 06/10/19 14:10 INR 1.2 (0.9-1.1) H 06/10/19 14:10 APTT 27.1 sec (21.0-31.4) 06/10/19 14:10 D-Dimer 560 ng/mlFEU (<500) H 06/10/19 14:10 Sample Site Right brachial 06/11/19 11:50 pCO2 36 mmHg (34-47) 06/11/19 11:50 pO2 67 mmHg (83-108) L 06/11/19 11:50 O2 Saturation 94 % (94-98) 06/11/19 11:50 ABG pH 7.38 (7.35-7.45) 06/11/19 11:50 ABG HCO3 21 mmol/L (22-28) L 06/11/19 11:50 ABG Total CO2 21 mmol/L (22-29) L 06/11/19 11:50 ABG Base Excess -3.8 mmol/L (-3-3) L 06/11/19 11:50 VBG pH 7.39 (7.32-7.43) 06/10/19 14:10 VBG pCO2 33 mm/Hg (34-47) L 06/10/19 14:10 VBG pO2 121 mm/Hg (28-44) H 06/10/19 14:10 VBG HCO3 20 mmol/L (22-28) L 06/10/19 14:10 VBG Total CO2 19 mmol/L (22-29) L 06/10/19 14:10 VBG O2 Saturation 99 % (70-80) H 06/10/19 14:10 VBG Base Excess -5.1 mmol/L (-3-3) L 06/10/19 14:10 Oxygen Liter Flow 2 L 06/11/19 11:50 Sodium 142 mmol/L (136-145) 06/15/19 07:16 Potassium 4.3 mmol/L (3.5-5.1) 06/15/19 07:16 Chloride 108 mmol/L (98-107) H 06/15/19 07:16 Carbon Dioxide 23.4 mmol/L (21.0-32.0) 06/15/19 07:16 Anion Gap 10.6 mmol/L (3-11) 06/15/19 07:16 BUN 64 mg/dL (7-18) H 06/15/19 07:16 Creatinine 5.31 mg/dL (0.70-1.30) H* 06/15/19 07:16 Estimated GFR/1.73 m2 10.96 (mL/min/1.73m2) 06/15/19 07:16 Glucose 127 mg/dL (70-100) H 06/15/19 07:16 Calcium 8.7 mg/dL (8.5-10.1) 06/15/19 07:16 Magnesium 1.8 mg/dL (1.8-2.4) 06/15/19 07:16 Iron 56 ug/dL (50-175) 06/13/19 06:40 Total Bilirubin 0.7 mg/dL (0.2-1.0) 06/10/19 14:10 AST 12 U/L (15-37) L 06/10/19 14:10 ALT 5 U/L (16-63) L 06/10/19 14:10 Alkaline Phosphatase 72 U/L (46-116) 06/10/19 14:10 Troponin I < 0.05 ng/mL (0.00-0.06) 06/10/19 14:10 NT-Pro-B Natriuret Pep 98573 pg/mL (-299) H 06/13/19 06:40 Total Protein 6.3 g/dL (6.4-8.2) L 06/10/19 14:10 Albumin 3.3 g/dL (3.4-5.0) L 06/10/19 14:10 TSH 5.59 uIU/mL (0.36-3.74) H 06/10/19 14:10 Free T4 1.20 ng/dL (0.76-1.46) 06/10/19 14:10 Urine Color Yellow (Yellow) 06/10/19 18:30 Urine Clarity Clear (Clear) 06/10/19 18:30 Urine pH 7.0 (5-8) 06/10/19 18:30 Ur Specific [place] 1.015 (1.005-1.025) 06/10/19 18:30 Urine Protein >=300 mg/dL (Negative) H 06/10/19 18:30 Urine Ketones Negative mg/dL (Negative) 06/10/19 18:30 Urine Blood Negative (Negative) 06/10/19 18:30 Urine Nitrite Negative (Negative) 06/10/19 18:30 Urine Bilirubin Negative (Negative) 06/10/19 18:30 Urine Urobilinogen 0.2 EU/dL (Up TO 0.2) 06/10/19 18:30 Ur Leukocyte Esterase Negative (Negative) 06/10/19 18:30 Urine RBC Negative (0-2) 06/10/19 18:30 Urine WBC Negative HPF (0-5) 06/10/19 18:30 Ur Epithelial Cells Negative HPF (Negative) 06/10/19 18:30 Urine Crystals Negative HPF (Negative) 06/10/19 18:30 Urine Bacteria Negative HPF (Negative) 06/10/19 18:30 Urine Casts Negative LPF (Negative) 06/10/19 18:30 Urine Mucus Negative (Negative) 06/10/19 18:30 Urine Other Negative (Negative) 06/10/19 18:30 Ur Culture Indicated? No 06/10/19 18:30 Urine Glucose Negative mg/dL (Negative) 06/10/19 18:30 Patient ABO/Rh A Positive 06/12/19 03:00 Antibody Screen Negative 06/12/19 03:00 Crossmatch See Detail 06/12/19 03:00
[2019-06-15] MEDS: hydrALAZINE 10 MG TAB 50 MG PO (20:04)
[2019-06-15] MEDS: Atorvastatin 40 MG TAB 80 MG PO (20:07)
[2019-06-15] MEDS: Normal Saline Flush 10 ML SYR IVP (20:08)
[2019-06-15] MEDS: Bumetanide 1 MG TAB 2 MG PO (20:44)
[2019-06-15] MEDS: Lidocaine 5% Patch 2 PATCH TP (21:33)
[2019-06-16] VITALS (10 sets, daily range): BP systolic 153–183; BP diastolic 73–96; PULSE 64–74; RESP 10–22; TEMP 36.4–36.7; O2SAT 93–97
[2019-06-16] MEDS: Metoprolol 25 MG TAB PO ×2 (06:48→14:02)
[2019-06-16] MEDS: Dexlansoprazole 30 MG CAP 60 MG PO (06:49)
[2019-06-16 07:30] LABS: Abs Immature Grans 0.01 k/cumm (0.0-0.09); Absolute Basophil Count 0.04 k/cumm (0.0-0.2); Absolute Eosinophil Count 0.38 k/cumm (0.0-0.7); Absolute Lymphocyte Count 0.82 k/cumm (1.2-3.4); Absolute Monocyte Count 0.71 k/cumm (0.11-0.7); Absolute Neutrophil Count 5.48 k/cumm (1.2-6.7); Basophils % 0.5; Eosinophils % 5.1; HCT 24.5 % (40.0-50.0); HGB 8.1 g/dL (13.5-17.5); Immature Grans % 0.1; Mean Corp. HGB Concentration 33.1 g/dL (32.0-36.0); Mean Corpuscular Hemoglobin 31.8 pg (27.0-33.0); Mean Corpuscular Volume 96.1 fL (80-95); Mean Platelet Volume 9.1 fL (8.0-11.0); Monocytes % 9.5; Neutrophils % 73.8; Platelet Count 181 x1000/uL (130-400); RBC 2.55 m/cumm (4.50-6.00); RBC Distribution Width 13.4 % (11.8-14.1); White Blood Cell Count 7.44 k/cumm (4.4-10.8)
[2019-06-16 07:55] LABS: BUN 64 mg/dL (7-18); Calcium 8.8 mg/dL (8.5-10.1); Chloride 107 mmol/L (98-107); Estimated GFR 10.91 (mL/min/1.73m2); Glucose 141 mg/dL (70-100); Magnesium 1.8 mg/dL (1.8-2.4); Potassium 4.3 mmol/L (3.5-5.1); Sodium 142 mmol/L (136-145)
[2019-06-16 08:01] LABS: CREATININE 5.33 mg/dL (0.70-1.30)
[2019-06-16] MEDS: buPROPion-CR 100 MG TABCR 200 MG PO (08:05)
[2019-06-16] MEDS: Clopidogrel 75 MG TAB PO (08:05)
[2019-06-16] MEDS: Calcitriol 0.25 MCG CAP PO (08:05)
[2019-06-16] MEDS: Senna TAB 1 TAB PO (08:05)
[2019-06-16] MEDS: Tamsulosin 0.4 MG CAPCR 0.8 MG PO (08:06)
[2019-06-16] MEDS: Multivitamin TAB 1 TAB PO (08:06)
[2019-06-16] MEDS: Carbidopa 25/Levodopa 100 TAB PO ×2 (08:06→13:54)
[2019-06-16] MEDS: Gabapentin 100 MG CAP PO ×2 (08:06→13:54)
[2019-06-16] MEDS: Sodium Bicarbonate 650 MG TAB PO ×2 (08:06→13:53)
[2019-06-16] MEDS: cloNIDine 0.1 MG TAB PO (08:06)
[2019-06-16] MEDS: guaiFENesin 600 MG TABCR PO (08:06)
[2019-06-16] MEDS: Cholecalciferol (Vitamin D3) 1,000 UNIT TAB 2000 UNITS PO (08:06)
[2019-06-16] MEDS: amLODIPine 10 MG TAB PO (08:07)
[2019-06-16] MEDS: Bumetanide 1 MG TAB 2 MG PO ×2 (08:07→16:34)
[2019-06-16] MEDS: Docusate Sodium 100 MG CAP PO (08:07)
[2019-06-16] MEDS: hydrALAZINE 10 MG TAB 50 MG PO ×2 (08:07→13:53)
[2019-06-16] MEDS: Finasteride 5 MG TAB PO (08:07)
[2019-06-16] MEDS: Dorzolamide 2% 10 ML BTL OS (08:20)
--- NOTE | 2019-06-16 08:53 | OTDS_ITS ---
Date of service: 06/16/19 Time of Service: 08:53 Occupational Therapy Notes Occupational Therapy Inpatient Discharge Summary Date: 06/16/19 Dates of Service: 06/13/19-06/16/19 Referring Doctor: Zuri Cespedes NP OT Orders: Non-urgent Precautions: Fall, Standard PATIENT PROFILE/ADMITTING DIAGNOSIS: Pt is a 63 year old male who was admitted through the ER for diagnosis of Acute exacerbation of CHF (congestive heart failure). Past Medical History: Medical History AV fistula (Acute) 4 stages 12/2016 thru 06/16/2017 at [facility] [place] BPH (benign prostatic hyperplasia) CAD (coronary artery disease) CHF (congestive heart failure), NYHA class I Chronic kidney disease, stage IV (severe) Diabetic neuropathy Diabetic retinopathy Essential hypertension GERD (gastroesophageal reflux disease) Hyperlipidemia KYLE (obstructive sleep apnea) Stroke Type II diabetes mellitus Surgical History Colonoscopy - IV Sedation (04/16/15) Dr Anderson-[facility] [place] EGD - MAC (07/22/17) Endoscopy (07/17/14) [facility] [place] Dr. Luo Extraction of cataract (03/27/15) left eye, Dr. Kang Repair of inguinal hernia Social History/Home Situation: Pt states that he lives in a private mobile home with his cat. He states that he has two women who come into his home every day for 5-6 hours who (A) him with his dressing and bathing routines. He states that he does not drive as his MD recently told him to stop driving. He is receptive to this and is happy that he has (A) in his home. He notes multiple times throughout session that his home is old and he cannot use anything fancy like FWW and wheelchairs all the time because his home is not set up for this. Equipment owned/DME: raised toilet, FWW, grab bars SUBJECTIVE: Pt was sitting in bed when OT arrived. He states that he thinks he is going home today and reports that he thinks he is good in terms of occupational therapy services as he has caregivers at home who will (A) him like they did before. He states that he does not want to perform any ADLs/IADLs at this time. OBJECTIVE: Pain: no c/o pain Right Upper Extremity: shoulder flexion of 110*, elbow WNL, hand and digits WNL Left Upper Extremity: shoulder flexion to 90*, elbow WNL, hand and digits WNL Strength: Right Upper Extremity: Shoulder flexion 4-/5 throughout, elbow 4/5 Left Upper Extremity: Shoulder flexion 3+/5 throughout, elbow 3/5 FUNCTIONAL MOBILITY/ADLS: NO SKILLED OT SERVICES PROVIDED FOR THIS DOCUMENTATION, THE FOLLOWING IS BASED ON PREVIOUS OCCUPATIONAL THERAPY INTERVENTION. Transfers Supine-sit Min (A) and min vc Sit-supine Min (A) and min vc BATHING Sitting in bed with max (A) set up, (I) with washing face, pt is able to wash (B) LE to knees otherwise max (A) DRESSING- Min (A) don and doffing hospital gown, max (A) don and doffing (B) socks TOILETING NT EATING Sitting in bed, (I) with pouring milk into bowl, (I) food to mouth translation BALANCE: Static sitting Good Dynamic Sitting Good Static Standing NT- pt denied for all OT sessions Dynamic Standing NT pt denied for all OT sessions ASSESSMENT: Patient is a 63-year-old male referred to occupational therapy services with diagnosis of Acute exacerbation of CHF (congestive heart failure). Patient was seen for 2 skilled OT sessions. Pt was able to perform his bathing and dressing routines with similar habits to his baseline level of function. He denied the need for OT services today indicating that he believes he is returning home with his caregivers today. OT will discharge pt from skilled OT services at this time. GOALS 1. Transfers- FWW, SBA (not assessed as pt denied) 2. Dressing- sitting on side of bed (I) UE and min (A) LE (not met) 3. Bathing- sitting on side of bed (I) UE, mod (A) LE (met to knees, max (A) below knees) 4. Toileting- on toilet (I) (not assessed as pt denied) PLAN OF CARE/TREATMENT PLAN: Discharge from OT services. DISCHARGE RECOMMENDATIONS OT recommends that pt have short term stay at SNF vs return home with services. TREATMENT TIME/MINUTES/CODES N/A Maria Antonai Fong OTR/L [facility]
--- NOTE | 2019-06-16 14:38 | W.PM.DS.N ---
Date of service: 06/16/19 Time of Service: 14:38 DS: Diagnosis Discharge Diagnosis (1) Acute exacerbation of CHF (congestive heart failure): Status: Acute (2) CKD (chronic kidney disease) stage 5, GFR less than 15 ml/min: Status: Chronic (3) Essential hypertension: Status: Acute (4) Anemia: Status: Acute (5) Obstructive sleep apnea syndrome: Status: Chronic (6) Gastroesophageal reflux disease: Status: Acute (7) Parkinsons: Status: Chronic (8) Visual hallucinations: Status: Acute (9) Hx of syncope: Status: Acute Discharge Plan Disposition Patient Disposition: HOME W/HOME HEALTH SERVICE Condition: Stable Discharge Details Chief Complaint: SOB Clinical Impression: Acute exacerbation of CHF (congestive heart failure) Reason For Visit: CHF,ESRD, KYLE Admit Date/Time: 06/10/19 16:00 Admit Provider: Miguel Herzog Attending Provider: Miguel Herzog Primary Care Provider: Ethel Collins ED Provider: Rolando Gibson Hospital Course Hospital Course: Mr Sampson is a 63 year old male with PMHx of ESRD, not on HD, as well as hypertension, KYLE, not compliant with CPAP, IDDM2 with neuropathy, anemia of chronic disease, who was admitted to [facility] on 06/10/19 for acute exacerbation of mild systolic CHF (EF 50-50%), complicated by ESRD. He does respond to diuretics, and his treatment plan involved lasix drip, transitioning to IV lasix and finally bumex, with significant improvement of his symptoms. The patient met with palliative care on this admission, which resulted in a code status change to DNR/DNI. The patient is not sure about ever going on dialysis, but is still thinking about it. His antihypertensive regimen was intensified - metoprolol and hydralazine were increased, clonidine added. At this time, the patient does not require oxygen. 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 The patient did not have evidence of acute bleeding on this admission, but did require a transfusion of 1 unit of pRBC's as well as a dose of arinesp. His hallucinations have not been an issue past day 2 of his hospitalization. He did not have an infection on this admission. He has remained stable on telemetry, sometimes going to 1st degree heart block while asleep. He still has the implantable loop recorder in place. He is being discharged home today with home health RN, PT, OT. He could benefit from being initiated on the telealth program. Care for patient as well as preparation of his discharge paperwork took 45 minutes on the day of discharge. Home Meds and New Rx's Prescriptions: New ipratropium-albuterol 0.5 mg-3 mg(2.5 mg base)/3 mL Solution For Nebulization 3 ml UPD Q4H PRN PRN (Reason: shortness of breath or wheezing) Qty: 180 RF: 0 sennosides [Senokot] 8.6 mg Tablet 1 tab PO BID Qty: 60 RF: 0 clonidine HCl [Catapres] 0.1 mg Tablet 0.1 mg PO BID Qty: 60 RF: 0 sodium bicarbonate 650 mg Tablet 650 mg PO TID Qty: 90 RF: 0 lidocaine [Lidoderm] 5 % Adhesive Patch,Medicated 2 patch topical HS Qty: 60 RF: 0 bumetanide 1 mg Tablet 2 mg PO BID DIURETIC Qty: 120 RF: 0 metoprolol tartrate 25 mg Tablet 25 mg PO Q8H Qty: 90 RF: 0 hydralazine 50 mg tablet 50 mg PO TID Qty: 90 RF: 0 Continued brimonidine 0.1 % drops 1 drp OP BID RF: 0 albuterol sulfate [ProAir HFA] 90 mcg/actuation HFA aerosol inhaler 2 puff Inhalation Q4H PRN Qty: 1 RF: 1 docusate sodium 100 mg capsule 100 mg PO DIRECTED RF: 0 multivitamin capsule 1 cap PO DAILY RF: 0 Lidocaine Pain Relief 4 % adhesive patch,medicated 1 patch TP HS PRNRF: 0 fluticasone propionate [Flonase Allergy Relief] 50 mcg/actuation spray,suspension 1 spray GOPI DAILY PRNRF: 0 dorzolamide-timolol 10 ML drops 1 drp Ophthalmic BID RF: 0 cholecalciferol (vitamin D3) [Vitamin D3] 2,000 UNIT capsule 2,000 unit PO DAILY RF: 0 calcitriol 0.25 MCG capsule 0.25 mcg PO DAILY RF: 0 atorvastatin 80 mg tablet 80 mg PO DAILY Qty: 90 RF: 3 amlodipine 10 mg tablet 10 mg PO DAILY Qty: 30 RF: 5 clopidogrel [Plavix] 75 mg tablet 75 mg PO DAILY Qty: 30 RF: 11 finasteride 5 mg tablet 5 mg PO DAILY Qty: 90 RF: 4 Dexilant 60 mg capsule,biphase delayed releas 60 mg PO BID Qty: 60 RF: 5 Aranesp (in polysorbate) 40 mcg/0.4 mL syringe 40 mcg SC Q4W RF: 0 bupropion HCl 150 MG tablet extended release 12 hr 200 mg PO DAILY RF: 0 melatonin 1 MG tablet 2 mg PO DIRECTED RF: 0 carbidopa-levodopa 25-100 mg Tablet 2 tab TID RF: 0 loperamide 2 mg Capsule 2 mg PO QID RF: 0 gabapentin 100 mg capsule 300 mg PO DAILY RF: 0 Discontinued torsemide 20 mg tablet See Rx Instructions PO .COMPLEX Qty: 90 RF: 5 hydralazine 10 mg tablet 10 mg PO BID Qty: 60 RF: 5 metoprolol tartrate 25 mg tablet 25 mg PO BID Qty: 60 RF: 6 No Action tamsulosin 0.4 mg capsule 0.8 mg PO DAILY Qty: 60 RF: 12 (DME) Adult Briefs - Large misc 1 ea Miscellaneous TID Qty: 300 RF: 3 Discharge Instructions Instructions: Heart Failure (DC) Additional Instructions: Return to the hospital with any fever, bleeding, chest pain, shortness of breath Care Plan Goals: Home with home health RN, PT, OT, [facility], [facility]. Stand Alone Forms: Nursing Discharge Form Referrals: Cheryl Mary MD [ NON-[facility] STAFF PHYSICIAN] - Ethel Collins MD [Primary Care Provider] - 06/21/19 11:30 am Activity:: Activity as Tolerated Equipment/Supplies:: nebulizer machine Diet:: As Tolerated Discharge Orders Discharge Orders: Discharge Order (Routine); Ordered 06/16/19 Ordered By: Leticia Fink DS: Summary Status at Discharge Functional status at discharge: uses cane/walker Overall status at discharge: patient is back to baseline Mental Status: mental status grossly normal Speech and Movement: speech and movement normal Mood: congruent mood Affect: normal affect Exam Narrative Exam Narrative: General: very pleasant middle-aged male, A&Ox3, no dyspnea seen today, looks better than yesterday HEENT: EOMI, dry MM Heart: RRR, no m/r/g Lungs: diminished breath sounds B, quiet wheezing is heard with a certain head position. GI: abdomen is soft, nontender, nondistended Extremities: +1 BLE edema, in TEDs, no clubbing/cyanosis seen Psych Mental Status: mental status grossly normal Speech and Movement: speech and movement normal Mood: congruent mood Affect: normal affect DS: Data Vitals/I&O Vitals and I&O: Vital Signs Temperature 36.6 C 06/16/19 07:25 Temperature Source Tympanic 06/16/19 07:25 Pulse 68 06/16/19 07:25 Pulse Rhythm Regular 06/16/19 07:30 Pulse 70 06/10/19 17:01 Respiratory Rate 20 06/16/19 07:25 Respiratory Effort Non-Labored 06/16/19 07:30 Respiratory Depth Normal 06/16/19 07:30 Respiratory Pattern Normal 06/16/19 07:30 Blood Pressure 169/96 H 06/16/19 07:25 Blood Pressure Mean 92 06/10/19 17:01 Blood Pressure Position Sitting 06/10/19 13:45 Pulse Oximetry 97 06/16/19 14:13 Oxygen Delivery Method Room Air 06/16/19 14:13 Oxygen Flow Rate 0 06/16/19 14:13 Pain Level 0 06/16/19 07:25 Comment 06/16/19 03:50 Intake & Output 06/15/19 06/16/19 06/16/19 23:59 11:59 23:59 Intake Total 250 / 500 970 / 970 Output Total 1795 / 1795 2287 / 2770 483 / 2770 Balance -1545 / -1295 -1317 / -1800 -483 / -1800 Weight 100.3 kg Intake: IV 10 / 10 Oral 250 / 500 960 / 960 Output: Urine 1750 / 1750 2200 / 2600 400 / 2600 Post Void Residual 45 / 45 87 / 170 83 / 170 Other: Urine Color Pale Yellow Yellow Urine Appearance Clear Clear Urine Odor Normal None Comment bladder scan before void 439ml and post void 83ml. Voiding Methods Toilet Toilet Data Completed and Pending Completed studies during hospitalization [Text1]: CXR 06/10/19: Findings consistent with congestive failure. CXR 06/11/19: The findings remain consistent with congestive failure. The possibility of a concomitant acute pneumonitis not excluded. Echo 06/13/19: 1. Left ventricle: The cavity size was normal. Systolic function was at the lower limits of normal. The estimated ejection fraction was 50-55%. There was no evidence of elevated ventricular filling pressure by Doppler parameters. 2. Aortic valve: There was mild stenosis. Peak velocity (S): 1.7m/sec. Mean gradient (S): 6.8mm Hg. VTI ratio of LVOT to aortic valve: 0.7. Valve area (VTI): 1.6cm^2. 3. Mitral valve: Mildly calcified annulus. There was mild regurgitation. 4. Left atrium: The atrium was mildly dilated. 5. Right ventricle: The cavity size was normal. 6. Right atrium: The atrium was mildly dilated. 7. Atrial septum: No defect or patent foramen ovale was identified. 8. Pulmonary arteries: Systolic pressure could not be accurately estimated. 9. Inferior vena cava: Poorly visualized. Labs on day of discharge: Labs from last 24 hours 06/16/19 06/16/19 06:31 06:31 WBC 7.44 RBC 2.55 L Hgb 8.1 L Hct 24.5 L MCV 96.1 H MCH 31.8 MCHC 33.1 RDW 13.4 Plt Count 181 MPV 9.1 Immature Gran % 0.1 Neutrophils % 73.8 Lymphocytes % 11.0 Monocytes % 9.5 Eosinophils % 5.1 Basophils % 0.5 Absolute Neutrophils 5.48 Absolute Lymphocytes 0.82 L Absolute Monocytes 0.71 H Absolute Eosinophils 0.38 Absolute Basophils 0.04 Sodium 142 Potassium 4.3 Chloride 107 Carbon Dioxide 25.0 Anion Gap 10.0 BUN 64 H Creatinine 5.33 H* Estimated GFR/1.73 m2 10.91 Glucose 141 H Calcium 8.8 Magnesium 1.8 [facility] Medical History (Updated 06/14/19 @ 21:50 by Soraya Tillman MD) AV fistula (Acute) 4 stages 12/2016 thru 06/16/[place] [facility] [place] BPH (benign prostatic hyperplasia) CAD (coronary artery disease) CHF (congestive heart failure), NYHA class I Chronic kidney disease, stage IV (severe) Diabetic neuropathy Diabetic retinopathy DNI (do not intubate) (Acute) DNR (do not resuscitate) (Acute) Essential hypertension GERD (gastroesophageal reflux disease) Hyperlipidemia Mild intellectual disability (Acute) KYLE (obstructive sleep apnea) Palliative care patient (Acute) POLST (Physician Orders for Life-Sustaining Treatment) (Acute) Stroke Type II diabetes mellitus Surgical History Colonoscopy - IV Sedation (04/16/15) Dr Anderson-[facility] EGD - MAC (07/22/17) Endoscopy (07/17/14) [facility] Dr. Luo Extraction of cataract (03/27/15) left eye, Dr. Kang Repair of inguinal hernia bilateral Family History (Updated 06/14/19 @ 21:52 by Soraya Tillman MD) Mother , immediately after his premature No problems noted. 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 [employer] Pets and animals: Yes Pets and animals: cat(s) Sexually active: No Current gender identity: male What is your relationship status?: never How often do you talk on the phone with friends or family?: three or more times per week How often do you get together with friends or relatives?: three or more times per week Panel score (0-1 are the most socially isolated patients): 1 What type of physical activity do you participate in: none and sedentary lifestyle Special kilo needs: No Agree to transfusion: No Seatbelt use: always Water heater temp set <120 deg: Yes Working smoke detector in home: Yes Carbon monox detector in home: Yes Do you feel safe at home: Yes Do you feel safe in your relationship?: Yes Additional Social history: Caregiver Lana with [employer] 8 hrs + per day. Lives alone, except for his cat, Emelina. Loves [facility]. Has been several times and is hoping to go again in November. Has no complaints. Doesn't want to do dialysis. Likes staying home. Tried PT and quit after 1 or 2 sessions.
--- NOTE | 2019-06-16 15:04 | PDOC.HHF2F ---
Home Health Certification Home Health Certification: 1. Encounter Date and Reason I certify that ZELDA RODARTE was seen by Leticia Fink on 06/16/19 and that I had a [id number] encounter with this patient that meets the physician face to face encounter requirements. 2. Clinical Findings Supporting Skilled Need and Homebound Status I certify that home health services are medically necessary, include either intermittent fdc and/or physical/speech therapy, and that this patient is homebound in that absences from the home require considerable and taxing effort and are infrequent or of short duration, or are attributable to the need to receive medical care. [X] (a) Attached documentation from encounter provides clinical findings supporting skilled need and homebound status (including what assistance patient requires to leave the home). The encounter with the patient was in whole, or in part, for the following medical condition, which is the primary reason for home health care: CHF,ESRD, KYLE Intermediate: CHF, ESRD, KYLE, HTN - monitor weight, HR, BP. Strongly consider [facility] program Physical Therapy: eval and treat Occupationa Therapy: eval and treat Homebound: unable to leave home without assistance 3. Certification and Authentication I certify that I composed the above information based on my clinical judgement relating to this patient's medical condition and, if applicable, clinical findings communicated to me by the NPP or inpatient physician who performed the Home Health Referral. All further orders will be obtained through ___Dr Ethel Collins (Community Based Physician - PCP)
--- NOTE | 2019-06-16 15:31 | PDOC.CMDIS ---
- If Service Date Differs Date of service: 06/16/19 Time of Service: 15:31 LACE Index Scoring Tool - Questions: Length of Stay (in days): 7 - 13 Acuity (Admit via E.D.?): Yes Comorbidities: Diabetes w/o Complication, Congestive Heart Failure, with End Organ Damage, Liver or Renal Disease E.D. Visits: 5 - Answers: Total Score: 17 Risk of Readmission: High Risk Care Management Discharge Reason for Hospitalization: Acute exacerbation of CHF Discharge Plan: [facility] will return home with new orders for nursing, PT, and OT. He also has private care givers in the home, which will continue. His caregiver, Lana will drive him home via private vehicle. Follow up appointment with PCP. Patient/Family Education Needs: Review discharge instructions, discussion of self care needs including Ask Me Three Services Needed at Discharge: Home Health Care Services
[2019-06-16 17:24] LABS: Bilirubin Negative (Negative); Blood Trace-intact (Negative); Clarity Clear (Clear); Glucose Negative (Negative); Ketones Negative (Negative); Leukocyte Esterase Negative (Negative); Nitrite Negative (Negative); Urobilinogen 0.2 EU/dL (Up TO 0.2)
[2019-06-16 17:31] LABS: Bacteria Negative HPF (Negative); C & S Indicated? C&S Done As Ordered; Casts Negative LPF (Negative); Crystals Negative HPF (Negative); Epithelial Cells Negative HPF (Negative); Mucus Negative (Negative); Other Cells Negative (Negative); RBC 0-2 (0-2); WBC Negative HPF (0-5)
--- NOTE | 2019-06-17 13:03 | PT.INDS ---
Date of service: 06/17/19 PT Notes Inpatient Physical Therapy Discharge Summary Dates: 06/17/2019 Dates of Service: 06/11/2019 through 06/15/2019 This is a clinical summary of care provided on the duration of dates listed above. No charge was made in the completion of this documentation. Referring Doctor: RAHUL Rose PT Orders: PT CONSULT: Eval and treat Patient is Precautions: Fall Risk, chronic HTN Patient Profile/Admitting Diagnosis: 63 year old male admitted for exacerbation of COPD, after presenting to ER on 06/11/19 with SOB x 3 days. PMHX: Medical History AV fistula (Acute) 4 stages 12/2016 thru 06/16/2017 at [facility] [place] BPH (benign prostatic hyperplasia) CAD (coronary artery disease) CHF (congestive heart failure), NYHA class I Chronic kidney disease, stage IV (severe) Diabetic neuropathy Diabetic retinopathy Essential hypertension Pain: 0/10 ROM: Right Upper Extremity: Limited with shoulder flexion of 100*, abduction 90*, functional ER to ear, IR to hip, otherwise WFL Left Upper Extremity: Limited with shoulder felxion to 80*, abduction to 80*, functional ER to cheek, IR to hip, otherwise WFL Bilateral Lower Extremity: Grossly WFL, with limited ankle ROM all planes likely related to LE edema Strength: Right Upper Extremity: Shoulder grossly 4-/5 throughout, elbow and wrist 4/5 Left Upper Extremity: Shoulder grossly 3/5 throughout, elbow and wrist 3+/5 Right Lower Extremity: Grossly 4-/5 Left Lower Extremity: Grossly 4-/5 Sensation: Intact to light touch and pressure throughout B extremities Bed Mobility/Transfers: I with bed mobility, min A with LE's for reclined to EOB SBA with static stand at walker Gait: Unable due to weakness, only tolerates static marchng x 10 with CG Balance: Static Sitting: Good Dynamic Sitting: Good Static Standing: Poor Dynamic Standing: Poor Special Tests: Mobility Limitations Standardized Measure [facility] AM-PAC 6 clicks Basic Mobility Inpatient Short Form: 61 % disability. Not able to tolerate balance testing due to current functional limitations Assessment: Patient is a 63 year old male referred to physical therapy services with the diagnosis of COPD exacerbation. Patient presents with clinical signs and symptoms consistent with referred diagnosis in the setting of elevated creatinine, DMII, CKD, CAD, DN, DR, HTN, and history of stroke. He presents with the following impairment level findings, due to his medical condition: UE and LE weakness, poor balance, LE edema, and generalized weakness. Impairments are contributing to the following functional limitations: Inabilty to ambulate, requires assist with bed mobility, unable to complete attempt of tranfer to chair, requires CG with sit to stand and standing, and AMPAC score of 61% disability. Requires skilled PT service for improvement of functional capabilities, with skilled nursing goal of return to home. Goals: Goals X1 week 1. Supine-Sit I, flat bed MET 2. Sit-Supine, flat bed to be MET 1 3. Sit-Stand S NOT MET 4. Stand-Sit S NOT MET 5. Bed-Chair S NOT MET 6. Chair-Bed S NOT MET 7. Gait 50ft with RW, CG MET 8. Stairs 2, with rail, CG MET actually 9. Independent with home exercise program NOT MET 10. Balance Fair with weightbearing activities of static and dynamic nature NOT MET DISCHARGE RECOMMENDATIONS: SNF or swing, not appropriate for return home until he can demonstrate I function with basic transfers and household ambulation. TREATMENT CODE/TIME: NC. Thank you very much for this referral. Arleen Henning PT, DPT, CLT [facility]
== END 2019-06-16 18:19 | disposition home health service (06) | DRG 292 ==
LOC: ER 16:53 → MS 17:28
PROVIDERS: Nurse Practitioner Family; Admitting Provider Internal Medicine; Emergency Provider Student in an Organized Health Care Education/Training Program; PCP Internal Medicine; Visit Provider Internal Medicine
DX: I50.23 Acute on chronic systolic (congestive) heart failure (principal); N18.5 Chronic kidney disease, stage 5; I13.0 Hypertensive heart and chronic kidney disease with heart failure and stage 1 through stage 4 chronic kidney disease, or unspecified chronic kidney disease; E11.22 Type 2 diabetes mellitus with diabetic chronic kidney disease; D63.1 Anemia in chronic kidney disease; G47.33 Obstructive sleep apnea (adult) (pediatric); K21.9 Gastro-esophageal reflux disease without esophagitis; G20 Parkinson's disease; R44.1 Visual hallucinations; Z51.5 Encounter for palliative care; Z66 Do not resuscitate; I44.0 Atrioventricular block, first degree; Z95.818 Presence of other cardiac implants and grafts; E11.42 Type 2 diabetes mellitus with diabetic polyneuropathy; E78.5 Hyperlipidemia, unspecified; Z86.73 Personal history of transient ischemic attack (TIA), and cerebral infarction without residual deficits; Z79.02 Long term (current) use of antithrombotics/antiplatelets; F70 Mild intellectual disabilities; E11.319 Type 2 diabetes mellitus with unspecified diabetic retinopathy without macular edema; Z73.89 Other problems related to life management difficulty; Z71.89 Other specified counseling; N40.0 Benign prostatic hyperplasia without lower urinary tract symptoms
CPT/HCPCS: 36410; 36415; 36430; 80048; 80053; 82805; 86850; 86900; 86901; 86920; 93005; 93306; 94618; 94640; 96374; 97110; 97162; 97166; 97530; 97535; 99223; 99232; 99233; 99239; 99255; 99285; 36600; 71046; 81003; 81015; 83540; 83735; 83880; 84439; 84443; 84484; 85014; 85018; 85025; 85379; 85610; 85730; 87070; 87086; 87205; 93010; 94660; J0881; J1940; J3490; J7613; J7620; P9016

== ENCOUNTER 2019-07-02 11:18 | Inpatient (IN) | payer MEDICARE, MEDICAID, SELFPAY ==
[2019-07-02] VITALS (42 sets, daily range): BP systolic 138–177; BP diastolic 65–93; PULSE 63–79; RESP 10–28; TEMP 36.1–36.6; O2SAT 93–100
--- NOTE | 2019-07-02 12:12 | ED.GENADUL_ITS ---
Discharge Plan Discharge Details Chief Complaint: SOB Primary Care Provider: Ethel Collins ED Provider: Marie Wong Home Meds and New Rx's Prescriptions: No Action brimonidine 0.1 % drops 1 drp OP BID RF: 0 tamsulosin 0.4 mg capsule 0.8 mg PO DAILY Qty: 60 RF: 12 albuterol sulfate [ProAir HFA] 90 mcg/actuation HFA aerosol inhaler 2 puff Inhalation Q4H PRN Qty: 1 RF: 1 docusate sodium 100 mg capsule 100 mg PO DIRECTED RF: 0 multivitamin capsule 1 cap PO DAILY RF: 0 Lidocaine Pain Relief 4 % adhesive patch,medicated 1 patch TP HS PRNRF: 0 fluticasone propionate [Flonase Allergy Relief] 50 mcg/actuation spray,suspension 1 spray GOPI DAILY PRNRF: 0 dorzolamide-timolol 10 ML drops 1 drp Ophthalmic BID RF: 0 cholecalciferol (vitamin D3) [Vitamin D3] 2,000 UNIT capsule 2,000 unit PO DAILY RF: 0 calcitriol 0.25 MCG capsule 0.25 mcg PO DAILY RF: 0 atorvastatin 80 mg tablet 80 mg PO DAILY Qty: 90 RF: 3 (DME) Adult Briefs - Large misc 1 ea Miscellaneous TID Qty: 300 RF: 3 amlodipine 10 mg tablet 10 mg PO DAILY Qty: 30 RF: 5 clopidogrel [Plavix] 75 mg tablet 75 mg PO DAILY Qty: 30 RF: 11 finasteride 5 mg tablet 5 mg PO DAILY Qty: 90 RF: 4 Dexilant 60 mg capsule,biphase delayed releas 60 mg PO BID Qty: 60 RF: 5 Aranesp (in polysorbate) 40 mcg/0.4 mL syringe 40 mcg SC Q4W RF: 0 bupropion HCl 150 MG tablet extended release 12 hr 200 mg PO DAILY RF: 0 ipratropium-albuterol 0.5 mg-3 mg(2.5 mg base)/3 mL Solution For Nebulization 3 ml UPD Q4H PRN PRN (Reason: shortness of breath or wheezing) Qty: 180 RF: 0 sennosides [Senokot] 8.6 mg Tablet 1 tab PO BID Qty: 60 RF: 0 clonidine HCl [Catapres] 0.1 mg Tablet 0.1 mg PO BID Qty: 60 RF: 0 sodium bicarbonate 650 mg Tablet 650 mg PO TID Qty: 90 RF: 0 lidocaine [Lidoderm] 5 % Adhesive Patch,Medicated 2 patch topical HS Qty: 60 RF: 0 bumetanide 1 mg Tablet 2 mg PO BID DIURETIC Qty: 120 RF: 0 metoprolol tartrate 25 mg Tablet 25 mg PO Q8H Qty: 90 RF: 0 hydralazine 50 mg tablet 50 mg PO TID Qty: 90 RF: 0 melatonin 1 MG tablet 2 mg PO DIRECTED RF: 0 carbidopa-levodopa 25-100 mg Tablet 2 tab TID RF: 0 loperamide 2 mg Capsule 2 mg PO QID RF: 0 gabapentin 100 mg capsule 300 mg PO DAILY RF: 0 Medical Decision Making Patient is a 63-year-old male, accompanied by his home care provider, with a history of end-stage renal disease, cardiorenal syndrome with renal failure, CHF, Parkinson's, type 2 diabetes, stroke, GERD, hypertension, hyperlipidemia, coronary arteriosclerosis, Bourne's esophagus, anxiety, cognitive disorder. He is presenting today for recurrence of shortness of breath. Patient was admitted here through the emergency department on 06/10/2019. At that time, was diagnosed with CHF exacerbation and had a 6-day admission during which time the patient was diuresed and medications were adjusted. At the time he was admitted, they had discussed dialysis but he is unsure if he would want to go forward with this. He did require 1 transfusion of PRBCs for his anemia with no evidence of acute bleeding. After his discharge, the patient was evaluated by palliative care. This interaction occurred on 06/29/2019. At that time, the patient had expressed wanting to be able to stay his home as much as possible and focusing on quality of life over quantity. At that time, he expressed that he did not want to follow the dietary recommendations and his caregiver to accept this assessment. She reports that he does not want to increase his water intake and continues to eat what he would like. Dialysis continued to be a possibility but that patient does not want this long-term. On today's assessment, patient has been short of breath for approximately the past week that is progressive and worsening. Does have 2+ pitting edema. Mild crackles are noted in bilateral lung bases. He is not tachypnea, is not tripoding or working to breathe. He is speaking in complete sentences. His oxygen slightly low at 93% on room air. Unclear if admission would be appropriate for this patient given his long-term wishes. We will diurese the patient, give some IV hydration, obtain labs and x-ray. Patient also reports that he has not had a bowel movement in the past 3 days and this is atypical for him. Seems quite concerned with this. He is on 2 stool softeners and has been getting MiraLAX as well without any results. This may be associate with the patient not wanting to drink water on a daily basis. Once the information has been obtained, plan to consult palliative care to discuss hopefully sending him home with potential medication adjustments and outpatient management plan. HPI General Date/Time Provider Initiated Documentation: 07/02/19 11:51 . Related Data Home Medications Medication Instructions Recorded Confirmed dorzolamide-timolol 1 drp OPHTHALMIC BID drp 11/18/13 06/21/19 bupropion HCl 200 mg PO DAILY 03/22/15 06/21/19 cholecalciferol (vitamin D3) 2,000 unit PO DAILY 11/02/15 06/21/19 [Vitamin D3] calcitriol 0.25 mcg PO DAILY 03/21/16 06/21/19 melatonin 2 mg PO DIRECTED 02/09/17 06/21/19 atorvastatin 80 mg tablet 80 mg PO DAILY #90 tab 06/01/18 06/21/19 diaper,brief,adult,disposable #300 ea 06/08/18 06/21/19 amlodipine 10 mg tablet 10 mg PO DAILY #30 tab-cap 06/28/18 06/21/19 brimonidine 0.1 % eye drops 1 drp OP BID ml 07/05/18 06/21/19 clopidogrel 75 mg tablet 75 mg PO DAILY #30 tab-cap 10/24/18 06/21/19 tamsulosin 0.4 mg capsule 0.8 mg PO DAILY #60 tab-cap 12/21/18 06/21/19 albuterol sulfate 90 mcg/actuation 2 puff INHALATION Q4H PRN #1 inh 01/12/19 06/21/19 aerosol inhaler docusate sodium 100 mg capsule 100 mg PO DIRECTED tab-cap 02/18/19 06/21/19 multivitamin 1 cap PO DAILY 02/18/19 06/21/19 finasteride 5 mg tablet 5 mg PO DAILY #90 tab-cap 03/07/19 06/21/19 dexlansoprazole 60 mg 60 mg PO BID #60 cap 03/12/19 06/21/19 capsule,biphase delayed release carbidopa-levodopa 2 tab TID 04/13/19 06/21/19 loperamide 2 mg PO QID 04/13/19 06/21/19 gabapentin 100 mg capsule 300 mg PO DAILY cap 04/15/19 06/21/19 darbepoetin lesly in polysorbat 40 40 mcg SC Q4W 05/19/19 06/21/19 mcg/0.4 mL in polysorbate injection syringe fluticasone propionate 50 1 spray GOPI DAILY PRN gm 06/07/19 06/21/19 mcg/actuation nasal spray,suspension lidocaine 4 % topical patch 1 patch TP HS PRN each 06/07/19 06/21/19 bumetanide 2 mg PO BID DIURETIC #120 tab 06/16/19 06/21/19 clonidine HCl [Catapres] 0.1 mg PO BID #60 tab 06/16/19 06/21/19 hydralazine 50 mg PO TID #90 tab 06/16/19 06/21/19 ipratropium-albuterol 3 ml UPD Q4H PRN PRN #180 ml 06/16/19 06/21/19 lidocaine [Lidoderm] 2 patch TOPICAL HS #60 ea 06/16/19 06/21/19 metoprolol tartrate 25 mg PO Q8H #90 tab 06/16/19 06/21/19 sennosides [Senokot] 1 tab PO BID #60 tab 06/16/19 06/21/19 sodium bicarbonate 650 mg PO TID #90 tab 06/16/19 06/21/19 Previous Rx's Medication Instructions Recorded atorvastatin 80 mg tablet 80 mg PO DAILY #90 tab 06/01/18 diaper,brief,adult,disposable #300 ea 06/08/18 amlodipine 10 mg tablet 10 mg PO DAILY #30 tab-cap 06/28/18 clopidogrel 75 mg tablet 75 mg PO DAILY #30 tab-cap 10/24/18 tamsulosin 0.4 mg capsule 0.8 mg PO DAILY #60 tab-cap 12/21/18 albuterol sulfate 90 mcg/actuation 2 puff INHALATION Q4H PRN #1 inh 01/12/19 aerosol inhaler finasteride 5 mg tablet 5 mg PO DAILY #90 tab-cap 03/07/19 dexlansoprazole 60 mg 60 mg PO BID #60 cap 03/12/19 capsule,biphase delayed release bumetanide 2 mg PO BID DIURETIC #120 tab 06/16/19 clonidine HCl [Catapres] 0.1 mg PO BID #60 tab 06/16/19 hydralazine 50 mg PO TID #90 tab 06/16/19 ipratropium-albuterol 3 ml UPD Q4H PRN PRN #180 ml 06/16/19 lidocaine [Lidoderm] 2 patch TOPICAL HS #60 ea 06/16/19 metoprolol tartrate 25 mg PO Q8H #90 tab 06/16/19 sennosides [Senokot] 1 tab PO BID #60 tab 06/16/19 sodium bicarbonate 650 mg PO TID #90 tab 06/16/19 Allergies Allergy/AdvReac Type Severity Reaction Status Date / Time buspirone Allergy Intermediate SKIN RASH, Verified 07/02/19 11:28 DIZZINESS tuberculin, purified protein Allergy Unknown unknown Verified 07/02/19 11:28 deriva mirtazapine AdvReac Severe hypotension Verified 07/02/19 11:28 and falls NO BLOOD PRESSURE (L) ARM AdvReac Severe unknown Uncoded 07/02/19 11:28 General Stated Complaint: SOB GERHARD: 3 PFSH Medical History (Updated 06/29/19 @ 22:06 by Soraya Tillman MD) AV fistula (Acute) 4 stages 12/2016 [place]16[place] [facility] [place] BPH (benign prostatic hyperplasia) CAD (coronary artery disease) Cardiorenal syndrome with renal failure (Acute) CHF (congestive heart failure), NYHA class I Chronic kidney disease, stage IV (severe) Diabetic neuropathy Diabetic retinopathy DNI (do not intubate) (Acute) DNR (do not resuscitate) (Acute) ESRD (end stage renal disease) (Acute) Essential hypertension GERD (gastroesophageal reflux disease) Goals of care, counseling/discussion (Acute) Hyperlipidemia Mild intellectual disability (Acute) KYLE (obstructive sleep apnea) Palliative care patient (Acute) POLST (Physician Orders for Life-Sustaining Treatment) (Acute) Stroke Type II diabetes mellitus Surgical History Colonoscopy - IV Sedation (04/16/15) Dr Anderson-[facility] [place] EGD - MAC (07/22/17) Endoscopy (07/17/14) [facility] [place] Dr. Luo Extraction of cataract (03/27/15) left eye, Dr. Kang Repair of inguinal hernia bilateral Social History (Updated 06/29/19 @ 18:44 by Soraya Tillman MD) Smoking/Tobacco Use Status: Never Second Hand Exposure: No Alcohol Intake: never Drug use: Never Substance use type: does not use Caregiver/Support person: Yes Household members: none and other Details: caregiver Lana at his house 8 am to 4 pm every day Housing: other Details: mobile home Number of Children: 0 Communication Needs: Cannot Read Education Level: elementary school Details: through first grade, used to live at [employer] Do you need help understanding health information?: Always 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 [employer] Pets and animals: Yes Pets and animals: cat(s) Sexually active: No Current gender identity: male What is your relationship status?: never How often do you talk on the phone with friends or family?: three or more times per week How often do you get together with friends or relatives?: three or more times per week Panel score (0-1 are the most socially isolated patients): 1 What type of physical activity do you participate in: none Special kilo needs: No Agree to transfusion: No Seatbelt use: always Water heater temp set <120 deg: Yes Working smoke detector in home: Yes Carbon monox detector in home: Yes Do you feel safe at home: Yes Do you feel safe in your relationship?: Yes Additional Social history: Caregivers Lana or Ana with Mati 8 hrs + per day. Lives alone, except for his cats, Emelina and Rene (new since discharge). Loves [place]. Hoping to go again soon. Has no complaints. Likes his home. Tried PT and quit after 1 or 2 sessions. Asking about writing a will. Course Vital Signs Vital signs: Vital Signs Temperature 36.6 C 07/02/19 11:24 Pulse 67 07/02/19 11:24 Respiratory Rate 26 H 07/02/19 11:24 Blood Pressure 138/65 07/02/19 11:24 Pulse Oximetry 93 L 07/02/19 11:24 Temperature 36.6 C 07/02/19 11:24 Temperature Source Skin 07/02/19 11:24 Pulse 67 07/02/19 11:24 Respiratory Rate 20 07/02/19 11:47 Respiratory Effort 07/02/19 11:47 Respiratory Depth Normal 07/02/19 11:47 Respiratory Pattern Normal 07/02/19 11:47 Blood Pressure 138/65 07/02/19 11:24 Blood Pressure Position Sitting 07/02/19 11:24 Pulse Oximetry 93 L 07/02/19 11:24 Oxygen Delivery Method Room Air 07/02/19 11:24 Oxygen Flow Rate 0 07/02/19 11:24 Pain Level 11 07/02/19 11:24 Comment 07/02/19 11:24
[2019-07-02] MEDS: Furosemide 40 MG/4 ML VIAL IVP ×2 (12:20→15:30)
--- NOTE | 2019-07-02 12:20 | NUR.NOTE ---
Nursing Note: iv fluids infusing slowly due to hx of chf, and here for increased weight gain, with diminished lung sounds.
[2019-07-02 12:21] LABS: Abs Immature Grans 0.01 k/cumm (0.0-0.09); Absolute Basophil Count 0.05 k/cumm (0.0-0.2); Absolute Lymphocyte Count 0.94 k/cumm (1.2-3.4); Absolute Monocyte Count 0.72 k/cumm (0.11-0.7); Absolute Neutrophil Count 5.63 k/cumm (1.2-6.7); Basophils % 0.7; Eosinophils % 3.9; HCT 25.5 % (40.0-50.0); HGB 8.3 g/dL (13.5-17.5); Immature Grans % 0.1; Lymphocytes % 12.3; Mean Corp. HGB Concentration 32.5 g/dL (32.0-36.0); Mean Corpuscular Volume 98.5 fL (80-95); Mean Platelet Volume 9.7 fL (8.0-11.0); Monocytes % 9.4; Neutrophils % 73.6; Platelet Count 213 x1000/uL (130-400); RBC 2.59 m/cumm (4.50-6.00); RBC Distribution Width 14.2 % (11.8-14.1); White Blood Cell Count 7.65 k/cumm (4.4-10.8)
[2019-07-02] MEDS: Normal Saline 500 ML IV (12:23)
[2019-07-02 12:38] LABS: Diff Comment RBC Morph Reviewed; Polychromasia Present
[2019-07-02 12:42] LABS: AST 9 U/L (15-37); Albumin 3.5 g/dL (3.4-5.0); Alkaline Phosphatase 84 U/L (46-116); Anion Gap 15.9 mmol/L (3-11); BUN 64 mg/dL (7-18); Bilirubin, Total 0.6 mg/dL (0.2-1.0); CO2 21.1 mmol/L (21.0-32.0); Calcium 8.8 mg/dL (8.5-10.1); Chloride 107 mmol/L (98-107); Estimated GFR 9.66 (mL/min/1.73m2); Glucose 139 mg/dL (70-100); NT-proBNP 14140 pg/mL; Potassium 4.6 mmol/L (3.5-5.1); Sodium 144 mmol/L (136-145); Total Protein 6.6 g/dL (6.4-8.2)
[2019-07-02 12:44] LABS: ALT < 6 U/L (16-63); Troponin I < 0.05 ng/mL (0.00-0.06)
--- NOTE | 2019-07-02 12:45 | DI.RAD_ITS ---
EXAM: XR CHEST 2V PA LATERAL INDICATION: SOB, most consistent with CHF. COMPARISON: XR CHEST 2V PA LATERAL from 06/11/2019 TECHNIQUE: 2D digital imaging was performed. FINDINGS: Examination is compared with previous examination of June 11. Note is again made of cardiomeg raisa, bilateral pleural effusions, and bilateral pulmonary interstitial prominence. The findings denise in consistent with CHF with no significant change since the previous study. IMPRESSION:
[2019-07-02 12:46] LABS: CREATININE 5.92 mg/dL (0.70-1.30)
--- NOTE | 2019-07-02 12:55 | DI.RAD_ITS ---
EXAM: XR ABDOMEN FLAT UPRIGHT INDICATION: constipation. COMPARISON: ABD FLAT UPRIGHT PA CHEST from 09/04/2012 TECHNIQUE: 2D digital imaging was performed. FINDINGS: Five views were obtained. No free intraperitoneal air seen. Moderate quantities of fecal material p redominantly in ascending and transverse colon. No evidence of bowel obstruction. Slight prominence of small bowel diameter and possible thumbprinting of small bowel. IMPRESSION: Findings consistent with constipation. Small bowel ileus/pathology not excluded, appropriate follow- up films or CT suggested as clinically indicated.
--- NOTE | 2019-07-02 13:31 | W.ED.GENAD ---
Discharge Plan Disposition Patient Disposition: [facility] INPATIENT Condition: Fair Discharge Details Chief Complaint: SOB Clinical Impression: Congestive heart failure Admit Date/Time: 07/02/19 15:37 Admit Provider: Miguel Herzog Attending Provider: Miguel Herzog Primary Care Provider: Ethel Collins ED Provider: Marie Wong Discharge Data Discharge Date/Time-TO BE ENTERED AT DEPARTURE: 07/02/19 16:04 Medical Decision Making Patient is a 63-year-old male, accompanied by his home care provider, with a history of end-stage renal disease, cardiorenal syndrome with renal failure, CHF, Parkinson's, type 2 diabetes, stroke, GERD, hypertension, hyperlipidemia, coronary arteriosclerosis, Bourne's esophagus, anxiety, cognitive disorder. He is presenting today for recurrence of shortness of breath. Patient was admitted here through the emergency department on 06/10/2019. At that time, was diagnosed with CHF exacerbation and had a 6-day admission during which time the patient was diuresed and medications were adjusted. At the time he was admitted, they had discussed dialysis but he is unsure if he would want to go forward with this. He did require 1 transfusion of PRBCs for his anemia with no evidence of acute bleeding. After his discharge, the patient was evaluated by palliative care. This interaction occurred on 06/29/2019. At that time, the patient had expressed wanting to be able to stay his home as much as possible and focusing on quality of life over quantity. At that time, he expressed that he did not want to follow the dietary recommendations and his caregiver to accept this assessment. She reports that he does not want to increase his water intake and continues to eat what he would like. Dialysis continued to be a possibility but that patient does not want this long-term. On today's assessment, patient has been short of breath for approximately the past week that is progressive and worsening. Does have 2+ pitting edema. Mild crackles are noted in bilateral lung bases. He is not tachypnea, is not tripoding or working to breathe. He is speaking in complete sentences. His oxygen slightly low at 93% on room air. Unclear if admission would be appropriate for this patient given his long-term wishes. We will diurese the patient, give some IV hydration, obtain labs and x-ray. Patient also reports that he has not had a bowel movement in the past 3 days and this is atypical for him. Seems quite concerned with this. He is on 2 stool softeners and has been getting MiraLAX as well without any results. This may be associate with the patient not wanting to drink water on a daily basis. Once the information has been obtained, plan to consult palliative care to discuss hopefully sending him home with potential medication adjustments and outpatient management plan. Patient has gained 10lb over the past week. Patient given a 500 cc bolus of fluids as he appears very dry on exam both skin turgor dry mucous membranes. However, he does appear to be retaining his lower extremities to pitting edema. 40 mg IV Lasix given CXR reviewed by radiologist: FINDINGS: Diffuse interstitial lung scarring. Blunting of the posterior costophrenic angles most likely representing atelectasis or scarring unchanged from the prior examination. Mild cardiomegaly unchanged. No significant focal consolidations. IMPRESSION: No significant change from the prior examination. FINDINGS: Nonspecific bowel gas pattern. Vascular calcifications. Degenerative changes of the lumbar spine. Mild to moderate fecal material within the right colon without colonic distention. IMPRESSION: Nonspecific bowel gas pattern. Labs reviewed. Significant for anemia with a hemoglobin of 8.3. This is baseline for the patient. Anion gap 18.9. Normal bicarb. BUN of 64. Creatinine of 5.92. Estimated GFR of 9.6. BNP is 14,000, this is fairly baseline for the patient and is likely associated with his chronic renal disease. A very lengthy discussion with the patient and his home care provider regarding goals of care. He was seen by Dr. Álvarez for palliative care consult recently at which time, the patient expresses want to stay at home as much as possible and to continue to eat but he would like. The patient seems quite upset by the fact that he is unable to eat but he likes and not continue to improve in regard to his fluid overload and shortness of breath. We did discuss dialysis and he continues to be on the fence he would like to move forward with this. However, after lengthy discussion, he would like to be admitted for continued IV diuresis and management of his CHF exacerbation in the setting of chronic kidney disease. Consulted with Dr. Samara Grubbs who advised that I give another 40 mg of IV Lasix. Plan for patient to be admitted to the floor. He will continue with palliative care consultation HPI General Mode of arrival: ambulatory. Date/Time Provider Initiated Documentation: 07/02/19 11:51. Limitations to Documentation: no limitations. Information obtained by: patient, family (Home Care provider) and RN notes reviewed. History of Present Illness 63 year old M presents to the emergency department with the chief complaint of Shortness of breath, described as moderate and similar to prior episodes, with intensity rated at 10. Patient started experiencing this day(s) (Shortness of breath has been increasing over the past few days) and it has been constant. No relieving factors improve symptom(s), Eating worsens symptoms and Movement worsens symptoms . Patient notes cough and shortness of breath; denies chest pain, fever/chills, headaches, loss of appetite, nausea/vomiting, rash, syncope and weakness. Related Data Home Medications Medication Instructions Recorded Confirmed dorzolamide-timolol 1 drp OPHTHALMIC BID drp 11/18/13 07/02/19 bupropion HCl 200 mg PO DAILY 03/22/15 07/02/19 cholecalciferol (vitamin D3) 2,000 unit PO DAILY 11/02/15 07/02/19 [Vitamin D3] calcitriol 0.25 mcg PO DAILY 03/21/16 07/02/19 melatonin 2 mg PO DIRECTED 02/09/17 07/02/19 atorvastatin 80 mg tablet 80 mg PO DAILY #90 tab 06/01/18 07/02/19 diaper,brief,adult,disposable #300 ea 06/08/18 06/21/19 amlodipine 10 mg tablet 10 mg PO DAILY #30 tab-cap 06/28/18 07/02/19 brimonidine 0.1 % eye drops 1 drp OP BID ml 07/05/18 07/02/19 clopidogrel 75 mg tablet 75 mg PO DAILY #30 tab-cap 10/24/18 07/02/19 tamsulosin 0.4 mg capsule 0.8 mg PO DAILY #60 tab-cap 12/21/18 07/02/19 albuterol sulfate 90 mcg/actuation 2 puff INHALATION Q4H PRN #1 inh 01/12/19 06/21/19 aerosol inhaler docusate sodium 100 mg capsule 100 mg PO DIRECTED tab-cap 02/18/19 07/02/19 multivitamin 1 cap PO DAILY 02/18/19 07/02/19 finasteride 5 mg tablet 5 mg PO DAILY #90 tab-cap 03/07/19 07/02/19 dexlansoprazole 60 mg 60 mg PO BID #60 cap 03/12/19 07/02/19 capsule,biphase delayed release carbidopa-levodopa 2 tab TID 04/13/19 07/02/19 loperamide 2 mg PO QID 04/13/19 07/02/19 gabapentin 100 mg capsule 300 mg PO DAILY cap 04/15/19 07/02/19 darbepoetin lesly in polysorbat 40 40 mcg SC Q4W 05/19/19 07/02/19 mcg/0.4 mL in polysorbate injection syringe fluticasone propionate 50 1 spray GOPI DAILY PRN gm 06/07/19 07/02/19 mcg/actuation nasal spray,suspension lidocaine 4 % topical patch 1 patch TP HS PRN each 06/07/19 07/02/19 bumetanide 2 mg PO BID DIURETIC #120 tab 06/16/19 07/02/19 clonidine HCl [Catapres] 0.1 mg PO BID #60 tab 06/16/19 07/02/19 hydralazine 50 mg PO TID #90 tab 06/16/19 07/02/19 ipratropium-albuterol 3 ml UPD Q4H PRN PRN #180 ml 06/16/19 07/02/19 lidocaine [Lidoderm] 2 patch TOPICAL HS #60 ea 06/16/19 07/02/19 metoprolol tartrate 25 mg PO Q8H #90 tab 06/16/19 07/02/19 sennosides [Senokot] 1 tab PO BID #60 tab 06/16/19 07/02/19 sodium bicarbonate 650 mg PO TID #90 tab 06/16/19 07/02/19 Previous Rx's Medication Instructions Recorded atorvastatin 80 mg tablet 80 mg PO DAILY #90 tab 06/01/18 diaper,brief,adult,disposable #300 ea 06/08/18 amlodipine 10 mg tablet 10 mg PO DAILY #30 tab-cap 06/28/18 clopidogrel 75 mg tablet 75 mg PO DAILY #30 tab-cap 10/24/18 tamsulosin 0.4 mg capsule 0.8 mg PO DAILY #60 tab-cap 12/21/18 albuterol sulfate 90 mcg/actuation 2 puff INHALATION Q4H PRN #1 inh 01/12/19 aerosol inhaler finasteride 5 mg tablet 5 mg PO DAILY #90 tab-cap 03/07/19 dexlansoprazole 60 mg 60 mg PO BID #60 cap 03/12/19 capsule,biphase delayed release bumetanide 2 mg PO BID DIURETIC #120 tab 06/16/19 clonidine HCl [Catapres] 0.1 mg PO BID #60 tab 06/16/19 hydralazine 50 mg PO TID #90 tab 06/16/19 ipratropium-albuterol 3 ml UPD Q4H PRN PRN #180 ml 06/16/19 lidocaine [Lidoderm] 2 patch TOPICAL HS #60 ea 06/16/19 metoprolol tartrate 25 mg PO Q8H #90 tab 06/16/19 sennosides [Senokot] 1 tab PO BID #60 tab 06/16/19 sodium bicarbonate 650 mg PO TID #90 tab 06/16/19 Allergies Allergy/AdvReac Type Severity Reaction Status Date / Time buspirone Allergy Intermediate SKIN RASH, Verified 07/02/19 11:28 DIZZINESS tuberculin, purified protein Allergy Unknown unknown Verified 07/02/19 11:28 deriva mirtazapine AdvReac Severe hypotension Verified 07/02/19 11:28 and falls NO BLOOD PRESSURE (L) ARM AdvReac Severe unknown Uncoded 07/02/19 11:28 General Stated Complaint: SOB GERHARD: 3 Review of Systems Constitutional Constitutional: Reports as per HPI, Denies chills, Reports fatigue, Denies fever(s), Denies headache(s), Denies lethargy, Denies poor appetite, Reports snoring and Reports weight gain (10lb in past week per home care provider ) Eyes Eyes: Denies change in vision ENT Ears, Nose, Mouth, and Throat: Denies dizziness and Denies headache(s) Cardiovascular Cardiovascular: Reports as per HPI, Reports leg edema, Denies lightheadedness, Denies radiating jaw, neck or arm pain, Denies palpitations, Reports dyspnea, Reports dyspnea on exertion and Reports paroxysmal nocturnal dyspnea Respiratory Respiratory: Reports as per HPI, Denies chest congestion, Denies cough, Denies pain on inspiration, Denies pain with cough, Reports dyspnea, Reports dyspnea on exertion, Reports snoring, Denies stridor and Denies wheezing Gastrointestinal Gastrointestinal: Reports as per HPI, Denies abdominal pain, Denies diarrhea, Denies nausea and Denies vomiting Genitourinary Genitourinary: Denies system reviewed and no additional complaints, except as docu (denies change in urinary habits) Musculoskeletal Musculoskeletal: Reports as per HPI and Denies back pain Integumentary/Breasts Skin/Breast: Reports as per HPI and Denies rash Neurologic Neurologic: Reports as per HPI, Denies dizziness and Denies headache(s) Endocrine Endocrine: Reports fatigue and Denies palpitations Allergic/Immunologic Allergic/Immunologic: Denies wheezing [facility] Medical History AV fistula (Acute) 4 stages 12/2016 thru 06/16/2017 at [facility] [place] BPH (benign prostatic hyperplasia) CAD (coronary artery disease) Cardiorenal syndrome with renal failure (Acute) CHF (congestive heart failure), NYHA class I Chronic kidney disease, stage IV (severe) Diabetic neuropathy Diabetic retinopathy DNI (do not intubate) (Acute) DNR (do not resuscitate) (Acute) ESRD (end stage renal disease) (Acute) Essential hypertension GERD (gastroesophageal reflux disease) Goals of care, counseling/discussion (Acute) Hyperlipidemia Mild intellectual disability (Acute) KYLE (obstructive sleep apnea) Palliative care patient (Acute) POLST (Physician Orders for Life-Sustaining Treatment) (Acute) Stroke Type II diabetes mellitus Surgical History Colonoscopy - IV Sedation (04/16/15) Dr Anderson-[facility] EGD - MAC (07/22/17) Endoscopy (07/17/14) [facility] Dr. Luo Extraction of cataract (03/27/15) left eye, Dr. 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 [employer] Pets and animals: Yes Pets and animals: cat(s) Sexually active: No Current gender identity: male What is your relationship status?: never How often do you talk on the phone with friends or family?: three or more times per week How often do you get together with friends or relatives?: three or more times per week Panel score (0-1 are the most socially isolated patients): 1 What type of physical activity do you participate in: none Special kilo needs: No Agree to transfusion: No Seatbelt use: always Water heater temp set <120 deg: Yes Working smoke detector in home: Yes Carbon monox detector in home: Yes Do you feel safe at home: Yes Do you feel safe in your relationship?: Yes Additional Social history: Caregivers Lana or Ana with [employer] 8 hrs + per day. Lives alone, except for his cats, Emelina and Rene (new since discharge). Loves [place]ilar[place]. Hoping to go again soon. Has no complaints. Likes his home. Tried PT and quit after 1 or 2 sessions. Asking about writing a will. Exam Const General: cooperative, healthy appearing, comfortable, no acute distress and well developed Nutritional Appearance: average body habitus and well nourished Orientation: alert, awake and oriented x3 HENMT Head: normal to inspection Ears: hearing grossly normal bilaterally Mouth: mucous membranes dry (Patient appears very dry) Chest Chest: normal inspection of the chest, normal palpation of entire chest wall and no crepitus Resp Effort & Inspection: normal respiratory effort, able to speak in complete sentences and no respiratory distress Auscultation: clear to auscultation bilaterally, crackles bilaterally in the lower lung guzman, no rales, no rhonchi and no wheezes Cardio Rate: regular rate Rhythm: regular rhythm Heart Sounds: S1 normal and S2 normal GI Inspection: normal to inspection, no edema and non-distended Palpation: soft, no hepatosplenomegaly, not firm, no guarding, not rigid and nontender Auscultation: normal bowel sounds Back/Spine/Pelvis Back: no CVA tenderness Thoracic/Lumbar Spine: thoracic and lumbar spine normal to inspection Skin General skin exam: no rashes or lesions noted Trauma: no lacerations or abrasions Neuro General: alert, awake and oriented x3 Cognition: normal cognition Speech: speech normal Gait: normal gait Extrem General: normal to inspection, normal capillary refill, no calf tenderness, normal gait and pedal edema bilaterally (2+ pitting edema) Psych Appearance: grossly normal and well kempt Mental Status: mental status grossly normal Speech and Movement: speech and movement normal Course Vital Signs Vital signs: Vital Signs Temperature 36.6 C 07/02/19 11:24 Pulse 67 07/02/19 11:24 Respiratory Rate 26 H 07/02/19 11:24 Blood Pressure 138/65 07/02/19 11:24 Pulse Oximetry 93 L 07/02/19 11:24 Temperature 36.6 C 07/02/19 11:24 Temperature Source Skin 07/02/19 11:24 Pulse 67 07/02/19 11:24 Respiratory Rate 20 07/02/19 11:47 Respiratory Effort 07/02/19 11:47 Respiratory Depth Normal 07/02/19 11:47 Respiratory Pattern Normal 07/02/19 11:47 Blood Pressure 138/65 07/02/19 11:24 Blood Pressure Position Sitting 07/02/19 11:24 Pulse Oximetry 93 L 07/02/19 11:24 Oxygen Delivery Method Room Air 07/02/19 11:24 Oxygen Flow Rate 0 07/02/19 11:24 Pain Level 11 07/02/19 11:24 Comment 07/02/19 11:24 Lab/Test Results Lab/Test Results: Laboratory Tests Range/Units 07/02/19 07/02/19 12:00 12:00 WBC (4.4-10.8) k/cumm 7.65 RBC (4.50-6.00) m/cumm 2.59 L Hgb (13.5-17.5) g/dL 8.3 L Hct (40.0-50.0) % 25.5 L MCV (80-95) fL 98.5 H MCH (27.0-33.0) pg 32.0 MCHC (32.0-36.0) g/dL 32.5 RDW (11.8-14.1) % 14.2 H Plt Count (130-400) x1000/uL 213 MPV (8.0-11.0) fL 9.7 Immature Gran % 0.1 Neutrophils % 73.6 Lymphocytes % 12.3 Monocytes % 9.4 Eosinophils % 3.9 Basophils % 0.7 Absolute Neutrophils (1.2-6.7) k/cumm 5.63 Absolute Lymphocytes (1.2-3.4) k/cumm 0.94 L Absolute Monocytes (0.11-0.7) k/cumm 0.72 H Absolute Eosinophils (0.0-0.7) k/cumm 0.30 Absolute Basophils (0.0-0.2) k/cumm 0.05 Differential Comment Rbc morph reviewed RBC Morphology See below Polychromasia Present Sodium (136-145) mmol/L 144 Potassium (3.5-5.1) mmol/L 4.6 Chloride (98-107) mmol/L 107 Carbon Dioxide (21.0-32.0) mmol/L 21.1 Anion Gap (3-11) mmol/L 15.9 H BUN (7-18) mg/dL 64 H Creatinine (0.70-1.30) mg/dL 5.92 H* Estimated GFR/1.73 m2 (mL/min/1.73m2) 9.66 Glucose (70-100) mg/dL 139 H Calcium (8.5-10.1) mg/dL 8.8 Magnesium (1.8-2.4) mg/dL 2.0 Total Bilirubin (0.2-1.0) mg/dL 0.6 AST (15-37) U/L 9 L ALT (16-63) U/L < 6 L Alkaline Phosphatase (46-116) U/L 84 Troponin I (0.00-0.06) ng/mL < 0.05 NT-Pro-B Natriuret Pep ( - 299) pg/mL 33045 H Total Protein (6.4-8.2) g/dL 6.6 Albumin (3.4-5.0) g/dL 3.5
--- NOTE | 2019-07-02 13:40 | DI.VRAD_ITS ---
PROCEDURE INFORMATION: Exam: XR Chest, 2 Views Exam date and time: 07/02/2019 12:55 PM Clinical history: 63 years old, male; Shortness of breath; Patient HX: Chf TECHNIQUE: Imaging protocol: XR of the chest Views: 2 views. COMPARISON: CR XR CHEST 2V PA LATERAL 06/11/2019 12:05 PM FINDINGS: Diffuse interstitial lung scarring. Blunting of the posterior costophrenic angles most likely representing atelectasis or scarring unchanged from the prior examination. Mild cardiomegaly unchanged. No significant focal consolidations. IMPRESSION: No significant change from the prior examination. Dictated and Authenticated by: Adalberto Lew MD. Ordering:MARIA ESTHER Salazar MD
--- NOTE | 2019-07-02 13:42 | DI.VRAD_ITS ---
PROCEDURE INFORMATION: Exam: XR Abdomen, 2 Views Exam date and time: 07/02/2019 12:54 PM Clinical history: 63 years old, male; Constipation TECHNIQUE: Imaging protocol: XR of the abdomen. Frontal supine and upright views of the abdomen. Views: 2 Views. COMPARISON: CR ABD FLAT UPRIGHT PA CHEST 09/04/2012 12:52 AM FINDINGS: Nonspecific bowel gas pattern. Vascular calcifications. Degenerative changes of the lumbar spine. Mild to moderate fecal material within the right colon without colonic distention. IMPRESSION: Nonspecific bowel gas pattern. Dictated and Authenticated by: Adalberto Lew MD. Ordering:MARIA ESTHER Salazar MD
--- NOTE | 2019-07-02 16:50 | W.PM.HP.N ---
Date of service: 07/02/19 Time of Service: 16:50 Assessment and Plan Assessment and plan (1) Acute on chronic systolic congestive heart failure: Start date: 07/02/19 Start time: 17:21 Status: Acute Assessment and plan: SOB increasing over a week. Patient ate cheeseburgers this week about 3 days ago with worsening SOB. + JVD, + 3 pitting edema. Started on 80 mg IVP with catheter insertion, monitor weights, and I/O. BNP 92402; however in ESR patient this could be elevated due disease. Bipap to help relief SOB. (2) ESRD (end stage renal disease): Start date: 07/02/19 Start time: 17:24 Status: Acute Assessment and plan: Creatinine of 5.92. AV fistula for dialysis. Patient is unsure at this time if he wishes to pursue dialysis or be made comfortable when the time comes. Will have palliative continue to follow patient. (3) DVT prophylaxis: Start date: 07/02/19 Start time: 17:25 Status: Acute Assessment and plan: Heparin Subcu (4) Palliative care patient: Start date: 07/02/19 Start time: 17:25 Status: Acute Assessment and plan: Seen by Dr. Tillman in the community. Will have follow up while he is here. (5) Gastroesophageal reflux disease: Start date: 07/02/19 Start time: 17:26 Status: Acute Assessment and plan: Omeprazole daily. (6) Essential hypertension: Start date: 07/02/19 Start time: 17:26 Status: Acute Assessment and plan: Slightly elevated at this time. Continue home regimen and monitoring of BP (7) Discharge planning issues: Start date: 07/02/19 Start time: 17:25 Status: Acute Assessment and plan: Patient will likely be discharged home when medically stable Case above discussed with Dr. Herzog who is in agreement. History of Present Illness History of Present Illness Chief Complaint: CKD, CHF, SOB Narrative: Mr. Sampson is a 63 y.o male with PMH of Anemia, Parkinson, DM II, Stroke, Hyperlipidemia, HTN, D. Neuropathy, D. Retinopathy, CHF, ESRD with fistula (not started on dialysis). KYLE on Bipap. Migraine, mental delay and loop recorder. Being admitted from [facility] ED for SOB onset a week ago worsening over last couple days after eating cheeseburgers twice this week 1-2. Emergency department findings creatinine of 5.92 with BUN 64 which is baseline. BNP 14,140. CXR with no significant change from prior exam, there was some diffuse interstitial lung scarring and blunting of posterior costopherni angles likely atelectasis or scarring; imaging is unchanged from previous admission. Abdomen xray with no bowel gas pattern. On exam patient has noticeable JVD. Expiratory wheezing to RLL with 3+ edema generalized. He did appear to be having increased work of breathing, bipap started as he is suppose to use at home but does not. He is being admitted for CHF exacerbation started on lasix IVP 80 mg, he tolerated well last admission. Nuñez catheter to monitor urine output and daily weights. Right foot with 5th digit bruising unsure of how this happened. Foot xray pending. Dr. Patel to see patient for foot. Palliative care patient as well, just seen by Dr. Tillman. Will consult for follow up. PT/OT. At this time he denies CP, SOB, N/V/D. Review of Systems Review of Systems ROS Unobtainable: All systems reviewed & are unremarkable except as noted in HPI and below PFSH Medical History AV fistula (Acute) 4 stages 12/2016 thru 06/16/2017 at [facility] BPH (benign prostatic hyperplasia) CAD (coronary artery disease) Cardiorenal syndrome with renal failure (Acute) CHF (congestive heart failure), NYHA class I Chronic kidney disease, stage IV (severe) Diabetic neuropathy Diabetic retinopathy DNI (do not intubate) (Acute) DNR (do not resuscitate) (Acute) ESRD (end stage renal disease) (Acute) Essential hypertension GERD (gastroesophageal reflux disease) Goals of care, counseling/discussion (Acute) Hyperlipidemia Mild intellectual disability (Acute) KYLE (obstructive sleep apnea) Palliative care patient (Acute) POLST (Physician Orders for Life-Sustaining Treatment) (Acute) Stroke Type II diabetes mellitus Surgical History Colonoscopy - IV Sedation (04/16/15) Dr Anderson-[facility] [place] EGD - MAC (07/22/17) Endoscopy (07/17/14) [facility] Dr. Luo Extraction of cataract (03/27/15) left eye, Dr. Kang Repair of inguinal hernia bilateral Social History (Updated 06/29/19 @ 18:44 by Soraya Tillman MD) Smoking/Tobacco Use Status: Never Second Hand Exposure: No Alcohol Intake: never Drug use: Never Substance use type: does not use Caregiver/Support person: Yes Household members: none and other Details: caregiver Lana at his house 8 am to 4 pm every day Housing: other Details: mobile home Number of Children: 0 Communication Needs: Cannot Read Education Level: elementary school Details: through first grade, used to live at [employer] Do you need help understanding health information?: Always 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 [employer] Pets and animals: Yes Pets and animals: cat(s) Sexually active: No Current gender identity: male What is your relationship status?: never How often do you talk on the phone with friends or family?: three or more times per week How often do you get together with friends or relatives?: three or more times per week Panel score (0-1 are the most socially isolated patients): 1 What type of physical activity do you participate in: none Special kilo needs: No Agree to transfusion: No Seatbelt use: always Water heater temp set <120 deg: Yes Working smoke detector in home: Yes Carbon monox detector in home: Yes Do you feel safe at home: Yes Do you feel safe in your relationship?: Yes Additional Social history: Caregivers Lana or Ana with [employer]i 8 hrs + per day. Lives alone, except for his cats, Emelina and Rene (new since discharge). [facility] Hoping to go again soon. Has no complaints. Likes his home. Tried PT and quit after 1 or 2 sessions. Asking about writing a will. Meds Home Medications and Allergies Home Medications Medication Instructions Recorded Confirmed Type dorzolamide-timolol 1 drp OPHTHALMIC BID drp 11/18/13 07/02/19 History bupropion HCl 200 mg PO DAILY 03/22/15 07/02/19 History cholecalciferol (vitamin D3) 2,000 unit PO DAILY 11/02/15 07/02/19 History [Vitamin D3] calcitriol 0.25 mcg PO DAILY 03/21/16 07/02/19 History melatonin 2 mg PO DIRECTED 02/09/17 07/02/19 History atorvastatin 80 mg tablet 80 mg PO DAILY #90 tab 06/01/18 07/02/19 Rx diaper,brief,adult,disposable #300 ea 06/08/18 06/21/19 Rx amlodipine 10 mg tablet 10 mg PO DAILY #30 tab-cap 06/28/18 07/02/19 Rx brimonidine 0.1 % eye drops 1 drp OP BID ml 07/05/18 07/02/19 History clopidogrel 75 mg tablet 75 mg PO DAILY #30 tab-cap 10/24/18 07/02/19 Rx tamsulosin 0.4 mg capsule 0.8 mg PO DAILY #60 tab-cap 12/21/18 07/02/19 Rx albuterol sulfate 90 mcg/actuation 2 puff INHALATION Q4H PRN #1 inh 01/12/19 06/21/19 Rx aerosol inhaler docusate sodium 100 mg capsule 100 mg PO DIRECTED tab-cap 02/18/19 07/02/19 History multivitamin 1 cap PO DAILY 02/18/19 07/02/19 History finasteride 5 mg tablet 5 mg PO DAILY #90 tab-cap 03/07/19 07/02/19 Rx dexlansoprazole 60 mg 60 mg PO BID #60 cap 03/12/19 07/02/19 Rx capsule,biphase delayed release carbidopa-levodopa 2 tab TID 04/13/19 07/02/19 History loperamide 2 mg PO QID 04/13/19 07/02/19 History gabapentin 100 mg capsule 300 mg PO DAILY cap 04/15/19 07/02/19 History darbepoetin lesly in polysorbat 40 40 mcg SC Q4W 05/19/19 07/02/19 History mcg/0.4 mL in polysorbate injection syringe fluticasone propionate 50 1 spray GOPI DAILY PRN gm 06/07/19 07/02/19 History mcg/actuation nasal spray,suspension lidocaine 4 % topical patch 1 patch TP HS PRN each 06/07/19 07/02/19 History bumetanide 2 mg PO BID DIURETIC #120 tab 06/16/19 07/02/19 Rx clonidine HCl [Catapres] 0.1 mg PO BID #60 tab 06/16/19 07/02/19 Rx hydralazine 50 mg PO TID #90 tab 06/16/19 07/02/19 Rx ipratropium-albuterol 3 ml UPD Q4H PRN PRN #180 ml 06/16/19 07/02/19 Rx lidocaine [Lidoderm] 2 patch TOPICAL HS #60 ea 06/16/19 07/02/19 Rx metoprolol tartrate 25 mg PO Q8H #90 tab 06/16/19 07/02/19 Rx sennosides [Senokot] 1 tab PO BID #60 tab 06/16/19 07/02/19 Rx sodium bicarbonate 650 mg PO TID #90 tab 06/16/19 07/02/19 Rx Allergies Allergy/AdvReac Type Severity Reaction Status Date / Time buspirone Allergy Intermediate SKIN RASH, Verified 07/02/19 11:28 DIZZINESS tuberculin, purified protein Allergy Unknown unknown Verified 07/02/19 11:28 deriva mirtazapine AdvReac Severe hypotension Verified 07/02/19 11:28 and falls NO BLOOD PRESSURE (L) ARM AdvReac Severe unknown Uncoded 07/02/19 11:28 Exam Const General: cooperative and ill appearing Orientation: alert and awake HENMT Head: normal to inspection Mouth: moist mucous membranes abnormal (cracking and dry) Eyes Alignment and Position: alignment normal Conjunctivae: conjunctival abnormality left other (redness) Pupils: PERRL Neck Neck: trachea midline and JVD Thyroid: thyroid normal Lymphatic: no lymphadenopathy noted Chest Chest: normal inspection of the chest Resp Effort & Inspection: able to speak in complete sentences and abnormal respiratory pattern Auscultation: diminished lung sounds and wheezes expiratory wheezes and right lower Cardio Jugular venous pressure: JVD Rate: regular rate Rhythm: regular rhythm Heart Sounds: S1 normal and S2 normal GI Palpation: soft and no hepatosplenomegaly Auscultation: hypoactive bowel sounds General: deferred Back/Spine/Pelvis Back: no CVA tenderness Skin Trauma: abrasion (to bilateral lower extremities) Neuro General: alert, awake and oriented x3 Speech: abnormal speech garbled Extrem General: edema, pedal edema and AV fistula (LUE) Psych Appearance: disheveled Speech and Movement: other Mood: congruent mood Judgment: fair Results Labs Result diagrams: 07/02/19 12:00 07/02/19 12:00 Labs: Laboratory Results - last 24 hr 07/02/19 07/02/19 12:00 12:00 WBC 7.65 RBC 2.59 L Hgb 8.3 L Hct 25.5 L MCV 98.5 H MCH 32.0 MCHC 32.5 RDW 14.2 H Plt Count 213 MPV 9.7 Immature Gran % 0.1 Neutrophils % 73.6 Lymphocytes % 12.3 Monocytes % 9.4 Eosinophils % 3.9 Basophils % 0.7 Absolute Neutrophils 5.63 Absolute Lymphocytes 0.94 L Absolute Monocytes 0.72 H Absolute Eosinophils 0.30 Absolute Basophils 0.05 Differential Comment Rbc morph reviewed RBC Morphology See below Polychromasia Present Sodium 144 Potassium 4.6 Chloride 107 Carbon Dioxide 21.1 Anion Gap 15.9 H BUN 64 H Creatinine 5.92 H* Estimated GFR/1.73 m2 9.66 Glucose 139 H Calcium 8.8 Magnesium 2.0 Total Bilirubin 0.6 AST 9 L ALT < 6 L Alkaline Phosphatase 84 Troponin I < 0.05 NT-Pro-B Natriuret Pep 48011 H Total Protein 6.6 Albumin 3.5 Last Vital Signs Temp 36.1 C L 07/02/19 16:26 Pulse 70 07/02/19 16:26 Resp 16 07/02/19 16:26 BP 168/80 H 07/02/19 16:26 Pulse Ox 97 07/02/19 16:26
--- NOTE | 2019-07-02 18:00 | DI.RAD_ITS ---
EXAM: XR FOOT RT COMPLETE INDICATION: trauma, ecchymosis. COMPARISON: No exams were available for comparison TECHNIQUE: 2D digital imaging was performed. FINDINGS: Three views were obtained. There is flatfoot deformity. Probable old osteotomy 1st metatarsal head, alternatively erosion not entirely excluded please correlate clinically. No gross fracture identif ied. Moderate degenerative changes noted. IMPRESSION: No evidence of acute process
--- NOTE | 2019-07-02 18:17 | DI.VRAD_ITS ---
PROCEDURE INFORMATION: Exam: XR Right Foot Complete Exam date and time: 07/02/2019 6:01 PM Clinical history: 63 years old, male; Injury or trauma; Fall; Initial encounter; Blunt trauma; Foot; Bilateral; Additional info: Ecchymosis TECHNIQUE: Imaging protocol: XR Right foot. Views: 3 or more views. COMPARISON: No relevant prior studies available. FINDINGS: Bones/joints: Bunionectomy defect versus erosion in the head of the first metatarsal bone. Clinically correlate. No acute fracture or dislocation. Small plantar calcaneal spur. Degenerative changes in the ankle joint. Flat foot deformity. Soft tissues: Soft tissue edema. Vasculature: Atherosclerosis. IMPRESSION: Bunionectomy defect versus erosion in the head of the first metatarsal bone. Clinically correlate. Atherosclerosis. No acute fracture or dislocation. Small plantar calcaneal spur. Degenerative changes in the ankle joint. Soft tissue edema. Flat foot deformity. Dictated and Authenticated by: Hannah Skinner MD. Ordering:EVIE Keating MD
[2019-07-02] MEDS: Carbidopa 25/Levodopa 100 TAB PO (20:37)
[2019-07-02] MEDS: Docusate Sodium 100 MG CAP PO (20:37)
[2019-07-02] MEDS: hydrALAZINE 25 MG TAB 50 MG PO (20:38)
[2019-07-02] MEDS: cloNIDine 0.1 MG TAB PO (20:38)
[2019-07-02] MEDS: Senna TAB 1 TAB PO (20:38)
[2019-07-02] MEDS: Sodium Bicarbonate 650 MG TAB PO (20:38)
[2019-07-02] MEDS: Heparin 5,000 UNITS/ML VIAL 5000 UNITS SC (20:38)
[2019-07-02] MEDS: Lidocaine 5% Patch 2 PATCH TP (22:16)
[2019-07-02] MEDS: Brimonidine 0.15% 5 ML BTL OP (22:17)
[2019-07-02] MEDS: Melatonin 3 MG TAB PO (22:18)
[2019-07-02] MEDS: Metoprolol 25 MG TAB PO (22:18)
[2019-07-03 03:21] VITALS: RESP 10
[2019-07-03 03:43] VITALS: BP 177/83; PULSE 69; RESP 18; TEMP 36.4; O2SAT 95
[2019-07-03] MEDS: Heparin 5,000 UNITS/ML VIAL 5000 UNITS SC ×3 (03:55→19:54)
[2019-07-03] MEDS: Metoprolol 25 MG TAB PO ×3 (06:03→22:12)
[2019-07-03 07:25] VITALS: BP 154/77; PULSE 70; RESP 20; TEMP 36.9; O2SAT 96
[2019-07-03 07:47] LABS: Abs Immature Grans 0.01 k/cumm (0.0-0.09); Absolute Basophil Count 0.04 k/cumm (0.0-0.2); Absolute Eosinophil Count 0.33 k/cumm (0.0-0.7); Absolute Lymphocyte Count 0.89 k/cumm (1.2-3.4); Absolute Monocyte Count 0.61 k/cumm (0.11-0.7); Absolute Neutrophil Count 4.07 k/cumm (1.2-6.7); Basophils % 0.7; Eosinophils % 5.5; HGB 7.8 g/dL (13.5-17.5); Immature Grans % 0.2; Mean Corp. HGB Concentration 32.5 g/dL (32.0-36.0); Mean Corpuscular Volume 98.4 fL (80-95); Mean Platelet Volume 9.2 fL (8.0-11.0); Monocytes % 10.3; Neutrophils % 68.3; Platelet Count 189 x1000/uL (130-400); RBC 2.44 m/cumm (4.50-6.00); RBC Distribution Width 14.2 % (11.8-14.1); White Blood Cell Count 5.95 k/cumm (4.4-10.8)
[2019-07-03 08:07] LABS: Anion Gap 12.7 mmol/L (3-11); BUN 60 mg/dL (7-18); CO2 22.3 mmol/L (21.0-32.0); Calcium 8.6 mg/dL (8.5-10.1); Chloride 109 mmol/L (98-107); Estimated GFR 9.68 (mL/min/1.73m2); Glucose 131 mg/dL (70-100); Magnesium 2.1 mg/dL (1.8-2.4); Potassium 4.3 mmol/L (3.5-5.1); Sodium 144 mmol/L (136-145)
[2019-07-03 08:12] LABS: CREATININE 5.91 mg/dL (0.70-1.30)
--- NOTE | 2019-07-03 08:16 | INITIAL_ITS ---
- If Service Date Differs Date of service: 07/03/19 Time of Service: 08:16 Care Management Initial Assess REASON FOR HOSPITALIZATION:: Acute on chronic systolic CHF PAST MEDICAL HISTORY/PAST SURGICAL HISTORY:: Medical History : AV fistula (Acute). 4 stages 12/2016 thru 06/16/2017 at [facility]. BPH (benign prostatic hyperplasia). CAD (coronary artery disease). Cardiorenal syndrome with renal failure (Acute). CHF (congestive heart failure), NYHA class I. Chronic kidney disease, stage IV (severe). Diabetic neuropathy. Diabetic retinopathy. DNI (do not intubate) (Acute). DNR (do not resuscitate) (Acute). ESRD (end stage renal disease) (Acute). Essential hypertension. GERD (gastroesophageal reflux disease). Goals of care, counseling/discussion (Acute). Hyperlipidemia. Mild intellectual disability (Acute). KYLE (obstructive sleep apnea). Palliative care patient (Acute). POLST (Physician Orders for Life-Sustaining Treatment) (Acute). Stroke. Type II diabetes mellitus. Surgical History: Colonoscopy - IV Sedation (04/16/15). Dr Anderson[place]. EGD - MAC (07/22/17). Endoscopy (07/17/14). [facility] Dr. Luo. Extraction of cataract (03/27/15). left eye, Dr. Kang. Repair of inguinal hernia PREVIOUS FUNCTIONAL STATUS/SOCIAL/FAMILY SUPPORTS:: Jewel lives alone in a mobile home in [place], [place] He is fairly independent with ADLs, requiring some assistance with showering, shopping and meal preparation. He has [facility] care givers for 8 hours/day Thursday through Thursday and 2 hours a day on the weekend.They assist with medication preparation and oversight. He is able to toilet himself, dress himself, etc. He has a walker and a cane. He uses the walker only at home as he doesn't want people to think he is old, per his career manager Lana. 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 and also at [employer]. CURRENT FUNCTIONAL STATUS:: Jewel was sitting up in bed when met with him. He was pleasant and friendly but a bit vague when asked why he was in the hospital. He eventually said he had trouble breathing. Jewel was reluctant to talk about his diet or salt intake so the conversation centered on what gives him enjoyment in life. Sharad shared that he got a new kitten who is about a year old and named him Yrn. He has another cat who is 7 or 8 but was unable to remeber that cat's name. He said the cats don't get along too well yet, but its only been a couple of weeks. ADVANCE DIRECTIVES:: On file at [facility] ANDREW _ Juan bergman Has patient been provided with information about the portal?: No Did the patient sign up for the portal?: No CODE STATUS:: DNR/DNI INSURANCE COVERAGE / FINANCIAL ISSUES:: Medicare. Medicaid CURRENT HOME/COMMUNITY SERVICES/EQUIPMENT:: Extensive services through [facility] including caregivers 8 hours /day weekdays and 2 hours/day weekends. Has a walker and a cane. PRIMARY CARE PHYSICIAN:: Ethel Collins PATIENT/FAMILY EDUCATION NEEDS:: Discharge plan, limitations, follow up plan, Ask Me Three TRANSPORTATION:: via private vehicle with caregiver when ready PLAN:: Jewel will discharge home with a resumption of services. He will transport via private vehicle with his caregiver and follow up with his PCP. CM will continue to provide support to patient, caregivers and discharge planning needs. Readmission - Within the Past 30 Days Yes or No: Y - Date of First Admission Date of 1st Admission: 06/10/19 - Date of this Admission Date of Admission: 07/02/19 This admission was: Through ED - Ask the Care Team Members: What do you think caused the patient to be readmitted: Jewel refuses to follow his diet and continues to eat foods high in salt - ED visits How many ED visits in the past 12 months: 6
[2019-07-03] MEDS: Furosemide 100 MG/10 ML VIAL 80 MG IVP (08:25)
[2019-07-03] MEDS: Normal Saline Flush 10 ML SYR IVP ×2 (08:26→19:55)
[2019-07-03] MEDS: Brimonidine 0.15% 5 ML BTL OP ×2 (08:26→19:54)
[2019-07-03] MEDS: hydrALAZINE 25 MG TAB 50 MG PO ×3 (08:27→19:55)
[2019-07-03] MEDS: buPROPion-CR 100 MG TABCR 200 MG PO (08:27)
[2019-07-03] MEDS: Clopidogrel 75 MG TAB PO (08:27)
[2019-07-03] MEDS: Finasteride 5 MG TAB PO (08:27)
[2019-07-03] MEDS: Docusate Sodium 100 MG CAP PO ×2 (08:28→19:55)
[2019-07-03] MEDS: Senna TAB 1 TAB PO ×2 (08:28→19:55)
[2019-07-03] MEDS: Calcitriol 0.25 MCG CAP PO (08:28)
[2019-07-03] MEDS: amLODIPine 10 MG TAB PO (08:28)
[2019-07-03] MEDS: Sodium Bicarbonate 650 MG TAB PO ×3 (08:28→19:55)
[2019-07-03] MEDS: Multivitamin TAB 1 TAB PO (08:28)
[2019-07-03] MEDS: Omeprazole 10 MG CAPCR PO (08:29)
[2019-07-03] MEDS: Carbidopa 25/Levodopa 100 TAB PO ×3 (08:29→19:54)
[2019-07-03] MEDS: Gabapentin 100 MG CAP 300 MG PO (08:29)
[2019-07-03] MEDS: Atorvastatin 40 MG TAB 80 MG PO (08:29)
[2019-07-03] MEDS: Cholecalciferol (Vitamin D3) 1,000 UNIT TAB 2000 UNITS PO (08:29)
[2019-07-03] MEDS: Tamsulosin 0.4 MG CAPCR 0.8 MG PO (08:29)
[2019-07-03] MEDS: cloNIDine 0.1 MG TAB PO ×2 (08:29→19:55)
[2019-07-03 10:10] VITALS: RESP 10
--- NOTE | 2019-07-03 11:19 | PHARADMIT ---
Admission Pharmacy Clinical Review CHF, CKD, SOB (close to end stage renal disease) Code Status DNR/DNI Current Weight Wgt-103.5 kg Renally Cleared and Narrow Therapeutic Index Meds CrCl~ 12 mL/min Tato-OK QTc Value / Action Taken QTc-425 (Lasix_) BP Control, Fever BP-154/77 Tmax-36.9C Electrolytes reviewed Na-144 K+4.3 Mag-2.1 DVT Prophylaxis Plavix, Hepain-SC Opiate Usage / Scheduled Bowel Regimen Ordered No Yes Plt/SCr for Heparin / Enoxaparin Plts-189 SCr-5.91 INR for Warfarin na H/H stable, WBC/Bands H&H- 7.8/24.0 WBC- 5.95 Antibiotic appropriateness none Cultures and Sensitivities none Surgical ABX d/c within 24 hr na DM control / Insulin Dosing BG-131 Heart Failure (Check EF%) (DWAINE's, B-Block, Diuretics) Norvasc, Catapres, Hydralazine, Lasix, Lopressor, IV to PO Switch No Home Meds Reviewed Yes Home Meds Not Ordered Bumex, Zostrix cm, Dexilant, Aspat, Levemir, Comments PatOwn-Trusopt Oph Drops
[2019-07-03] MEDS: Patch Removal 1 EACH TP (12:18)
--- NOTE | 2019-07-03 13:42 | W.PM.PROGNOT ---
Date of Service Date of service: 07/03/19 Time of Service: 11:00 Assessment and Plan Assessment and plan (1) Acute on chronic systolic congestive heart failure: Status: Acute Assessment and plan: stabilized with IV diuresis. continue daily weights, I&O and IV lasix. echo on 06/13/19 shows ejection fraction was 50-55%. continue betablocker, statin (2) ESRD (end stage renal disease): Status: Acute Assessment and plan: creatinine stable at 5.9 when compared with yesterday but up from 5.3-5.7 over past month. has a fistula in place. Apparently no need for dialysis yet. electrolytes have been stable. continue sodium bicarb, avoid nephrotoxic drugs. renally dose medication when appropriate (3) Essential hypertension: Status: Acute Assessment and plan: poorly controlled but at or below baseline when reviewed over past month, today 154/77. will continue home regimen at current dosing. (4) Gastroesophageal reflux disease: Status: Acute Assessment and plan: stable, continue home medication (5) DVT prophylaxis: Status: Acute Assessment and plan: heparin in setting of CKD (6) Discharge planning issues: Status: Acute Assessment and plan: will discharge to home when medically stable. (7) Anemia: Status: Acute Assessment and plan: of chronic disease: hemoglobin slightly below baseline of 8 at 7.8. will continue to monitor closely. low threshold for transfusion if SOB continues despite adequate diuresis and in setting of history of CAD (8) CAD (coronary artery disease): Status: None Assessment and plan: Has been maintained on a high intensity statin, beta-mignon, Plavix. Currently without complaints of typical angina, troponin was negative. nuclear stress test in September 2013 which showed an RCA distribution scar and no reversible ischemia. continue home medications Subjective Subjective Patient reports: no new complaints and feels better; denies shortness of breath Exam Const General: cooperative, comfortable, no acute distress, frail appearing (older than stated age) and ill appearing chronically Resp Effort & Inspection: normal respiratory effort Auscultation: diminished lung sounds bilaterally, rales bilaterally at the base and wheezes Cardio Rate: regular rate Rhythm: regular rhythm GI Inspection: normal to inspection Palpation: soft and nontender Auscultation: normal bowel sounds Skin Lesions: no lesions Rashes: no rashes Neuro General: alert, awake and oriented x3 Extrem General: normal to inspection, full ROM and edema Laterality: bilateral (upper extremities, mild) Psych Appearance: grossly normal Mood: congruent mood Affect: normal affect Attitude: cooperative Thought Process: normal Objective Objective Clinical Data: Abnormal lab results 07/03/19 07/03/19 Range/Units 06:58 06:58 RBC 2.44 L (4.50-6.00) m/cumm Hgb 7.8 L (13.5-17.5) g/dL Hct 24.0 L (40.0-50.0) % MCV 98.4 H (80-95) fL RDW 14.2 H (11.8-14.1) % Absolute Lymphocytes 0.89 L (1.2-3.4) k/cumm Chloride 109 H (98-107) mmol/L Anion Gap 12.7 H (3-11) mmol/L BUN 60 H (7-18) mg/dL Creatinine 5.91 H* (0.70-1.30) mg/dL Glucose 131 H (70-100) mg/dL Vital Signs Temperature 36.9 C 07/03/19 07:25 Temperature Source Temporal Artery Scan 07/03/19 07:25 Pulse 70 07/03/19 07:25 Pulse Rhythm Regular 07/03/19 11:18 Pulse 70 07/02/19 15:50 Respiratory Rate 20 07/03/19 07:25 Respiratory Effort Labored 07/03/19 11:18 Respiratory Depth Shallow 07/03/19 11:18 Respiratory Pattern Normal 07/03/19 11:18 Blood Pressure 154/77 H 07/03/19 07:25 Blood Pressure Mean 101 07/02/19 15:31 Blood Pressure Position Sitting 07/02/19 11:24 Pulse Oximetry 96 07/03/19 07:25 Oxygen Delivery Method Cpap 07/03/19 07:25 Oxygen Flow Rate 0 07/03/19 03:43 Pain Level 4 07/03/19 07:25 Comment 07/03/19 07:25 Intake & Output 07/02/19 07/03/19 07/03/19 23:59 11:59 23:59 Intake Total 740 / 740 400 / 400 Output Total 1175 / 1175 1150 / 1450 300 / 1450 Balance -435 / -435 -750 / -1050 -300 / -1050 Weight 101.423 kg 103.5 kg Intake: IV 500 / 500 Oral 240 / 240 400 / 400 Output: Urine 1175 / 1175 1150 / 1450 300 / 1450 Other: Urine Color Yellow Pale Yellow Yellow Urine Appearance Clear Clear Clear Urine Odor Normal Comment patient refused de jesus insertion state same is too painful Voiding Methods Urinal Urinal Urinal Laboratory Results WBC 5.95 k/cumm (4.4-10.8) 07/03/19 06:58 RBC 2.44 m/cumm (4.50-6.00) L 07/03/19 06:58 Hgb 7.8 g/dL (13.5-17.5) L 07/03/19 06:58 Hct 24.0 % (40.0-50.0) L 07/03/19 06:58 MCV 98.4 fL (80-95) H 07/03/19 06:58 MCH 32.0 pg (27.0-33.0) 07/03/19 06:58 MCHC 32.5 g/dL (32.0-36.0) 07/03/19 06:58 RDW 14.2 % (11.8-14.1) H 07/03/19 06:58 Plt Count 189 x1000/uL (130-400) 07/03/19 06:58 MPV 9.2 fL (8.0-11.0) 07/03/19 06:58 Immature Gran % 0.2 07/03/19 06:58 Neutrophils % 68.3 07/03/19 06:58 Lymphocytes % 15.0 07/03/19 06:58 Monocytes % 10.3 07/03/19 06:58 Eosinophils % 5.5 07/03/19 06:58 Basophils % 0.7 07/03/19 06:58 Absolute Neutrophils 4.07 k/cumm (1.2-6.7) 07/03/19 06:58 Absolute Lymphocytes 0.89 k/cumm (1.2-3.4) L 07/03/19 06:58 Absolute Monocytes 0.61 k/cumm (0.11-0.7) 07/03/19 06:58 Absolute Eosinophils 0.33 k/cumm (0.0-0.7) 07/03/19 06:58 Absolute Basophils 0.04 k/cumm (0.0-0.2) 07/03/19 06:58 Differential Comment Rbc morph reviewed 07/02/19 12:00 RBC Morphology See below 07/02/19 12:00 Polychromasia Present 07/02/19 12:00 Sodium 144 mmol/L (136-145) 07/03/19 06:58 Potassium 4.3 mmol/L (3.5-5.1) 07/03/19 06:58 Chloride 109 mmol/L (98-107) H 07/03/19 06:58 Carbon Dioxide 22.3 mmol/L (21.0-32.0) 07/03/19 06:58 Anion Gap 12.7 mmol/L (3-11) H 07/03/19 06:58 BUN 60 mg/dL (7-18) H 07/03/19 06:58 Creatinine 5.91 mg/dL (0.70-1.30) H* 07/03/19 06:58 Estimated GFR/1.73 m2 9.68 (mL/min/1.73m2) 07/03/19 06:58 Glucose 131 mg/dL (70-100) H 07/03/19 06:58 Calcium 8.6 mg/dL (8.5-10.1) 07/03/19 06:58 Magnesium 2.1 mg/dL (1.8-2.4) 07/03/19 06:58 Total Bilirubin 0.6 mg/dL (0.2-1.0) 07/02/19 12:00 AST 9 U/L (15-37) L 07/02/19 12:00 ALT < 6 U/L (16-63) L 07/02/19 12:00 Alkaline Phosphatase 84 U/L (46-116) 07/02/19 12:00 Troponin I < 0.05 ng/mL (0.00-0.06) 07/02/19 12:00 NT-Pro-B Natriuret Pep 10452 pg/mL (-299) H 07/02/19 12:00 Total Protein 6.6 g/dL (6.4-8.2) 07/02/19 12:00 Albumin 3.5 g/dL (3.4-5.0) 07/02/19 12:00
[2019-07-03 16:10] VITALS: BP 138/79; PULSE 62; RESP 19; TEMP 37.2; O2SAT 97
[2019-07-03 20:11] VITALS: BP 153/70; PULSE 64; RESP 24; TEMP 36.4; O2SAT 97
[2019-07-03] MEDS: Melatonin 3 MG TAB PO (22:12)
[2019-07-03] MEDS: Lidocaine 5% Patch 2 PATCH TP (22:12)
[2019-07-04] VITALS (14 sets, daily range): BP systolic 132–165; BP diastolic 69–78; PULSE 55–96; RESP 10–22; TEMP 36.4–37.1; O2SAT 94–97
[2019-07-04] MEDS: Heparin 5,000 UNITS/ML VIAL 5000 UNITS SC ×3 (05:17→19:27)
[2019-07-04] MEDS: Metoprolol 25 MG TAB PO ×3 (05:17→21:31)
[2019-07-04 07:56] LABS: Anion Gap 10.5 mmol/L (3-11); BUN 58 mg/dL (7-18); CO2 23.5 mmol/L (21.0-32.0); Calcium 8.5 mg/dL (8.5-10.1); Chloride 108 mmol/L (98-107); Estimated GFR 9.32 (mL/min/1.73m2); Glucose 120 mg/dL (70-100); Potassium 4.3 mmol/L (3.5-5.1); Sodium 142 mmol/L (136-145)
[2019-07-04 08:01] LABS: CREATININE 6.11 mg/dL (0.70-1.30)
[2019-07-04 08:14] LABS: Abs Immature Grans 0.01 k/cumm (0.0-0.09); Absolute Basophil Count 0.02 k/cumm (0.0-0.2); Absolute Eosinophil Count 0.26 k/cumm (0.0-0.7); Absolute Lymphocyte Count 0.99 k/cumm (1.2-3.4); Absolute Monocyte Count 0.74 k/cumm (0.11-0.7); Absolute Neutrophil Count 4.61 k/cumm (1.2-6.7); Basophils % 0.3; Eosinophils % 3.9; HCT 22.9 % (40.0-50.0); HGB 7.4 g/dL (13.5-17.5); Immature Grans % 0.2; Lymphocytes % 14.9; Mean Corp. HGB Concentration 32.3 g/dL (32.0-36.0); Mean Corpuscular Hemoglobin 31.9 pg (27.0-33.0); Mean Corpuscular Volume 98.7 fL (80-95); Mean Platelet Volume 9.5 fL (8.0-11.0); Monocytes % 11.2; Neutrophils % 69.5; Platelet Count 173 x1000/uL (130-400); RBC 2.32 m/cumm (4.50-6.00); RBC Distribution Width 14.2 % (11.8-14.1); White Blood Cell Count 6.63 k/cumm (4.4-10.8)
[2019-07-04] MEDS: Furosemide 100 MG/10 ML VIAL 80 MG IVP (08:20)
[2019-07-04] MEDS: Brimonidine 0.15% 5 ML BTL OP ×2 (08:21→19:50)
[2019-07-04] MEDS: Normal Saline Flush 10 ML SYR IVP ×2 (08:21→10:04)
[2019-07-04] MEDS: Gabapentin 100 MG CAP 300 MG PO (08:22)
[2019-07-04] MEDS: Tamsulosin 0.4 MG CAPCR 0.8 MG PO (08:22)
[2019-07-04] MEDS: Omeprazole 10 MG CAPCR PO (08:22)
[2019-07-04] MEDS: Multivitamin TAB 1 TAB PO (08:23)
[2019-07-04] MEDS: Senna TAB 1 TAB PO ×2 (08:23→19:27)
[2019-07-04] MEDS: Carbidopa 25/Levodopa 100 TAB PO ×3 (08:23→19:27)
[2019-07-04] MEDS: cloNIDine 0.1 MG TAB PO ×2 (08:23→19:27)
[2019-07-04] MEDS: hydrALAZINE 25 MG TAB 50 MG PO ×3 (08:23→19:27)
[2019-07-04] MEDS: Atorvastatin 40 MG TAB 80 MG PO (08:23)
[2019-07-04] MEDS: Clopidogrel 75 MG TAB PO (08:23)
[2019-07-04] MEDS: Sodium Bicarbonate 650 MG TAB PO ×3 (08:23→19:27)
[2019-07-04] MEDS: Calcitriol 0.25 MCG CAP PO (08:24)
[2019-07-04] MEDS: Cholecalciferol (Vitamin D3) 1,000 UNIT TAB 2000 UNITS PO (08:24)
[2019-07-04] MEDS: amLODIPine 10 MG TAB PO (08:24)
[2019-07-04] MEDS: Finasteride 5 MG TAB PO (08:24)
[2019-07-04] MEDS: Docusate Sodium 100 MG CAP PO ×2 (08:24→19:27)
[2019-07-04] MEDS: buPROPion-CR 100 MG TABCR 200 MG PO (08:24)
--- NOTE | 2019-07-04 08:27 | OT.INIE ---
Occupational Therapy Notes Inpatient Occupational Therapy Evaluation Date: 07/04/19 Referring Doctor: Zuri Cespedes NP OT Orders: Non-urgent Precautions: Fall, Standard PATIENT PROFILE/ADMITTING DIAGNOSIS: Pt is a 63 year old male who was admitted through the ER for diagnosis of Acute exacerbation of CHF (congestive heart failure). Past Medical History: AV fistula (Acute) 4 stages 12/2016 thru 06/16/2017 at [facility] [place] BPH (benign prostatic hyperplasia) CAD (coronary artery disease) CHF (congestive heart failure), NYHA class I Chronic kidney disease, stage IV (severe) Diabetic neuropathy Diabetic retinopathy Essential hypertension GERD (gastroesophageal reflux disease) Hyperlipidemia KYLE (obstructive sleep apnea) Stroke Type II diabetes mellitus Surgical History Colonoscopy - IV Sedation (04/16/15) Dr Anderson-[facility] [place] EGD - MAC (07/22/17) Endoscopy (07/17/14) [facility] [place] Dr. Luo Extraction of cataract (03/27/15) left eye, Dr. Kang Repair of inguinal hernia Social History/Home Situation: Pt states that he lives in a private mobile home with his cat. He states that he has two women (from [facility]) who come into his home every day for 8 hours a day thursday-thursday and 2 hours on thursday and sundays, who (A) him with his dressing and bathing routines. He states that he does not drive as his MD recently told him to stop driving. He is receptive to this and is happy that he has (A) in his home. He notes multiple times throughout session that his home is old and he cannot use anything fancy like FWW and wheelchairs all the time because his home is not set up for this. Equipment owned/DME: raised toilet, FWW, grab bars SUBJECTIVE: Pt was sitting in bed when OT arrived, he was agreeable to OT session. He reports that he was having difficulty breathing at home last week and notes that he had to come to [facility] because he wasn't able to walk from his bed to his bathroom. OBJECTIVE: General Observation: Able to answer questions appropriately, pleasant, IV (R) UE Mental Status: A&Ox3 Pain: no c/o pain Right Upper Extremity: shoulder flexion of 130*, elbow WNL, hand and digits WNL Left Upper Extremity: shoulder flexon to 130*, elbow WNL, hand and digits WNL Strength: Right Upper Extremity: Shoulder flexion 4-/5 throughout, elbow 4/5, ambulatory care nurse is symmetrical Left Upper Extremity: Shoulder flexion 4/5 throughout, elbow 4/5, ambulatory care nurse is symmetrical FUNCTIONAL MOBILITY/ADLS: Transfers Supine-sit (I) Sit-supine (I) Sit-stand (S) Stand-sit (S) BATHING Pt denies reporting that he performed this last night with nursing. DRESSING Sitting on side of bed (I) with don and doffing (L) sock and max (A) don and doffing (R) sock, (I) don and doffing hospital gown. GROOMING Sitting in bed, (I) with AROM required to brushing hair. TOILETING On toilet (I) EATING NT BALANCE: Static sitting Normal Dynamic Sitting Normal Static Standing Good Dynamic Standing Good SPECIAL TESTS: Daily Activity Limitations Standardized Measure [facility] AM -PAC ?6 clicks? Daily Activity Inpatient Short Form: Raw score: 17 CMS score: 50.11% INFORMED CONSENT/EDUCATION: Pt instructed in purpose of OT Consult and plan of care. ASSESSMENT: Patient is a 63-year-old male referred to occupational therapy services with diagnosis of Acute on chronic exacerbation of CHF (congestive heart failure). Patient presents with clinical signs and symptoms consistent with dx, as demonstrated by the following impairment level findings/functional limitations: Decreased functional activity tolerance. Pt is able to perform his ADLs at his baseline level of function with increased (I) and (A) needed for LE dressing and bathing. He is SOB when performing functional mobility. OT recommends that pt return home with services when medically cleared per MD. [facility] score 17, CMS score 50.11% Patient is assessed as a Low 70300 complexity based on the following: History: See Above Examination: See functional limitations as listed above Presentation: Evolving Decision Making: [facility] 17, CMS score 50.11% GOALS N/A PLAN OF CARE/TREATMENT PLAN: OT consult only. DISCHARGE RECOMMENDATIONS OT recommends that pt return home with continued care and services when medically cleared per MD. TREATMENT TIME/MINUTES/CODES 63605, 30 minutes (07:35) [facility]
[2019-07-04] MEDS: Patch Removal 1 EACH TP (10:05)
--- NOTE | 2019-07-04 12:47 | IN_ITS ---
Date of service: 07/04/19 Time of Service: 11:07 PT Notes Inpatient Physical Therapy Evaluation Date: 07/04/2019 Referring Doctor: Miguel Herzog MD PT Orders: PT CONSULT: Routine Precautions: Fall. Standard. Patient Profile/Admitting Diagnosis: Patient is a 63-year-old male admitted to the medical surgical unit with [id number] heart failure. PMHX: Medical History AV fistula (Acute) 4 stages 12/2016 thru 06/16/2017 [place] [facility] [place] BPH (benign prostatic hyperplasia) CAD (coronary artery disease) Cardiorenal syndrome with renal failure (Acute) CHF (congestive heart failure), NYHA class I Chronic kidney disease, stage IV (severe) Diabetic neuropathy Diabetic retinopathy DNI (do not intubate) (Acute) DNR (do not resuscitate) (Acute) ESRD (end stage renal disease) (Acute) Essential hypertension GERD (gastroesophageal reflux disease) Goals of care, counseling/discussion (Acute) Hyperlipidemia Mild intellectual disability (Acute) KYLE (obstructive sleep apnea) Palliative care patient (Acute) POLST (Physician Orders for Life-Sustaining Treatment) (Acute) Stroke Type II diabetes mellitus Surgical History Colonoscopy - IV Sedation (04/16/15) Dr Anderson[place] [place] EGD - MAC (07/22/17) Endoscopy (07/17/14) [facility] [place] Dr. Luo Extraction of cataract (03/27/15) left eye, Dr. Kang Repair of inguinal hernia bilateral Social History/Home Situation: Patient lives in a trailer with 4 steps to enter with a railing on the L side. He has caregivers who assist him during the day. Equipment Owned/DME: Walker. Subjective: Patient does not report any pain, angina, or shortness of breath. He is agreeable to PT evaluation despite just getting comfortable in a chair. He reports some anxiety about his balance. He denies headache, dizziness, and lightheadedness. Objective: General Observation: Patient is seen seated in reclining chair with disconnected IV in R UE. Mental Status: Patient is able to communicate but has some mild-moderate cognitive impairment. Pain: 0/10 Vital Signs: 94-95% SaO2 following 2-minute walk ROM: Right Lower Extremity: Hip flexion WFL. Hip abduction WFL. Knee flexion WFL. Ankle dorsiflexion WFL. Ankle plantarflexion WFL. Left Lower Extremity: Hip flexion WFL. Hip abduction WFL. Knee flexion WFL. Ankle dorsiflexion WFL. Ankle plantarflexion WFL. Strength: Right Lower Extremity: Hip flexors 3-/5. Hip abductors 4/5. Knee flexors 4/5. Knee extensors 4/5. Ankle dorsiflexors 3-/5. Ankle plantarflexors 3-/5. Left Lower Extremity:Hip flexors 3-/5. Hip abductors 4/5. Knee flexors 4/5. Knee extensors 4/5. Ankle dorsiflexors 3-/5. Ankle plantarflexors 3-/5. Bed Mobility/Transfers: Rolling Independent Supine to sit Independent Sit to supine Independent Sit to stand SBA Stand to sit SBA Bed to chair CGA Chair to bed CGA Gait: Patient exhibited a reciprocal gait pattern using a FWW, CGA, and wheelchair follow for 50?+50?. He required a break due to muscle fatigue in his legs. He showed decreased step length and normal kareen. Balance: Static Sitting: Normal Dynamic Sitting: Normal Static Standing: Fair Dynamic Standing: Fair Special Tests: Mobility Limitations Standardized Measure [facility] 6 clicks Basic Mobility Inpatient Short Form: Raw Score: 20 CMS Score: 38% 4-Stage Balance Test: Completed one of four stages which puts this patient into the high-risk category for falls. 2-minute Walk Test: Patient took 40 steps in 45 seconds and required a break for the remaining time indicating he is at risk for falls and is deconditioned. Informed Consent/Education: Patient instructed in purpose of PT consult and plan of care. Assessment: Patient is a 63 year old male admitted to the medical/surgical unit with [id number] heart failure. He lives alone in a trailer but has hired caregivers to assist him in the home. He is a relatively happy man who is aware of his abilities. His balance abilities appear limited as he had two falls within the last three months and was not able to surpass the second stage of the 4-stage balance test. He also has trouble avoiding obstacles on his left side during ambulation. He is motivated to return to his home. His prognosis is fair. Patient presents with clinical signs and symptoms consistent with current/admitting diagnoses that have resulted to mobility limitations, gait instability, generalized weakness, and impairment of motor control as demonstrated by the following impairment level findings: 1. Decreased strength to B LE major muscle groups 2. Impaired sitting/standing balance 3. Impaired activity tolerance 4. Limitation of joint range of motion in hip flexion, ankle dorsi/plantar flexion Impairments are contributing to the following functional limitations: 1. Dependent bed mobility skills 2. Increased dependence with transfers 3. Inability to safely ambulate without assistive device and physical assistance 4. Increase completion time for mobility ADL performance 5. Increased fall risk 6. Inability to negotiate steps alone safely Patient is assessed as a 53525 moderate complexity based on the following: History: Patient is a 63-year-old male admitted to the medical surgical unit with asqus-[id number] heart failure. Examination: Demonstrable impairment in strength, balance, and range of motion with underlying impairments and functional limitations as documented above Presentation: Evolving Decision Makin moderate complexity Goals: Goals X1 week 1. Supine-Sit independent 2. Sit-Supine independent 3. Sit-Stand independent 4. Stand-Sit independent 5. Bed-Chair independent 6. Chair-Bed independent 7. Independent gait on level surface with use of least restrictive device for at least 300 feet without report of pain nor dyspnea 8. Independent stair negotiation while holding onto bilateral rails for at least 10 steps without report of pain nor dyspnea 9. Independent with home exercise program 10. Good static and dynamic standing balance/tolerance Plan of Care/Treatment Plan: 1-2x/day, 7 days/week x 1 week. Plan of care has been reviewed with the BANKING SPECIALIST providing the service under Physical Therapy direction. Initiate Physical Therapy intervention for strengthening, bed mobility, transfers, gait, stairs, balance training, use of assistive device. DISCHARGE RECOMMENDATIONS: Patient is to be discharged to home under the care of his caregivers once he is medically stable and the above goals are met. Home health PT is recommended to enhance physical conditioning and for balance training. TREATMENT CODE/TIME: 39748 x 20 minutes. Thank you very much for this referral. Markus Cavazos, [facility] With supervision of: Arleen Henning PT, DPT, CLT [facility]
--- NOTE | 2019-07-04 13:48 | PDOC.CMPRO ---
- If Service Date Differs Date of service: 07/04/19 Time of Service: 13:48 Care Management Progress Note S/O: Jewel was sitting up in a chair eating lunch when CM came to visit. He stated once again that he really hates the low sodium diet. He indicated that he had discussed this with Dr. Viveros and that she said he could eat more things he liked. Jewel also shared that during a home visit last week, Dr. viveros ordered' Jewel to go to [facility] one more time since that is his favorite place to be. He talked about Riccardo and also the fish tank at [facility] and shared how he used to sit there for hours just watching the fish in the aquarium. He is really excited about the prospect of going there, perhaps as early as next week. Jewel also discussed dialysis. He says he has not made up his mind yet. He shared that he is really, really scared of needles and can't imagine doing that 3-4 times a week. A: Jewel is a 63 year old gentleman admitted with CHF, CKD, COPD P: Jewel will be discharged home with a resumption of services. He is currently receiving nursing, PT and OT. He also has caregivers through [facility] [place]. Jewel will be transported via private vehicle with caregivers. CM will continue to support patient, caregivers and discharge planning needs.
--- NOTE | 2019-07-04 15:25 | W.PM.PROGNOT ---
Date of Service Date of service: 07/04/19 Time of Service: 15:26 Assessment and Plan Assessment and plan (1) Acute on chronic systolic congestive heart failure: Status: Acute Assessment and plan: He has diuresed well, negative fluid balance, weight does not appear to be accurate. His symptoms are improving, his edema is improving. His echo from 06/13/2019 shows LVEF of 50 to 55%. Transition to home dose of Bumex, discontinue IV Lasix. Continue to monitor daily weights and intake and output. Continue beta-mignon and statin. (2) ESRD (end stage renal disease): Status: Acute Assessment and plan: Creatinine 6.11 today, has been in the fives for the last month, 5.9 yesterday. He has a fistula, he has not had dialysis, he reported to care management that he is afraid of needles. Continue sodium bicarb. Continue to avoid nephrotoxic medications. Repeat BMP in the morning. Outpatient follow-up with nephrology. (3) Essential hypertension: Status: Acute Assessment and plan: Blood pressure has been stable primarily in the 140s over 70s, continue home regimen. (4) Anemia: Status: Acute Assessment and plan: In the setting of end-stage renal disease. Also has a history of coronary artery disease. Symptomatic with reported dizziness and shortness of breath with activity in the setting of adequate diuresis. Transfuse 1 unit of packed red blood cells. Repeat CBC in the morning. (5) CAD (coronary artery disease): Status: None Assessment and plan: No chest pain, upon and was negative on admission, continue home regimen with high intensity statin, beta-mignon and Plavix. (6) Gastroesophageal reflux disease: Status: Acute Assessment and plan: Stable. Continue Dexlansoprazole per home dosing. (7) BPH (benign prostatic hyperplasia): Status: None Assessment and plan: Continue finasteride and tamsulosin per home regimen. (8) DVT prophylaxis: Status: Acute Assessment and plan: Subcutaneous heparin. (9) Discharge planning issues: Status: Acute Assessment and plan: He is a DNR/DNI. He will return back home with services including home health and [facility] human services when he is ready for discharge, likely in the next 24 hours. This case was discussed with Dr. Herzog who is in agreement. Subjective Subjective Interval history since last seen: Mati Camilla reports feeling better today. He reports that he felt dizzy getting up out of bed, he also had some shortness of breath with ambulation. He is no longer coughing, he reports that he was coughing up white frothy sputum yesterday, he also reports that he could not lay flat yesterday and is able to lay in bed today. He denies wheezing, chest pain/pressure, palpitations. He is eating and drinking and tolerating his diet, no nausea, vomiting or diarrhea. He continues to have edema in his lower extremities, however, his caregivers report significant improvement in his lower extremity edema. He denies pain. He offers no other concerns. Exam Narrative Exam Narrative: General: Pale appearing, older gentleman, sitting up in the chair, eating his lunch, does not appear to be in any acute distress. Answers questions appropriately, pleasant and cooperative. HEENT: Skin is pale, pupils equal and round, mucous membranes moist. Neck: Supple, no JVD. Cardiovascular: Heart has regular rate and rhythm, no murmur appreciated. Respiratory: Respirations appear even and unlabored, lung sounds with fine rales to the left base, no wheezing. GI: Normoactive bowel sounds throughout, abdomen soft, nontender on palpation. Extremities: Mild edema to bilateral upper extremities, 1-2+ pitting edema to bilateral lower extremities. No calf swelling or tenderness. Objective Objective Clinical Data: Abnormal lab results 07/04/19 07/04/19 07/04/19 Range/Units 07:22 07:22 07:22 RBC 2.32 L (4.50-6.00) m/cumm Hgb 7.4 L (13.5-17.5) g/dL Hct 22.9 L (40.0-50.0) % MCV 98.7 H (80-95) fL RDW 14.2 H (11.8-14.1) % Absolute Lymphocytes 0.99 L (1.2-3.4) k/cumm Absolute Monocytes 0.74 H (0.11-0.7) k/cumm Chloride 108 H (98-107) mmol/L BUN 58 H (7-18) mg/dL Creatinine 6.11 H* (0.70-1.30) mg/dL Glucose 120 H (70-100) mg/dL Crossmatch See Detail Vital Signs Temperature 36.4 C L 10/14/19 15:05 Temperature Source Tympanic 07/04/19 07:30 Pulse 55 L 07/04/19 15:05 Pulse Rhythm Regular 07/04/19 08:18 Pulse 70 07/02/19 15:50 Respiratory Rate 16 07/04/19 15:05 Respiratory Effort 07/04/19 08:18 Respiratory Depth Normal 07/04/19 08:18 Respiratory Pattern Normal 07/04/19 08:18 Blood Pressure 142/74 H 07/04/19 15:05 Blood Pressure Mean 101 07/02/19 15:31 Blood Pressure Position Sitting 07/02/19 11:24 Pulse Oximetry 95 07/04/19 15:05 Oxygen Delivery Method Room Air 07/04/19 15:05 Oxygen Flow Rate 0 07/04/19 15:05 Pain Level 0 07/04/19 08:18 Comment 07/03/19 07:25 Intake & Output 07/03/19 07/04/19 07/04/19 23:59 11:59 23:59 Intake Total 770 / 1410 360 / 840 480 / 840 Output Total 700 / 1850 950 / 950 Balance 70 / -440 -590 / -110 480 / -110 Weight 103 kg Intake: IV Oral 760 / 1400 360 / 840 480 / 840 Output: Urine 700 / 1850 950 / 950 Other: Urine Color Yellow Yellow Urine Appearance Clear Clear Urine Odor Normal Comment Patient refusing de jesus catheter Stool Size Large Stool Characteristics Soft Formed Voiding Methods Toilet Urinal Laboratory Results WBC 6.63 k/cumm (4.4-10.8) 07/04/19 07:22 RBC 2.32 m/cumm (4.50-6.00) L 07/04/19 07:22 Hgb 7.4 g/dL (13.5-17.5) L 07/04/19 07:22 Hct 22.9 % (40.0-50.0) L 07/04/19 07:22 MCV 98.7 fL (80-95) H 07/04/19 07:22 MCH 31.9 pg (27.0-33.0) 07/04/19 07:22 MCHC 32.3 g/dL (32.0-36.0) 07/04/19 07:22 RDW 14.2 % (11.8-14.1) H 07/04/19 07:22 Plt Count 173 x1000/uL (130-400) 07/04/19 07:22 MPV 9.5 fL (8.0-11.0) 07/04/19 07:22 Immature Gran % 0.2 07/04/19 07:22 Neutrophils % 69.5 07/04/19 07:22 Lymphocytes % 14.9 07/04/19 07:22 Monocytes % 11.2 07/04/19 07:22 Eosinophils % 3.9 07/04/19 07:22 Basophils % 0.3 07/04/19 07:22 Absolute Neutrophils 4.61 k/cumm (1.2-6.7) 07/04/19 07:22 Absolute Lymphocytes 0.99 k/cumm (1.2-3.4) L 07/04/19 07:22 Absolute Monocytes 0.74 k/cumm (0.11-0.7) H 07/04/19 07:22 Absolute Eosinophils 0.26 k/cumm (0.0-0.7) 07/04/19 07:22 Absolute Basophils 0.02 k/cumm (0.0-0.2) 07/04/19 07:22 Differential Comment Rbc morph reviewed 07/02/19 12:00 RBC Morphology See below 07/02/19 12:00 Polychromasia Present 07/02/19 12:00 Sodium 142 mmol/L (136-145) 07/04/19 07:22 Potassium 4.3 mmol/L (3.5-5.1) 07/04/19 07:22 Chloride 108 mmol/L (98-107) H 07/04/19 07:22 Carbon Dioxide 23.5 mmol/L (21.0-32.0) 07/04/19 07:22 Anion Gap 10.5 mmol/L (3-11) 07/04/19 07:22 BUN 58 mg/dL (7-18) H 07/04/19 07:22 Creatinine 6.11 mg/dL (0.70-1.30) H* 07/04/19 07:22 Estimated GFR/1.73 m2 9.32 (mL/min/1.73m2) 07/04/19 07:22 Glucose 120 mg/dL (70-100) H 07/04/19 07:22 Calcium 8.5 mg/dL (8.5-10.1) 07/04/19 07:22 Magnesium 2.0 mg/dL (1.8-2.4) 07/04/19 07:22 Total Bilirubin 0.6 mg/dL (0.2-1.0) 07/02/19 12:00 AST 9 U/L (15-37) L 07/02/19 12:00 ALT < 6 U/L (16-63) L 07/02/19 12:00 Alkaline Phosphatase 84 U/L (46-116) 07/02/19 12:00 Troponin I < 0.05 ng/mL (0.00-0.06) 07/02/19 12:00 NT-Pro-B Natriuret Pep 55928 pg/mL (-299) H 07/02/19 12:00 Total Protein 6.6 g/dL (6.4-8.2) 07/02/19 12:00 Albumin 3.5 g/dL (3.4-5.0) 07/02/19 12:00 Patient ABO/Rh A Positive 07/04/19 07:22 Antibody Screen Negative 07/04/19 07:22 Crossmatch See Detail 07/04/19:22
[2019-07-04] MEDS: Bumetanide 1 MG TAB 2 MG PO (16:00)
--- NOTE | 2019-07-04 16:51 | CHAPLAIN ---
Sharad's big news today is that he has a trip to [email or web address] plan for possibly as early as later this month. He said he is very excited about this at it's his favorite place and he hasn't been in six years. He said he won't go on many of the rides anymore, but he likes to spend time in the animal exhibits. He also recently was given a new cat, who does not get along with his old cat. The new cat hasn't learned to stay away from the old cat, even after being batted around a bit, Sharad said. His two caregivers were with him, and they'll be the ones taking him to [email or web address]
[2019-07-04] MEDS: Melatonin 3 MG TAB PO (21:31)
[2019-07-04] MEDS: Lidocaine 5% Patch 2 PATCH TP (21:31)
[2019-07-05] VITALS (7 sets, daily range): BP systolic 161–176; BP diastolic 77–85; PULSE 56–67; RESP 10–20; TEMP 36.1–36.8; O2SAT 95–97
[2019-07-05] MEDS: Heparin 5,000 UNITS/ML VIAL 5000 UNITS SC ×3 (04:52→20:41)
[2019-07-05] MEDS: Metoprolol 25 MG TAB PO ×3 (05:49→22:30)
[2019-07-05 07:41] LABS: Abs Immature Grans 0.02 k/cumm (0.0-0.09); Absolute Basophil Count 0.03 k/cumm (0.0-0.2); Absolute Eosinophil Count 0.31 k/cumm (0.0-0.7); Absolute Lymphocyte Count 1.05 k/cumm (1.2-3.4); Absolute Monocyte Count 0.69 k/cumm (0.11-0.7); Absolute Neutrophil Count 4.11 k/cumm (1.2-6.7); Basophils % 0.5; HCT 25.8 % (40.0-50.0); HGB 8.5 g/dL (13.5-17.5); Immature Grans % 0.3; Lymphocytes % 16.9; Mean Corp. HGB Concentration 32.9 g/dL (32.0-36.0); Mean Corpuscular Hemoglobin 31.8 pg (27.0-33.0); Mean Corpuscular Volume 96.6 fL (80-95); Mean Platelet Volume 9.4 fL (8.0-11.0); Monocytes % 11.1; Neutrophils % 66.2; Platelet Count 164 x1000/uL (130-400); RBC 2.67 m/cumm (4.50-6.00); RBC Distribution Width 13.7 % (11.8-14.1); White Blood Cell Count 6.21 k/cumm (4.4-10.8)
[2019-07-05 07:56] LABS: Anion Gap 9.8 mmol/L (3-11); BUN 59 mg/dL (7-18); CO2 23.2 mmol/L (21.0-32.0); Calcium 8.6 mg/dL (8.5-10.1); Chloride 106 mmol/L (98-107); Glucose 123 mg/dL (70-100); Magnesium 1.9 mg/dL (1.8-2.4); Potassium 4.4 mmol/L (3.5-5.1); Sodium 139 mmol/L (136-145)
--- NOTE | 2019-07-05 08:36 | PT.INTREAT ---
Date of service: 07/04/19 Time of Service: 08:36 PT Notes Inpatient Physical Therapy Treatment Note [facility] Date: 07/04/2019 PRECAUTIONS: Fall SUBJECTIVE: Mati is hesitant, but following significant encouragement is agreeable to participating in PT. OBJECTIVE: PAIN: No complaints of pain BED MOBILITY/TRANSFERS Sit-stand: Min A Stand-sit: CGA GAIT Assistive Device: FWW Weight bearing: Full Assist: CGA Distance: 75' +50' Deviation: Increased fatigue, wheelchair follow ASSESSMENT: Patient tolerated session with complaints of increased fatigue with gait training. He was able to tolerate a progression in gait distance with FWW support and CGA, requiring seated rest x1. Patient would benefit from continued gait and transfer training as well as general conditioning for improved mobility and improved activity tolerance. PLAN: Continue with PTs POC TREATMENT CODE/TIME: 15 minutes; [id number]
[2019-07-05] MEDS: Brimonidine 0.15% 5 ML BTL OP ×2 (08:53→22:29)
[2019-07-05] MEDS: Finasteride 5 MG TAB PO (08:54)
[2019-07-05] MEDS: hydrALAZINE 25 MG TAB 50 MG PO ×3 (08:54→20:41)
[2019-07-05] MEDS: Clopidogrel 75 MG TAB PO (08:54)
[2019-07-05] MEDS: buPROPion-CR 100 MG TABCR 200 MG PO (08:54)
[2019-07-05] MEDS: Tamsulosin 0.4 MG CAPCR 0.8 MG PO (08:55)
[2019-07-05] MEDS: Gabapentin 100 MG CAP 300 MG PO (08:55)
[2019-07-05] MEDS: Bumetanide 1 MG TAB 2 MG PO (08:55)
[2019-07-05] MEDS: Multivitamin TAB 1 TAB PO (08:55)
[2019-07-05] MEDS: amLODIPine 10 MG TAB PO (08:55)
[2019-07-05] MEDS: Cholecalciferol (Vitamin D3) 1,000 UNIT TAB 2000 UNITS PO (08:55)
[2019-07-05] MEDS: Calcitriol 0.25 MCG CAP PO (08:56)
[2019-07-05] MEDS: Senna TAB 1 TAB PO ×2 (08:56→20:41)
[2019-07-05] MEDS: Carbidopa 25/Levodopa 100 TAB PO ×3 (08:56→20:42)
[2019-07-05] MEDS: Omeprazole 10 MG CAPCR PO (08:56)
[2019-07-05] MEDS: Sodium Bicarbonate 650 MG TAB PO ×3 (08:56→20:41)
[2019-07-05] MEDS: Docusate Sodium 100 MG CAP PO ×2 (08:56→20:42)
[2019-07-05] MEDS: Atorvastatin 40 MG TAB 80 MG PO (08:56)
[2019-07-05] MEDS: cloNIDine 0.1 MG TAB PO ×2 (08:57→20:42)
[2019-07-05] MEDS: Patch Removal 1 EACH TP (11:07)
[2019-07-05] MEDS: Furosemide 20 MG/2 ML VIAL IVP (11:07)
[2019-07-05] MEDS: Normal Saline Flush 10 ML SYR IVP ×2 (11:08→16:04)
[2019-07-05] MEDS: Ondansetron O.D.T. 4 MG TABEF PO (13:45)
--- NOTE | 2019-07-05 15:04 | W.PM.PROGNOT ---
Date of Service Date of service: 07/05/19 Time of Service: 15:04 Assessment and Plan Assessment and plan (1) Nausea & vomiting: Status: Acute Assessment and plan: Appeared to be doing well today, was likely for discharge, however, he went on to have nausea and vomiting. He will remain here in the hospital with antiemetics and monitoring overnight. (2) Acute on chronic systolic congestive heart failure: Status: Acute Assessment and plan: Symptoms Improving, his edema is improving. His echo from 06/13/2019 shows LVEF of 50 to 55%. He transitioned to his home dose of Bumex yesterday, he appeared mildly fluid overloaded on exam today and received an extra dose of IV lasix. Continue to monitor daily weights and intake and output. Continue beta-mignon and statin. He has TEDs ordered. (3) ESRD (end stage renal disease): Status: Acute Assessment and plan: Creatinine improved to 5.9 today, near baseline. He has a fistula, he has not had dialysis. The plan will be for him to transition to hospice care when he is discharged home. Continue sodium bicarb. Continue to avoid nephrotoxic medications. Repeat BMP in the morning. (4) Essential hypertension: Status: Acute Assessment and plan: Blood pressure elevated today, possibly in the setting of fluid overload related to ESRD. Continue home regimen, he had an extra dose of IV lasix today. (5) Anemia: Status: Acute Assessment and plan: In the setting of end-stage renal disease. Also has a history of coronary artery disease. He was symptomatic yesterday and received 1 unit of packed red blood cells. His Hgb is improved to 8.5 today, no longer symptomatic. Continue to monitor. (6) CAD (coronary artery disease): Status: None Assessment and plan: No chest pain, troponin was negative on admission, continue home regimen with high intensity statin, beta-mignon and Plavix. (7) Gastroesophageal reflux disease: Status: Acute Assessment and plan: Stable. Continue Dexlansoprazole per home dosing. (8) BPH (benign prostatic hyperplasia): Status: None Assessment and plan: Continue finasteride and tamsulosin per home regimen. (9) DVT prophylaxis: Status: Acute Assessment and plan: Subcutaneous heparin. (10) Discharge planning issues: Status: Acute Assessment and plan: He is a DNR/DNI. He will return back home with services including home health and [facility] when he is ready for discharge. This case was discussed with Dr. Herzog who is in agreement. Subjective Subjective Interval history since last seen: Mati Sampson reports that he is feeling better today. He denies dizziness, shortness of breath, coughing or wheezing, chest pain/pressure, palpitations. He is eating and drinking, he denies abdominal pain. His caregiver reports decreased edema since the time of his admission. The plan was for him to go home with his caregivers today, however, he had nausea and vomiting after lunch and received zofran. He met with Dr. Tillman, Palliative, today. The plan will be for him to enroll in hospice after he is discharged from the hospital. Dr. Tillman discussed this with his PCP, Dr. Collins, who is in agreement with this plan. Exam Narrative Exam Narrative: General: Pale appearing, older gentleman, sitting up at the edge of his bed, does not appear to be in any acute distress. Answers questions appropriately, pleasant and cooperative. HEENT: Skin is pale, pupils equal and round, mucous membranes moist. Neck: Supple, no JVD. Cardiovascular: Heart has regular rate and rhythm, no murmur appreciated. Respiratory: Respirations appear even and unlabored, lung sounds with fine rales to the left base, no wheezing. GI: Normoactive bowel sounds throughout, abdomen soft, nontender on palpation. Extremities: Mild edema to bilateral upper extremities, 2+ pitting edema to bilateral lower extremities. No calf swelling or tenderness. Objective Objective Clinical Data: Abnormal lab results 07/04/19 07/05/19 07/05/19 Range/Units 07:22 06:56 06:56 RBC 2.67 L (4.50-6.00) m/cumm Hgb 8.5 L (13.5-17.5) g/dL Hct 25.8 L (40.0-50.0) % MCV 96.6 H (80-95) fL Absolute Lymphocytes 1.05 L (1.2-3.4) k/cumm BUN 59 H (7-18) mg/dL Creatinine 5.90 H* (0.70-1.30) mg/dL Glucose 123 H (70-100) mg/dL Crossmatch See Detail Vital Signs Temperature 36.1 C L 07/05/19 08:51 Temperature Source Tympanic 07/05/19 08:51 Pulse 56 L 07/05/19 12:12 Pulse Rhythm Regular 07/05/19 11:28 Pulse 70 07/02/19 15:50 Respiratory Rate 18 07/05/19 12:12 Respiratory Effort Short of Breath 07/05/19 11:28 Respiratory Depth Shallow 07/05/19 11:28 Respiratory Pattern Normal 07/05/19 11:28 Blood Pressure 175/77 H 07/05/19 12:12 Blood Pressure Mean 101 07/02/19 15:31 Blood Pressure Position Sitting 07/02/19 11:24 Pulse Oximetry 97 07/05/19 12:12 Oxygen Delivery Method Room Air 07/05/19 12:12 Oxygen Flow Rate 0 07/05/19 12:12 Pain Level 3 07/05/19 08:51 Comment 07/05/19 08:51 Intake & Output 07/04/19 07/05/19 07/05/19 23:59 11:59 23:59 Intake Total 980 / 1340 850 / 850 Output Total 850 / 1800 2150 / 2250 100 / 2250 Balance 130 / -460 -1300 / -1400 -100 / -1400 Weight 104.6 kg Intake: IV Oral 720 / 1080 850 / 850 Blood Product 250 / 250 Rbc Leuko Reduced Unit 250 / 250 [id number] Output: Urine 850 / 1800 2150 / 2150 Emesis 100 / 100 Other: Urine Color Yellow Yellow Urine Appearance Clear Clear Urine Odor Normal None Emesis Description Undigested Food Voiding Methods Toilet Toilet Laboratory Results WBC 6.21 k/cumm (4.4-10.8) 07/05/19 06:56 RBC 2.67 m/cumm (4.50-6.00) L 07/05/19 06:56 Hgb 8.5 g/dL (13.5-17.5) L 07/05/19 06:56 Hct 25.8 % (40.0-50.0) L 07/05/19 06:56 MCV 96.6 fL (80-95) H 07/05/19 06:56 MCH 31.8 pg (27.0-33.0) 07/05/19 06:56 MCHC 32.9 g/dL (32.0-36.0) 07/05/19 06:56 RDW 13.7 % (11.8-14.1) 07/05/19 06:56 Plt Count 164 x1000/uL (130-400) 07/05/19 06:56 MPV 9.4 fL (8.0-11.0) 07/05/19 06:56 Immature Gran % 0.3 07/05/19 06:56 Neutrophils % 66.2 07/05/19 06:56 Lymphocytes % 16.9 07/05/19 06:56 Monocytes % 11.1 07/05/19 06:56 Eosinophils % 5.0 07/05/19 06:56 Basophils % 0.5 07/05/19 06:56 Absolute Neutrophils 4.11 k/cumm (1.2-6.7) 07/05/19 06:56 Absolute Lymphocytes 1.05 k/cumm (1.2-3.4) L 07/05/19 06:56 Absolute Monocytes 0.69 k/cumm (0.11-0.7) 07/05/19 06:56 Absolute Eosinophils 0.31 k/cumm (0.0-0.7) 07/05/19 06:56 Absolute Basophils 0.03 k/cumm (0.0-0.2) 07/05/19 06:56 Differential Comment Rbc morph reviewed 07/02/19 12:00 RBC Morphology See below 07/02/19 12:00 Polychromasia Present 07/02/19 12:00 Sodium 139 mmol/L (136-145) 07/05/19 06:56 Potassium 4.4 mmol/L (3.5-5.1) 07/05/19 06:56 Chloride 106 mmol/L (98-107) 07/05/19 06:56 Carbon Dioxide 23.2 mmol/L (21.0-32.0) 07/05/19 06:56 Anion Gap 9.8 mmol/L (3-11) 07/05/19 06:56 BUN 59 mg/dL (7-18) H 07/05/19 06:56 Creatinine 5.90 mg/dL (0.70-1.30) H* 07/05/19 06:56 Estimated GFR/1.73 m2 9.70 (mL/min/1.73m2) 07/05/19 06:56 Glucose 123 mg/dL (70-100) H 07/05/19 06:56 Calcium 8.6 mg/dL (8.5-10.1) 07/05/19 06:56 Magnesium 1.9 mg/dL (1.8-2.4) 07/05/19 06:56 Total Bilirubin 0.6 mg/dL (0.2-1.0) 07/02/19 12:00 AST 9 U/L (15-37) L 07/02/19 12:00 ALT < 6 U/L (16-63) L 07/02/19 12:00 Alkaline Phosphatase 84 U/L (46-116) 07/02/19 12:00 Troponin I < 0.05 ng/mL (0.00-0.06) 07/02/19 12:00 NT-Pro-B Natriuret Pep 84433 pg/mL (-299) H 07/02/19 12:00 Total Protein 6.6 g/dL (6.4-8.2) 07/02/19 12:00 Albumin 3.5 g/dL (3.4-5.0) 07/02/19 12:00 Patient ABO/Rh A Positive 07/04/19 07:22 Antibody Screen Negative 07/04/19 07:22 Crossmatch See Detail 07/04/19 07:22
--- NOTE | 2019-07-05 16:00 | PT.INDS ---
Date of service: 07/06/19 Time of Service: 11:17 PT Notes Inpatient Physical Therapy Discharge Summary Dates: 07/05/2019 Dates of Service: 07/04/2019 through 07/05/2019 Referring Doctor: Miguel Herzog MD PT Orders: PT CONSULT: Routine Precautions: Fall. Standard. Patient Profile/Admitting Diagnosis: Patient is a 63-year-old male admitted to the medical surgical unit with [id number] heart failure. PMHX: Medical History AV fistula (Acute) 4 stages 12/2016 thru 06/16/2017 at [facility] BPH (benign prostatic hyperplasia) CAD (coronary artery disease) Cardiorenal syndrome with renal failure (Acute) CHF (congestive heart failure), NYHA class I Chronic kidney disease, stage IV (severe) Diabetic neuropathy Diabetic retinopathy DNI (do not intubate) (Acute) DNR (do not resuscitate) (Acute) ESRD (end stage renal disease) (Acute) Essential hypertension GERD (gastroesophageal reflux disease) Goals of care, counseling/discussion (Acute) Hyperlipidemia Mild intellectual disability (Acute) KYLE (obstructive sleep apnea) Palliative care patient (Acute) POLST (Physician Orders for Life-Sustaining Treatment) (Acute) Stroke Type II diabetes mellitus Surgical History Colonoscopy - IV Sedation (04/16/15) Dr Anderson-[facility] EGD - MAC (07/22/17) Endoscopy (07/17/14) [facility] Dr. Luo Extraction of cataract (03/27/15) left eye, Dr. Kang Repair of inguinal hernia bilateral Social History/Home Situation: Patient lives in a trailer with 4 steps to enter with a railing on the L side. He has caregivers who assist him during the day. Equipment Owned/DME: Walker. Subjective: Patient does not report any pain, angina, or shortness of breath. He is agreeable to PT session. He denies headache, dizziness, and lightheadedness. Objective: General Observation: Patient is seen seated in reclining chair with disconnected IV in R UE. Mental Status: Patient is able to communicate but has some mild-moderate cognitive impairment. Pain: 0/10 ROM: Right Lower Extremity: Hip flexion WFL. Hip abduction WFL. Knee flexion WFL. Ankle dorsiflexion WFL. Ankle plantarflexion WFL. Left Lower Extremity: Hip flexion WFL. Hip abduction WFL. Knee flexion WFL. Ankle dorsiflexion WFL. Ankle plantarflexion WFL. Strength: Right Lower Extremity: Hip flexors 3-/5. Hip abductors 4/5. Knee flexors 4/5. Knee extensors 4/5. Ankle dorsiflexors 3-/5. Ankle plantarflexors 3-/5. Left Lower Extremity:Hip flexors 3-/5. Hip abductors 4/5. Knee flexors 4/5. Knee extensors 4/5. Ankle dorsiflexors 3-/5. Ankle plantarflexors 3-/5. Bed Mobility/Transfers: Rolling Independent Supine to sit Independent Sit to supine Independent Sit to stand SBA Stand to sit SBA Bed to chair CGA Chair to bed CGA Gait: Patient exhibited a reciprocal gait pattern using a FWW, CGA, and wheelchair follow for 50?+50?. He required a break due to muscle fatigue in his legs. He showed decreased step length and normal kareen. Balance: Static Sitting: Normal Dynamic Sitting: Normal Static Standing: Fair Dynamic Standing: Fair Special Tests: Mobility Limitations Standardized Measure [facility] 6 clicks Basic Mobility Inpatient Short Form: Raw Score: 20 CMS Score: 38% 4-Stage Balance Test: Completed one of four stages which puts this patient into the high-risk category for falls. 2-minute Walk Test: Patient took 145 steps with only mild breathlessness seen. THis is an improvement from initial 2-minute walk rtest of 45 steps on initial evalaution. Assessment: Patient is a 63 year old male admitted to the medical/surgical unit with [id number] heart failure. He lives alone in a trailer but has hired caregivers to assist him in the home. He is a relatively happy man who is aware of his abilities. His balance abilities appear limited as he had two falls within the last three months and was not able to surpass the second stage of the 4-stage balance test. He also has trouble avoiding obstacles on his left side during ambulation. He is motivated to return to his home. His prognosis is fair. Patient continues to present with clinical signs and symptoms consistent with current/admitting diagnoses that have resulted to mobility limitations, gait instability, generalized weakness, and impairment of motor control as demonstrated by the following impairment level findings: 1. Decreased strength to B LE major muscle groups 2. Impaired sitting/standing balance 3. Impaired activity tolerance 4. Limitation of joint range of motion in hip flexion, ankle dorsi/plantar flexion Impairments are contributing to the following functional limitations: 1. Dependent bed mobility skills 2. Increased dependence with transfers 3. Inability to safely ambulate without assistive device and physical assistance 4. Increase completion time for mobility ADL performance 5. Increased fall risk 6. Inability to negotiate steps alone safely Goals: Goals X1 week 1. Supine-Sit independent NOT MET 2. Sit-Supine independent NOT MET 3. Sit-Stand independent NOT MET 4. Stand-Sit independent NOT MET 5. Bed-Chair independent NOT MET 6. Chair-Bed independent NOT MET 7. Independent gait on level surface with use of least restrictive device for at least 300 feet without report of pain nor dyspnea NOT MET 8. Independent stair negotiation while holding onto bilateral rails for at least 10 steps without report of pain nor dyspnea NOT MET 9. Independent with home exercise program NOT MET 10. Good static and dynamic standing balance/tolerance NOT MET DISCHARGE RECOMMENDATIONS: Patient is to be discharged to home under the care of his caregivers once he is medically stable and the above goals are met. Home health PT is recommended to enhance physical conditioning and for balance training. TREATMENT CODE/TIME: OTTONIEL. Thank you very much for this referral. Arleen Henning PT, DPT, CLT [facility]
[2019-07-05] MEDS: Ondansetron 4 MG/2 ML VIAL IVP (16:04)
--- NOTE | 2019-07-05 16:11 | CMPROGNOTE_ITS ---
- If Service Date Differs Date of service: 07/05/19 Time of Service: 16:11 Care Management Progress Note S/O: Mati was sitting up in his bed when CM met with him. He was in good spirits and was hoping to go home today. He was talking to CM and his caregivers about his upcoming trip to [place], which he is very excited about. He reported that he was feeling better than yesterday. CM will continue to follow. A: Jewel is a 63 year old gentleman admitted to [facility] on 07/02/2019 with CHF, CKD, COPD P: Jewel will be discharged home with a resumption of services. He is currently receiving nursing, PT and OT. He also has caregivers through [facility]. Jewel will be transported via private vehicle with caregivers. CM will continue to support patient, caregivers and discharge planning needs.
--- NOTE | 2019-07-05 19:30 | DI.RAD_ITS ---
EXAM: XR ABDOMEN FLAT UPRIGHT INDICATION: Nausea, vomiting. History of constipation, ileus. COMPARISON: XR ABDOMEN FLAT UPRIGHT from 07/02/2019 TECHNIQUE: 2D digital imaging was performed. FINDINGS: The visualized portions of the lung bases are clear. No free air is seen. There is increased stool seen mainly in the right colon. There is no abnormal colonic or small bowel dilatation. Degenerati ve changes are again noted in the spine. IMPRESSION: Increased quantity of stool. No acute abnormality.
--- NOTE | 2019-07-05 20:01 | DI.VRAD_ITS ---
PROCEDURE INFORMATION: Exam: XR Abdomen, 2 Views Exam date and time: 07/05/2019 7:36 PM Clinical history: 63 years old, male; Nausea and vomiting; Patient HX: Nausea, vomiting, HX of constipation, ? ileus TECHNIQUE: Imaging protocol: XR of the abdomen. Frontal supine and upright views of the abdomen. Views: 2 Views. COMPARISON: CR XR ABDOMEN FLAT UPRIGHT 08/30/2019 12:46 FINDINGS: Lower thorax: Stable mild cardiomegaly. Similar to prior study increased interstitial markings at the lung bases. Gastrointestinal tract: Moderate solid stool load. Resolution of previously air distended small bowel loops. Intraperitoneal space: No evidence for free air. Vasculature: Vascular calcification of the aorta and splenic artery. Bones/joints: Multilevel degenerative changes of the thoracic and lumbar spine stable compared with prior study. IMPRESSION: 1. Moderate solid stool load involving right colon and transverse colon. Otherwise nonspecific bowel gas pattern. 2. Atherosclerotic disease. 3. Multilevel degenerative changes of the thoracic and lumbar spine. 4. Stable cardiomegaly and pulmonary vascular congestion. Dictated and Authenticated by: Kinsey Malave MD. Ordering:DANA Rivera MD
[2019-07-05] MEDS: Polyethylene Glycol 3350 17 GM PACKET PO (20:41)
[2019-07-05] MEDS: Melatonin 3 MG TAB PO (22:30)
[2019-07-05] MEDS: Lidocaine 5% Patch 2 PATCH TP (22:30)
[2019-07-06] MEDS: Ondansetron 4 MG/2 ML VIAL IVP ×2 (03:50→13:32)
[2019-07-06] MEDS: Heparin 5,000 UNITS/ML VIAL 5000 UNITS SC ×3 (03:51→21:10)
[2019-07-06] MEDS: Normal Saline Flush 10 ML SYR IVP ×2 (03:51→13:33)
[2019-07-06 06:50] VITALS: BP 160/71; PULSE 64; RESP 20; TEMP 36.6; O2SAT 91
[2019-07-06] MEDS: Metoprolol 25 MG TAB PO ×3 (06:53→22:58)
[2019-07-06] MEDS: Omeprazole 10 MG CAPCR PO (06:53)
[2019-07-06 07:13] LABS: Absolute Basophil Count 0.02 k/cumm (0.0-0.2); Absolute Eosinophil Count 0.38 k/cumm (0.0-0.7); Absolute Lymphocyte Count 0.71 k/cumm (1.2-3.4); Absolute Neutrophil Count 4.52 k/cumm (1.2-6.7); Basophils % 0.3; Eosinophils % 6.1; HCT 26.2 % (40.0-50.0); HGB 8.5 g/dL (13.5-17.5); Lymphocytes % 11.4; Mean Corp. HGB Concentration 32.4 g/dL (32.0-36.0); Mean Corpuscular Hemoglobin 31.8 pg (27.0-33.0); Mean Corpuscular Volume 98.1 fL (80-95); Mean Platelet Volume 9.4 fL (8.0-11.0); Monocytes % 9.6; Neutrophils % 72.6; Platelet Count 154 x1000/uL (130-400); RBC 2.67 m/cumm (4.50-6.00); RBC Distribution Width 13.8 % (11.8-14.1); White Blood Cell Count 6.23 k/cumm (4.4-10.8)
[2019-07-06 07:29] LABS: Anion Gap 9.7 mmol/L (3-11); BUN 54 mg/dL (7-18); CO2 26.3 mmol/L (21.0-32.0); Calcium 8.9 mg/dL (8.5-10.1); Chloride 105 mmol/L (98-107); Estimated GFR 9.63 (mL/min/1.73m2); Glucose 124 mg/dL (70-100); Magnesium 1.9 mg/dL (1.8-2.4); Potassium 4.6 mmol/L (3.5-5.1); Sodium 141 mmol/L (136-145)
[2019-07-06 07:37] VITALS: BP 156/84; PULSE 65; RESP 20; TEMP 36.6; O2SAT 95
[2019-07-06 07:53] LABS: CREATININE 5.94 mg/dL (0.70-1.30)
[2019-07-06] MEDS: Brimonidine 0.15% 5 ML BTL OP ×2 (08:24→21:10)
[2019-07-06] MEDS: Polyethylene Glycol 3350 17 GM PACKET PO ×2 (08:24→21:10)
[2019-07-06] MEDS: Calcitriol 0.25 MCG CAP PO (08:25)
[2019-07-06] MEDS: buPROPion-CR 100 MG TABCR 200 MG PO (08:25)
[2019-07-06] MEDS: Cholecalciferol (Vitamin D3) 1,000 UNIT TAB 2000 UNITS PO (08:25)
[2019-07-06] MEDS: Gabapentin 100 MG CAP 300 MG PO (08:25)
[2019-07-06] MEDS: Finasteride 5 MG TAB PO (08:26)
[2019-07-06] MEDS: Multivitamin TAB 1 TAB PO (08:26)
[2019-07-06] MEDS: Bumetanide 1 MG TAB 2 MG PO ×2 (08:26→16:03)
[2019-07-06] MEDS: amLODIPine 10 MG TAB PO (08:26)
[2019-07-06] MEDS: hydrALAZINE 25 MG TAB 50 MG PO ×3 (08:26→21:11)
[2019-07-06] MEDS: Clopidogrel 75 MG TAB PO (08:26)
[2019-07-06] MEDS: Sodium Bicarbonate 650 MG TAB PO ×3 (08:26→21:10)
[2019-07-06] MEDS: cloNIDine 0.1 MG TAB PO ×2 (08:26→21:11)
[2019-07-06] MEDS: Docusate Sodium 100 MG CAP PO ×2 (08:27→21:10)
[2019-07-06] MEDS: Senna TAB 1 TAB PO ×2 (08:27→21:11)
[2019-07-06] MEDS: Carbidopa 25/Levodopa 100 TAB PO ×3 (08:27→21:11)
[2019-07-06] MEDS: Atorvastatin 40 MG TAB 80 MG PO (08:27)
[2019-07-06] MEDS: Tamsulosin 0.4 MG CAPCR 0.8 MG PO (08:28)
--- NOTE | 2019-07-06 08:34 | CMPROGNOTE_ITS ---
- If Service Date Differs Date of service: 07/06/19 Time of Service: 08:34 Care Management Progress Note S/O: Jewel was sitting up in his bed when CM met with him. He stated that he is still sick to his stomach and has been vomiting for the past couple of days. He did not have breakfast; he was NPO at the time. He said he does not feel like having lunch either. He said he is concerned that his trip to [place] may not happen. It is all last minute and sometimes it is hard to get reservations.CM will continue to follow. A: Jewel is a 63 year old gentleman admitted to [facility] on 07/02/2019 with CHF, CKD, COPD P: Jewel will be discharged home with a resumption of services. He is currently receiving nursing, PT and OT. He also has caregivers through [facility]. Jewel will be transported via private vehicle with caregivers. CM will continue to support patient, caregivers and discharge planning needs.
[2019-07-06] MEDS: Patch Removal 1 EACH TP (10:06)
[2019-07-06 11:31] VITALS: RESP 10
[2019-07-06] MEDS: Bisacodyl 5 MG TABEC 10 MG PO (11:56)
[2019-07-06] MEDS: Bisacodyl 10 MG SUPP PR (13:45)
--- NOTE | 2019-07-06 15:31 | CHAPLAIN ---
Sharad said he's been sick to his stomach today and throwing up. He's worried about getting better so he can make a trip to [place]. He gave me permission to let Amber White know he is here, and I did. I will continue to visit.
[2019-07-06 15:49] VITALS: BP 165/76; PULSE 65; RESP 20; TEMP 37.3; O2SAT 94
--- NOTE | 2019-07-06 16:39 | W.PM.PROGNOT ---
Date of Service Date of service: 07/06/19 Time of Service: 16:39 Assessment and Plan Assessment and plan (1) Nausea & vomiting: Status: Acute Assessment and plan: He has had intermittent nausea today. No bowel movement for 3 days. Abdominal x-ray shows constipation. He has had oral Dulcolax, Dulcolax suppository, and for soapsuds enema next. Once he has a bowel movement, we can get him discharged home comfortably so he can get enrolled with hospice. (2) Acute on chronic systolic congestive heart failure: Status: Acute Assessment and plan: He is no longer short of breath, his edema is improved today. His echo from 06/13/2019 shows LVEF of 50 to 55%. He is on his home dose of Bumex. Continue to monitor daily weights and intake and output. Continue beta-mignon and statin. He has TEDs ordered. (3) ESRD (end stage renal disease): Status: Acute Assessment and plan: Creatinine 5.94, at baseline. He has a fistula, he has not had dialysis. The plan will be for him to transition to hospice care when he is discharged home. Continue sodium bicarb. Continue to avoid nephrotoxic medications. Repeat BMP in the morning. (4) Essential hypertension: Status: Acute Assessment and plan: Blood pressure acceptable in the 160s over 70s. Continue home regimen. (5) Anemia: Status: Acute Assessment and plan: In the setting of end-stage renal disease. Also has a history of coronary artery disease. He received 1 unit of packed red blood cells during this hospitalization for symptomatic anemia. His Hgb remains stable at 8.5 today, no longer symptomatic. Continue to monitor. (6) CAD (coronary artery disease): Status: None Assessment and plan: No chest pain, troponin was negative on admission, continue home regimen with high intensity statin, beta-mignon and Plavix. (7) Gastroesophageal reflux disease: Status: Acute Assessment and plan: Stable. Continue Dexlansoprazole per home dosing. (8) BPH (benign prostatic hyperplasia): Status: None Assessment and plan: Continue finasteride and tamsulosin per home regimen. (9) DVT prophylaxis: Status: Acute Assessment and plan: Subcutaneous heparin. (10) Discharge planning issues: Status: Acute Assessment and plan: He is a DNR/DNI. He will return back home with services including home health and [facility] human services when he is ready for discharge. This case was discussed with Dr. Herzog who is in agreement. Subjective Subjective Interval history since last seen: Mati Sampson reports feeling better overall. He no longer has shortness of breath. No coughing, wheezing, chest pain/pressure, palpitations. He has not had a bowel movement for 3 days he had nausea and vomiting last evening. He had an abdominal x-ray which showed constipation. His appetite has been poor. He currently denies abdominal pain. He has received oral Dulcolax and Dulcolax suppository with no results. He will receive a soapsuds enema next. The plan was for him to be discharged home on hospice, once he moves his bowels, we will be able to get him discharged home comfortably. Exam Narrative Exam Narrative: General: Pale appearing, older gentleman, laying in bed with his head elevated, does not appear to be in any acute distress. Answers questions appropriately, pleasant and cooperative. HEENT: Skin is pale, pupils equal and round, mucous membranes moist. Neck: Supple, no JVD. Cardiovascular: Heart has regular rate and rhythm, no murmur appreciated. Respiratory: Respirations appear even and unlabored, his lungs sound clear to auscultation bilaterally, no rales or wheezing noted. GI: Normoactive bowel sounds throughout, abdomen soft, nontender on palpation. Extremities: Mild edema to bilateral upper extremities, 1+ pitting edema to bilateral lower extremities. No calf swelling or tenderness. Objective Objective Clinical Data: Abnormal lab results 07/06/19 07/06/19 Range/Units 06:35 06:35 RBC 2.67 L (4.50-6.00) m/cumm Hgb 8.5 L (13.5-17.5) g/dL Hct 26.2 L (40.0-50.0) % MCV 98.1 H (80-95) fL Absolute Lymphocytes 0.71 L (1.2-3.4) k/cumm BUN 54 H (7-18) mg/dL Creatinine 5.94 H* (0.70-1.30) mg/dL Glucose 124 H (70-100) mg/dL Vital Signs Temperature 37.3 C 07/06/19 15:49 Temperature Source Tympanic 07/06/19 15:49 Pulse 65 07/06/19 15:49 Pulse Rhythm Irregular 07/06/19 10:13 Pulse 70 07/02/19 15:50 Respiratory Rate 20 07/06/19 15:49 Respiratory Effort 07/06/19 10:13 Respiratory Depth Shallow 07/06/19 10:13 Respiratory Pattern Normal 07/06/19 10:13 Blood Pressure 165/76 H 07/06/19 15:49 Blood Pressure Mean 101 07/02/19 15:31 Blood Pressure Position Sitting 07/02/19 11:24 Pulse Oximetry 94 L 07/06/19 15:49 Oxygen Delivery Method Room Air 07/06/19 15:49 Oxygen Flow Rate 0 07/06/19 15:49 Pain Level 0 07/06/19 15:49 Comment 07/05/19 08:51 Intake & Output 07/05/19 07/06/19 07/06/19 23:59 11:59 23:59 Intake Total Output Total 1000 / 3150 450 / 450 Balance -1000 / -2300 -440 / -440 Weight 104.2 kg Intake: IV Output: Urine 900 / 3050 450 / 450 Emesis 100 / 100 Other: Urine Color Straw Yellow Urine Appearance Clear Clear Urine Odor None Emesis Description Undigested Food Voiding Methods Toilet Urinal Laboratory Results WBC 6.23 k/cumm (4.4-10.8) 07/06/19 06:35 RBC 2.67 m/cumm (4.50-6.00) L 07/06/19 06:35 Hgb 8.5 g/dL (13.5-17.5) L 07/06/19 06:35 Hct 26.2 % (40.0-50.0) L 07/06/19 06:35 MCV 98.1 fL (80-95) H 07/06/19 06:35 MCH 31.8 pg (27.0-33.0) 07/06/19 06:35 MCHC 32.4 g/dL (32.0-36.0) 07/06/19 06:35 RDW 13.8 % (11.8-14.1) 07/06/19 06:35 Plt Count 154 x1000/uL (130-400) 07/06/19 06:35 MPV 9.4 fL (8.0-11.0) 07/06/19 06:35 Immature Gran % 0.0 07/06/19 06:35 Neutrophils % 72.6 07/06/19 06:35 Lymphocytes % 11.4 07/06/19 06:35 Monocytes % 9.6 07/06/19 06:35 Eosinophils % 6.1 07/06/19 06:35 Basophils % 0.3 07/06/19 06:35 Absolute Neutrophils 4.52 k/cumm (1.2-6.7) 07/06/19 06:35 Absolute Lymphocytes 0.71 k/cumm (1.2-3.4) L 07/06/19 06:35 Absolute Monocytes 0.60 k/cumm (0.11-0.7) 07/06/19 06:35 Absolute Eosinophils 0.38 k/cumm (0.0-0.7) 07/06/19 06:35 Absolute Basophils 0.02 k/cumm (0.0-0.2) 07/06/19 06:35 Differential Comment Rbc morph reviewed 07/02/19 12:00 RBC Morphology See below 07/02/19 12:00 Polychromasia Present 07/02/19 12:00 Sodium 141 mmol/L (136-145) 07/06/19 06:35 Potassium 4.6 mmol/L (3.5-5.1) 07/06/19 06:35 Chloride 105 mmol/L (98-107) 07/06/19 06:35 Carbon Dioxide 26.3 mmol/L (21.0-32.0) 07/06/19 06:35 Anion Gap 9.7 mmol/L (3-11) 07/06/19 06:35 BUN 54 mg/dL (7-18) H 07/06/19 06:35 Creatinine 5.94 mg/dL (0.70-1.30) H* 07/06/19 06:35 Estimated GFR/1.73 m2 9.63 (mL/min/1.73m2) 07/06/19 06:35 Glucose 124 mg/dL (70-100) H 07/06/19 06:35 Calcium 8.9 mg/dL (8.5-10.1) 07/06/19 06:35 Magnesium 1.9 mg/dL (1.8-2.4) 07/06/19 06:35 Total Bilirubin 0.6 mg/dL (0.2-1.0) 07/02/19 12:00 AST 9 U/L (15-37) L 07/02/19 12:00 ALT < 6 U/L (16-63) L 07/02/19 12:00 Alkaline Phosphatase 84 U/L (46-116) 07/02/19 12:00 Troponin I < 0.05 ng/mL (0.00-0.06) 07/02/19 12:00 NT-Pro-B Natriuret Pep 83777 pg/mL (-299) H 07/02/19 12:00 Total Protein 6.6 g/dL (6.4-8.2) 07/02/19 12:00 Albumin 3.5 g/dL (3.4-5.0) 07/02/19 12:00 Patient ABO/Rh A Positive 07/04/19 07:22 Antibody Screen Negative 07/04/19 07:22 Crossmatch See Detail 07/04/19 07:22
[2019-07-06 21:15] VITALS: BP 160/73; PULSE 63; RESP 10; RESP 20; TEMP 36.3; O2SAT 92
--- NOTE | 2019-07-06 21:25 | W.PALLCONSUL ---
Date of service: 07/05/19 History of Present Illness History of Present Illness Chief Complaint: hard time breathing, weak, with edema Narrative: Mati was hoping to go to [place] with his caregivers Lana and Ana. Unlikely he will be able to go. Has had nausea, and abd pain, c/w possible mesenteric ischemia. Has not been able to go home yet. He is frustrated by this. Both caregivers are with him. He is pale, cold, with chills, in his recliner. Consults Consult date: 07/06/19 Requesting physician: Miguel Herzog Assessment and Plan Assessment and plan (1) Nausea & vomiting: Status: Acute Assessment and plan: explained could be due with his GI tract not getting enough blood will treat nausea not having a lot of pain, so may not be ischemic at all (2) Goals of care, counseling/discussion: Status: Acute Assessment and plan: wanting to go home wanting most of all to go to [place] but given his current level of CRUZ, unlikely (3) ESRD (end stage renal disease): Status: Acute Assessment and plan: has a fistula does not want dialysis (4) Cardiorenal syndrome with renal failure: Status: Acute Assessment and plan: explained to caregivers, if we fix one problem, we cause another what is good for his kidneys is bad for his heart and vice versa he does not want to follow a cardiac or renal diet wants to enjoy what life he has left wants to be at home with his cats (5) Acute on chronic systolic congestive heart failure: Status: Acute Assessment and plan: one of the two primary reasons why he qualifies for hospice, along with cardiorenal syndrome will continue to weaken, have worse CRUZ and edema He has been talking about dying Review of Systems Constitutional Constitutional: Reports daytime sleepiness, Reports fatigue, Reports poor appetite, Reports weakness and Reports weight gain Comments: Feeling better now that he has diuresed. At home, very short of breath. Eyes Eyes: Reports requires corrective lenses ENT Ears, Nose, Mouth, and Throat: Reports disequilibrium Cardiovascular Cardiovascular: Reports rapid heart rate, Reports edema, Reports lightheadedness, Reports dyspnea on exertion and Reports paroxysmal nocturnal dyspnea Respiratory Respiratory: Reports dyspnea on exertion Comments: much better since admission Gastrointestinal Gastrointestinal: Reports bloating, Reports constipation and Reports early satiety Genitourinary Genitourinary: Reports difficulty urinating and Reports urinary incontinence Musculoskeletal Musculoskeletal: Reports arthralgias, Reports muscle weakness and Reports stiffness Integumentary/Breasts Skin/Breast: Reports dry skin Neurologic Neurologic: Reports disequilibrium and Reports weakness Comments: Lana and Amber say that Mati is at his baseline. Shows some mild intellectual deficits. Psychiatric Psychiatric: Reports anxiety (does not want to have fluid or dietary restrictions; upsets him greatly) Endocrine Endocrine: Reports fatigue Hematologic/Lymphatic Hematologic/Lymphatic: Reports easy bruising [facility] Medical History AV fistula (Acute) 4 stages 12/2016 thru 06/16/2017 at [facility] [place] [place] BPH (benign prostatic hyperplasia) CAD (coronary artery disease) Cardiorenal syndrome with renal failure (Acute) CHF (congestive heart failure), NYHA class I Chronic kidney disease, stage IV (severe) Diabetic neuropathy Diabetic retinopathy DNI (do not intubate) (Acute) DNR (do not resuscitate) (Acute) ESRD (end stage renal disease) (Acute) Essential hypertension GERD (gastroesophageal reflux disease) Goals of care, counseling/discussion (Acute) Hyperlipidemia Mild intellectual disability (Acute) KYLE (obstructive sleep apnea) Palliative care patient (Acute) POLST (Physician Orders for Life-Sustaining Treatment) (Acute) Stroke Type II diabetes mellitus Surgical History Colonoscopy - IV Sedation (04/16/15) [place] [place] (07[place]22[place]) [place]oscopy (07/17/14[place] [facility] [place] Extraction of cataract (03/27/15) left eye, Dr. Kang Repair of inguinal hernia bilateral Family History Mother , immediately after his premature No problems noted. 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 [employer] Pets and animals: Yes Pets and animals: cat(s) Sexually active: No Current gender identity: male What is your relationship status?: never How often do you talk on the phone with friends or family?: three or more times per week How often do you get together with friends or relatives?: three or more times per week Panel score (0-1 are the most socially isolated patients): 1 What type of physical activity do you participate in: none Special kilo needs: No Agree to transfusion: No Seatbelt use: always Water heater temp set <120 deg: Yes Working smoke detector in home: Yes Carbon monox detector in home: Yes Do you feel safe at home: Yes Do you feel safe in your relationship?: Yes Additional Social history: Caregivers Lana or Ana with Mati 8 hrs + per day. Lives alone, except for his cats, Emelina and Rene (new since discharge). Loves [place]. Hoping to go again soon. Has no complaints. Likes his home. Tried PT and quit after 1 or 2 sessions. Asking about writing a will. Exam Narrative Exam Narrative: General: Pale appearing, older gentleman, sitting up at the edge of his bed, does not appear to be in any acute distress. Answers questions appropriately, pleasant and cooperative. HEENT: Skin is pale, pupils equal and round, mucous membranes moist. Neck: Supple, no JVD. Cardiovascular: Heart has regular rate and rhythm, no murmur appreciated. Respiratory: Respirations appear even and unlabored, lung sounds with fine rales to the left base, no wheezing. GI: Normoactive bowel sounds throughout, abdomen soft, nontender on palpation. Extremities: Mild edema to bilateral upper extremities, 2+ pitting edema to bilateral lower extremities. No calf swelling or tenderness. Results Last Vital Signs Temp 99.1 F 07/06/19 15:49 Pulse 65 07/06/19 15:49 Resp 20 07/06/19 15:49 BP 165/76 H 07/06/19 15:49 Pulse Ox 94 L 07/06/19 15:49 Labs Result diagrams: 07/07/19 06:30 07/07/19 06:30 Labs: Laboratory Results - last 24 hr 07/06/19 07/06/19 06:35 06:35 WBC 6.23 RBC 2.67 L Hgb 8.5 L Hct 26.2 L MCV 98.1 H MCH 31.8 MCHC 32.4 RDW 13.8 Plt Count 154 MPV 9.4 Immature Gran % 0.0 Neutrophils % 72.6 Lymphocytes % 11.4 Monocytes % 9.6 Eosinophils % 6.1 Basophils % 0.3 Absolute Neutrophils 4.52 Absolute Lymphocytes 0.71 L Absolute Monocytes 0.60 Absolute Eosinophils 0.38 Absolute Basophils 0.02 Sodium 141 Potassium 4.6 Chloride 105 Carbon Dioxide 26.3 Anion Gap 9.7 BUN 54 H Creatinine 5.94 H* Estimated GFR/1.73 m2 9.63 Glucose 124 H Calcium 8.9 Magnesium 1.9
[2019-07-06 22:55] VITALS: BP 152/76; PULSE 64; RESP 20; TEMP 37.2; O2SAT 94
[2019-07-06] MEDS: Lidocaine 5% Patch 2 PATCH TP (22:57)
[2019-07-06] MEDS: Melatonin 3 MG TAB PO (22:58)
[2019-07-07] VITALS (8 sets, daily range): BP systolic 135–151; BP diastolic 72–81; PULSE 56–65; RESP 10–20; TEMP 36.2–37.9; O2SAT 92–95
[2019-07-07] MEDS: Heparin 5,000 UNITS/ML VIAL 5000 UNITS SC ×3 (05:00→20:21)
[2019-07-07] MEDS: Metoprolol 25 MG TAB PO ×3 (05:00→21:15)
[2019-07-07 06:58] LABS: Abs Immature Grans 0.01 k/cumm (0.0-0.09); Absolute Basophil Count 0.02 k/cumm (0.0-0.2); Absolute Lymphocyte Count 0.85 k/cumm (1.2-3.4); Absolute Monocyte Count 0.74 k/cumm (0.11-0.7); Absolute Neutrophil Count 5.11 k/cumm (1.2-6.7); Basophils % 0.3; Eosinophils % 4.3; HCT 25.3 % (40.0-50.0); HGB 8.2 g/dL (13.5-17.5); Immature Grans % 0.1; Lymphocytes % 12.1; Mean Corp. HGB Concentration 32.4 g/dL (32.0-36.0); Mean Corpuscular Volume 98.8 fL (80-95); Mean Platelet Volume 9.2 fL (8.0-11.0); Monocytes % 10.5; Neutrophils % 72.7; Platelet Count 145 x1000/uL (130-400); RBC 2.56 m/cumm (4.50-6.00); RBC Distribution Width 13.8 % (11.8-14.1); White Blood Cell Count 7.03 k/cumm (4.4-10.8)
[2019-07-07 07:14] LABS: Anion Gap 8.6 mmol/L (3-11); BUN 53 mg/dL (7-18); CO2 25.4 mmol/L (21.0-32.0); Calcium 8.6 mg/dL (8.5-10.1); Chloride 106 mmol/L (98-107); Estimated GFR 9.46 (mL/min/1.73m2); Glucose 119 mg/dL (70-100); Magnesium 1.9 mg/dL (1.8-2.4); Potassium 4.4 mmol/L (3.5-5.1); Sodium 140 mmol/L (136-145)
[2019-07-07 07:18] LABS: CREATININE 6.03 mg/dL (0.70-1.30)
[2019-07-07] MEDS: Polyethylene Glycol 3350 17 GM PACKET PO ×2 (08:53→20:21)
[2019-07-07] MEDS: Sodium Bicarbonate 650 MG TAB PO ×3 (08:54→20:21)
[2019-07-07] MEDS: amLODIPine 10 MG TAB PO (08:54)
[2019-07-07] MEDS: Gabapentin 100 MG CAP 300 MG PO (08:54)
[2019-07-07] MEDS: Docusate Sodium 100 MG CAP PO ×2 (08:54→20:21)
[2019-07-07] MEDS: Multivitamin TAB 1 TAB PO (08:54)
[2019-07-07] MEDS: hydrALAZINE 25 MG TAB 50 MG PO ×3 (08:54→20:21)
[2019-07-07] MEDS: Clopidogrel 75 MG TAB PO (08:54)
[2019-07-07] MEDS: Calcitriol 0.25 MCG CAP PO (08:54)
[2019-07-07] MEDS: Finasteride 5 MG TAB PO (08:55)
[2019-07-07] MEDS: buPROPion-CR 100 MG TABCR 200 MG PO (08:55)
[2019-07-07] MEDS: Cholecalciferol (Vitamin D3) 1,000 UNIT TAB 2000 UNITS PO (08:55)
[2019-07-07] MEDS: cloNIDine 0.1 MG TAB PO ×2 (08:55→20:21)
[2019-07-07] MEDS: Tamsulosin 0.4 MG CAPCR 0.8 MG PO (08:55)
[2019-07-07] MEDS: Senna TAB 1 TAB PO ×2 (08:55→20:21)
[2019-07-07] MEDS: Bumetanide 1 MG TAB 2 MG PO ×2 (08:55→15:46)
[2019-07-07] MEDS: Atorvastatin 40 MG TAB 80 MG PO (08:55)
[2019-07-07] MEDS: Omeprazole 10 MG CAPCR PO (08:55)
[2019-07-07] MEDS: Brimonidine 0.15% 5 ML BTL OP ×2 (09:16→20:24)
[2019-07-07] MEDS: Carbidopa 25/Levodopa 100 TAB PO ×3 (10:18→20:21)
[2019-07-07] MEDS: Patch Removal 1 EACH TP (10:50)
[2019-07-07] MEDS: Bisacodyl 5 MG TABEC 10 MG PO (13:07)
--- NOTE | 2019-07-07 15:13 | PGE_ITS ---
Date of Service Date of service: 07/07/19 Time of Service: 15:13 Assessment and Plan Assessment and plan (1) Nausea & vomiting: Status: Acute Assessment and plan: No bowel movement for 4 days. Abdominal x-ray shows constipation. Has bowel regimen. Once he has a bowel movement, we can get him discharged home comfortably so he can enroll with hospice. (2) Acute on chronic systolic congestive heart failure: Status: Acute Assessment and plan: He is no longer short of breath, his edema is improved today. His echo from 06/13/2019 shows LVEF of 50 to 55%. He is on his home dose of Bumex. Continue to monitor daily weights and intake and output. Continue beta-mignon and statin. He has TEDs ordered. (3) ESRD (end stage renal disease): Status: Acute Assessment and plan: Creatinine near baseline at 6.03. He has a fistula, he has not had dialysis. The plan will be for him to transition to hospice care when he is discharged home. Continue sodium bicarb. Continue to avoid nephrotoxic medications. (4) Essential hypertension: Status: Acute Assessment and plan: Blood pressure acceptable in the 150s over 80s. Continue home regimen. (5) Anemia: Status: Acute Assessment and plan: In the setting of end-stage renal disease. Also has a history of coronary artery disease. He received 1 unit of packed red blood cells during this hospitalization for symptomatic anemia. His Hgb remains stable, no longer symptomatic. Continue to monitor. (6) CAD (coronary artery disease): Status: None Assessment and plan: No chest pain, troponin was negative on admission, continue home regimen with high intensity statin, beta-mignon and Plavix. (7) Gastroesophageal reflux disease: Status: Acute Assessment and plan: Stable. Continue Dexlansoprazole per home dosing. (8) BPH (benign prostatic hyperplasia): Status: None Assessment and plan: Continue finasteride and tamsulosin per home regimen. (9) DVT prophylaxis: Status: Acute Assessment and plan: Subcutaneous heparin. (10) Discharge planning issues: Status: Acute Assessment and plan: He is a DNR/DNI. He will return back home with services including home health and [facility] human services when he is ready for discharge. The plan is for him to enroll in hospice after discharge. This case was discussed with Dr. Herzog who is in agreement. Subjective Subjective Interval history since last seen: Mati Sampson is overall feeling better, however, he has not had a bowel movement in 4 days. Yesterday he had nausea and vomiting. His abdominal x-ray shows large stool quantity. His diet was changed to clear liquids. He is tolerating a clear liquid diet. He is worried about going home without having a bowel movement first. He denies shortness of breath, coughing, wheezing, chest pain/pressure, palpitations. The plan will be for him to be discharged home to hospice when he is ready. Exam Narrative Exam Narrative: General: Pale appearing, older gentleman, sitting up in the chair in no acute distress. Answers questions appropriately, pleasant and cooperative. HEENT: Skin is pale, pupils equal and round, mucous membranes moist. Neck: Supple, no JVD. Cardiovascular: Heart has regular rate and rhythm, no murmur appreciated. Respiratory: Respirations appear even and unlabored, his lungs sound clear to auscultation bilaterally, no rales or wheezing noted. GI: Normoactive bowel sounds throughout, abdomen soft, nontender on palpation. Extremities: Mild edema to bilateral upper extremities, trace to +1 pitting edema to bilateral lower extremities. No calf swelling or tenderness. Objective Objective Clinical Data: Abnormal lab results 07/07/19 07/07/19 Range/Units 06:30 06:30 RBC 2.56 L (4.50-6.00) m/cumm Hgb 8.2 L (13.5-17.5) g/dL Hct 25.3 L (40.0-50.0) % MCV 98.8 H (80-95) fL Absolute Lymphocytes 0.85 L (1.2-3.4) k/cumm Absolute Monocytes 0.74 H (0.11-0.7) k/cumm BUN 53 H (7-18) mg/dL Creatinine 6.03 H* (0.70-1.30) mg/dL Glucose 119 H (70-100) mg/dL Vital Signs Temperature 37.9 C H 07/07/19 08:10 Temperature Source Tympanic 07/07/19 08:10 Pulse 65 07/07/19 09:21 Pulse Rhythm Irregular 07/07/19 09:00 Pulse 70 07/02/19 15:50 Respiratory Rate 18 07/07/19 09:21 Respiratory Effort Non-Labored 07/07/19 09:00 Respiratory Depth Shallow 07/07/19 09:00 Respiratory Pattern Normal 07/07/19 09:00 Blood Pressure 151/81 H 07/07/19 09:21 Blood Pressure Mean 101 07/02/19 15:31 Blood Pressure Position Sitting 07/02/19 11:24 Pulse Oximetry 93 L 07/07/19 09:50 Oxygen Delivery Method Room Air 07/07/19 09:50 Oxygen Flow Rate 0 07/07/19 09:50 Pain Level 0 07/07/19 08:10 Comment 07/05/19 08:51 Intake & Output 07/06/19 07/07/19 07/07/19 23:59 11:59 23:59 Intake Total 750 / 1230 480 / 1230 Output Total 550 / 1000 900 / 900 Balance -550 / -990 -150 / 330 480 / 330 Weight 104.6 kg Intake: Oral 750 / 1230 480 / 1230 Output: Urine 550 / 1000 900 / 900 Other: Urine Color Light Vera Light Vera Urine Appearance Clear Clear Urine Odor Normal Voiding Methods Toilet Toilet Laboratory Results WBC 7.03 k/cumm (4.4-10.8) 07/07/19 06:30 RBC 2.56 m/cumm (4.50-6.00) L 07/07/19 06:30 Hgb 8.2 g/dL (13.5-17.5) L 07/07/19 06:30 Hct 25.3 % (40.0-50.0) L 07/07/19 06:30 MCV 98.8 fL (80-95) H 07/07/19 06:30 MCH 32.0 pg (27.0-33.0) 07/07/19 06:30 MCHC 32.4 g/dL (32.0-36.0) 07/07/19 06:30 RDW 13.8 % (11.8-14.1) 07/07/19 06:30 Plt Count 145 x1000/uL (130-400) 07/07/19 06:30 MPV 9.2 fL (8.0-11.0) 07/07/19 06:30 Immature Gran % 0.1 07/07/19 06:30 Neutrophils % 72.7 07/07/19 06:30 Lymphocytes % 12.1 07/07/19 06:30 Monocytes % 10.5 07/07/19 06:30 Eosinophils % 4.3 07/07/19 06:30 Basophils % 0.3 07/07/19 06:30 Absolute Neutrophils 5.11 k/cumm (1.2-6.7) 07/07/19 06:30 Absolute Lymphocytes 0.85 k/cumm (1.2-3.4) L 07/07/19 06:30 Absolute Monocytes 0.74 k/cumm (0.11-0.7) H 07/07/19 06:30 Absolute Eosinophils 0.30 k/cumm (0.0-0.7) 07/07/19 06:30 Absolute Basophils 0.02 k/cumm (0.0-0.2) 07/07/19 06:30 Differential Comment Rbc morph reviewed 07/02/19 12:00 RBC Morphology See below 07/02/19 12:00 Polychromasia Present 07/02/19 12:00 Sodium 140 mmol/L (136-145) 07/07/19 06:30 Potassium 4.4 mmol/L (3.5-5.1) 07/07/19 06:30 Chloride 106 mmol/L (98-107) 07/07/19 06:30 Carbon Dioxide 25.4 mmol/L (21.0-32.0) 07/07/19 06:30 Anion Gap 8.6 mmol/L (3-11) 07/07/19 06:30 BUN 53 mg/dL (7-18) H 07/07/19 06:30 Creatinine 6.03 mg/dL (0.70-1.30) H* 07/07/19 06:30 Estimated GFR/1.73 m2 9.46 (mL/min/1.73m2) 07/07/19 06:30 Glucose 119 mg/dL (70-100) H 07/07/19 06:30 Calcium 8.6 mg/dL (8.5-10.1) 07/07/19 06:30 Magnesium 1.9 mg/dL (1.8-2.4) 07/07/19 06:30 Total Bilirubin 0.6 mg/dL (0.2-1.0) 07/02/19 12:00 AST 9 U/L (15-37) L 07/02/19 12:00 ALT < 6 U/L (16-63) L 07/02/19 12:00 Alkaline Phosphatase 84 U/L (46-116) 07/02/19 12:00 Troponin I < 0.05 ng/mL (0.00-0.06) 07/02/19 12:00 NT-Pro-B Natriuret Pep 85072 pg/mL (-299) H 07/02/19 12:00 Total Protein 6.6 g/dL (6.4-8.2) 07/02/19 12:00 Albumin 3.5 g/dL (3.4-5.0) 07/02/19 12:00 Patient ABO/Rh A Positive 07/04/19 07:22 Antibody Screen Negative 07/04/19 07:22 Crossmatch See Detail 07/04/19 07:22
[2019-07-07] MEDS: Milk of Magnesia 30 ML CUP PO (15:46)
--- NOTE | 2019-07-07 17:05 | CMPROGNOTE_ITS ---
- If Service Date Differs Date of service: 07/07/19 Time of Service: 17:06 Care Management Progress Note S/O: Jewel was sitting up in a chair when CM met with him. He stated that he still has not had a bowel movement and he is concerned about going home until he has. He stated that it can't just stay in there. Jewel also talked about his pending tri[p to [place] and said they still plan to go but no reservations have been made yet. When asked about hospice and what he understood about the process, Jewel said I'm not crazy about the idea. He did not seem to have a full understanding of what it meant. He said that he understood that he would have people caring for him and that Dr. Tillman would see him, but that he wanted to keep his PCP, Ethel Collins. He also said that he expects to come back to the hospital if he has trouble breathing or gets really sick. He also stated that he would have hospice available in [place] if anything happens while I'm there. A: Jewel is a 63 year old gentleman admitted to [facility] on 07/02/2019 with CHF, CKD, COPD P: Jewel will be discharged home with a resumption of services. He is currently receiving nursing, PT and OT. He also has caregivers through [facility]. Jewel will be transported via private vehicle with caregivers. CM will continue to support patient, caregivers and discharge planning needs.
[2019-07-07] MEDS: Lidocaine 5% Patch 2 PATCH TP (21:15)
[2019-07-07] MEDS: Melatonin 3 MG TAB PO (21:15)
[2019-07-08] MEDS: Heparin 5,000 UNITS/ML VIAL 5000 UNITS SC ×2 (04:52→11:12)
[2019-07-08] MEDS: Metoprolol 25 MG TAB PO ×2 (04:52→13:22)
[2019-07-08 05:00] VITALS: BP 164/73; PULSE 60; RESP 17; TEMP 36.4; O2SAT 98
[2019-07-08 07:25] VITALS: BP 173/72; PULSE 59; RESP 17; TEMP 35.5; O2SAT 96
[2019-07-08] MEDS: Normal Saline Flush 10 ML SYR IVP (07:56)
[2019-07-08] MEDS: Polyethylene Glycol 3350 17 GM PACKET PO (07:56)
[2019-07-08] MEDS: Brimonidine 0.15% 5 ML BTL OP (07:56)
[2019-07-08] MEDS: Sodium Bicarbonate 650 MG TAB PO ×2 (07:56→13:22)
[2019-07-08] MEDS: Gabapentin 100 MG CAP 300 MG PO (07:57)
[2019-07-08] MEDS: buPROPion-CR 100 MG TABCR 200 MG PO (07:57)
[2019-07-08] MEDS: Finasteride 5 MG TAB PO (07:57)
[2019-07-08] MEDS: Senna TAB 1 TAB PO (07:57)
[2019-07-08] MEDS: cloNIDine 0.1 MG TAB PO (07:57)
[2019-07-08] MEDS: Multivitamin TAB 1 TAB PO (07:57)
[2019-07-08] MEDS: Cholecalciferol (Vitamin D3) 1,000 UNIT TAB 2000 UNITS PO (07:57)
[2019-07-08] MEDS: Calcitriol 0.25 MCG CAP PO (07:58)
[2019-07-08] MEDS: Tamsulosin 0.4 MG CAPCR 0.8 MG PO (07:58)
[2019-07-08] MEDS: hydrALAZINE 25 MG TAB 50 MG PO ×2 (07:58→13:22)
[2019-07-08] MEDS: Bumetanide 1 MG TAB 2 MG PO (07:58)
[2019-07-08] MEDS: Omeprazole 10 MG CAPCR PO (07:58)
[2019-07-08] MEDS: Atorvastatin 40 MG TAB 80 MG PO (07:58)
[2019-07-08] MEDS: Carbidopa 25/Levodopa 100 TAB PO ×2 (07:59→13:21)
[2019-07-08] MEDS: Clopidogrel 75 MG TAB PO (07:59)
[2019-07-08] MEDS: amLODIPine 10 MG TAB PO (07:59)
[2019-07-08] MEDS: Docusate Sodium 100 MG CAP PO (07:59)
[2019-07-08 09:36] VITALS: RESP 10
[2019-07-08] MEDS: Patch Removal 1 EACH TP (10:43)
--- NOTE | 2019-07-08 11:18 | NUR.NOTE ---
Patient received milk and molasses enema. Tolerated procedure well. Patient was assisted up to the bathroom approximately 15 minutes after enema and was able to produce a 2-inch piece of formed stool. Provider ordered prune juice and butter, which was administered to the patient. Patient continues to have active bowel sounds in all four quadrants, and denies abdominal tenderness to palpation. Patient is now complaining of nausea. Will continue to monitor. Nursing Note:
--- NOTE | 2019-07-08 12:58 | W.PM.DS.N ---
DS: Diagnosis Discharge Diagnosis (1) Nausea & vomiting: Start date: 07/08/19 Start time: 12:58 Status: Acute Asessment and Plan: Resolved (2) Acute on chronic systolic congestive heart failure: Start date: 07/08/19 Start time: 13:00 Status: Acute Asessment and Plan: Going home on hospice. (3) ESRD (end stage renal disease): Status: Acute (4) Essential hypertension: Status: Acute (5) Anemia: Status: Acute (6) CAD (coronary artery disease): Status: None (7) Gastroesophageal reflux disease: Status: Acute (8) BPH (benign prostatic hyperplasia): Status: None (9) DVT prophylaxis: Status: Acute (10) Discharge planning issues: Status: Acute Discharge Plan Disposition Patient Disposition: HOME Condition: Stable Discharge Details Chief Complaint: SOB Clinical Impression: Congestive heart failure Reason For Visit: CHF,CKD,SOB Admit Date/Time: 07/02/19 15:37 Admit Provider: Miguel Herzog Attending Provider: Miguel Herzog Primary Care Provider: Ethel Collins ED Provider: [facility] Course Hospital Course: Mr. Sampson is a 63 y.o male with PMH of Anemia, Parkinson, DM II, Stroke, Hyperlipidemia, HTN, D. Neuropathy, D. Retinopathy, CHF, ESRD with fistula (not started on dialysis). YKLE on Bipap. Migraine, mental delay and loop recorder. Admitted from [facility] ED on 07/02/2019 for CHF brought on after eating a salty diet. BNP was elevated, he was SOB requiring short bipap and CXR revealing CHF. During course of treatment patient was diuresised with IV lasix resulting in baseline weight transitioned to home dose bumex, and not requiring oxygen with good results. PT was ordered but patient refused. Creatinine remained elevated but stable. HTN poorly controlled but at baseline. While in the hospital he met with Dr. Tillman and is going home with hospice. He was going to be discharged yesterday however he had not had a BM in almost a week despite a Bowel regimen. Today patient had a moderate soft BM. He is being discharged home with a bowel regimen on hospice. Being discharged home on routine home medications, be expected to change upon admission to hospice, however please be aware patient needs high dose bowel medications. He denies CP, SOB, N/V/D Home Meds and New Rx's Prescriptions: New polyethylene glycol 3350 17 gram Powder In Packet 17 g PO BID Qty: 30 RF: 0 Continued brimonidine 0.1 % drops 1 drp OP BID RF: 0 tamsulosin 0.4 mg capsule 0.8 mg PO DAILY Qty: 60 RF: 12 albuterol sulfate [ProAir HFA] 90 mcg/actuation HFA aerosol inhaler 2 puff Inhalation Q4H PRN Qty: 1 RF: 1 docusate sodium 100 mg capsule 100 mg PO DIRECTED RF: 0 multivitamin capsule 1 cap PO DAILY RF: 0 Lidocaine Pain Relief 4 % adhesive patch,medicated 1 patch TP HS PRNRF: 0 fluticasone propionate [Flonase Allergy Relief] 50 mcg/actuation spray,suspension 1 spray GOPI DAILY PRNRF: 0 dorzolamide-timolol 10 ML drops 1 drp Ophthalmic BID RF: 0 cholecalciferol (vitamin D3) [Vitamin D3] 2,000 UNIT capsule 2,000 unit PO DAILY RF: 0 calcitriol 0.25 MCG capsule 0.25 mcg PO DAILY RF: 0 atorvastatin 80 mg tablet 80 mg PO DAILY Qty: 90 RF: 3 (DME) Adult Briefs - Large misc 1 ea Miscellaneous TID Qty: 300 RF: 3 amlodipine 10 mg tablet 10 mg PO DAILY Qty: 30 RF: 5 clopidogrel [Plavix] 75 mg tablet 75 mg PO DAILY Qty: 30 RF: 11 finasteride 5 mg tablet 5 mg PO DAILY Qty: 90 RF: 4 Dexilant 60 mg capsule,biphase delayed releas 60 mg PO BID Qty: 60 RF: 5 Aranesp (in polysorbate) 40 mcg/0.4 mL syringe 40 mcg SC Q4W RF: 0 bupropion HCl 150 MG tablet extended release 12 hr 200 mg PO DAILY RF: 0 ipratropium-albuterol 0.5 mg-3 mg(2.5 mg base)/3 mL Solution For Nebulization 3 ml UPD Q4H PRN PRN (Reason: shortness of breath or wheezing) Qty: 180 RF: 0 sennosides [Senokot] 8.6 mg Tablet 1 tab PO BID Qty: 60 RF: 0 clonidine HCl [Catapres] 0.1 mg Tablet 0.1 mg PO BID Qty: 60 RF: 0 sodium bicarbonate 650 mg Tablet 650 mg PO TID Qty: 90 RF: 0 lidocaine [Lidoderm] 5 % Adhesive Patch,Medicated 2 patch topical HS Qty: 60 RF: 0 bumetanide 1 mg Tablet 2 mg PO BID DIURETIC Qty: 120 RF: 0 metoprolol tartrate 25 mg Tablet 25 mg PO Q8H Qty: 90 RF: 0 hydralazine 50 mg tablet 50 mg PO TID Qty: 90 RF: 0 melatonin 1 MG tablet 2 mg PO DIRECTED RF: 0 carbidopa-levodopa 25-100 mg Tablet 2 tab TID RF: 0 gabapentin 100 mg capsule 300 mg PO DAILY RF: 0 Discontinued loperamide 2 mg Capsule 2 mg PO QID RF: 0 Discharge Instructions Instructions: Heart Failure (GEN), Constipation (GEN), Chronic Kidney Disease (GEN) Additional Instructions: Take bowel medication until you have 3 loose bowel movements. Hospice will adjust your medications once admitted to their service. Stand Alone Forms: Nursing Discharge Form Referrals: Lefty Palomares DO [OSTEOPATHIC DOCTOR] - 07/11/19 10:00 am Activity:: Activity as Tolerated Equipment/Supplies:: No Equipment Needed Diet:: Renal low sodium Discharge Orders Discharge Orders: Discharge Order (Routine); Ordered 07/08/19 Ordered By: Zuri Cespedes DS: Summary Status at Discharge Functional status at discharge: uses cane/walker Overall status at discharge: patient is back to baseline Mental Status: mental status grossly normal Speech and Movement: speech and movement normal Mood: congruent mood Affect: normal affect Exam Narrative Exam Narrative: General: Pale appearing, older gentleman, sitting up in the chair in no acute distress. Answers questions appropriately, pleasant and cooperative. HEENT: Skin is pale, pupils equal and round, mucous membranes moist. Neck: Supple, no JVD. Cardiovascular: Heart has regular rate and rhythm, no murmur appreciated. Respiratory: Respirations appear even and unlabored, his lungs sound clear to auscultation bilaterally, no rales or wheezing noted. GI: Normoactive bowel sounds throughout, abdomen soft, nontender on palpation. Extremities: Mild edema to bilateral upper extremities, trace to +1 pitting edema to bilateral lower extremities. No calf swelling or tenderness. Psych Mental Status: mental status grossly normal Speech and Movement: speech and movement normal Mood: congruent mood Affect: normal affect DS: Data Vitals/I&O Vitals and I&O: Vital Signs Temperature 35.5 C L 07/08/19 07:25 Temperature Source Tympanic 07/08/19 07:25 Pulse 59 L 07/08/19 07:25 Pulse Rhythm Regular 07/08/19 07:55 Pulse 70 07/02/19 15:50 Respiratory Rate 17 07/08/19 07:25 Respiratory Effort 07/08/19 07:55 Respiratory Depth Normal 07/08/19 07:55 Respiratory Pattern Normal 07/08/19 07:55 Blood Pressure 173/72 H 07/08/19 07:25 Blood Pressure Mean 101 07/02/19 15:31 Blood Pressure Position Sitting 07/02/19 11:24 Pulse Oximetry 96 07/08/19 07:25 Oxygen Delivery Method Room Air 07/08/19 07:25 Oxygen Flow Rate 2 07/08/19 09:36 Pain Level 0 07/08/19 07:55 Comment 07/05/19 08:51 Intake & Output 07/07/19 07/08/19 07/08/19 23:59 11:59 23:59 Intake Total 540 / 1290 200 / 200 Output Total 900 / 1800 600 / 600 Balance -360 / -510 -400 / -400 Weight 104.2 kg Intake: Oral 540 / 1290 200 / 200 Output: Urine 900 / 1800 600 / 600 Other: Urine Color Light Vera Yellow Urine Appearance Clear Clear Stool Size Small Small Small Stool Characteristics Liquid Formed Soft Mucoid Liquid Brown Voiding Methods Toilet Toilet Data Completed and Pending Completed studies during hospitalization [Text1]: Exam(s) PROCEDURE INFORMATION: Exam: XR Abdomen, 2 Views Exam date and time: 07/05/2019 7:36 PM Clinical history: 63 years old, male; Nausea and vomiting; Patient HX: Nausea, vomiting, HX of constipation, ? ileus TECHNIQUE: Imaging protocol: XR of the abdomen. Frontal supine and upright views of the abdomen. Views: 2 Views. COMPARISON: CR XR ABDOMEN FLAT UPRIGHT 08/30/2019 12:46 FINDINGS: Lower thorax: Stable mild cardiomegaly. Similar to prior study increased interstitial markings at the lung bases. Gastrointestinal tract: Moderate solid stool load. Resolution of previously air distended small bowel loops. Intraperitoneal space: No evidence for free air. Vasculature: Vascular calcification of the aorta and splenic artery. Bones/joints: Multilevel degenerative changes of the thoracic and lumbar spine stable compared with prior study. IMPRESSION: 1. Moderate solid stool load involving right colon and transverse colon. Otherwise nonspecific bowel gas pattern. 2. Atherosclerotic disease. 3. Multilevel degenerative changes of the thoracic and lumbar spine. 4. Stable cardiomegaly and pulmonary vascular congestion. Dictated and Authenticated by: Kinsey Malave MD. Ordering:DANA zelaya RAD:XR abdomen flat & upright EXAM: XR ABDOMEN FLAT UPRIGHT INDICATION: Nausea, vomiting. History of constipation, ileus. COMPARISON: XR ABDOMEN FLAT UPRIGHT from 07/02/2019 TECHNIQUE: 2D digital imaging was performed. FINDINGS: The visualized portions of the lung bases are clear. No free air is seen. There is increased stool seen mainly in the right colon. There is no abnormal colonic or small bowel dilatation. Degenerative changes are again noted in the spine. IMPRESSION: Increased quantity of stool. No acute abnormality. PROCEDURE INFORMATION: Exam: XR Right Foot Complete Exam date and time: 07/02/2019 6:01 PM Clinical history: 63 years old, male; Injury or trauma; Fall; Initial encounter; Blunt trauma; Foot; Bilateral; Additional info: Ecchymosis TECHNIQUE: Imaging protocol: XR Right foot. Views: 3 or more views. COMPARISON: No relevant prior studies available. FINDINGS: Bones/joints: Bunionectomy defect versus erosion in the head of the first metatarsal bone. Clinically correlate. No acute fracture or dislocation. Small plantar calcaneal spur. Degenerative changes in the ankle joint. Flat foot deformity. Soft tissues: Soft tissue edema. Vasculature: Atherosclerosis. IMPRESSION: Bunionectomy defect versus erosion in the head of the first metatarsal bone. Clinically correlate. Atherosclerosis. No acute fracture or dislocation. Small plantar calcaneal spur. Degenerative changes in the ankle joint. Soft tissue edema. Flat foot deformity. Exam(s) PROCEDURE INFORMATION: Exam: XR Abdomen, 2 Views Exam date and time: 07/02/2019 12:54 PM Clinical history: 63 years old, male; Constipation TECHNIQUE: Imaging protocol: XR of the abdomen. Frontal supine and upright views of the abdomen. Views: 2 Views. COMPARISON: CR ABD FLAT UPRIGHT PA CHEST 09/04/2012 12:52 AM FINDINGS: Nonspecific bowel gas pattern. Vascular calcifications. Degenerative changes of the lumbar spine. Mild to moderate fecal material within the right colon without colonic distention. IMPRESSION: Nonspecific bowel gas pattern. Exam(s) PROCEDURE INFORMATION: Exam: XR Chest, 2 Views Exam date and time: 07/02/2019 12:55 PM Clinical history: 63 years old, male; Shortness of breath; Patient HX: Chf TECHNIQUE: Imaging protocol: XR of the chest Views: 2 views. COMPARISON: CR XR CHEST 2V PA LATERAL 06/11/2019 12:05 PM FINDINGS: Diffuse interstitial lung scarring. Blunting of the posterior costophrenic angles most likely representing atelectasis or scarring unchanged from the prior examination. Mild cardiomegaly unchanged. No significant focal consolidations. IMPRESSION: No significant change from the prior examination. FORMERLY [facility], [facility]–1983 Medical History AV fistula (Acute) 4 stages 12/2016 thru 06/16/2017 at [facility] [place] BPH (benign prostatic hyperplasia) CAD (coronary artery disease) Cardiorenal syndrome with renal failure (Acute) CHF (congestive heart failure), NYHA class I Chronic kidney disease, stage IV (severe) Diabetic neuropathy Diabetic retinopathy DNI (do not intubate) (Acute) DNR (do not resuscitate) (Acute) ESRD (end stage renal disease) (Acute) Essential hypertension GERD (gastroesophageal reflux disease) Goals of care, counseling/discussion (Acute) Hyperlipidemia Mild intellectual disability (Acute) KYLE (obstructive sleep apnea) Palliative care patient (Acute) POLST (Physician Orders for Life-Sustaining Treatment) (Acute) Stroke Type II diabetes mellitus Surgical History Colonoscopy - IV Sedation (04/16/15) Dr [place] [place] MAC (07/22/17) Endoscopy (07/17/14) [facility] [place] Luo Extraction of cataract (03/27/15) left eye, Dr. Kang Repair of inguinal hernia bilateral Family History Mother , immediately after his premature No problems noted. 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 [employer] Pets and animals: Yes Pets and animals: cat(s) Sexually active: No Current gender identity: male What is your relationship status?: never How often do you talk on the phone with friends or family?: three or more times per week How often do you get together with friends or relatives?: three or more times per week Panel score (0-1 are the most socially isolated patients): 1 What type of physical activity do you participate in: none Special kilo needs: No Agree to transfusion: No Seatbelt use: always Water heater temp set <120 deg: Yes Working smoke detector in home: Yes Carbon monox detector in home: Yes Do you feel safe at home: Yes Do you feel safe in your relationship?: Yes Additional Social history: Caregivers Lana or Ana with Mati 8 hrs + per day. Lives alone, except for his cats, Emelina and Rene (new since discharge). Loves [place]. Hoping to go again soon. Has no complaints. Likes his home. Tried PT and quit after 1 or 2 sessions. Asking about writing a will.
--- NOTE | 2019-07-08 15:41 | CHAPLAIN ---
Sharad was sitting up in a chair waiting for his medicine to work so he would have a bowel movement, so he can go home. He talked about his cats and his trips to [employer], the two things that seem to bring him great kristen. He seemed relieved to talk for a while and not think about his condition.
--- NOTE | 2019-07-08 15:50 | PDOC.CMDIS ---
- If Service Date Differs Date of service: 07/08/19 Time of Service: 15:50 LACE Index Scoring Tool - Questions: Length of Stay (in days): 4 - 6 Acuity (Admit via E.D.?): Yes Comorbidities: Cerebrovascular Disease, Diabetes w/o Complication, Congestive Heart Failure, Liver or Renal Disease E.D. Visits: 6 - Answers: Total Score: 16 Risk of Readmission: High Risk Care Management Discharge Reason for Hospitalization: Acute on chronic systolic CHF Discharge Plan: Jewel will be discharged home this afternoon and transition to hospice tomorrow. He will follow up with his PCP, hospice physician and discharge plan. He will transport via private vehicle with caregivers. Patient/Family Education Needs: Discharge plan, hospice and end of life care and Ask Me Three.
== END 2019-07-08 15:53 | disposition home or self-care (01) | DRG 291 ==
LOC: ER 16:07 → MS 16:14
PROVIDERS: Nurse Practitioner Family; Admitting Provider Internal Medicine; Emergency Provider Physician Assistant; PCP Internal Medicine; Visit Provider Internal Medicine
DX: I50.23 Acute on chronic systolic (congestive) heart failure (principal); N18.6 End stage renal disease; I10 Essential (primary) hypertension; D63.1 Anemia in chronic kidney disease; I25.10 Atherosclerotic heart disease of native coronary artery without angina pectoris; N40.0 Benign prostatic hyperplasia without lower urinary tract symptoms; Z51.5 Encounter for palliative care; R11.2 Nausea with vomiting, unspecified; K59.00 Constipation, unspecified; G20 Parkinson's disease; S90.121A Contusion of right lesser toe(s) without damage to nail, initial encounter; X58.XXXA Exposure to other specified factors, initial encounter; E11.22 Type 2 diabetes mellitus with diabetic chronic kidney disease; E11.42 Type 2 diabetes mellitus with diabetic polyneuropathy; E11.319 Type 2 diabetes mellitus with unspecified diabetic retinopathy without macular edema; G47.33 Obstructive sleep apnea (adult) (pediatric); F79 Unspecified intellectual disabilities; Z95.818 Presence of other cardiac implants and grafts
CPT/HCPCS: 36415; 80048; 80053; 86850; 86900; 86901; 86920; 96360; 96361; 97162; 97165; 97530; 97535; 99223; 99232; 99233; 99239; 99254; 99285; 71046; 73630; 74019; 83735; 83880; 84484; 85025; 94660; 99284; J1644; J1940; J1941; J2405; J3490; P9016

== ENCOUNTER 2019-08-12 12:56 | Inpatient (IN) | payer OTHER, SELFPAY ==
[2019-08-12 13:45] VITALS: BP 208/124; PULSE 121; RESP 18; TEMP 36.7; O2SAT 97
[2019-08-12 13:49] VITALS: BP 208/124; PULSE 121; RESP 18; TEMP 36.7; O2SAT 97
[2019-08-12] MEDS: Normal Saline Flush 10 ML SYR ×2 (14:36)
[2019-08-12] MEDS: LORazepam 2 MG/ML VIAL 1 MG IVP (14:37)
[2019-08-12] MEDS: Pantoprazole 40 MG VIAL IVP (14:37)
--- NOTE | 2019-08-12 17:59 | W.PM.HP.N ---
Date of service: 08/12/19 Assessment and Plan Assessment and plan (1) Hematemesis: Status: Acute Assessment and plan: from recurrent vomiting no evidence of severe [place] tear will start on PPI focus on controlling vomiting (2) Nausea & vomiting: Status: Acute Assessment and plan: will try several medications IV--phenergan, lorazepam, benadryl prn will see what works may have whatever he wishes to eat or drink no evidence of complete SBO no smell of feces in vomitus + BS in all 4 quads, though hypoactive (3) Cardiorenal syndrome with renal failure: Status: Acute Assessment and plan: main reason he is on hospice on last admission, when hospitalist tried to treat his kidneys, heart worsened and vice versa (4) Hospice care patient: Status: Acute Assessment and plan: admitted for symptom management he and his caregiver do not intend to have him stay through the end of his life they are looking for return home once n/v controlled (5) ESRD (end stage renal disease): Status: Acute (6) Acute on chronic systolic congestive heart failure: Status: Acute History of Present Illness History of Present Illness Chief Complaint: nausea, vomiting, hematemesis Narrative: Mati has been on hospice since soon after his last discharge for acute on chronic CHF, ESRD, and cardiorenal syndrome on 07/08/19. He has been failing at home. He had hoped to go to [facility] one last time but it became clear that his CHF has advanced too far to let him be able to travel. His caregiver, Lana, explained that Sharad developed nausea 3 days before admission. Nothing that she gave him at home has worked to stop it: not compazine, or haldol, or lorazapam. He has had very little to eat or drink x 3 days. Today, he began vomiting up blood. She reports that he has vomited more than 10-15 times today, much of it just dry heaves as he has nothing in his stomach. She is quite clear with me that Sharad is planning on returning home once his symptoms are controlled. He wants to at home. He doesn't want to stay as an inpatient any longer than he has to. He doesn't want to be discharged anywhere else but home. Review of Systems Constitutional Constitutional: Reports daytime sleepiness, Reports fatigue, Reports poor appetite, Reports weakness and Reports weight gain Comments: With minor activity, very short of breath. Eyes Eyes: Reports requires corrective lenses ENT Ears, Nose, Mouth, and Throat: Reports disequilibrium Cardiovascular Cardiovascular: Reports rapid heart rate, Reports edema, Reports lightheadedness, Reports dyspnea on exertion and Reports paroxysmal nocturnal dyspnea Respiratory Respiratory: Reports dyspnea on exertion Gastrointestinal Gastrointestinal: Reports bloating, Reports constipation, Reports early satiety, Reports nausea, Reports vomiting and Reports hematemesis Genitourinary Genitourinary: Reports difficulty urinating and Reports urinary incontinence Comments: oliguria Musculoskeletal Musculoskeletal: Reports arthralgias, Reports muscle weakness and Reports stiffness Integumentary/Breasts Skin/Breast: Reports dry skin Neurologic Neurologic: Reports disequilibrium and Reports weakness Comments: Mati is at his baseline. Shows some mild intellectual deficits. Psychiatric Psychiatric: Reports change in appetite and Reports auditory hallucinations (his cats have been talking to him at home) Comments: says that he will go be with his mother soon Endocrine Endocrine: Reports fatigue Hematologic/Lymphatic Hematologic/Lymphatic: Reports easy bruising [facility] Medical History (Updated 08/12/19 @ 18:13 by Soraya Tillman MD) [place]Acute) 4 [place]2016 [place] [facility] [place]PH (benign prostatic hyperplasia) CAD (coronary artery disease) Cardiorenal syndrome with renal failure (Acute) CHF (congestive heart failure), NYHA class I Chronic kidney disease, stage IV (severe) Diabetic neuropathy Diabetic retinopathy DNI (do not intubate) (Acute) DNR (do not resuscitate) (Acute) ESRD (end stage renal disease) (Acute) Essential hypertension GERD (gastroesophageal reflux disease) Goals of care, counseling/discussion (Acute) Hematemesis (Acute) Hospice care patient (Acute) Hyperlipidemia Mild intellectual disability (Acute) KYLE (obstructive sleep apnea) Palliative care patient (Acute) POLST (Physician Orders for Life-Sustaining Treatment) (Acute) Stroke Type II diabetes mellitus Surgical History Colonoscopy - IV Sedation (04/16/15) Dr Anderson-[facility] [place] [place] EGD - MAC (07/22/17) Endoscopy (07/17/14) [facility] [place] [place] Dr. Luo Extraction of cataract (03/27/15) left eye, Dr. 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 [employer] Pets and animals: Yes Pets and animals: cat(s) Sexually active: No Current gender identity: male What is your relationship status?: never How often do you talk on the phone with friends or family?: three or more times per week How often do you get together with friends or relatives?: three or more times per week Panel score (0-1 are the most socially isolated patients): 1 What type of physical activity do you participate in: none Special kilo needs: No Agree to transfusion: No Seatbelt use: always Water heater temp set <120 deg: Yes Working smoke detector in home: Yes Carbon monox detector in home: Yes Do you feel safe at home: Yes Do you feel safe in your relationship?: Yes Additional Social history: Caregivers Lana or Ana with Mati at all times Meds Home Medications and Allergies Home Medications Medication Instructions Recorded Confirmed Type bupropion HCl 200 mg PO DAILY 03/22/15 07/13/19 History diaper,brief,adult,disposable #300 ea 06/08/18 07/13/19 Rx tamsulosin 0.4 mg capsule 0.8 mg PO DAILY #60 tab-cap 12/21/18 07/13/19 Rx docusate sodium 100 mg capsule 100 mg PO DIRECTED tab-cap 02/18/19 07/13/19 History finasteride 5 mg tablet 5 mg PO DAILY #90 tab-cap 03/07/19 07/13/19 Rx dexlansoprazole 60 mg 60 mg PO BID #60 cap 03/12/19 07/13/19 Rx capsule,biphase delayed release carbidopa-levodopa 2 tab TID 04/13/19 07/13/19 History fluticasone propionate 50 1 spray GOPI DAILY PRN gm 06/07/19 07/13/19 History mcg/actuation nasal spray,suspension ipratropium-albuterol 3 ml UPD Q4H PRN PRN #180 ml 06/16/19 07/13/19 Rx lidocaine [Lidoderm] 2 patch TOPICAL HS #60 ea 06/16/19 07/13/19 Rx polyethylene glycol 3350 17 g PO BID #30 each 07/08/19 07/13/19 Rx bumetanide 1 mg tablet 2 mg PO BID DIURETIC #120 tab 07/21/19 Rx clonidine HCl 0.1 mg tablet 0.1 mg PO BID #60 tab 07/21/19 Rx sennosides 8.6 mg tablet 8.6 mg PO BID #60 tab 07/21/19 Rx fentanyl 12 mcg/hr transdermal 1 patch TD Q72H #5 each MDD 24 mcg 08/09/19 Rx patch prochlorperazine [Compazine] 25 mg VT Q12H PRN 08/12/19 08/12/19 History Allergies Allergy/AdvReac Type Severity Reaction Status Date / Time buspirone Allergy Intermediate SKIN RASH, Verified 07/13/19 15:10 DIZZINESS tuberculin, purified protein Allergy Unknown unknown Verified 07/13/19 15:10 deriva mirtazapine AdvReac Severe hypotension Verified 07/13/19 15:10 and falls NO BLOOD PRESSURE (L) ARM AdvReac Severe unknown Uncoded 07/02/19 11:28 Exam Narrative Exam Narrative: General: Pale, not vomiting, reclining, does not appear to be in any acute distress. Tired. Answers questions but not talking much on his own. HEENT: Skin is pale, pupils equal and round, mucous membranes dry but not parched. Neck: no LAD. Cardiovascular: Heart has regular rate and rhythm, no murmur appreciated. Respiratory: Respirations appear even and unlabored, lung sounds with fine crackles to both bases no wheezing. No increased WOB. GI: Hypoactive bowel sounds throughout, abdomen soft, nontender on palpation. No masses. Not distended. No guarding. Extremities: Mild edema to bilateral upper extremities, 1+ pitting edema to bilateral lower extremities. Neuro: he is alert and oriented x person and place. psych doesn't appear anxious skin no tenting, pale, no rashes Results Last Vital Signs Temp 98.1 F 08/12/19 13:49 Pulse 121 H 08/12/19 13:49 Resp 18 08/12/19 13:49 BP 208/124 H 08/12/19 13:49 Pulse Ox 97 08/12/19 13:49
[2019-08-12] MEDS: fentaNYL 12 MCG PATCH TD (20:18)
--- NOTE | 2019-08-12 20:22 | NUR.NOTE ---
Nursing Note: Patient caregiver questioned whether fentanyl patch would be placed, as she was under the impression it was due. Upon review in [facility], with clinical coordinator and previous nurse, determined that patients private nurse had placed the fentanyl patch that morning on his upper back. No patch present on patient at this time, searched the bed, his clothes and blankets that had been in bed, no patch located. Confirmed with caregiver after careful search that no patch on patient at this time. CC notified pharmacy who retimed patch and it was applied at this time, covered with tegaderm for protection.
[2019-08-13] MEDS: LORazepam 2 MG/ML VIAL 1 MG IVP ×2 (00:39→05:28)
[2019-08-13] MEDS: Normal Saline Flush 10 ML SYR IVP ×3 (00:40→11:41)
[2019-08-13] MEDS: Pantoprazole 40 MG VIAL IVP (11:40)
[2019-08-13] MEDS: LORazepam 2 MG/ML VIAL 0.5 MG IVP (11:41)
--- NOTE | 2019-08-13 17:43 | PDOC.CMDIS ---
- If Service Date Differs Date of service: 08/13/19 Time of Service: 17:43 LACE Index Scoring Tool - Questions: Length of Stay (in days): 2 Acuity (Admit via E.D.?): No Comorbidities: Diabetes w/o Complication, Congestive Heart Failure, Liver or Renal Disease E.D. Visits: 5 - Answers: Total Score: 11 Risk of Readmission: High Risk Care Management Discharge Reason for Hospitalization: [place], vomiting, hematemesis, EOL care Discharge Plan: Jewel will return home and will resume Hospice support for end of life care. His caregivers will remain with him at home. Jewel wishes to be at home for EOL care. Patient/Family Education Needs: Support patient and caregivers with end of life care.
== END 2019-08-13 11:50 | disposition home or self-care (01) | DRG 377 ==
PROVIDERS: Admitting Provider Family Medicine; PCP Internal Medicine; Visit Provider Family Medicine
DX: K92.0 Hematemesis (principal); N18.6 End stage renal disease; I50.23 Acute on chronic systolic (congestive) heart failure; I13.2 Hypertensive heart and chronic kidney disease with heart failure and with stage 5 chronic kidney disease, or end stage renal disease; Z51.5 Encounter for palliative care; E11.22 Type 2 diabetes mellitus with diabetic chronic kidney disease
CPT/HCPCS: 99223; J2060